=== PATIENT | male | born 1965 | race Caucasian/White ===

== ENCOUNTER 2016-07-19 22:12 | Inpatient (IN) | payer MEDICARE ==
[2016-07-19 22:30] VITALS: BMI 25.8
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
[2016-07-19] MEDS ORDERED: MAGNESIUM CITRATE 300 ML BOTTLE PO PRN (22:40)
[2016-07-19] MEDS ORDERED: LOPERAMIDE HCL 2 MG CAPSULE PO PRN (22:40)
[2016-07-19] MEDS ORDERED: guaiFENesin/D-METHORPHAN HB 10 ML UNIT-DOSE CUPS PO PRN (22:40)
[2016-07-19] MEDS ORDERED: ACETAMINOPHEN 325 MG TABLET (FP) PO PRN (22:40)
[2016-07-19] MEDS ORDERED: hydrOXYzine PAMOATE 50 MG CAPSULE (FP) PO PRN (22:40)
[2016-07-19] MEDS ORDERED: diphenhydrAMINE HCL 50 MG CAPSULE PO PRN (22:40)
[2016-07-19] MEDS ORDERED: MAG HYDROX/AL HYDROX/SIMETH 30 ML UNIT-DOSE CUP PO PRN (22:40)
[2016-07-19] MEDS ORDERED: chlordiazePOXIDE HCL 25 MG CAPSULE PO PRN (22:40)
[2016-07-19] MEDS ORDERED: MENTHOL/PHENOL 1 EACH UD MM PRN (22:40)
[2016-07-19] MEDS ORDERED: chlordiazePOXIDE HCL 25 MG CAPSULE PO ONE (22:40)
[2016-07-19] MEDS ORDERED: MAGNESIUM HYDROX 2400MG/30ML ORAL SUSPENSION 30 ML CUP PO PRN (22:40)
[2016-07-19] MEDS ORDERED: P-EPHED 60MG/TRIPROLIDI 2.5MG TABLET PO PRN (22:40)
[2016-07-19] MEDS ORDERED: IBUPROFEN 400 MG TABLET (FP) PO PRN (22:40)
[2016-07-19] MEDS ORDERED: ONDANSETRON *ODT* 4 MG TABLET SL PRN (22:42)
[2016-07-19] MEDS: chlordiazePOXIDE HCL 25 MG CAPSULE PO SCH (23:43)
[2016-07-20] MEDS: chlordiazePOXIDE HCL 25 MG CAPSULE PO SCH (05:36)
[2016-07-20 05:59] VITALS: BP 159/99; PULSE 93; TEMP 98
[2016-07-20] MEDS ORDERED: INSULIN SLIDING SCALE (NOVOLOG) 1 VIAL SQ SCH (07:00)
[2016-07-20] MEDS ORDERED: metFORMIN HCL 500 MG TABLET (FP) PO SCH (07:00)
[2016-07-20] MEDS ORDERED: INSULIN (NOVOLOG) ASPART 100 UNITS/ML 10ML VIAL ONE (07:30)
[2016-07-20] MEDS ORDERED: amLODIPine BESYLATE 10 MG TABLET (FP) PO SCH (10:00)
[2016-07-20] MEDS ORDERED: LISINOPRIL 10 MG TABLET (FP) PO SCH (10:00)
[2016-07-20] MEDS ORDERED: PRENATAL VITAMINS W/ FOLIC ACID TABLET (FP) PO SCH (10:00)
[2016-07-20 10:07] LABS: URINE APPEARANCE CLEAR; URINE BILIRUBIN NEGATIVE (NEGATIVE); URINE BLOOD NEGATIVE (NEGATIVE); URINE COLOR YELLOW; URINE GLUCOSE (UA) 1+ (NEGATIVE); URINE KETONE NEGATIVE (NEGATIVE); URINE LEUK ESTERASE NEGATIVE (NEGATIVE); URINE NITRITE NEGATIVE (NEGATIVE); URINE PROTEIN NEGATIVE (NEGATIVE); URINE UROBILINOGEN 2.0 E.U/dl E.U./dl (0.2-1.0)
[2016-07-20 10:08] LABS: MCH 32.7 pg (25.7-33.7); MCHC 34.2 g/dl (32.0-35.9); MEAN CELL VOLUME 95.6 fl (80-96); MEAN PLT VOLUME 7.2 fl (7.5-11.1); PLATELET COUNT 251 K/MM3 (134-434); RDW 14.8 % (11.9-15.9); WHITE BLOOD COUNT 3.6 K/mm3 (4.0-10.0)
[2016-07-20 10:59] LABS: ALBUMIN 3.1 g/dl (3.4-5.0); ALK PHOS 110 U/L (45-117); ANION GAP 13 (8-16); BILIRUBIN,TOTAL 0.9 mg/dL (0.2-1.0); CALCIUM 8.1 mg/dL (8.5-10.1); CO2 25 mmol/L (21-32); CREATININE 0.9 mg/dL (0.7-1.3); GLUCOSE,RANDOM 238 mg/dL (74-106); SGPT/ALT 95 U/L (12-78); TOT PROT 6.5 g/dl (6.4-8.2)
[2016-07-20 11:02] LABS: SGOT/AST 152 U/L (15-37)
--- NOTE | 2016-07-20 13:51 | EKG ---
Test Reason : Blood Pressure : / mmHG Vent. Rate : 090 BPM Atrial Rate : 090 BPM P-R Int : 202 ms QRS Dur : 100 ms QT Int : 414 ms P-R-T Axes : 063 -16 038 degrees QTc Int : 506 ms NORMAL SINUS RHYTHM POSSIBLE LEFT ATRIAL ENLARGEMENT LEFT VENTRICULAR HYPERTROPHY INFERIOR INFARCT (CITED ON OR BEFORE 19-JUL-2016) PROLONGED QT ABNORMAL ECG WHEN COMPARED WITH ECG OF 07-JAN-2016 20:36, NO SIGNIFICANT CHANGE WAS FOUND Confirmed by JAIME TROTTER MD ([id number]) on 07/20/2016 1:51:30 PM Referred By: Confirmed By:JAIME TROTTER MD
--- NOTE | 2016-07-20 18:05 | DS ---
[facility] Detox Discharge Summary Admission Date: 07/19/16 Discharge Date: 07/20/16 - History Present History: Alcohol Dependence Pertinent Past History: Type II DM HTN Hypercholesterolemia - Physical Exam Results Vital Signs: Vital Signs Temperature 98 F 07/20/16 05:58 Pulse Rate 93 H 07/20/16 05:58 Respiratory Rate 18 07/20/16 05:58 Blood Pressure 159/99 07/20/16 05:58 O2 Sat by Pulse Oximetry (%) Pertinent Admission Physical Exam Findings: Withdrawal sx. Laboratory Last Values WBC 3.6 K/mm3 (4.0-10.0) L D 07/20/16 07:00 RBC 4.51 M/mm3 (4.00-5.60) D 07/20/16 07:00 Hgb 14.7 GM/dL (11.7-16.9) D 07/20/16 07:00 Hct 43.1 % (35.4-49) D 07/20/16 07:00 MCV 95.6 fl (80-96) 07/20/16 07:00 MCHC 34.2 g/dl (32.0-35.9) 07/20/16 07:00 RDW 14.8 % (11.9-15.9) 07/20/16 07:00 Plt Count 251 K/MM3 (134-434) D 07/20/16 07:00 MPV 7.2 fl (7.5-11.1) L 07/20/16 07:00 Sodium 140 mmol/L (136-145) 07/20/16 07:00 Potassium 3.4 mmol/L (3.5-5.1) L 07/20/16 07:00 Chloride 102 mmol/L (98-107) 07/20/16 07:00 Carbon Dioxide 25 mmol/L (21-32) 07/20/16 07:00 Anion Gap 13 (8-16) 07/20/16 07:00 BUN 18 mg/dL (7-18) D 07/20/16 07:00 Creatinine 0.9 mg/dL (0.7-1.3) 07/20/16 07:00 Creat Clearance w eGFR > 60 (>60) 07/20/16 07:00 POC Glucometer 267 UNITS (()) 07/20/16 05:35 Random Glucose 238 mg/dL (74-106) H 07/20/16 07:00 Calcium 8.1 mg/dL (8.5-10.1) L 07/20/16 07:00 Total Bilirubin 0.9 mg/dL (0.2-1.0) D 07/20/16 07:00 AST 152 U/L (15-37) H D 07/20/16 07:00 ALT 95 U/L (12-78) H 07/20/16 07:00 Alkaline Phosphatase 110 U/L (45-117) D 07/20/16 07:00 Total Protein 6.5 g/dl (6.4-8.2) 07/20/16 07:00 Albumin 3.1 g/dl (3.4-5.0) L 07/20/16 07:00 Urine Color Yellow 07/20/16 08:00 Urine Appearance Clear 07/20/16 08:00 Urine pH 5.0 (5.0-8.0) 07/20/16 08:00 Ur Specific [place] 1.025 (1.001-1.035) 07/20/16 08:00 Urine Protein Negative (NEGATIVE) 07/20/16 08:00 Urine Glucose (UA) 1+ (NEGATIVE) H 07/20/16 08:00 Urine Ketones Negative (NEGATIVE) 07/20/16 08:00 Urine Blood Negative (NEGATIVE) 07/20/16 08:00 Urine Nitrite Negative (NEGATIVE) 07/20/16 08:00 Urine Bilirubin Negative (NEGATIVE) 07/20/16 08:00 Urine Urobilinogen 2.0 e.u/dl E.U./dl (0.2-1.0) 07/20/16 08:00 Ur Leukocyte Esterase Negative (NEGATIVE) 07/20/16 08:00 RPR Titer Nonreactive (NONREACTIVE) 07/20/16 07:00 labs noted - Medication Discharge Medications: Ambulatory Orders NK [No Known Home Medication] 07/19/16 - Diagnosis (1) Alcohol dependence with uncomplicated withdrawal Status: Acute (2) Hypercholesterolemia Status: Acute (3) Hypertension Status: Acute Qualifiers: Hypertension type: essential hypertension Qualified Code(s): I10 - Essential (primary) hypertension (4) Type II diabetes mellitus Status: Acute Qualifiers: Diabetes mellitus complication status: with hyperglycemia Diabetes mellitus bed bug exterminator insulin use: with mcc use Qualified Code(s): E11.65 - Type 2 diabetes mellitus with hyperglycemia; Z79.4 - bed bug exterminator (current ) use of insulin - AMA Did Patient Leave Against Medical Advice: Yes
[2016-07-20] MEDS ORDERED: THIAMINE HCL 100 MG TABLET (FP) PO SCH (22:00)
[2016-07-20] MEDS ORDERED: INSULIN DETEMIR 100 UNITS/ML MDV SQ SCH (22:00)
[2016-07-20] MEDS ORDERED: chlordiazePOXIDE HCL 25 MG CAPSULE PO SCH (23:00)
[2016-07-21] MEDS ORDERED: chlordiazePOXIDE 5 MG CAPSULE PO SCH (23:00)
[2016-07-22] MEDS ORDERED: chlordiazePOXIDE HCL 10 MG CAPSULE PO SCH (23:00)
== END 2016-07-20 08:51 | disposition left against medical advice (07) | DRG 770 ==
LOC: YASAS 22:12 → Y3N 22:54
PROVIDERS: ADMIT Internal Medicine; ATTEND Internal Medicine
PROC: HZ2ZZZZ Detoxification Services for Substance Abuse Treatment (ICD-10-PCS; principal; 2016-07-20)
DX: F10.230 Alcohol dependence with withdrawal, uncomplicated (principal); F34.1 Dysthymic disorder; I10 Essential (primary) hypertension; E11.9 Type 2 diabetes mellitus without complications; Z79.4 Long term (current) use of insulin; Z79.84 Long term (current) use of oral hypoglycemic drugs; E78.00 Pure hypercholesterolemia, unspecified; Z98.890 Other specified postprocedural states
CPT/HCPCS: 36415; 80053; 81003; 85027; 86593; 93005; 93010

== ENCOUNTER 2016-12-17 17:57 | Inpatient (IN) | payer OTHER ==
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
[2016-12-17 18:37] VITALS: BMI 28.1
[2016-12-17] MEDS ORDERED: FAMOTIDINE 20 MG/50 ML IVPB 50 ML IVPB ONE ×2 (18:43→20:20)
[2016-12-17 19:04] LABS: BASOPHIL 0.7 % (0-2.0); EOSINOPHIL 1.6 % (0-4.5); MCH 31.4 pg (25.7-33.7); MEAN CELL VOLUME 92.3 fl (80-96); MEAN PLT VOLUME 7.4 fl (7.5-11.1); NEUTROPHILS 38.6 % (42.8-82.8); PLATELET COUNT 231 K/MM3 (134-434); RDW 14.2 % (11.9-15.9); WHITE BLOOD COUNT 5.4 K/mm3 (4.0-10.0)
[2016-12-17 19:26] LABS: ALBUMIN 3.4 g/dl (3.4-5.0); ANION GAP 9 (8-16); BILIRUBIN,TOTAL 0.3 mg/dL (0.2-1.0); CALCIUM 8.5 mg/dL (8.5-10.1); CO2 28 mmol/L (21-32); CREATININE 0.7 mg/dL (0.7-1.3); GLUCOSE,RANDOM 120 mg/dL (74-106); SGOT/AST 89 U/L (15-37); SGPT/ALT 47 U/L (12-78); TOT PROT 7.1 g/dl (6.4-8.2)
[2016-12-17 19:38] LABS: ALK PHOS 77 U/L (45-117); TROPONIN I 0.13 ng/ml (0.00-0.05)
[2016-12-17 19:50] LABS: CPK 2013 IU/L (39-308)
[2016-12-17] MEDS ORDERED: ASPIRIN 81 MG CHEWABLE TABLETS PO ONE (20:12)
[2016-12-17] MEDS ORDERED: SODIUM CHLORIDE 1,000 ML IV SCH (20:15)
[2016-12-17] MEDS ORDERED: LORAZEPAM CARPU-JECT 2 MG/ML DISP.SYRIN IVPUSH ONE (20:17)
[2016-12-17] MEDS ORDERED: ASPIRIN 81 MG CHEWABLE TABLETS ONE (20:19)
[2016-12-17] MEDS ORDERED: LORazepam 2 MG/ML SDV VIAL ONE (20:19)
[2016-12-18 00:06] LABS: URINE APPEARANCE CLEAR; URINE BILIRUBIN NEGATIVE (NEGATIVE); URINE BLOOD 1+ (NEGATIVE); URINE COLOR LTYELLOW; URINE GLUCOSE (UA) NEGATIVE (NEGATIVE); URINE KETONE TRACE (NEGATIVE); URINE LEUK ESTERASE NEGATIVE (NEGATIVE); URINE NITRITE NEGATIVE (NEGATIVE); URINE UROBILINOGEN NEGATIVE mg/dL (0.2-1.0)
[2016-12-18 00:12] LABS: URINE PROTEIN 1+ (NEGATIVE)
[2016-12-18 00:13] LABS: URINE MARIJUANA THC NEGATIVE ng/ml (CUTOFF=50)
[2016-12-18 00:14] LABS: URINE BACTERIA RARE /hpf (NONE SEEN); URINE MUCUS RARE; URINE RBC 1 /hpf (0-3); URINE WBC <1 /hpf (3-5)
--- NOTE | 2016-12-18 10:20 | CON.CARD ---
Consult Consult Specialty:: Cardiology Referred by:: Dr. Brambila Reason for Consultation:: Cardiac evaluation - History of Present Illness Chief Complaint: Chest pain History of Present Illness: Patient is a 51 year old male with underlying history of hypertension, hypercholesterolemia and diabetes mellitus, but noncompliant with his medications and also with history of ETOH abuse who presents intoxicated and having mid sternal chest discomfort. He denies shortness of breath or palpitations. He denies paroxysmal nocturnal dyspnea or orhtopnea. He denies fever or chills. He complains of nausea and intermittent vomiting. He denies abdominal pain. He denies headache or lightheadedness. Cardiology consultation was called for further evaluation. - History Source History Provided By: Patient, Medical Record Limitations to Obtaining History: Clinical Condition - Past Medical History Cardio/Vascular: Yes: HTN, Hyperlipdemia Endocrine: Yes: Diabetes Mellitus - Past Surgical History Past Surgical History: Yes: None - Alcohol/Substance Use Hx Alcohol Use: Yes History of Substance Use: reports: None - Smoking History Smoking history: Former smoker Have you smoked in the past 12 months: No Aproximately how many cigarettes per day: 0 Home Medications - Allergies Allergies/Adverse Reactions: Allergies Allergy/AdvReac Type Severity Reaction Status Date / Time No Known Allergies Allergy Verified 07/19/16 22:54 - Home Medications Home Medications: Ambulatory Orders NK [No Known Home Medication] 07/19/16 Family Disease History - Family Disease History Family Disease History: Diabetes: Father (PROSTATE ), Mother, Sister, [place] : Father Review of Systems - Review of Systems Constitutional: denies: Chills, Fever Cardiovascular: reports: Chest Pain. denies: Palpitations, Shortness of Breath Respiratory: denies: Cough, Hemoptysis, Orthopnea, PND, SOB, SOB on Exertion Gastrointestinal: reports: Nausea, Vomiting. denies: Abdominal Pain, Constipation, Diarrhea, Melena, Rectal Bleeding Neurological: denies: Dizziness, Headache, Seizure, Syncope Vital Signs: Vital Signs Temperature 98.2 F 12/18/16 05:53 Pulse Rate 92 H 12/18/16 05:53 Respiratory Rate 16 12/18/16 05:54 Blood Pressure 163/90 12/18/16 05:53 O2 Sat by Pulse Oximetry (%) 100 12/18/16 05:54 Neck: Yes: Supple Respiratory: Yes: CTA Bilaterally Gastrointestinal: Yes: Normal Bowel Sounds, Soft. No: Tenderness Cardiovascular: Yes: Regular Rate and Rhythm JVD: No Carotid Bruit: No PMI: Non-Displaced Heart Sounds: Yes: S1, S2. No: Gallop Murmur: No: Systolic Murmur Edema: No - Other Data Labs, Other Data: Troponin, BNP 12/17/16 12/17/16 20:38 21:35 B-Natriuretic Peptide Cancelled 88.04 Troponin, BNP Laboratory Results - last 24 hr 12/17/16 12/17/16 12/17/16 18:22 18:49 18:49 WBC 5.4 D RBC 4.59 Hgb 14.4 Hct 42.4 MCV 92.3 MCH 31.4 MCHC 34.0 RDW 14.2 Plt Count 231 MPV 7.4 L Neutrophils % 38.6 L D Lymphocytes % 52.8 H D Monocytes % 6.3 Eosinophils % 1.6 Basophils % 0.7 Sodium 141 Potassium 3.8 Chloride 104 Carbon Dioxide 28 Anion Gap 9 BUN 6 L D Creatinine 0.7 D Creat Clearance w eGFR > 60 POC Glucometer 129.02676 Random Glucose 120 H D Calcium 8.5 Total Bilirubin 0.3 D AST 89 H D ALT 47 D Alkaline Phosphatase 77 D Creatine Kinase 2013 H Creatine Kinase Index 0.5 CK-MB (CK-2) 11.930 H Troponin I 0.13 H D B-Natriuretic Peptide Total Protein 7.1 Albumin 3.4 Lipase Urine Color Urine Appearance Urine pH Urine Protein Urine Glucose (UA) Urine Ketones Urine Blood Urine Nitrite Urine Bilirubin Urine Urobilinogen Ur Leukocyte Esterase Urine RBC Urine WBC Ur Epithelial Cells Urine Bacteria Urine Mucus Opiates Screen Methadone Screen Barbiturate Screen Phencyclidine Screen Ur Amphetamines Screen MDMA (Ecstasy) Screen Benzodiazepines Screen Cocaine Screen U Marijuana (THC) Screen Alcohol, Quantitative 12/17/16 12/17/16 12/17/16 18:49 18:49 20:38 WBC RBC Hgb Hct MCV MCH MCHC RDW Plt Count MPV Neutrophils % Lymphocytes % Monocytes % Eosinophils % Basophils % Sodium Potassium Chloride Carbon Dioxide Anion Gap BUN Creatinine Creat Clearance w eGFR POC Glucometer Random Glucose Calcium Total Bilirubin AST ALT Alkaline Phosphatase Creatine Kinase Creatine Kinase Index CK-MB (CK-2) Troponin I B-Natriuretic Peptide Cancelled Total Protein Albumin Lipase 321 Urine Color Urine Appearance Urine pH Urine Protein Urine Glucose (UA) Urine Ketones Urine Blood Urine Nitrite Urine Bilirubin Urine Urobilinogen Ur Leukocyte Esterase Urine RBC Urine WBC Ur Epithelial Cells Urine Bacteria Urine Mucus Opiates Screen Methadone Screen Barbiturate Screen Phencyclidine Screen Ur Amphetamines Screen MDMA (Ecstasy) Screen Benzodiazepines Screen Cocaine Screen U Marijuana (THC) Screen Alcohol, Quantitative 224.2 H* 12/17/16 12/17/16 12/17/16 21:35 23:45 23:45 WBC RBC Hgb Hct MCV MCH MCHC RDW Plt Count MPV Neutrophils % Lymphocytes % Monocytes % Eosinophils % Basophils % Sodium Potassium Chloride Carbon Dioxide Anion Gap BUN Creatinine Creat Clearance w eGFR POC Glucometer Random Glucose Calcium Total Bilirubin AST ALT Alkaline Phosphatase Creatine Kinase Creatine Kinase Index CK-MB (CK-2) Troponin I B-Natriuretic Peptide 88.04 Total Protein Albumin Lipase Urine Color Ltyellow Urine Appearance Clear Urine pH 6.0 Urine Protein 1+ H Urine Glucose (UA) Negative Urine Ketones Trace H Urine Blood 1+ H Urine Nitrite Negative Urine Bilirubin Negative Urine Urobilinogen Negative Ur Leukocyte Esterase Negative Urine RBC 1 Urine WBC <1 Ur Epithelial Cells Rare Urine Bacteria Rare Urine Mucus Rare Opiates Screen Negative Methadone Screen Negative Barbiturate Screen Negative Phencyclidine Screen Negative Ur Amphetamines Screen Negative MDMA (Ecstasy) Screen Negative Benzodiazepines Screen Negative Cocaine Screen Negative U Marijuana (THC) Screen Negative Alcohol, Quantitative Sinus rhythm with 1st degree AV block, ST-T abnormality Echo: Pending Imaging - Results Chest X-ray: Report Reviewed (Unremarkable) EKG: Report Reviewed Assessment/Plan 1. ETOH intoxication and abuse, monitor withdawl 2. Chest pain syndrome 3. Hypertension 4. Hypercholesterolemia 5. Type 2 diabetes mellitus 6. Noncomliance PLAN: 1. Add ASA 81 mg once a day 2. Add beta adelaida +/- ACEI or ARB as tolerated 3. Check lipid panel and add statin as needed, but need to monitor LFT 4. Transthoracic echocardiography to assess LV/RV and valvular function 5. Detoxification - add Librium taper and monitor for withdawl 6. Nuclear myocardial perfusion imaging at some point once ETOH intoxication is resolved Further plans are to follow Bud Olivarez MD
[2016-12-18] MEDS ORDERED: METOPROLOL TARTRATE 25 MG TABLET (FP) PO SCH (10:45)
[2016-12-18] MEDS ORDERED: LISINOPRIL 10 MG TABLET (FP) PO SCH (10:45)
[2016-12-18] MEDS ORDERED: D5-1/2NS+20 MEQ KCL - 1,000 ML IV SCH (11:45)
[2016-12-18] MEDS ORDERED: THIAMINE HCL 100 MG TABLET (FP) PO SCH (11:45)
[2016-12-18 14:35] VITALS: BP 177/112; PULSE 80; TEMP 98.7
[2016-12-18] MEDS ORDERED: LISINOPRIL 20 MG TABLET (FP) PO SCH (14:52)
[2016-12-18] MEDS ORDERED: chlordiazePOXIDE 5 MG CAPSULE PO SCH (17:00)
--- NOTE | 2016-12-18 17:42 | EKG ---
Test Reason : Blood Pressure : / mmHG Vent. Rate : 078 BPM Atrial Rate : 078 BPM P-R Int : 220 ms QRS Dur : 106 ms QT Int : 428 ms P-R-T Axes : 067 -16 039 degrees QTc Int : 487 ms SINUS RHYTHM WITH 1ST DEGREE A-V BLOCK POSSIBLE LEFT ATRIAL ENLARGEMENT POSSIBLE INFERIOR INFARCT (CITED ON OR BEFORE 19-JUL-2016) CANNOT RULE OUT ANTERIOR INFARCT , AGE UNDETERMINED ABNORMAL ECG WHEN COMPARED WITH ECG OF 19-JUL-2016 23:48, NO SIGNIFICANT CHANGE WAS FOUND Confirmed by PORTILLO ROBERT MD ([id number]) on 12/18/2016 5:42:00 PM Referred By: Confirmed By:PORTILLO ROBERT MD
[2016-12-19] MEDS ORDERED: ASPIRIN COATED 81 MG TABLET.EC PO SCH (10:00)
[2016-12-19] MEDS ORDERED: chlordiazePOXIDE 5 MG CAPSULE PO SCH (17:00)
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
== END 2016-12-18 16:15 | disposition left against medical advice (07) | DRG 351 ==
LOC: JER 17:57 → JERBED 20:14 → J4W 12-18 00:32
PROVIDERS: ADMIT Internal Medicine; ATTEND Internal Medicine
PROC: HZ2ZZZZ Detoxification Services for Substance Abuse Treatment (ICD-10-PCS; principal; 2016-12-17)
DX: M62.82 Rhabdomyolysis (principal); I44.0 Atrioventricular block, first degree; F10.120 Alcohol abuse with intoxication, uncomplicated; I11.0 Hypertensive heart disease with heart failure; I50.9 Heart failure, unspecified; R07.9 Chest pain, unspecified; E78.5 Hyperlipidemia, unspecified; E11.9 Type 2 diabetes mellitus without complications; F10.10 Alcohol abuse, uncomplicated; Z91.14 Patient's other noncompliance with medication regimen; Y90.7 Blood alcohol level of 200-239 mg/100 ml; Z87.891 Personal history of nicotine dependence
CPT/HCPCS: 36415; 71010-TC; 80053; 80307; 81003; 81015; 83690; 83880; 84484; 85025; 93005; 93010; 99284-25

== ENCOUNTER 2017-01-19 18:02 | Emergency (ER) | payer OTHER ==
[2017-01-19 18:11] VITALS: BP 136/84; PULSE 115; TEMP 98.1; BMI 31.3
== END 2017-01-19 18:40 | disposition left against medical advice (07) ==
LOC: JER 18:02
DX: Z53.21 Procedure and treatment not carried out due to patient leaving prior to being seen by health care provider (principal)
CPT/HCPCS: 99281-25

== ENCOUNTER 2017-01-25 15:12 | Inpatient (IN) | payer OTHER ==
[2017-01-25] MEDS ORDERED: SODIUM CHLORIDE 1,000 ML IV STA (15:36)
[2017-01-25] MEDS ORDERED: KETOROLAC TROMETHAMINE 30 MG/1 ML VIAL IVPUSH ONE (15:37)
[2017-01-25] MEDS ORDERED: diazePAM CARPU-JECT 10 MG/2 ML DISP.SYRIN IVPUSH ONE ×2 (15:37→17:51)
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
[2017-01-25] MEDS ORDERED: diazePAM CARPU-JECT 10 MG/2 ML DISP.SYRIN ONE (15:52)
[2017-01-25] MEDS ORDERED: KETOROLAC TROMETHAMINE 30 MG/1 ML VIAL ONE (15:52)
[2017-01-25 16:22] LABS: BASOPHIL 0.5 % (0-2.0); EOSINOPHIL 0.2 % (0-4.5); MCH 32.1 pg (25.7-33.7); MCHC 35.1 g/dl (32.0-35.9); MEAN CELL VOLUME 91.3 fl (80-96); MEAN PLT VOLUME 7.6 fl (7.5-11.1); NEUTROPHILS 61.9 % (42.8-82.8); PLATELET COUNT 238 K/MM3 (134-434); RDW 14.2 % (11.9-15.9); WHITE BLOOD COUNT 8.1 K/mm3 (4.0-10.0)
[2017-01-25 16:36] LABS: INR 1.1 (0.82-1.09); PROTHROMBIN TIME (PATIENT) 12.1 SEC (9.98-11.88)
[2017-01-25 16:51] LABS: ALBUMIN 3.5 g/dl (3.4-5.0); ANION GAP 16 (8-16); BILIRUBIN,TOTAL 0.8 mg/dL (0.2-1.0); CALCIUM 8.4 mg/dL (8.5-10.1); CO2 20 mmol/L (21-32); CREATININE 0.8 mg/dL (0.7-1.3); GLUCOSE,RANDOM 216 mg/dL (74-106); SGPT/ALT 37 U/L (12-78); TOT PROT 7.3 g/dl (6.4-8.2)
[2017-01-25 16:53] LABS: ALK PHOS 91 U/L (45-117); CPK 319 IU/L (39-308); TROPONIN I 0.27 ng/ml (0.00-0.05)
[2017-01-25 16:55] LABS: URINE APPEARANCE CLEAR; URINE BILIRUBIN NEGATIVE (NEGATIVE); URINE BLOOD 1+ (NEGATIVE); URINE COLOR LTYELLOW; URINE GLUCOSE (UA) NEGATIVE (NEGATIVE); URINE KETONE NEGATIVE (NEGATIVE); URINE LEUK ESTERASE NEGATIVE (NEGATIVE); URINE NITRITE NEGATIVE (NEGATIVE); URINE PROTEIN NEGATIVE (NEGATIVE); URINE UROBILINOGEN NEGATIVE mg/dL (0.2-1.0)
[2017-01-25 17:04] LABS: SGOT/AST 56 U/L (15-37)
[2017-01-25] MEDS ORDERED: ASPIRIN 325 MG ENTERIC COATED TABLET (FP) PO ONE (17:20)
[2017-01-25 17:25] LABS: URINE MUCUS RARE; URINE RBC <1 /hpf (0-3); URINE WBC <1 /hpf (3-5)
[2017-01-25 17:28] LABS: URINE MARIJUANA THC NEGATIVE ng/ml (CUTOFF=50)
[2017-01-25] MEDS ORDERED: ATORVASTATIN CA 80 MG TABLET (FP) PO ONE (17:33)
--- NOTE | 2017-01-25 17:36 | PDOC ---
*Physical Exam - Vital Signs Last Vital Signs Temp Pulse Resp BP Pulse Ox 97.7 F 82 18 132/90 100 01/25/17 15:26 01/25/17 16:50 01/25/17 16:50 01/25/17 16:50 01/25/17 16:50 ED Treatment Course - LABORATORY CBC & Chemistry Diagram: 01/25/17 15:30 01/25/17 15:30 - ADDITIONAL ORDERS Additional order review: Laboratory Results 01/25/17 01/25/17 01/25/17 16:40 16:40 15:30 INR Sodium Potassium Chloride Carbon Dioxide Anion Gap BUN Creatinine Creat Clearance w eGFR Random Glucose Calcium Total Bilirubin AST ALT Alkaline Phosphatase Creatine Kinase Troponin I Total Protein Albumin Urine Color Ltyellow Urine Appearance Clear Urine pH 5.0 Urine Protein Negative Urine Glucose (UA) Negative Urine Ketones Negative Urine Blood 1+ H Urine Nitrite Negative Urine Bilirubin Negative Urine Urobilinogen Negative Ur Leukocyte Esterase Negative Urine RBC <1 Urine WBC <1 Urine Mucus Rare Opiates Screen Negative Methadone Screen Negative Barbiturate Screen Negative Phencyclidine Screen Negative Ur Amphetamines Screen Negative MDMA (Ecstasy) Screen Negative Benzodiazepines Screen Positive Cocaine Screen Negative U Marijuana (THC) Screen Negative Alcohol, Quantitative 353.6 H* 01/25/17 01/25/17 15:30 15:30 INR 1.10 Sodium 135 L Potassium 3.8 Chloride 99 Carbon Dioxide 20 L D Anion Gap 16 BUN 13 D Creatinine 0.8 Creat Clearance w eGFR > 60 Random Glucose 216 H D Calcium 8.4 L Total Bilirubin 0.8 D AST 56 H D ALT 37 D Alkaline Phosphatase 91 Creatine Kinase 319 H Troponin I 0.27 H D Total Protein 7.3 Albumin 3.5 Urine Color Urine Appearance Urine pH Urine Protein Urine Glucose (UA) Urine Ketones Urine Blood Urine Nitrite Urine Bilirubin Urine Urobilinogen Ur Leukocyte Esterase Urine RBC Urine WBC Urine Mucus Opiates Screen Methadone Screen Barbiturate Screen Phencyclidine Screen Ur Amphetamines Screen MDMA (Ecstasy) Screen Benzodiazepines Screen Cocaine Screen U Marijuana (THC) Screen Alcohol, Quantitative 01/25/17 15:30 RBC 4.65 MCV 91.3 MCHC 35.1 RDW 14.2 MPV 7.6 Neutrophils % 61.9 D Lymphocytes % 33.8 D Monocytes % 3.6 L Eosinophils % 0.2 D Basophils % 0.5 - RADIOLOGY Radiology Studies Ordered: Category Date Time Status CHEST - PA [RAD] Stat Radiology 01/25/17 15:18 Completed - Medications Given in the ED: ED Medications Discontinued Medications Generic Name Dose Route Start Last Admin Trade Name Jarek PRN Reason Stop Dose Admin Diazepam 10 mg 01/25/17 15:37 01/25/17 16:00 Valium Injection - IVPUSH 01/25/17 15:38 10 mg ONCE ONE Administration Sodium Chloride 1,000 mls @ 1,000 mls/hr 01/25/17 15:36 01/25/17 16:00 Normal Saline - IV 01/25/17 16:35 1,000 mls/hr ASDIR STA Administration Ketorolac Tromethamine 30 mg 01/25/17 15:37 01/25/17 16:00 Toradol Injection - IVPUSH 01/25/17 15:38 30 mg ONCE ONE Administration *DC/Admit/Observation/Transfer Diagnosis at time of Disposition: Alcohol intoxication, Elevated troponin Chest pain Qualifiers: Chest pain type: unspecified Qualified Code(s): R07.9 - Chest pain, unspecified - Discharge Dispostion Condition at time of disposition: Fair Admit: Yes
[2017-01-25] MEDS ORDERED: METOPROLOL TARTRATE 5 MG/5 ML VIAL IVPUSH ONE (17:40)
[2017-01-25] MEDS ORDERED: ASPIRIN 325 MG ENTERIC COATED TABLET (FP) ONE (17:40)
[2017-01-25] MEDS ORDERED: ENOXAPARIN NA (PORCINE) 80 MG/0.8 ML DISP.SYRIN SQ ONE (17:41)
[2017-01-25] MEDS ORDERED: METOPROLOL TARTRATE 5 MG/5 ML VIAL ONE (17:41)
[2017-01-25] MEDS ORDERED: ATORVASTATIN CA 80 MG TABLET (FP) ONE (17:41)
[2017-01-25] MEDS ORDERED: ENOXAPARIN NA (PORCINE) 80 MG/0.8 ML DISP.SYRIN SQ SCH (17:45)
[2017-01-25] MEDS ORDERED: chlordiazePOXIDE HCL 25 MG CAPSULE PO ONE (17:52)
[2017-01-25] MEDS ORDERED: chlordiazePOXIDE HCL 25 MG CAPSULE ONE (17:58)
[2017-01-25] MEDS ORDERED: ONDANSETRON 4 MG/2 ML VIAL IVPB PRN (19:57)
[2017-01-25] MEDS ORDERED: NITROGLYCERIN SUBLINGUAL 1/150 0.4 MG TAB SL PRN (20:02)
[2017-01-25] MEDS: SODIUM CHLORIDE 1,000 ML IV SCH (20:53)
[2017-01-25] MEDS: FAMOTIDINE 20 MG/50 ML IVPB 50 ML IVPB SCH (20:53)
[2017-01-25] MEDS: chlordiazePOXIDE HCL 25 MG CAPSULE PO PRN (20:54)
[2017-01-25] MEDS: THIAMINE HCL 200 MG/2 ML VIAL IVPB SCH (23:00)
[2017-01-25] MEDS: METOPROLOL TARTRATE 25 MG TABLET (FP) PO SCH (23:20)
[2017-01-25 23:57] LABS: MAGNESIUM 1.7 mg/dL (1.8-2.4)
[2017-01-26] MEDS: INSULIN SLIDING SCALE (NOVOLOG) 1 VIAL SQ SCH ×2 (06:24→12:06)
[2017-01-26 06:31] VITALS: BMI 28.5
[2017-01-26 07:35] LABS: PHOSPHOROUS 2.4 mg/dL (2.5-4.9)
[2017-01-26] MEDS: chlordiazePOXIDE HCL 25 MG CAPSULE PO PRN (08:09)
[2017-01-26 08:19] LABS: BASOPHIL 0.7 % (0-2.0); EOSINOPHIL 1.6 % (0-4.5); MCH 31.7 pg (25.7-33.7); MCHC 34.6 g/dl (32.0-35.9); MEAN CELL VOLUME 91.5 fl (80-96); MEAN PLT VOLUME 7.3 fl (7.5-11.1); NEUTROPHILS 52.5 % (42.8-82.8); PLATELET COUNT 205 K/MM3 (134-434); RDW 14.4 % (11.9-15.9)
[2017-01-26 08:56] LABS: ALBUMIN 3.2 g/dl (3.4-5.0); ALK PHOS 81 U/L (45-117); ANION GAP 13 (8-16); BILIRUBIN,TOTAL 1.4 mg/dL (0.2-1.0); CALCIUM 7.8 mg/dL (8.5-10.1); CO2 22 mmol/L (21-32); CREATININE 0.7 mg/dL (0.7-1.3); GLUCOSE,RANDOM 115 mg/dL (74-106); SGOT/AST 63 U/L (15-37); SGPT/ALT 35 U/L (12-78); TOT PROT 6.5 g/dl (6.4-8.2)
[2017-01-26 09:03] LABS: THYROID STIMULATING HORMONE 0.93 uIU/ml (0.358-3.74)
[2017-01-26] MEDS: METOPROLOL TARTRATE 25 MG TABLET (FP) PO SCH (09:17)
[2017-01-26] MEDS: FAMOTIDINE 20 MG/50 ML IVPB 50 ML IVPB SCH (09:17)
[2017-01-26] MEDS: SODIUM CHLORIDE 1,000 ML IV SCH (09:20)
[2017-01-26] MEDS: THIAMINE HCL 200 MG/2 ML VIAL IVPB SCH (09:51)
--- NOTE | 2017-01-26 09:56 | HP ---
Admitting History and Physical - Primary Care Physician PCP: Rodrigo Culver - Admission Chief Complaint: Chest Discomfort History of Present Illness: 51 yrs old man h/O HTN, T2DM< Dyslipedemia, non compliant with meds and F/U also H/O ETOH abuse, recently discharged from [facility] in November 2016 after treated for NSTEMI in setting of ETOH abuse, never evaluated for CAD as patient didn't F/U with Cardiology , yesterday BIB family to Ed with c/o diffuse chest pain with nausea, vomiting and tremulousness in the setting of ETOH intoxication , on arrival patient was confused and delirious w/u shows elevated Plasma ETOH level, with elevated toponin I no acute ST t changes admitted for further evaluation, , patient denies any hemetmesis, melena, vomiting contains ingested food and bile, chest pain diffuse more burning in characteristic continuos, non radiating aggravates with vomiting, today still c/ o nausea, tremulousness, . in the Ed Cardiology was consulted recommended therapeutic doseof SQ Lovenox and ASA.. History Source: Patient Limitations to Obtaining History: No Limitations - Past Medical History Cardiovascular: Yes: HTN, Hyperlipdemia Hepatobiliary: Yes: Other (ETOH gastritis) Psych: Yes: Anxiety Endocrine: Yes: Diabetes Mellitus - Past Surgical History Past Surgical History: Yes: None - Smoking History Smoking history: Never smoked Have you smoked in the past 12 months: No Aproximately how many cigarettes per day: 0 - Alcohol/Substance Use Hx Alcohol Use: Yes (h/o alcohol abuse) History of Substance Use: reports: None - Social History ADL: Independent Home Medications - Allergies Allergies/Adverse Reactions: Allergies Allergy/AdvReac Type Severity Reaction Status Date / Time No Known Allergies Allergy Verified 01/25/17 15:31 - Home Medications Home Medications: Ambulatory Orders NK [No Known Home Medication] 07/19/16 Family Disease History - Family Disease History Family Disease History: Diabetes: Father (PROSTATE ), Mother, Sister, [place] : Father Review of Systems - Review of Systems Constitutional: reports: Diaphoresis Eyes: reports: No Symptoms HENT: reports: No Symptoms Neck: reports: No Symptoms Cardiovascular: reports: Chest Pain. denies: Palpitations, Shortness of Breath Respiratory: reports: No Symptoms. denies: Cough, SOB Gastrointestinal: reports: Abdominal Pain, Nausea, Vomiting. denies: Melena, Rectal Bleeding, Vomiting Blood Musculoskeletal: reports: No Symptoms Integumentary: reports: No Symptoms Neurological: reports: Tremors, Unsteady Gait Endocrine: reports: Increased Thirst Hematology/Lymphatic: reports: No Symptoms Psychiatric: reports: Anxiety. denies: Suicidal Physical Examination Vital Signs: Vital Signs Temperature 98.1 F 01/26/17 05:40 Pulse Rate 85 01/26/17 05:40 Respiratory Rate 20 01/26/17 05:40 Blood Pressure 149/93 01/26/17 05:40 O2 Sat by Pulse Oximetry (%) 98 01/25/17 20:45 Constitutional: Yes: Well Nourished, Anxious Eyes: Yes: Conjunctiva Clear, EOM Intact, PERRL. No: Sclera Icterus HENT: Yes: Atraumatic Neck: Yes: Supple, Trachea Midline. No: Lymphadenopathy Cardiovascular: Yes: Regular Rate and Rhythm, S1, S2. No: JVD, Murmur, Rub Respiratory: Yes: WNL, Regular, CTA Bilaterally Gastrointestinal: Yes: Normal Bowel Sounds, Soft, Tenderness, Epigastrium ...Rectal Exam: Yes: Deferred Musculoskeletal: No: Back Pain, Joint Stiffness Extremities: Yes: WNL. No: Calf Tenderness Edema: No Peripheral Pulses: Left Doralis Pedis: 2+, Right Dorsalis Pedis: 2+ Integumentary: Yes: WNL Neurological: Yes: Alert, Oriented, Cran Nerves II-XII Intact, Tremors. No: Seizure, Tingling ...Motor Strength: WNL, LUE, LLE, RUE, RLE Labs: CBC, BMP 01/26/17 07:00 01/26/17 07:00 CBC,CMP WBC 6.0 K/mm3 (4.0-10.0) 01/26/17 07:00 RBC 4.37 M/mm3 (4.00-5.60) 01/26/17 07:00 Hgb 13.8 GM/dL (11.7-16.9) 01/26/17 07:00 Hct 40.0 % (35.4-49) 01/26/17 07:00 MCV 91.5 fl (80-96) 01/26/17 07:00 MCH 31.7 pg (25.7-33.7) 01/26/17 07:00 MCHC 34.6 g/dl (32.0-35.9) 01/26/17 07:00 RDW 14.4 % (11.9-15.9) 01/26/17 07:00 Plt Count 205 K/MM3 (134-434) 01/26/17 07:00 MPV 7.3 fl (7.5-11.1) L 01/26/17 07:00 Neutrophils % 52.5 % (42.8-82.8) 01/26/17 07:00 Lymphocytes % 40.7 % (8-40) H D 01/26/17 07:00 Monocytes % 4.5 % (3.8-10.2) 01/26/17 07:00 Eosinophils % 1.6 % (0-4.5) D 01/26/17 07:00 Basophils % 0.7 % (0-2.0) 01/26/17 07:00 Sodium 139 mmol/L (136-145) 01/26/17 07:00 Potassium 3.4 mmol/L (3.5-5.1) L 01/26/17 07:00 Chloride 104 mmol/L (98-107) 01/26/17 07:00 Carbon Dioxide 22 mmol/L (21-32) 01/26/17 07:00 Anion Gap 13 (8-16) 01/26/17 07:00 BUN 13 mg/dL (7-18) 01/26/17 07:00 Creatinine 0.7 mg/dL (0.7-1.3) 01/26/17 07:00 Creat Clearance w eGFR > 60 (>60) 01/26/17 07:00 POC Glucometer 113 UNITS (()) 01/26/17 05:38 Random Glucose 115 mg/dL (74-106) H D 01/26/17 07:00 Hemoglobin A1c % 7.0 % (4.8-6.0) H 01/26/17 07:00 Calcium 7.8 mg/dL (8.5-10.1) L 01/26/17 07:00 Phosphorus 2.4 mg/dL (2.5-4.9) L D 01/25/17 20:30 Magnesium 1.7 mg/dL (1.8-2.4) L D 01/25/17 20:30 Total Bilirubin 1.4 mg/dL (0.2-1.0) H D 01/26/17 07:00 AST 63 U/L (15-37) H 01/26/17 07:00 ALT 35 U/L (12-78) 01/26/17 07:00 Alkaline Phosphatase 81 U/L (45-117) 01/26/17 07:00 Creatine Kinase 319 IU/L (39-308) H 01/25/17 15:30 Creatine Kinase Index 0.9 % (0.0-5.0) 01/25/17 15:30 CK-MB (CK-2) 3.155 ng/mL (0.5-3.6) 01/25/17 15:30 Troponin I 0.30 ng/ml (0.00-0.05) H 01/25/17 20:30 B-Natriuretic Peptide 52.44 pg/ml (5-125) 01/25/17 15:30 Total Protein 6.5 g/dl (6.4-8.2) 01/26/17 07:00 Albumin 3.2 g/dl (3.4-5.0) L 01/26/17 07:00 Triglycerides 761 mg/dL (35-160) H 01/25/17 20:30 Cholesterol 137 mg/dL (50-200) 01/25/17 20:30 Total LDL Cholesterol 28 mg/dL (5-100) 01/25/17 20:30 HDL Cholesterol 17 mg/dL (40-60) L 01/25/17 20:30 TSH 0.93 uIU/ml (0.358-3.74) 01/26/17 07:00 Imaging - Results X-ray: Report Reviewed (Normal) Cat Scan: Report Reviewed (Head Normal no acute changes) EKG: Report Reviewed ([address] T chnages) Problem List - Problems (1) Alcohol intoxication Assessment/Plan: Observe for DTS, Librium protocol F/U Mag Phosphate, replete electrolytes, Thiamine 100 mg Daily PO, willing for inpatient rehab will F/U with SW Code(s): F10.129 - ALCOHOL ABUSE WITH INTOXICATION, UNSPECIFIED (2) Chest pain Assessment/Plan: Present with atypical chest pain, multiple CAd risk and elevated troponin F/U Cardiology recommendations, Cardiac tele, serial CE and EKG, ECHO, Lipid Panel TSH, ECHO consider NST once not in withdrawal cont ASA add B Blockers. Code(s): R07.9 - CHEST PAIN, UNSPECIFIED Qualifiers: Chest pain type: unspecified Qualified Code(s): R07.9 - Chest pain, unspecified (3) Dyslipidemia Assessment/Plan: Elevated TG F/U Fasting TG once sober add fibrates Code(s): E78.5 - HYPERLIPIDEMIA, UNSPECIFIED (4) Type II diabetes mellitus Assessment/Plan: Uncontrolled non complint F/U HBA!C RPG < 200 accucheck and correction dose insulin. Code(s): E11.9 - TYPE 2 DIABETES MELLITUS WITHOUT COMPLICATIONS Qualifiers: Diabetes mellitus complication status: with hyperglycemia Diabetes mellitus intermodal customer service insulin use: with intermodal customer service use Qualified Code(s): E11.65 - Type 2 diabetes mellitus with hyperglycemia; Z79.4 - intermodal customer service (current ) use of insulin (5) Hypertension Assessment/Plan: Optimize BP control. Code(s): I10 - ESSENTIAL (PRIMARY) HYPERTENSION Qualifiers: Hypertension type: essential hypertension Qualified Code(s): I10 - Essential (primary) hypertension (6) Elevated troponin I level Assessment/Plan: Multiple CAd risk factors , atypical pain but elevated troponin consider high risk R/O CAD F/U Cradiology recommondation, ASA, B Blockers, S/L NTG PRN Code(s): R74.8 - ABNORMAL LEVELS OF OTHER SERUM ENZYMES (7) Alcoholic gastritis without bleeding Assessment/Plan: Diet as tolerates, IV Hydration, Zofran and Pepcid BID Code(s): K29.20 - ALCOHOLIC GASTRITIS WITHOUT BLEEDING (8) Hypomagnesemia Assessment/Plan: Replete F/U Mag Code(s): E83.42 - HYPOMAGNESEMIA (9) Hypokalemia Assessment/Plan: Replete F/U K Code(s): E87.6 - HYPOKALEMIA
[2017-01-26] MEDS ORDERED: ASPIRIN COATED 81 MG TABLET.EC PO SCH (10:00)
[2017-01-26] MEDS ORDERED: chlordiazePOXIDE HCL 25 MG CAPSULE PO PRN (10:13)
[2017-01-26] MEDS ORDERED: MAGNESIUM SULF 50% (8.12 MEQ/2 ML-1 GM VIAL) IVPB ONE (10:13)
[2017-01-26 11:02] LABS: MAGNESIUM 1.5 mg/dL (1.8-2.4)
[2017-01-26] MEDS ORDERED: chlordiazePOXIDE HCL 25 MG CAPSULE PO SCH (12:00)
--- NOTE | 2017-01-26 12:19 | EKG ---
Test Reason : Blood Pressure : / mmHG Vent. Rate : 083 BPM Atrial Rate : 083 BPM P-R Int : 240 ms QRS Dur : 104 ms QT Int : 404 ms P-R-T Axes : 061 -17 022 degrees QTc Int : 474 ms SINUS RHYTHM WITH 1ST DEGREE A-V BLOCK WITH PREMATURE VENTRICULAR COMPLEXES OR FUSION COMPLEXES INFERIOR INFARCT (CITED ON OR BEFORE 19-JUL-2016) ABNORMAL ECG WHEN COMPARED WITH ECG OF 25-JAN-2017 15:24, FUSION COMPLEXES ARE NOW PRESENT PREMATURE VENTRICULAR COMPLEXES ARE NOW PRESENT [place] INTERVAL HAS INCREASED Confirmed by BLESSING ACUÑA MD ([id number]) on 01/26/2017 12:18:40 PM Referred By: Confirmed By:BLESSING ACUÑA MD
--- NOTE | 2017-01-26 12:26 | EKG ---
Test Reason : Blood Pressure : / mmHG Vent. Rate : 100 BPM Atrial Rate : 100 BPM P-R Int : 198 ms QRS Dur : 116 ms QT Int : 372 ms P-R-T Axes : 062 -14 029 degrees QTc Int : 479 ms NORMAL SINUS RHYTHM POSSIBLE INFERIOR INFARCT (CITED ON OR BEFORE 19-JUL-2016) ABNORMAL ECG WHEN COMPARED WITH ECG OF 17-DEC-2016 19:59, NO SIGNIFICANT CHANGE WAS FOUND Confirmed by ARIANNE PUENTE, BLESSING ([id number]) on 01/26/2017 12:25:34 PM Referred By: Confirmed By:BLESSING ACUÑA MD
[2017-01-26 13:24] VITALS: BP 150/72; PULSE 83; TEMP 97.9
--- NOTE | 2017-01-26 13:52 | CON.CARD ---
Consult Consult Specialty:: Cardiology Referred by:: ER Reason for Consultation:: nstemi - History of Present Illness Chief Complaint: chest pain History of Present Illness: He is a 51 yr old man hx HTN, NIDDM, Dyslipedemia, non compliant with meds and F /U, ETOH abuse, recently discharged November 2016 post NSTEMI in setting of ETOH abuse, no ischemic workup due to noncompliance with follow up, admitted 01/25/17 c /o diffuse chest pain with nausea, vomiting and tremulousness in the setting of ETOH intoxication with elevated toponin I no acute ST t changes admitted for further evaluation,started on asa and lovenox. He was also tremulous, and admits to daily drinking, not taking medications. He was given librium today as well. Wishes to sign out AMA. Does not want inpatient david. Echo 01/26/17 low normal ef trace tr - History Source History Provided By: Patient, Medical Record Limitations to Obtaining History: Intoxication - Past Medical History Cardio/Vascular: Yes: HTN, Hyperlipdemia Hepatobiliary: Yes: Other (ETOH gastritis) Psych: Yes: Anxiety Endocrine: Yes: Diabetes Mellitus - Past Surgical History Past Surgical History: Yes: None - Alcohol/Substance Use Hx Alcohol Use: Yes (h/o alcohol abuse) History of Substance Use: reports: None - Smoking History Smoking history: Never smoked Have you smoked in the past 12 months: No Aproximately how many cigarettes per day: 0 - Social History ADL: Independent Home Medications - Allergies Allergies/Adverse Reactions: Allergies Allergy/AdvReac Type Severity Reaction Status Date / Time No Known Allergies Allergy Verified 01/25/17 15:31 - Home Medications Home Medications: Ambulatory Orders Aspirin Coated [Ecotrin -] 81 mg PO DAILY #30 tab 01/26/17 Metoprolol Tartrate [Lopressor -] 25 mg PO BID #60 tablet 01/26/17 Omeprazole 40 mg PO DAILY #30 capsule. 01/26/17 Vitamin B Complex [B Complex] 1 each PO DAILY #30 tablet 01/26/17 Family Disease History - Family Disease History Family Disease History: Diabetes: Father (PROSTATE ), Mother, Sister, [place] : Father Review of Systems - Review of Systems Constitutional: reports: No Symptoms Eyes: reports: No Symptoms HENT: reports: No Symptoms Neck: reports: No Symptoms Cardiovascular: reports: Chest Pain Respiratory: reports: No Symptoms Gastrointestinal: reports: No Symptoms Vital Signs: Vital Signs Temperature 97.9 F 01/26/17 10:00 Pulse Rate 83 01/26/17 10:00 Respiratory Rate 18 01/26/17 10:00 Blood Pressure 150/72 01/26/17 10:00 O2 Sat by Pulse Oximetry (%) 98 01/26/17 09:00 Constitutional: Yes: No Distress, Other (tremulous) Eyes: Yes: WNL HENT: Yes: WNL, Atraumatic, Normocephalic Neck: Yes: Supple, Trachea Midline Respiratory: Yes: CTA Bilaterally Gastrointestinal: Yes: Normal Bowel Sounds, Soft Cardiovascular: Yes: Regular Rate and Rhythm JVD: No Carotid Bruit: No PMI: Non-Displaced Heart Sounds: Yes: S1, S2 Edema: No Peripheral Pulses WNL: Yes - Other Data Labs, Other Data: CBC, BMP 01/26/17 07:00 01/26/17 07:00 INR, PTT INR 1.10 (0.82-1.09) 01/25/17 15:30 Troponin, BNP 01/25/17 20:30 Troponin I 0.30 H Troponin, BNP 01/25/17 20:30 Troponin I 0.30 H nsr first deg av block, old iwmi. Imaging - Results Chest X-ray: Report Reviewed (juliet) Problem List - Problems (1) Elevated troponin I level Assessment/Plan: He is not a candidate for inpatient ischemia work up. He wishes to sign out ama. I have advised against this, including but not limited to risk of , PR, arrhythmia, withdrawl, stroke and diabetic complications. He will follow up with his primary MD as an outpatient for evaluation. Code(s): R74.8 - ABNORMAL LEVELS OF OTHER SERUM ENZYMES
[2017-01-26] MEDS ORDERED: FAMOTIDINE 20 MG/50 ML IVPB 50 ML IVPB SCH ×2 (22:00)
--- NOTE | 2017-01-30 09:28 | DS ---
Physical Examination Vital Signs: Vital Signs Temperature 97.9 F 01/26/17 10:00 Pulse Rate 83 01/26/17 10:00 Respiratory Rate 18 01/26/17 10:00 Blood Pressure 150/72 01/26/17 10:00 O2 Sat by Pulse Oximetry (%) 98 01/26/17 09:00 P Exam: Constitutional: Yes: Well Nourished, Anxious Eyes: Yes: Conjunctiva Clear, EOM Intact, PERRL. No: Sclera Icterus HENT: Yes: Atraumatic Neck: Yes: Supple, Trachea Midline. No: Lymphadenopathy Cardiovascular: Yes: Regular Rate and Rhythm, S1, S2. No: JVD, Murmur, Rub Respiratory: Yes: WNL, Regular, CTA Bilaterally Gastrointestinal: Yes: Normal Bowel Sounds, Soft, Tenderness, Epigastrium Musculoskeletal: No: Back Pain, Joint Stiffness Extremities: Yes: WNL. No: Calf Tenderness Edema: No Peripheral Pulses: Left Doralis Pedis: 2+, Right Dorsalis Pedis: 2+ Integumentary: Yes: WNL Neurological: Yes: Alert, Oriented, Cran Nerves II-XII Intact, Tremors. No: Seizure, Tingling Motor Strength: WNL, LUE, LLE, RUE, RLE Findings/Remarks: 51 yrs old man h/O HTN, T2DM< Dyslipedemia, non compliant with meds and F/U also H/O ETOH abuse, recently discharged from [facility] in November 2016 after treated for NSTEMI in setting of ETOH abuse, never evaluated for CAD as patient didn't F/U with Cardiology , yesterday BIB family to Ed with c/o diffuse chest pain with nausea, vomiting and tremulousness in the setting of ETOH intoxication , on arrival patient was confused and delirious w/u shows elevated Plasma ETOH level, with elevated toponin I no acute ST t changes admitted for further evaluation, , patient denies any hemetmesis, melena, vomiting contains ingested food and bile, chest pain diffuse more burning in characteristic continuos, non radiating aggravates with vomiting, today still c/ o nausea, tremulousness, . in the Ed Cardiology was consulted recommended therapeutic dose of SQ Lovenox and ASA., patient was improving but decided to signed AMA pending w/u for ACS and Alcohal withdrawal treatment Labs: CBC, BMP 01/26/17 07:00 01/26/17 07:00 Discharge Summary Reason For Visit: CHEST PAIN Alcohal Intoxication Elevated Troponin I CHEST Pain R/O ACS HTN T2DM Hypokalemia Hypomagnesemia. Condition: Unchanged/Unknown - Instructions Referrals: Rodrigo Culver MD [Staff Physician] - Disposition: AGAINST MEDICAL ADVICE - Home Medications Comprehensive Discharge Medication List: Ambulatory Orders Aspirin Coated [Ecotrin -] 81 mg PO DAILY #30 tab 01/26/17 Metoprolol Tartrate [Lopressor -] 25 mg PO BID #60 tablet 01/26/17 Omeprazole 40 mg PO DAILY #30 capsule. 01/26/17 Vitamin B Complex [B Complex] 1 each PO DAILY #30 tablet 01/26/17
== END 2017-01-26 14:10 | disposition left against medical advice (07) | DRG 198 ==
LOC: JER 15:12 → JERBED 17:36 → J4W 20:27
PROVIDERS: ADMIT Internal Medicine; ATTEND Internal Medicine
DX: R07.89 Other chest pain (principal); E83.42 Hypomagnesemia; E11.65 Type 2 diabetes mellitus with hyperglycemia; K29.20 Alcoholic gastritis without bleeding; I25.2 Old myocardial infarction; E87.6 Hypokalemia; I10 Essential (primary) hypertension; E78.5 Hyperlipidemia, unspecified; Z91.14 Patient's other noncompliance with medication regimen; F32.9 Major depressive disorder, single episode, unspecified; R25.1 Tremor, unspecified; F10.120 Alcohol abuse with intoxication, uncomplicated; R74.8 Abnormal levels of other serum enzymes; Z79.4 Long term (current) use of insulin
CPT/HCPCS: 36415; 70450-TC; 71010-TC; 80053; 80061; 80307; 81003; 81015; 82553; 83036; 83721; 83735; 83880; 84100; 84443; 84484; 85025; 85610; 93005; 93010; 93306-TC; 99284-25

== ENCOUNTER 2017-02-22 13:37 | Emergency (ER) | payer OTHER ==
[2017-02-22 13:51] VITALS: PULSE 103; BMI 27.3
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
[2017-02-22 14:06] VITALS: BP 150/97; TEMP 98
[2017-02-22 14:17] LABS: BASOPHIL 0.9 % (0-2.0); EOSINOPHIL 0.2 % (0-4.5); MCH 32.8 pg (25.7-33.7); MCHC 34.5 g/dl (32.0-35.9); MEAN CELL VOLUME 95.3 fl (80-96); MEAN PLT VOLUME 6.9 fl (7.5-11.1); NEUTROPHILS 62.5 % (42.8-82.8); PLATELET COUNT 263 K/MM3 (134-434); RDW 15.9 % (11.9-15.9); WHITE BLOOD COUNT 7.3 K/mm3 (4.0-10.0)
--- NOTE | 2017-02-22 14:17 | PDOC ---
Attending Attestation - Resident Resident Name: Gloria Caica - ED Attending Attestation I have performed the following: I have examined & evaluated the patient, The case was reviewed & discussed with the resident, I agree w/resident's findings & plan, Exceptions are as noted - HPI HPI: 02/22/17 15:04 pt eloped prior to my eval. - Physicial Exam PE: 02/22/17 15:04 pt eloped prior to my eval. - Medical Decision Making 02/22/17 14:17 I, Dr. Xi Dela Cruz, DO, attest that this document has been prepared under my direction and personally reviewed by me in its entirety. I further attest, that it accurately reflects all work, treatment, procedures and medical decision -making performed by me. 02/22/17 15:03 pt eloped prior to my evaluation. Pt did have an IV in place, call placed to the patients home.
[2017-02-22 14:40] LABS: ALBUMIN 3.6 g/dl (3.4-5.0); ANION GAP 14 (8-16); BILIRUBIN,TOTAL 0.4 mg/dL (0.2-1.0); CALCIUM 8.4 mg/dL (8.5-10.1); CO2 21 mmol/L (21-32); CREATININE 0.8 mg/dL (0.7-1.3); GLUCOSE,RANDOM 145 mg/dL (74-106); SGOT/AST 138 U/L (15-37); SGPT/ALT 96 U/L (12-78); TOT PROT 7.7 g/dl (6.4-8.2)
[2017-02-22 14:42] LABS: ALK PHOS 93 U/L (45-117); CPK 208 IU/L (39-308); TROPONIN I 0.21 ng/ml (0.00-0.05)
--- NOTE | 2017-02-23 14:18 | EKG ---
Test Reason : Blood Pressure : / mmHG Vent. Rate : 087 BPM Atrial Rate : 087 BPM P-R Int : 206 ms QRS Dur : 110 ms QT Int : 394 ms P-R-T Axes : 053 -25 032 degrees QTc Int : 474 ms NORMAL SINUS RHYTHM MODERATE VOLTAGE CRITERIA FOR LVH, MAY BE NORMAL VARIANT CANNOT RULE OUT INFERIOR INFARCT (CITED ON OR BEFORE 19-JUL-2016) ABNORMAL ECG WHEN COMPARED WITH ECG OF 25-JAN-2017 23:37, FUSION COMPLEXES ARE NO LONGER PRESENT PREMATURE VENTRICULAR COMPLEXES ARE NO LONGER PRESENT MD INTERVAL HAS DECREASED Confirmed by BLESSING ACUÑA MD ([id number]) on 02/23/2017 2:17:40 PM Referred By: Confirmed By:BLESSING ACUÑA MD
== END 2017-02-22 15:07 | disposition left against medical advice (07) ==
LOC: JER 13:37
DX: R07.89 Other chest pain (principal); F10.10 Alcohol abuse, uncomplicated
CPT/HCPCS: 36415; 80053; 82553; 84484; 85025; 93005; 93010; 99285-25

== ENCOUNTER 2017-06-05 18:53 | Observation (INO) | payer OTHER ==
[2017-06-05 19:15] VITALS: BMI 37.5
[2017-06-05] MEDS ORDERED: ASPIRIN 81 MG CHEWABLE TABLETS PO ONE (19:35)
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
[2017-06-05 20:26] LABS: BASO % 0.7 % (0-2.0); EOS % 2.4 % (0-4.5); HEMATOCRIT 41.2 % (35.4-49); HEMOGLOBIN 14.2 GM/dL (11.7-16.9); LYMPH % 34.8 % (8-40); MCH 31.8 pg (25.7-33.7); MCHC 34.5 g/dl (32.0-35.9); MEAN CELL VOLUME 92.1 fl (80-96); MEAN PLT VOLUME 7.3 fl (7.5-11.1); MONO % 5.5 % (3.8-10.2); NEUT % 56.6 % (42.8-82.8); PLATELET COUNT 282 K/MM3 (134-434); RBC 4.47 M/mm3 (4.00-5.60); RDW 12.8 % (11.9-15.9); WHITE BLOOD COUNT 8.1 K/mm3 (4.0-10.0)
[2017-06-05] MEDS ORDERED: ASPIRIN 81 MG CHEWABLE TABLETS ONE (20:39)
[2017-06-05 20:49] LABS: INR 1.07 (0.82-1.09); PROTHROMBIN TIME (PATIENT) 12.1 SEC (9.98-11.88)
[2017-06-05 21:03] LABS: ALBUMIN 3.3 g/dl (3.4-5.0); ANION GAP 12 (8-16); BILIRUBIN,TOTAL 0.3 mg/dL (0.2-1.0); BLOOD UREA NITROGEN 10 mg/dL (7-18); CALCIUM 8.1 mg/dL (8.5-10.1); CHLORIDE 102 mmol/L (98-107); CO2 26 mmol/L (21-32); CREATININE 0.8 mg/dL (0.7-1.3); GLUCOSE,RANDOM 146 mg/dL (74-106); MAGNESIUM 1.7 mg/dL (1.8-2.4); POTASSIUM 3.6 mmol/L (3.5-5.1); SGOT/AST 41 U/L (15-37); SGPT/ALT 37 U/L (12-78); SODIUM 140 mmol/L (136-145); TOT PROT 7.2 g/dl (6.4-8.2)
[2017-06-05 21:06] LABS: ALK PHOS 127 U/L (45-117)
[2017-06-05] MEDS ORDERED: FOLIC ACID INJECTION - 1 MG, THIAMINE HCL 100 MG, MULTIVIT INJECTION ADULT 10 ML in SOD... IVPB ONE (21:20)
[2017-06-05] MEDS ORDERED: FAMOTIDINE IV 20 MG/12 ML VIAL IVPUSH SCH (22:00)
[2017-06-06] MEDS ORDERED: FAMOTIDINE 20 MG/50 ML IVPB 20 MG/50 ML MG IVPB ONE (01:41)
--- NOTE | 2017-06-06 07:29 | PDOC ---
*Physical Exam - Vital Signs Last Vital Signs Temp Pulse Resp BP Pulse Ox 99.3 F 89 18 145/89 96 06/05/17 21:32 06/06/17 06:50 06/06/17 06:50 06/06/17 06:50 06/06/17 06:50 ED Treatment Course - LABORATORY CBC & Chemistry Diagram: 06/06/17 11:00 06/05/17 20:15 - ADDITIONAL ORDERS Additional order review: Laboratory Results 06/06/17 06/05/17 06/05/17 00:51 20:16 20:15 PT with INR INR Sodium Potassium Chloride Carbon Dioxide Anion Gap BUN Creatinine Creat Clearance w eGFR Random Glucose Calcium Magnesium Total Bilirubin AST ALT Alkaline Phosphatase Creatine Kinase 432 H Creatine Kinase Index 0.6 CK-MB (CK-2) 2.748 Troponin I 0.08 H B-Natriuretic Peptide 150.37 H Total Protein Albumin Alcohol, Quantitative 290.6 H* 06/05/17 06/05/17 20:15 20:15 PT with INR 12.10 H INR 1.07 Sodium 140 Potassium 3.6 Chloride 102 Carbon Dioxide 26 D Anion Gap 12 BUN 10 D Creatinine 0.8 Creat Clearance w eGFR > 60 Random Glucose 146 H Calcium 8.1 L Magnesium 1.7 L Total Bilirubin 0.3 D AST 41 H D ALT 37 D Alkaline Phosphatase 127 H D Creatine Kinase 567 H Creatine Kinase Index 0.6 CK-MB (CK-2) 3.600 Troponin I 0.08 H D B-Natriuretic Peptide Total Protein 7.2 Albumin 3.3 L Alcohol, Quantitative 06/05/17 20:15 RBC 4.47 MCV 92.1 MCHC 34.5 RDW 12.8 D MPV 7.3 L Neutrophils % 56.6 Lymphocytes % 34.8 Monocytes % 5.5 Eosinophils % 2.4 D Basophils % 0.7 - Medications Given in the ED: ED Medications Discontinued Medications Generic Name Dose Route Start Last Admin Trade Name Freq PRN Reason Stop Dose Admin Aspirin 162 mg 06/05/17 19:35 06/05/17 20:40 Asa - PO 06/05/17 19:36 162 mg ONCE ONE Administration Folic Acid 1 mg/ Thiamine HCl 1,000 mls @ 125 mls/hr 06/05/17 21:20 06/05/17 23:09 100 mg/ Multivitamins/Minerals IVPB 06/06/17 05:19 125 mls/hr 10 ml/ Sodium Chloride ONCE ONE Administration Progress Note - Progress Note Progress Note: Spoke with Dr. Pulido who accepts patient for admission to telemetry observation. *DC/Admit/Observation/Transfer Diagnosis at time of Disposition: Elevated troponin I level, Ruled out for myocardial infarction EtOH dependence Qualifiers: Substance use status: with intoxication Complication of substance-induced condition: uncomplicated Qualified Code(s): F10.220 - Alcohol dependence with intoxication, uncomplicated Chest pain Qualifiers: Chest pain type: unspecified Qualified Code(s): R07.9 - Chest pain, unspecified - Discharge Dispostion Condition at time of disposition: Guarded Admit: Yes - Referrals - Patient Instructions - Post Discharge Activity
[2017-06-06] MEDS ORDERED: chlordiazePOXIDE HCL 25 MG CAPSULE PO PRN (08:10)
[2017-06-06] MEDS ORDERED: MAGNESIUM SULF 50% (8.12 MEQ/2 ML-1 GM VIAL) IVPB ONE ×2 (08:13→10:11)
[2017-06-06] MEDS ORDERED: NITROGLYCERIN SUBLINGUAL 1/150 0.4 MG TAB SL PRN (08:14)
--- NOTE | 2017-06-06 08:18 | HP ---
Admitting History and Physical - Primary Care Physician PCP: Rodrigo Culver - Admission Chief Complaint: Chest pain History of Present Illness: 51 yrs old man h/O HTN, T2DM Dyslipedemia, non compliant with meds and F/U also H/O binge ETOH abuse on rehab program, , recently discharged AMA from [facility] in Jan 2017 admitted for NSTEMI in setting of ETOH abuse, never evaluated for CAD as patient didn't F/U with Cardiology , yesterday BIB family to Ed with c/o diffuse chest pain with nausea, vomiting and tremulousness in the setting of binge drinking ETOH intoxication , on arrival patient was confused and delirious w/u shows elevated Plasma ETOH level, with elevated troponin I no acute ST t changes admitted for further evaluation, , patient denies any hemetmesis, melena, c/o nausea no vomiting , chest pain diffuse more burning in characteristic continuos, non radiating aggravates with retching today still c/o nausea, tremulousness, chest pain improved evaluated by Cardiology consult. - Past Medical History Cardiovascular: Yes: HTN, Hyperlipdemia Hepatobiliary: Yes: Other (ETOH gastritis) Psych: Yes: Anxiety Endocrine: Yes: Diabetes Mellitus - Past Surgical History Past Surgical History: Yes: None - Smoking History Smoking history: Never smoked Have you smoked in the past 12 months: No Aproximately how many cigarettes per day: 0 - Alcohol/Substance Use Hx Alcohol Use: No History of Substance Use: reports: None - Social History ADL: Independent Home Medications - Allergies Allergies/Adverse Reactions: Allergies Allergy/AdvReac Type Severity Reaction Status Date / Time No Known Allergies Allergy Verified 06/05/17 19:13 - Home Medications Home Medications: Ambulatory Orders Amlodipine Besylate [Norvasc -] 10 mg PO DAILY 02/22/17 Carvedilol [Coreg] 25 mg PO DAILY 02/22/17 Lisinopril [Prinivil] 20 mg PO BID 02/22/17 Naltrexone HCl 50 mg PO HS 02/22/17 Aspirin [ASA -] 81 mg PO DAILY tab.chew 06/06/17 Carvedilol [Coreg -] 25 mg PO DAILY tablet 06/06/17 Metformin HCl [Metformin HCl ER] 1,000 mg PO BID 06/06/17 Family Disease History - Family Disease History Family Disease History: Diabetes: Father (PROSTATE ), Mother, Sister, CA : Father Review of Systems - Review of Systems Constitutional: denies: Chills, Diaphoresis, Night Sweats HENT: denies: Difficult Swallowing, Ear Discharge Neck: denies: Decreased ROM, Lumps Cardiovascular: reports: Chest Pain. denies: Edema, Palpitations, Shortness of Breath Respiratory: denies: Cough, Hemoptysis Gastrointestinal: reports: Abdominal Pain, Bloating, Nausea. denies: Rectal Bleeding, Vomiting Neurological: denies: Change in LOC, Change in Speech Endocrine: reports: Excessive Sweating, Flushing Hematology/Lymphatic: denies: Easily Bruised, Excessive Bleeding Psychiatric: reports: Depression. 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 minimal tremors, non focal exam Labs: CBC, BMP 06/05/17 20:15 06/05/17 20:15 Laboratory Results - last 24 hr 06/05/17 06/05/17 06/05/17 20:15 20:15 20:15 WBC 8.1 RBC 4.47 Hgb 14.2 Hct 41.2 MCV 92.1 MCH 31.8 MCHC 34.5 RDW 12.8 D Plt Count 282 MPV 7.3 L Neutrophils % 56.6 Lymphocytes % 34.8 Monocytes % 5.5 Eosinophils % 2.4 D Basophils % 0.7 PT with INR 12.10 H INR 1.07 Sodium 140 Potassium 3.6 Chloride 102 Carbon Dioxide 26 D Anion Gap 12 BUN 10 D Creatinine 0.8 Creat Clearance w eGFR > 60 POC Glucometer Random Glucose 146 H Calcium 8.1 L Phosphorus Magnesium 1.7 L Total Bilirubin 0.3 D AST 41 H D ALT 37 D Alkaline Phosphatase 127 H D Creatine Kinase 567 H Creatine Kinase Index 0.6 CK-MB (CK-2) 3.600 Troponin I 0.08 H D B-Natriuretic Peptide Total Protein 7.2 Albumin 3.3 L Triglycerides Cholesterol Total LDL Cholesterol HDL Cholesterol Alcohol, Quantitative 06/05/17 06/05/17 06/06/17 20:15 20:16 00:51 WBC RBC Hgb Hct MCV MCH MCHC RDW Plt Count MPV Neutrophils % Lymphocytes % Monocytes % Eosinophils % Basophils % PT with INR INR Sodium Potassium Chloride Carbon Dioxide Anion Gap BUN Creatinine Creat Clearance w eGFR POC Glucometer Random Glucose Calcium Phosphorus Magnesium Total Bilirubin AST ALT Alkaline Phosphatase Creatine Kinase 432 H Creatine Kinase Index 0.6 CK-MB (CK-2) 2.748 Troponin I 0.08 H B-Natriuretic Peptide 150.37 H Total Protein Albumin Triglycerides Cholesterol Total LDL Cholesterol HDL Cholesterol Alcohol, Quantitative 290.6 H* 06/06/17 06/06/17 06/06/17 11:00 11:00 11:00 WBC 8.9 RBC 4.42 Hgb 13.8 Hct 40.6 MCV 91.9 MCH 31.2 MCHC 33.9 RDW 13.0 Plt Count 283 MPV 7.7 Neutrophils % 67.5 Lymphocytes % 24.6 D Monocytes % 4.9 Eosinophils % 2.4 Basophils % 0.6 PT with INR INR Sodium 140 Potassium 3.4 L Chloride 101 Carbon Dioxide 27 Anion Gap 12 BUN 9 Creatinine 0.7 Creat Clearance w eGFR POC Glucometer Random Glucose 154 H Calcium 8.3 L Phosphorus 3.0 D Magnesium 1.8 Total Bilirubin AST ALT Alkaline Phosphatase Creatine Kinase Creatine Kinase Index CK-MB (CK-2) Troponin I 0.07 H B-Natriuretic Peptide Total Protein Albumin Triglycerides 234 H D Cholesterol 156 Total LDL Cholesterol 86 D HDL Cholesterol 42 D Alcohol, Quantitative 06/06/17 06/06/17 11:00 11:58 WBC RBC Hgb Hct MCV MCH MCHC RDW Plt Count MPV Neutrophils % Lymphocytes % Monocytes % Eosinophils % Basophils % PT with INR INR Sodium Cancelled Potassium Cancelled Chloride Cancelled Carbon Dioxide Cancelled Anion Gap Cancelled BUN Cancelled Creatinine Cancelled Creat Clearance w eGFR POC Glucometer [id number] Random Glucose Cancelled Calcium Cancelled Phosphorus Cancelled Magnesium Total Bilirubin AST ALT Alkaline Phosphatase Creatine Kinase Creatine Kinase Index CK-MB (CK-2) Troponin I B-Natriuretic Peptide Total Protein Albumin Triglycerides Cholesterol Total LDL Cholesterol HDL Cholesterol Alcohol, Quantitative Imaging - Results X-ray: Report Reviewed (No acute chnages) EKG: Report Reviewed ([address] T changes) Problem List - Problems (1) Elevated troponin I level Assessment/Plan: Chronically plateau elevation of trioiin multiple CAd risk factors, previous had a stress test evaluated by cardiolgy consult, recommonded serial CE, and Cont current management admit to tele F/U ECHO, Serial CE, Lipid panel, TSH and HbA1C Code(s): R74.8 - ABNORMAL LEVELS OF OTHER SERUM ENZYMES (2) Chest pain Assessment/Plan: Evaluted by cardiology will F/U serial Ce ECHO,, ASA, B Blockers and PRN NTG Code(s): R07.9 - CHEST PAIN, UNSPECIFIED Qualifiers: Chest pain type: chest pain due to myocardial ischemia (3) Alcohol intoxication Assessment/Plan: H/O Binge drinking , yesterday drinked after many wks, Cont close monitoring observe for DTS, Thiamine,librium and lorazepalm PRN Code(s): F10.129 - ALCOHOL ABUSE WITH INTOXICATION, UNSPECIFIED (4) Depression (emotion) Assessment/Plan: At present denies any suicidal or homicidal ideation F/u with Psych as out patient Code(s): F32.9 - MAJOR DEPRESSIVE DISORDER, SINGLE EPISODE, UNSPECIFIED Qualifiers: (5) HTN (hypertension) Assessment/Plan: Well controlled cont home meds Code(s): I10 - ESSENTIAL (PRIMARY) HYPERTENSION (6) Hypokalemia Assessment/Plan: KCL 20 M Eq PO F/U BMP Code(s): E87.6 - HYPOKALEMIA
[2017-06-06] MEDS ORDERED: MAGNESIUM SULF 50% (8.12 MEQ/2 ML-1 GM VIAL) ONE (08:44)
[2017-06-06] MEDS ORDERED: MAGNESIUM 1GM/D5W - 1 GM/100 ML IVPB IVPB ONE (09:00)
[2017-06-06] MEDS ORDERED: ENOXAPARIN NA (PORCINE) 40 MG/0.4 ML DISP.SYRIN SQ SCH (10:00)
[2017-06-06] MEDS ORDERED: CARVEDILOL 25 MG TABLET (FP) PO SCH (10:00)
[2017-06-06] MEDS ORDERED: THIAMINE HCL 100 MG TABLET (FP) PO SCH (10:00)
[2017-06-06] MEDS ORDERED: LISINOPRIL 20 MG TABLET (FP) PO SCH (10:00)
[2017-06-06] MEDS ORDERED: FAMOTIDINE IV 20 MG/12 ML VIAL IVPUSH SCH ×2 (10:00)
[2017-06-06] MEDS ORDERED: ASPIRIN 81 MG CHEWABLE TABLETS PO SCH (10:00)
[2017-06-06] MEDS ORDERED: amLODIPine BESYLATE 10 MG TABLET (FP) PO SCH (10:00)
--- NOTE | 2017-06-06 10:39 | EKG ---
Test Reason : Blood Pressure : / mmHG Vent. Rate : 092 BPM Atrial Rate : 092 BPM P-R Int : 192 ms QRS Dur : 118 ms QT Int : 420 ms P-R-T Axes : 062 -18 033 degrees QTc Int : 519 ms NORMAL SINUS RHYTHM POSSIBLE LEFT ATRIAL ENLARGEMENT INFERIOR INFARCT (CITED ON OR BEFORE 19-JUL-2016) PROLONGED QT ABNORMAL ECG WHEN COMPARED WITH ECG OF 05-JUN-2017 19:13, NO SIGNIFICANT CHANGE WAS FOUND Confirmed by MD Mark, Sourav ([id number]) on 06/06/2017 10:39:08 AM Referred By: Confirmed By:Sourav Flores MD
--- NOTE | 2017-06-06 10:44 | EKG ---
Test Reason : Blood Pressure : / mmHG Vent. Rate : 086 BPM Atrial Rate : 086 BPM P-R Int : 210 ms QRS Dur : 110 ms QT Int : 424 ms P-R-T Axes : 050 -24 021 degrees QTc Int : 507 ms SINUS RHYTHM WITH 1ST DEGREE A-V BLOCK POSSIBLE LEFT ATRIAL ENLARGEMENT LEFT VENTRICULAR HYPERTROPHY CANNOT RULE OUT INFERIOR INFARCT (CITED ON OR BEFORE 19-JUL-2016) PROLONGED QT ABNORMAL ECG WHEN COMPARED WITH ECG OF 22-FEB-2017 13:53, NO SIGNIFICANT CHANGE WAS FOUND Confirmed by MD Mark, Sourav ([id number]) on 06/06/2017 10:43:33 AM Referred By: Confirmed By:Sourav Flores MD
[2017-06-06] MEDS ORDERED: ONDANSETRON 4 MG/2 ML VIAL IVPUSH PRN (10:46)
--- NOTE | 2017-06-06 10:54 | EKG ---
Test Reason : Blood Pressure : / mmHG Vent. Rate : 086 BPM Atrial Rate : 086 BPM P-R Int : 194 ms QRS Dur : 108 ms QT Int : 422 ms P-R-T Axes : 062 -31 059 degrees QTc Int : 504 ms NORMAL SINUS RHYTHM POSSIBLE LEFT ATRIAL ENLARGEMENT LEFT AXIS DEVIATION LEFT VENTRICULAR HYPERTROPHY PROLONGED QT ABNORMAL ECG WHEN COMPARED WITH ECG OF 05-JUN-2017 21:44, NO SIGNIFICANT CHANGE WAS FOUND Confirmed by MD Mark, Sourav ([id number]) on 06/06/2017 10:54:14 AM Referred By: SONDRA PATEL Confirmed By:Sourav Flores MD
[2017-06-06 11:35] LABS: MAGNESIUM 1.8 mg/dL (1.8-2.4)
[2017-06-06 12:11] LABS: BASO % 0.6 % (0-2.0); EOS % 2.4 % (0-4.5); HEMATOCRIT 40.6 % (35.4-49); HEMOGLOBIN 13.8 GM/dL (11.7-16.9); LYMPH % 24.6 % (8-40); MCH 31.2 pg (25.7-33.7); MCHC 33.9 g/dl (32.0-35.9); MEAN CELL VOLUME 91.9 fl (80-96); MEAN PLT VOLUME 7.7 fl (7.5-11.1); MONO % 4.9 % (3.8-10.2); NEUT % 67.5 % (42.8-82.8); PLATELET COUNT 283 K/MM3 (134-434); RBC 4.42 M/mm3 (4.00-5.60); WHITE BLOOD COUNT 8.9 K/mm3 (4.0-10.0)
[2017-06-06 12:36] LABS: BLOOD UREA NITROGEN 9 mg/dL (7-18); CALCIUM 8.3 mg/dL (8.5-10.1); CHLORIDE 101 mmol/L (98-107); CREATININE 0.7 mg/dL (0.7-1.3); GLUCOSE,RANDOM 154 mg/dL (74-106); POTASSIUM 3.4 mmol/L (3.5-5.1); SODIUM 140 mmol/L (136-145)
[2017-06-06 12:40] LABS: ANION GAP 12 (8-16); CO2 27 mmol/L (21-32)
[2017-06-06] MEDS ORDERED: chlordiazePOXIDE HCL 25 MG CAPSULE ONE (14:24)
--- NOTE | 2017-06-06 14:32 | CON.CARD ---
Consult Consult Specialty:: Cardiology Reason for Consultation:: Chest pain - History of Present Illness Chief Complaint: Chest pain. Left sided numbness History of Present Illness: This is a 51 year old male with a PMH of HTN, DM, HLD, and ETOH abuse, presents to ED intoxicated and complaining of chest pain as well as left sided numbness. The chest pain was at rest and radiated to his left side. He stated to me that he is followed by a Banking Teacher in [place] (he didn't know the name) and had a recent negative stress test. Presently he is asymptomatic. - Past Medical History Cardio/Vascular: Yes: HTN, Hyperlipdemia Hepatobiliary: Yes: Other (ETOH gastritis) Psych: Yes: Anxiety Endocrine: Yes: Diabetes Mellitus - Past Surgical History Past Surgical History: Yes: None - Alcohol/Substance Use Hx Alcohol Use: No History of Substance Use: reports: None - Smoking History Smoking history: Never smoked Have you smoked in the past 12 months: No Aproximately how many cigarettes per day: 0 - Social History ADL: Independent Home Medications - Allergies Allergies/Adverse Reactions: Allergies Allergy/AdvReac Type Severity Reaction Status Date / Time No Known Allergies Allergy Verified 06/05/17 19:13 - Home Medications Home Medications: Ambulatory Orders Amlodipine Besylate [Norvasc -] 10 mg PO DAILY 02/22/17 Carvedilol [Coreg] 25 mg PO DAILY 02/22/17 Lisinopril [Prinivil] 20 mg PO BID 02/22/17 Naltrexone HCl 50 mg PO HS 02/22/17 Family Disease History - Family Disease History Family Disease History: Diabetes: Father (PROSTATE ), Mother, Sister, CA : Father Review of Systems Unable to obtain ROS, reason: As per HPI Vital Signs: Vital Signs Temperature 99.3 F 06/05/17 21:32 Pulse Rate 90 06/06/17 12:20 Respiratory Rate 18 06/06/17 12:20 Blood Pressure 163/101 06/06/17 12:20 O2 Sat by Pulse Oximetry (%) 99 06/06/17 12:20 Constitutional: Yes: No Distress HENT: Yes: WNL Neck: Yes: WNL Respiratory: Yes: CTA Bilaterally Gastrointestinal: Yes: Soft Cardiovascular: Yes: Regular Rate and Rhythm (NL S1S2 no MRHG) JVD: No Extremities: Yes: WNL Neurological: Yes: Alert, Oriented (Grossly non focal) - Other Data Labs, Other Data: CBC, BMP 06/06/17 11:00 06/06/17 11:00 INR, PTT INR 1.07 (0.82-1.09) 06/05/17 20:15 Troponin, BNP 06/05/17 06/05/17 06/06/17 20:15 20:15 00:51 Troponin I 0.08 H D 0.08 H B-Natriuretic Peptide 150.37 H 06/06/17 11:00 Troponin I 0.07 H B-Natriuretic Peptide Troponin, BNP 06/05/17 06/05/17 06/06/17 20:15 20:15 00:51 Troponin I 0.08 H D 0.08 H B-Natriuretic Peptide 150.37 H 06/06/17 11:00 Troponin I 0.07 H B-Natriuretic Peptide Assessment/Plan Chest Pain In the setting of ETOH intoxication Toponin Level is negative No acute EKG changes Would continue medical therapy Consider outpatient stress testing (follows with a [place] [employer]ing Teacher) Continue amlodipine/carvedilol/lisinopril
[2017-06-06 15:47] VITALS: BP 136/79; PULSE 79; TEMP 98.1
[2017-06-06] MEDS ORDERED: POTASSIUM CHLORIDE ORAL LIQUID 20 MEQ/15 ML PO ONE (16:21)
[2017-06-06] MEDS ORDERED: POTASSIUM CHLORIDE ORAL LIQUID 20 MEQ/15 ML ONE (16:30)
[2017-06-06 19:07] LABS: ANION GAP 9 (8-16); BLOOD UREA NITROGEN 13 mg/dL (7-18); CALCIUM 8.6 mg/dL (8.5-10.1); CHLORIDE 99 mmol/L (98-107); CO2 27 mmol/L (21-32); CREATININE 0.9 mg/dL (0.7-1.3); GLUCOSE,RANDOM 251 mg/dL (74-106); POTASSIUM 3.9 mmol/L (3.5-5.1); SODIUM 135 mmol/L (136-145)
[2017-06-06] MEDS ORDERED: NALTREXONE HCL 50 MG TABLET PO SCH (22:00)
== END 2017-06-06 18:25 | disposition left against medical advice (07) ==
LOC: JER 18:53 → JERBED 06-06 06:46
PROVIDERS: ADMIT Internal Medicine; ATTEND Internal Medicine
PROC: 3E033GC Introduction of Other Therapeutic Substance into Peripheral Vein, Percutaneous Approach (ICD-10-PCS; principal; 2017-06-06)
PROC: 3E0337Z Introduction of Electrolytic and Water Balance Substance into Peripheral Vein, Percutaneous Approach (ICD-10-PCS; 2017-06-06)
PROC: 3E013GC Introduction of Other Therapeutic Substance into Subcutaneous Tissue, Percutaneous Approach (ICD-10-PCS; 2017-06-06)
DX: F10.220 Alcohol dependence with intoxication, uncomplicated (principal); R77.8 Other specified abnormalities of plasma proteins; R07.9 Chest pain, unspecified; I10 Essential (primary) hypertension; E11.9 Type 2 diabetes mellitus without complications; F32.9 Major depressive disorder, single episode, unspecified; E87.6 Hypokalemia
CPT/HCPCS: 36415; 71046-TC; 80048; 80053; 80061; 80307; 82550; 82553; 82962; 83721; 83735; 83880; 84100; 84484; 85025; 85610; 93005; 93010; 93306-TC; 96361; 96365; 96372; 99285-25; G0378

== ENCOUNTER 2018-05-05 09:11 | Inpatient (IN) | payer OTHER ==
[2018-05-05 09:28] VITALS: BMI 28.1
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
[2018-05-05] MEDS ORDERED: ACETAMINOPHEN 325 MG TABLET (FP) PO PRN (10:55)
[2018-05-05] MEDS ORDERED: MENTHOL/PHENOL 1 EACH UD MM PRN (10:55)
[2018-05-05] MEDS ORDERED: LOPERAMIDE HCL 2 MG CAPSULE PO PRN (10:55)
[2018-05-05] MEDS ORDERED: MAGNESIUM HYDROX 2400MG/30ML ORAL SUSPENSION 30 ML CUP PO PRN (10:55)
[2018-05-05] MEDS ORDERED: MAGNESIUM CITRATE 300 ML BOTTLE PO PRN (10:55)
[2018-05-05] MEDS ORDERED: IBUPROFEN 400 MG TABLET (FP) PO PRN (10:55)
[2018-05-05] MEDS ORDERED: MAG HYDROX/AL HYDROX/SIMETH 30 ML UNIT-DOSE CUP PO PRN (10:55)
[2018-05-05] MEDS ORDERED: guaiFENesin/D-METHORPHAN HB 10 ML UNIT-DOSE CUPS PO PRN (10:55)
[2018-05-05] MEDS ORDERED: P-EPHED 60MG/TRIPROLIDI 2.5MG TABLET PO PRN (10:55)
[2018-05-05] MEDS ORDERED: chlordiazePOXIDE HCL 25 MG CAPSULE PO PRN (10:55)
[2018-05-05] MEDS: hydrOXYzine PAMOATE 25 MG CAPSULE (FP) PO PRN (12:12)
[2018-05-05] MEDS: chlordiazePOXIDE HCL 25 MG CAPSULE PO SCH ×2 (17:26→22:21)
[2018-05-05 19:00] LABS: URINE APPEARANCE CLEAR; URINE BILIRUBIN NEGATIVE (<2.0 mg/dL); URINE COLOR COLORLESS; URINE GLUCOSE (UA) NEGATIVE (NEGATIVE); URINE KETONE NEGATIVE (NEGATIVE); URINE LEUK ESTERASE NEGATIVE (NEGATIVE); URINE NITRITE NEGATIVE (NEGATIVE); URINE PROTEIN NEGATIVE (NEGATIVE); URINE UROBILINOGEN NEGATIVE mg/dL (0.2-1.0)
[2018-05-05] MEDS: THIAMINE HCL 100 MG TABLET (FP) PO SCH (22:21)
[2018-05-06] MEDS: HYDROCHLOROTHIAZIDE 25 MG TABLET (FP) PO SCH ×2 (00:01→10:54)
[2018-05-06] MEDS: MELATONIN 5 MG TABLETS PO PRN ×2 (02:52→22:05)
[2018-05-06] MEDS: chlordiazePOXIDE HCL 25 MG CAPSULE PO SCH ×4 (05:51→22:05)
[2018-05-06] MEDS: hydrOXYzine PAMOATE 25 MG CAPSULE (FP) PO PRN (07:47)
[2018-05-06 10:45] LABS: HEMATOCRIT 41.6 % (35.4-49); HEMOGLOBIN 13.7 GM/dL (11.7-16.9); MCH 30.1 pg (25.7-33.7); MCHC 33.1 g/dl (32.0-35.9); MEAN PLT VOLUME 7.7 fl (7.5-11.1); PLATELET COUNT 296 K/MM3 (134-434); RBC 4.57 M/mm3 (4.00-5.60); RDW 15.9 % (11.9-15.9); WHITE BLOOD COUNT 5.5 K/mm3 (4.0-10.0)
[2018-05-06] MEDS: PRENATAL VITAMINS W/ FOLIC ACID TABLET (FP) PO SCH (10:54)
[2018-05-06 10:58] LABS: ALBUMIN 3.8 g/dl (3.4-5.0); ALK PHOS 81 U/L (45-117); ANION GAP 11 MMOL/L (8-16); BILIRUBIN,TOTAL 1.5 mg/dL (0.2-1); BLOOD UREA NITROGEN 4 mg/dL (7-18); CALCIUM 9.1 mg/dL (8.5-10.1); CHLORIDE 97 mmol/L (98-107); CO2 28 mmol/L (21-32); CREATININE 0.6 mg/dL (0.55-1.3); GLUCOSE,RANDOM 141 mg/dL (74-106); POTASSIUM 3.3 mmol/L (3.5-5.1); SGOT/AST 35 U/L (15-37); SGPT/ALT 40 U/L (13-61); SODIUM 135 mmol/L (136-145); TOT PROT 7.5 g/dl (6.4-8.2)
--- NOTE | 2018-05-06 15:13 | PN ---
S CIWA - CIWA Score Nausea/Vomitin-Mild Nausea/No Vomiting Muscle Tremors: 4-Moderate,w/Arms Extend Anxiety: 2 Agitation: 3 Paroxysmal Sweats: 1-Minimal Palms Moist Orientation: 0-Oriented Tacttile Disturbances: 0-None Auditory Disturbances: 0-None Visual Disturbances: 0-None Headache: 1-Very Mild CIWA-Ar Total Score: 12 [facility] Progress Note (SOAP) Subjective: tremor sweat restlessness trouble sleep throughout the night Objective: 05/06/18 15:09 Vital Signs Temperature 97.9 F 05/06/18 11:09 Pulse Rate 104 H 05/06/18 11:09 Respiratory Rate 18 05/06/18 11:09 Blood Pressure 141/103 H 05/06/18 11:09 O2 Sat by Pulse Oximetry (%) Laboratory Last Values WBC 5.5 K/mm3 (4.0-10.0) 05/06/18 07:30 RBC 4.57 M/mm3 (4.00-5.60) 05/06/18 07:30 Hgb 13.7 GM/dL (11.7-16.9) 05/06/18 07:30 Hct 41.6 % (35.4-49) 05/06/18 07:30 MCV 91.0 fl (80-96) 05/06/18 07:30 MCH 30.1 pg (25.7-33.7) 05/06/18 07:30 MCHC 33.1 g/dl (32.0-35.9) 05/06/18 07:30 RDW 15.9 % (11.9-15.9) 05/06/18 07:30 Plt Count 296 K/MM3 (134-434) 05/06/18 07:30 MPV 7.7 fl (7.5-11.1) 05/06/18 07:30 Sodium 135 mmol/L (136-145) L 05/06/18 07:30 Potassium 3.3 mmol/L (3.5-5.1) L 05/06/18 07:30 Chloride 97 mmol/L (98-107) L 05/06/18 07:30 Carbon Dioxide 28 mmol/L (21-32) 05/06/18 07:30 Anion Gap 11 MMOL/L (8-16) 05/06/18 07:30 BUN 4 mg/dL (7-18) L 05/06/18 07:30 Creatinine 0.6 mg/dL (0.55-1.3) 05/06/18 07:30 Creat Clearance w eGFR > 60 (>60) 05/06/18 07:30 POC Glucometer 138 UNITS (80-120) 05/06/18 06:08 Random Glucose 141 mg/dL (74-106) H 05/06/18 07:30 Calcium 9.1 mg/dL (8.5-10.1) 05/06/18 07:30 Total Bilirubin 1.5 mg/dL (0.2-1) H 05/06/18 07:30 AST 35 U/L (15-37) 05/06/18 07:30 ALT 40 U/L (13-61) 05/06/18 07:30 Alkaline Phosphatase 81 U/L (45-117) 05/06/18 07:30 Total Protein 7.5 g/dl (6.4-8.2) 05/06/18 07:30 Albumin 3.8 g/dl (3.4-5.0) 05/06/18 07:30 Urine Color Colorless 05/05/18 16:12 Urine Appearance Clear 05/05/18 16:12 Urine pH 7.0 (5.0-8.0) 05/05/18 16:12 Ur Specific [place] 1.004 (1.010-1.035) L 05/05/18 16:12 Urine Protein Negative (NEGATIVE) 05/05/18 16:12 Urine Glucose (UA) Negative (NEGATIVE) 05/05/18 16:12 Urine Ketones Negative (NEGATIVE) 05/05/18 16:12 Urine Blood Negative (NEGATIVE) 05/05/18 16:12 Urine Nitrite Negative (NEGATIVE) 05/05/18 16:12 Urine Bilirubin Negative (<2.0 mg/dL) 05/05/18 16:12 Urine Urobilinogen Negative mg/dL (0.2-1.0) 05/05/18 16:12 Ur Leukocyte Esterase Negative (NEGATIVE) 05/05/18 16:12 RPR Titer Nonreactive (NONREACTIVE) 05/06/18 07:30 lab noted low K+ Assessment: 05/06/18 15:13 withdrawal sx low K+ Plan: continue detox K+ supplement
[2018-05-06] MEDS: POTASSIUM CHLORIDE TABS 20 MEQ TABLET.ER (FP) PO SCH ×2 (16:02→22:05)
[2018-05-06] MEDS: THIAMINE HCL 100 MG TABLET (FP) PO SCH (22:05)
[2018-05-07] MEDS: chlordiazePOXIDE HCL 25 MG CAPSULE PO SCH ×2 (05:39→10:12)
--- NOTE | 2018-05-07 09:59 | EKG ---
Test Reason : Blood Pressure : / mmHG Vent. Rate : 100 BPM Atrial Rate : 100 BPM P-R Int : 190 ms QRS Dur : 116 ms QT Int : 392 ms P-R-T Axes : 068 -17 038 degrees QTc Int : 505 ms NORMAL SINUS RHYTHM POSSIBLE LEFT ATRIAL ENLARGEMENT INFERIOR INFARCT , AGE UNDETERMINED CANNOT RULE OUT ANTERIOR INFARCT , AGE UNDETERMINED PROLONGED QT ABNORMAL ECG NO PREVIOUS ECGS AVAILABLE Confirmed by MERRY ABDULLAHI MD ([id number]) on 05/07/2018 9:58:59 AM Referred By: Confirmed By:MERRY ABDULLAHI MD
[2018-05-07] MEDS: POTASSIUM CHLORIDE TABS 20 MEQ TABLET.ER (FP) PO SCH ×2 (10:12→22:25)
[2018-05-07] MEDS: HYDROCHLOROTHIAZIDE 25 MG TABLET (FP) PO SCH (10:12)
[2018-05-07] MEDS: PRENATAL VITAMINS W/ FOLIC ACID TABLET (FP) PO SCH (10:12)
--- NOTE | 2018-05-07 13:41 | PN ---
[facility] CIWA - CIWA Score Nausea/Vomitin-No Nausea/No Vomiting Muscle Tremors: 3 Anxiety: 2 Agitation: 3 Paroxysmal Sweats: 3 Orientation: 0-Oriented Tacttile Disturbances: 0-None Auditory Disturbances: 0-None Visual Disturbances: 0-None Headache: 0-None Present CIWA-Ar Total Score: 11 [facility] Progress Note (SOAP) Subjective: shakes sweats interrupted sleep Objective: 05/07/18 13:46 Vital Signs Temperature 98.1 F 05/07/18 13:29 Pulse Rate 109 H 05/07/18 13:29 Respiratory Rate 18 05/07/18 13:29 Blood Pressure 125/82 05/07/18 13:29 O2 Sat by Pulse Oximetry (%) Laboratory Tests 05/05/18 05/05/18 05/06/18 10:00 16:12 06:08 WBC RBC Hgb Hct MCV MCH MCHC RDW Plt Count MPV Sodium Potassium Chloride Carbon Dioxide Anion Gap BUN Creatinine Creat Clearance w eGFR POC Glucometer 107 138 Random Glucose Calcium Total Bilirubin AST ALT Alkaline Phosphatase Total Protein Albumin Urine Color Colorless Urine Appearance Clear Urine pH 7.0 Ur Specific [place] 1.004 L Urine Protein Negative Urine Glucose (UA) Negative Urine Ketones Negative Urine Blood Negative Urine Nitrite Negative Urine Bilirubin Negative Urine Urobilinogen Negative Ur Leukocyte Esterase Negative RPR Titer 05/06/18 05/06/18 05/06/18 07:30 07:30 07:30 WBC 5.5 RBC 4.57 Hgb 13.7 Hct 41.6 MCV 91.0 MCH 30.1 MCHC 33.1 RDW 15.9 Plt Count 296 MPV 7.7 Sodium 135 L Potassium 3.3 L Chloride 97 L Carbon Dioxide 28 Anion Gap 11 BUN 4 L Creatinine 0.6 Creat Clearance w eGFR > 60 POC Glucometer Random Glucose 141 H Calcium 9.1 Total Bilirubin 1.5 H AST 35 ALT 40 Alkaline Phosphatase 81 Total Protein 7.5 Albumin 3.8 Urine Color Urine Appearance Urine pH Ur Specific [place] Urine Protein Urine Glucose (UA) Urine Ketones Urine Blood Urine Nitrite Urine Bilirubin Urine Urobilinogen Ur Leukocyte Esterase RPR Titer Nonreactive 05/07/18 05:38 WBC RBC Hgb Hct MCV MCH MCHC RDW Plt Count MPV Sodium Potassium Chloride Carbon Dioxide Anion Gap BUN Creatinine Creat Clearance w eGFR POC Glucometer 178 Random Glucose Calcium Total Bilirubin AST ALT Alkaline Phosphatase Total Protein Albumin Urine Color Urine Appearance Urine pH Ur Specific [place] Urine Protein Urine Glucose (UA) Urine Ketones Urine Blood Urine Nitrite Urine Bilirubin Urine Urobilinogen Ur Leukocyte Esterase RPR Titer aaox3 ambulating no acute distress Assessment: 05/07/18 13:47 withdrawal sx Plan: continue detox increase fluids
[2018-05-07] MEDS: chlordiazePOXIDE 5 MG CAPSULE PO SCH ×2 (17:22→22:25)
[2018-05-07] MEDS: MELATONIN 5 MG TABLETS PO PRN (22:25)
[2018-05-07] MEDS: THIAMINE HCL 100 MG TABLET (FP) PO SCH (22:26)
[2018-05-08] MEDS: chlordiazePOXIDE 5 MG CAPSULE PO SCH ×2 (06:05→10:43)
[2018-05-08] MEDS: POTASSIUM CHLORIDE TABS 20 MEQ TABLET.ER (FP) PO SCH ×2 (10:42→22:20)
[2018-05-08] MEDS: HYDROCHLOROTHIAZIDE 25 MG TABLET (FP) PO SCH (10:43)
[2018-05-08] MEDS: metFORMIN HCL 500 MG TABLET (FP) PO SCH ×2 (10:43→17:18)
[2018-05-08] MEDS: PRENATAL VITAMINS W/ FOLIC ACID TABLET (FP) PO SCH (10:44)
--- NOTE | 2018-05-08 11:38 | PN ---
[facility] Progress Note (SOAP) Subjective: feeling better sweats Objective: 05/08/18 11:36 Vital Signs Temperature 97.2 F L 05/08/18 09:38 Pulse Rate 87 05/08/18 09:38 Respiratory Rate 16 05/08/18 09:38 Blood Pressure 143/100 05/08/18 09:38 O2 Sat by Pulse Oximetry (%) Laboratory Tests 05/05/18 05/05/18 05/06/18 10:00 16:12 06:08 WBC RBC Hgb Hct MCV MCH MCHC RDW Plt Count MPV Sodium Potassium Chloride Carbon Dioxide Anion Gap BUN Creatinine Creat Clearance w eGFR POC Glucometer 107 138 Random Glucose Calcium Total Bilirubin AST ALT Alkaline Phosphatase Total Protein Albumin Urine Color Colorless Urine Appearance Clear Urine pH 7.0 Ur Specific Dema 1.004 L Urine Protein Negative Urine Glucose (UA) Negative Urine Ketones Negative Urine Blood Negative Urine Nitrite Negative Urine Bilirubin Negative Urine Urobilinogen Negative Ur Leukocyte Esterase Negative RPR Titer 05/06/18 05/06/18 05/06/18 07:30 07:30 07:30 WBC 5.5 RBC 4.57 Hgb 13.7 Hct 41.6 MCV 91.0 MCH 30.1 MCHC 33.1 RDW 15.9 Plt Count 296 MPV 7.7 Sodium 135 L Potassium 3.3 L Chloride 97 L Carbon Dioxide 28 Anion Gap 11 BUN 4 L Creatinine 0.6 Creat Clearance w eGFR > 60 POC Glucometer Random Glucose 141 H Calcium 9.1 Total Bilirubin 1.5 H AST 35 ALT 40 Alkaline Phosphatase 81 Total Protein 7.5 Albumin 3.8 Urine Color Urine Appearance Urine pH Ur Specific Dema Urine Protein Urine Glucose (UA) Urine Ketones Urine Blood Urine Nitrite Urine Bilirubin Urine Urobilinogen Ur Leukocyte Esterase RPR Titer Nonreactive 05/07/18 05/08/18 05:38 07:00 WBC RBC Hgb Hct MCV MCH MCHC RDW Plt Count MPV Sodium Potassium 3.6 Chloride Carbon Dioxide Anion Gap BUN Creatinine Creat Clearance w eGFR POC Glucometer 178 Random Glucose Calcium Total Bilirubin AST ALT Alkaline Phosphatase Total Protein Albumin Urine Color Urine Appearance Urine pH Ur Specific Dema Urine Protein Urine Glucose (UA) Urine Ketones Urine Blood Urine Nitrite Urine Bilirubin Urine Urobilinogen Ur Leukocyte Esterase RPR Titer [id number] ambulating no acute distress Assessment: 05/08/18 11:37 withdrawal sx Plan: continue detox increase fluids potassium level WNL d/c in am
[2018-05-08] MEDS: chlordiazePOXIDE HCL 10 MG CAPSULE PO SCH ×2 (17:18→22:20)
[2018-05-08] MEDS: MELATONIN 5 MG TABLETS PO PRN (22:20)
[2018-05-08] MEDS: THIAMINE HCL 100 MG TABLET (FP) PO SCH (22:21)
[2018-05-09] MEDS: chlordiazePOXIDE HCL 10 MG CAPSULE PO SCH ×2 (06:15→10:47)
[2018-05-09] MEDS: metFORMIN HCL 500 MG TABLET (FP) PO SCH (06:31)
[2018-05-09 06:58] VITALS: TEMP 97.7
[2018-05-09] MEDS ORDERED: cloNIDine HCL 0.1 MG TABLET PO ONE (06:59)
--- NOTE | 2018-05-09 07:01 | PN ---
S Progress Note Note: Patient's blood pressure is B/P 152/102. Patient i8s asymptomatic Vital Signs Temperature 97.7 F 05/09/18 06:57 Pulse Rate 76 05/09/18 06:57 Respiratory Rate 18 05/09/18 06:57 Blood Pressure 152/102 H 05/09/18 06:57 O2 Sat by Pulse Oximetry (%) Action: Clonidine 0.1mg tablet oral ordered
[2018-05-09 07:57] VITALS: BP 156/95; PULSE 63
--- NOTE | 2018-05-09 09:33 | DS ---
[facility] Detox Discharge Summary Admission Date: 05/05/18 Discharge Date: 05/09/18 - History Present History: Alcohol Dependence - Physical Exam Results Vital Signs: Vital Signs Temperature 97.7 F 05/09/18 07:56 Pulse Rate 63 05/09/18 07:56 Respiratory Rate 18 05/09/18 07:56 Blood Pressure 156/95 05/09/18 07:56 O2 Sat by Pulse Oximetry (%) - Treatment Hospital Course: Detox Protocol Followed, Detoxed Safely, Responded well, Discharged Condition Good, Rehab Referral Accepted - Medication Discharge Medications: Ambulatory Orders Amlodipine Besylate [Norvasc -] 10 mg PO DAILY 02/22/17 Carvedilol [Coreg] 25 mg PO DAILY 02/22/17 Lisinopril [Prinivil] 20 mg PO BID 02/22/17 Naltrexone HCl 50 mg PO HS 02/22/17 Aspirin [ASA -] 81 mg PO DAILY tab.chew 06/06/17 Carvedilol [Coreg -] 25 mg PO DAILY tablet 06/06/17 Metformin HCl [Metformin HCl ER] 1,000 mg PO BID 06/06/17 Carvedilol [Coreg] 25 mg PO BID 06/14/17 Lisinopril [Zestril] 20 mg PO DAILY 06/14/17 Metformin HCl [Metformin HCl ER] 1,000 mg PO BID 06/14/17 - Diagnosis (1) Alcohol dependence with uncomplicated withdrawal Current Visit: Yes Status: Chronic (2) HTN (hypertension) Current Visit: Yes Status: Chronic Qualifiers: Hypertension type: essential hypertension Qualified Code(s): I10 - Essential (primary) hypertension (3) Diabetes mellitus treated with oral medication Current Visit: Yes Status: Suspected (4) Chest pain Current Visit: No Status: Acute Qualifiers: Chest pain type: chest pain due to myocardial ischemia (5) Dyslipidemia Current Visit: Yes Status: Chronic (6) Elevated troponin I level Current Visit: Yes Status: Chronic (7) HTN (hypertension) Current Visit: No Status: Acute Qualifiers: Hypertension type: essential hypertension Qualified Code(s): I10 - Essential (primary) hypertension (8) Hypercholesterolemia Current Visit: Yes Status: Chronic (9) Rhabdomyolysis Current Visit: No Status: Acute Qualifiers: Rhabdomyolysis type: non-traumatic Qualified Code(s): M62.82 - Rhabdomyolysis (10) Severe depression Current Visit: No Status: Acute (11) Type II diabetes mellitus Current Visit: No Status: Acute Qualifiers: Diabetes mellitus custodial insulin use: with vermin exterminator use Diabetes mellitus complication status: with hyperglycemia Qualified Code(s): E11.65 - Type 2 diabetes mellitus with hyperglycemia (12) Lumbar radiculopathy Current Visit: No Status: Chronic (13) Sciatica Current Visit: No Status: Chronic Qualifiers: Laterality: right Qualified Code(s): M54.31 - Sciatica, right side (14) Depression (emotion) Current Visit: Yes Status: Suspected Qualifiers:
[2018-05-09] MEDS ORDERED: CARVEDILOL 25 MG TABLET (FP) PO SCH (10:00)
[2018-05-09] MEDS ORDERED: LISINOPRIL 10 MG TABLET (FP) PO SCH (10:00)
[2018-05-09] MEDS ORDERED: CARVEDILOL 3.125 MG TABLET (FP) PO SCH (10:00)
[2018-05-09] MEDS ORDERED: NIFEdipine E.R 60 MG TABLET (UD) PO SCH (10:00)
[2018-05-09] MEDS: PRENATAL VITAMINS W/ FOLIC ACID TABLET (FP) PO SCH (10:43)
[2018-05-09] MEDS: POTASSIUM CHLORIDE TABS 20 MEQ TABLET.ER (FP) PO SCH (10:43)
== END 2018-05-09 12:34 | disposition other institution (70) | DRG 775 ==
LOC: YASAS 09:11 → MERGE 11:15 → Y6N 11:15
PROC: HZ2ZZZZ Detoxification Services for Substance Abuse Treatment (ICD-10-PCS; principal; 2018-05-05)
DX: F10.230 Alcohol dependence with withdrawal, uncomplicated (principal); F32.9 Major depressive disorder, single episode, unspecified; I10 Essential (primary) hypertension; E11.65 Type 2 diabetes mellitus with hyperglycemia; E78.5 Hyperlipidemia, unspecified; R77.8 Other specified abnormalities of plasma proteins; M62.82 Rhabdomyolysis; M54.16 Radiculopathy, lumbar region; M54.31 Sciatica, right side; Z91.14 Patient's other noncompliance with medication regimen; Z79.4 Long term (current) use of insulin
CPT/HCPCS: 36415; 80053; 81003; 82962; 84132; 85027; 86593; 93005; 93010; J0735

== ENCOUNTER 2018-05-09 13:04 | Inpatient (IN) | payer OTHER ==
--- NOTE | 2018-05-09 09:29 | HP ---
[facility] Re[facility] Assess/Revision - Admission History Admitted to Rehab [facility] - Findings Detox History & Physical reviewed: Yes Concur with findings: Yes Inpatient Rehab Admission - Initial Determination Are CD services needed?: Yes Not in need of hospitalization: Yes - Rehab Admission Criteria Previous failed treatment: Yes Poor recovery environment: Yes Comorbidities: Yes
[2018-05-09] MEDS ORDERED: MAG HYDROX/AL HYDROX/SIMETH 30 ML UNIT-DOSE CUP PO PRN (13:38)
[2018-05-09] MEDS ORDERED: guaiFENesin/D-METHORPHAN HB 10 ML UNIT-DOSE CUPS PO PRN (13:38)
[2018-05-09] MEDS ORDERED: MAGNESIUM HYDROX 2400MG/30ML ORAL SUSPENSION 30 ML CUP PO PRN (13:38)
[2018-05-09] MEDS ORDERED: MENTHOL/PHENOL 1 EACH UD MM PRN (13:38)
[2018-05-09] MEDS ORDERED: MAGNESIUM CITRATE 300 ML BOTTLE PO PRN (13:38)
[2018-05-09] MEDS ORDERED: hydrOXYzine PAMOATE 50 MG CAPSULE (FP) PO PRN (13:38)
[2018-05-09] MEDS ORDERED: IBUPROFEN 400 MG TABLET (FP) PO PRN (13:38)
[2018-05-09] MEDS ORDERED: NICOTINE POLACRILEX 4 MG GUM BUC PRN (13:38)
[2018-05-09] MEDS ORDERED: ACETAMINOPHEN 325 MG TABLET (FP) PO PRN (13:38)
[2018-05-09] MEDS ORDERED: P-EPHED 60MG/TRIPROLIDI 2.5MG TABLET PO PRN (13:38)
[2018-05-09] MEDS ORDERED: LOPERAMIDE HCL 2 MG CAPSULE PO PRN (13:38)
[2018-05-09] MEDS: metFORMIN HCL 500 MG TABLET (FP) PO SCH (16:34)
[2018-05-09] MEDS: CARVEDILOL 3.125 MG TABLET (FP) PO SCH (21:01)
[2018-05-09] MEDS: THIAMINE HCL 100 MG TABLET (FP) PO SCH (21:01)
[2018-05-09] MEDS ORDERED: MELATONIN 5 MG TABLETS PO PRN (22:00)
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
[2018-05-10] MEDS: metFORMIN HCL 500 MG TABLET (FP) PO SCH ×2 (06:43→16:51)
[2018-05-10] MEDS ORDERED: PRENATAL VITAMINS W/ FOLIC ACID TABLET (FP) PO SCH (10:00)
[2018-05-10] MEDS ORDERED: NIFEdipine E.R 60 MG TABLET (UD) PO SCH (10:00)
[2018-05-10] MEDS ORDERED: LISINOPRIL 10 MG TABLET (FP) PO SCH (10:00)
[2018-05-10] MEDS ORDERED: NICOTINE 21 MG/24 HOURS TOPICAL PATCH TD SCH (10:00)
[2018-05-10] MEDS: CARVEDILOL 3.125 MG TABLET (FP) PO SCH ×2 (10:08→22:10)
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
[2018-05-10 12:27] VITALS: BP 137/74; PULSE 104; TEMP 98.3
[2018-05-10] MEDS: THIAMINE HCL 100 MG TABLET (FP) PO SCH (22:09)
== END 2018-05-10 23:55 | disposition short-term general hospital (02) | DRG 772 ==
LOC: YASAS 13:04 → Y5N 13:05
PROVIDERS: ADMIT Psychiatry & Neurology Psychiatry; ATTEND Psychiatry & Neurology Psychiatry
PROC: HZ42ZZZ Group Counseling for Substance Abuse Treatment, Cognitive-Behavioral (ICD-10-PCS; principal; 2018-05-09)
DX: F10.24 Alcohol dependence with alcohol-induced mood disorder (principal); F10.282 Alcohol dependence with alcohol-induced sleep disorder; I10 Essential (primary) hypertension; E11.9 Type 2 diabetes mellitus without complications; E78.5 Hyperlipidemia, unspecified; M54.16 Radiculopathy, lumbar region; M54.31 Sciatica, right side; Z98.1 Arthrodesis status; R00.0 Tachycardia, unspecified; T65.894A Toxic effect of other specified substances, undetermined, initial encounter; Y92.239 Unspecified place in hospital as the place of occurrence of the external cause
CPT/HCPCS: 82962

== ENCOUNTER 2018-05-10 13:11 | Inpatient (IN) | payer OTHER ==
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
[2018-05-10] MEDS ORDERED: FOLIC ACID INJECTION - 1 MG, THIAMINE HCL 100 MG, MULTIVIT INJECTION ADULT 10 ML in SOD... IVPB ONE (13:56)
[2018-05-10] MEDS ORDERED: PANTOPRAZOLE SODIUM 40 MG VIAL IVPUSH ONE (14:22)
[2018-05-10] MEDS ORDERED: PANTOPRAZOLE SODIUM 40 MG/100 ML BAG IVPB ONE (14:50)
[2018-05-10 15:04] LABS: BASO % 0.3 % (0-2.0); EOS % 2.4 % (0-4.5); HEMATOCRIT 39.2 % (35.4-49); HEMOGLOBIN 13.7 GM/dL (11.7-16.9); LYMPH % 28.3 % (8-40); MCH 31.6 pg (25.7-33.7); MCHC 34.9 g/dl (32.0-35.9); MEAN CELL VOLUME 90.6 fl (80-96); MEAN PLT VOLUME 7.5 fl (7.5-11.1); MONO % 5.1 % (3.8-10.2); NEUT % 63.9 % (42.8-82.8); PLATELET COUNT 266 K/MM3 (134-434); RBC 4.33 M/mm3 (4.00-5.60); WHITE BLOOD COUNT 9.6 K/mm3 (4.0-10.0)
[2018-05-10 15:05] LABS: INR 1.1 (0.83-1.09)
[2018-05-10 15:20] LABS: ALBUMIN 3.3 g/dl (3.4-5.0); ALK PHOS 76 U/L (45-117); AMYLASE 58 U/L (25-115); ANION GAP 7 MMOL/L (8-16); BILIRUBIN,TOTAL 0.3 mg/dL (0.2-1); BLOOD UREA NITROGEN 12 mg/dL (7-18); CALCIUM 8.5 mg/dL (8.5-10.1); CHLORIDE 107 mmol/L (98-107); CO2 26 mmol/L (21-32); CREATININE 1.8 mg/dL (0.55-1.3); GLUCOSE,RANDOM 129 mg/dL (74-106); LIPASE 277 U/L (73-393); POTASSIUM 3.7 mmol/L (3.5-5.1); SGOT/AST 20 U/L (15-37); SGPT/ALT 26 U/L (13-61); SODIUM 140 mmol/L (136-145); TOT PROT 6.8 g/dl (6.4-8.2)
[2018-05-10 16:11] LABS: OSMOLALITY,SERUM 323 mosm/kg (278-305)
[2018-05-10] MEDS: LACTATED RINGERS SOLUTION 1,000 ML/1,000 ML INFUS.BAG IV SCH (18:16)
[2018-05-10] MEDS: PANTOPRAZOLE 20 MG TABLET (FP) PO SCH (22:46)
[2018-05-10] MEDS: NALTREXONE HCL 50 MG TABLET PO SCH (22:46)
--- NOTE | 2018-05-11 03:46 | HP ---
CHIEF COMPLAINT: Drank sani-wipes liquid in alcohol detox PCP: Too Tay MD HISTORY OF PRESENT ILLNESS: 52 year old male with a PMH significant for alcohol dependence, HTN, CAD s/p stent, DM presented to the ED from [facility] where he was in ETOH detox after drinking the fluid from 3 [employer] containers this morning. [facility] staff reports patient was vomiting and c/o esophageal burning after the incident. The patient reports that he only drank one bottle but the rehab center reports that he drank 3 bottles. Denies fever, chills, [place], dizziness, seizures, chest pain, palpitations, n/v/d. Patient started drinking alcohol at age 19. He now consumes 5 pints of vodka and 12 16oz cans of beer daily. His last drank was on 05/05/18. He has had 4 previous admissions to etoh detox at [facility]. His longest period of sobriety was 3 months. He had one suicide attempt in 1996 when he tried to slit his wrists. He denies SI at this time. Upon admission to the ED, VSS, labs notable for Cr of 1.8 (0.6 4 days earlier), serum osmolality 323, serum acetone +3, trop 0.07, abdominal CT showed fluid in colon consistent with diarrheal illness, CXR unremarkable. EKG showed NSR rate of 98 bpm, abnormal intervals: pr:218ms prolonged, QRS: 100ms, QTc:495. Poison control was contacted and said Fomipizole was not indicated, continue supportive care and watch for hemoptysis. GI and psych consults ordered. Placed on 1:1 observation until seen by psych. 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, 5 adult children (3 sons and 2 daughters), honorable dc from [place] 1985 - 1989 Smoking: Never smoker Alcohol: Etoh Abuse Drugs: Denies Family History: Father: [place], age 67 Mother: Cardiac disease Allergies No Known Allergies Allergy (Verified 05/09/18 13:23) HOME MEDICATIONS: Home Medications Medication Instructions Recorded Amlodipine Besylate [Norvasc -] 10 mg PO DAILY 02/22/17 Carvedilol [Coreg] 25 mg PO DAILY 02/22/17 Naltrexone HCl 50 mg PO HS 02/22/17 Aspirin [ASA -] 81 mg PO DAILY tab.chew 06/06/17 Lisinopril [Zestril] 10 mg PO DAILY 06/14/17 Metformin HCl [Metformin HCl ER] 1,000 mg PO BID 06/14/17 REVIEW OF SYSTEMS CONSTITUTIONAL: Absent: fever, chills, diaphoresis, generalized weakness, malaise, loss of appetite, weight change HEENT: Absent: rhinorrhea, nasal congestion, throat pain, throat swelling, difficulty swallowing, mouth swelling, ear pain, eye pain, visual changes CARDIOVASCULAR: Absent: chest pain, syncope, palpitations, irregular heart rate, lightheadedness , peripheral edema RESPIRATORY: Absent: cough, shortness of breath, dyspnea with exertion, orthopnea, wheezing, stridor, hemoptysis GASTROINTESTINAL: (+) abdominal pain, nausea Absent: , abdominal distension, vomiting, diarrhea, constipation, melena, hematochezia GENITOURINARY: Absent: dysuria, frequency, urgency, hesitancy, hematuria, flank pain, genital pain MUSCULOSKELETAL: (+) back pain Absent: myalgia, arthralgia, joint swelling, neck pain SKIN: Absent: rash, itching, pallor HEMATOLOGIC/IMMUNOLOGIC: Absent: easy bleeding, easy bruising, lymphadenopathy, frequent infections ENDOCRINE: Absent: unexplained weight gain, unexplained weight loss, heat intolerance, cold intolerance NEUROLOGIC: Absent: headache, focal weakness or paresthesias, dizziness, unsteady gait, seizure, mental status changes, bladder or bowel incontinence PSYCHIATRIC: (+) anxiety, depression Absent: suicidal or homicidal ideation, hallucinations PHYSICAL EXAMINATION Vital Signs - 24 hr 05/10/18 05/10/18 05/10/18 13:11 18:56 19:26 Temperature 97.3 F L 97.5 F L 97.8 F Pulse Rate 106 H Pulse Rate [ 95 H 86 Right] Respiratory 18 18 18 Rate Blood Pressure 120/65 Blood Pressure 108/59 L 107/60 [Left] O2 Sat by Pulse 100 95 96 Oximetry (%) 05/10/18 05/11/18 22:14 00:49 Temperature 98.1 F Pulse Rate 93 H Pulse Rate [ Right] Respiratory 18 Rate Blood Pressure 120/65 Blood Pressure [Left] O2 Sat by Pulse 96 95 Oximetry (%) GENERAL: Appears uncomfortable, fatiuged, fully oriented HEAD: Normal with no signs of trauma. EYES: Pupils equal, round and reactive to light, extraocular movements intact, sclera anicteric, conjunctiva clear. No lid lag. EARS, NOSE, THROAT: Nares patent, oropharynx clear without exudates. Moist mucous membranes. NECK: Normal range of motion, supple without lymphadenopathy, JVD, or masses. LUNGS: Breath sounds equal, clear to auscultation bilaterally. No wheezes, and no crackles. No accessory muscle use. HEART: Regular rate and rhythm, normal S1 and S2 without murmur, rub or gallop. ABDOMEN: TTP in epigastric region, obese, soft, slightly distended, normoactive bowel sounds MUSCULOSKELETAL: Normal range of motion at all joints. No bony deformities or tenderness. No CVA tenderness. UPPER EXTREMITIES: 2+ pulses, warm, well-perfused. No cyanosis. No clubbing. No peripheral edema. LOWER EXTREMITIES: 2+ pulses, warm, well-perfused. No calf tenderness. No peripheral edema. NEUROLOGICAL: No focal deficit, normal speech PSYCHIATRIC: Cooperative. Good eye contact SKIN: Erythema around lip margins, Warm, dry, normal turgor, no rashes or lesions noted, normal capillary refill. Laboratory Results - last 24 hr 05/10/18 05/10/18 05/10/18 14:15 14:15 14:15 WBC 9.6 RBC 4.33 Hgb 13.7 Hct 39.2 MCV 90.6 MCH 31.6 MCHC 34.9 RDW 16.0 H Plt Count 266 MPV 7.5 Absolute Neuts (auto) 6.1 Neutrophils % 63.9 Lymphocytes % 28.3 Monocytes % 5.1 Eosinophils % 2.4 Basophils % 0.3 Nucleated RBC % 0 PT with INR 13.00 INR 1.10 H Sodium 140 Potassium 3.7 Chloride 107 Carbon Dioxide 26 Anion Gap 7 L BUN 12 Creatinine 1.8 H Creat Clearance w eGFR 40.14 Random Glucose 129 H Serum Osmolality 323 H Calcium 8.5 Total Bilirubin 0.3 AST 20 ALT 26 Alkaline Phosphatase 76 Creatine Kinase 67 Troponin I 0.07 H Total Protein 6.8 Albumin 3.3 L Total Amylase 58 Lipase 277 Salicylates < 1.7 L Acetaminophen < 2.0 L Alcohol, Quantitative < 3.0 Acetone, Qual 05/10/18 14:41 WBC RBC Hgb Hct MCV MCH MCHC RDW Plt Count MPV Absolute Neuts (auto) Neutrophils % Lymphocytes % Monocytes % Eosinophils % Basophils % Nucleated RBC % PT with INR INR Sodium Potassium Chloride Carbon Dioxide Anion Gap BUN Creatinine Creat Clearance w eGFR Random Glucose Serum Osmolality Calcium Total Bilirubin AST ALT Alkaline Phosphatase Creatine Kinase Troponin I Total Protein Albumin Total Amylase Lipase Salicylates Acetaminophen Alcohol, Quantitative Acetone, Qual Positive large 3+ ASSESSMENT/PLAN: 52 year old male with a PMH significant for alcohol dependence, HTN, CAD s/p stent, DM presented to the ED from [facility] where he was in ETOH detox after drinking the fluid from 3 [employer] containers. Poison control was contacted and patient was admitted for observation. Sani-cloth fluid ingestion - Poison control consulted - Acidosis not expected - Serum Acetone elevated (+3) - Fomipizole not indicated - Supportive care - LOOK OUT for hemetemesis - GI consult with Dr. Madera ordered Alcohol dependence - Currently in detox at [facility] - Naltrexone HCl 50 mg PO HS - 1:1 observation - Psych consult ordered Hypertension - Lisinopril 10 mg PO DAILY - Amlodipine 10 mg PO DAILY - Carvedilol 25 mg PO DAILY CAD - 80% cardiac artery blockage, s/p stent - Aspirin 81 mg PO DAILY DM - Fingerstick glucose monitoring - SS with novolog - HOLD home Metformin HCl 1,000 mg PO BID Prophylaxis - DVT: Heparin SQ - GI: Protonix 20 mp PO BID FEN - LR @ 125 cc/hr - BNP in the AM - Clear liquid diet, diabetic, na restricted, advance as tolerated Disp: Patient requires further inpatient monitoring. Visit type - Emergency Visit Emergency Visit: Yes ED Registration Date: 05/10/18 Care time: The patient presented to the Emergency Department on the above date and was hospitalized for further evaluation of their emergent condition. - New Patient This patient is new to me today: Yes Date on this admission: 05/11/18 - Critical Care Critical Care patient: No
[2018-05-11 07:26] LABS: HEMATOCRIT 35.8 % (35.4-49); HEMOGLOBIN 12.6 GM/dL (11.7-16.9); MCHC 35.2 g/dl (32.0-35.9); MEAN CELL VOLUME 90.8 fl (80-96); MEAN PLT VOLUME 7.7 fl (7.5-11.1); PLATELET COUNT 271 K/MM3 (134-434); RBC 3.95 M/mm3 (4.00-5.60); RDW 16.3 % (11.9-15.9); WHITE BLOOD COUNT 6.8 K/mm3 (4.0-10.0)
[2018-05-11 08:00] LABS: ALK PHOS 55 U/L (45-117); ANION GAP 8 MMOL/L (8-16); BILIRUBIN,TOTAL 0.3 mg/dL (0.2-1); BLOOD UREA NITROGEN 5 mg/dL (7-18); CALCIUM 8.6 mg/dL (8.5-10.1); CHLORIDE 108 mmol/L (98-107); CO2 27 mmol/L (21-32); CREATININE 1.8 mg/dL (0.55-1.3); GLUCOSE,RANDOM 137 mg/dL (74-106); MAGNESIUM 1.7 mg/dL (1.8-2.4); POTASSIUM 3.5 mmol/L (3.5-5.1); SGOT/AST 16 U/L (15-37); SGPT/ALT 24 U/L (13-61); SODIUM 142 mmol/L (136-145); TOT PROT 6.1 g/dl (6.4-8.2)
[2018-05-11] MEDS ORDERED: PT OWN MED DRAWER 7, Y5N ONE ×3 (09:31→22:09)
[2018-05-11] MEDS: amLODIPine BESYLATE 10 MG TABLET (FP) PO SCH (10:44)
[2018-05-11] MEDS: LISINOPRIL 10 MG TABLET (FP) PO SCH (10:44)
[2018-05-11] MEDS: PANTOPRAZOLE 20 MG TABLET (FP) PO SCH ×2 (10:44→22:08)
[2018-05-11] MEDS: LACTATED RINGERS SOLUTION 1,000 ML/1,000 ML INFUS.BAG IV SCH ×2 (10:44→17:15)
[2018-05-11] MEDS: ASPIRIN 81 MG CHEWABLE TABLETS PO SCH (10:44)
[2018-05-11] MEDS: CARVEDILOL 25 MG TABLET (FP) PO SCH ×2 (10:44→22:08)
--- NOTE | 2018-05-11 11:29 | EKG ---
Test Reason : Blood Pressure : / mmHG Vent. Rate : 098 BPM Atrial Rate : 098 BPM P-R Int : 218 ms QRS Dur : 100 ms QT Int : 388 ms P-R-T Axes : 052 -29 021 degrees QTc Int : 495 ms SINUS RHYTHM WITH 1ST DEGREE A-V BLOCK POSSIBLE LEFT ATRIAL ENLARGEMENT INFERIOR INFARCT , AGE UNDETERMINED POSSIBLE ANTERIOR INFARCT , AGE UNDETERMINED ABNORMAL ECG WHEN COMPARED WITH ECG OF 06-JUN-2017 09:08, NO SIGNIFICANT CHANGE WAS FOUND Confirmed by JAIME TROTTER MD ([id number]) on 05/11/2018 11:29:23 AM Referred By: Confirmed By:JAIME TROTTER MD
[2018-05-11] MEDS: INSULIN SLIDING SCALE (NOVOLOG) 1 VIAL SQ SCH ×2 (11:38→17:02)
[2018-05-11] MEDS ORDERED: MAGNESIUM SULF 50% (8.12 MEQ/2 ML-1 GM VIAL) IVPB ONE (12:12)
--- NOTE | 2018-05-11 14:26 | CON.PSY ---
Psychiatry Consult Chief Complaint: i am an alcoholic , I am not depressed, i am not going to kill myself. Symptoms: reports: Anxiety - Previous Psychiatric Treatment Outpatient: None Inpatient: None - Previous Substance Abuse Treatment Outpatient: None Inpatient: None - Current Medications Current Medications: Active Medications Amlodipine Besylate (Norvasc -) 10 mg PO DAILY [facility] Last Admin: 05/11/18 10:44 Dose: 10 mg Aspirin (Asa -) 81 mg PO DAILY [facility] Last Admin: 05/11/18 10:44 Dose: 81 mg Carvedilol (Coreg -) 25 mg PO BID [facility] Last Admin: 05/11/18 10:44 Dose: 25 mg Lactated Ringer's (Lactated Ringers Solution) 1,000 ml in 1,000 mls @ 125 mls/ hr IV ASDIR [facility] Last Admin: 05/11/18 10:44 Dose: 125 mls/hr Insulin Aspart (Novolog Vial Sliding Scale -) 1 vial SQ TIDAC [facility]; Protocol Last Admin: 05/11/18 11:38 Dose: 2 units Lisinopril (Prinivil) 10 mg PO DAILY [facility] Last Admin: 05/11/18 10:44 Dose: 10 mg Naltrexone HCl (Revia -) 50 mg PO HS [facility] Last Admin: 05/10/18 22:46 Dose: 50 mg Pantoprazole Sodium (Protonix -) 20 mg PO BID [facility] Last Admin: 05/11/18 10:44 Dose: 20 mg - Allergies Allergies: Allergies Allergy/AdvReac Type Severity Reaction Status Date / Time No Known Allergies Allergy Verified 05/09/18 13:23 - Current Living Status Usual Living Arrangement: Alone - Current Mental Status Evaluation Appearance: Disheveled Attitude: Cooperative - Affect Affect: Constrictive Appropriateness: Appropriate to Content - Mood Mood: Anxious - Speech/Language Expressive: Coherent - Psychomotor Activity Psychomotor Activity: Slowed - Thought Process Thought Process: Intact - Thought Content Hallucinations: Absent Delusions: Absent - Self Perception Self Perception: No Impairment - Cognition Attention: Alert Orientation: Time Memory, Immediate Recall: Intact Memory, Short Term: 2/3 Memory, Remote with Promptin/3 - Concentration Serial Sevens Intact: No Simple Calculations Intact: Yes - Abstraction Proverb Interpretation: Intact Judgement: Minimally Impaired - Insight Insight: Intact - Impulse Control Impulse Control: Minimally Impaired - Suicidal Ideation Suicidal Ideation: No - Homicidal Ideation Homicidal Ideation: No Assessment/Plan 1) d/c1:1 2) Detox regimen 3) patient wants to go to RE#hab. 4) No psych Illness.
[2018-05-11 14:46] LABS: URINE APPEARANCE CLEAR; URINE BILIRUBIN NEGATIVE (<2.0 mg/dL); URINE COLOR STRAW; URINE GLUCOSE (UA) NEGATIVE (NEGATIVE); URINE KETONE 1+ (NEGATIVE); URINE LEUK ESTERASE NEGATIVE (NEGATIVE); URINE NITRITE NEGATIVE (NEGATIVE); URINE PROTEIN NEGATIVE (NEGATIVE); URINE UROBILINOGEN NEGATIVE mg/dL (0.2-1.0)
--- NOTE | 2018-05-11 16:43 | PN ---
Progress Note (short form) - Note Progress Note: SUBJECTIVE Awake, Alert, Oriented. Denies suicidal ideation. Reports drinking the disinfecting fluid due to craving for alcohol. Denies ongoing abdominal pain. No further nausea/vomiting. OBJECTIVE Afebrile, Hemodynamically stable. Last Vital Signs Temp Pulse Resp BP Pulse Ox 98.5 F 90 20 124/67 96 05/11/18 10:00 05/11/18 10:00 05/11/18 10:00 05/11/18 10:00 05/11/18 09:00 HEENT- Atraumatic, Normocephalic Heart - S2, S2, RRR Lungs - clear to auscultation. No crackles/wheeze Abdomen - Soft, mild epigastric tendernes. Bowel Sounds normal. Extremities - no edema. No calf tenderness Neuro - AAO x 3. Tone/Power normal all 4 extremities. Laboratory Tests 05/10/18 05/10/18 05/10/18 14:15 14:15 14:15 WBC 9.6 RBC 4.33 Hgb 13.7 Hct 39.2 MCV 90.6 MCH 31.6 MCHC 34.9 RDW 16.0 H Plt Count 266 MPV 7.5 Absolute Neuts (auto) 6.1 Neutrophils % 63.9 Lymphocytes % 28.3 Monocytes % 5.1 Eosinophils % 2.4 Basophils % 0.3 Nucleated RBC % 0 PT with INR 13.00 INR 1.10 H Sodium 140 Potassium 3.7 Chloride 107 Carbon Dioxide 26 Anion Gap 7 L BUN 12 Creatinine 1.8 H Creat Clearance w eGFR 40.14 POC Glucometer Random Glucose 129 H Serum Osmolality 323 H Calcium 8.5 Magnesium Total Bilirubin 0.3 AST 20 ALT 26 Alkaline Phosphatase 76 Creatine Kinase 67 Troponin I 0.07 H Total Protein 6.8 Albumin 3.3 L Total Amylase 58 Lipase 277 Urine Color Urine Appearance Urine pH Ur Specific [place] Urine Protein Urine Glucose (UA) Urine Ketones Urine Blood Urine Nitrite Urine Bilirubin Urine Acetone Urine Urobilinogen Ur Leukocyte Esterase Salicylates < 1.7 L Acetaminophen < 2.0 L Alcohol, Quantitative < 3.0 Acetone, Qual 05/10/18 05/11/18 05/11/18 14:41 06:28 06:28 WBC 6.8 RBC 3.95 L Hgb 12.6 Hct 35.8 MCV 90.8 MCH 32.0 MCHC 35.2 RDW 16.3 H Plt Count 271 MPV 7.7 Absolute Neuts (auto) Neutrophils % Lymphocytes % Monocytes % Eosinophils % Basophils % Nucleated RBC % PT with INR INR Sodium 142 Potassium 3.5 Chloride 108 H Carbon Dioxide 27 Anion Gap 8 BUN 5 L Creatinine 1.8 H Creat Clearance w eGFR 40.14 POC Glucometer Random Glucose 137 H Serum Osmolality Calcium 8.6 Magnesium 1.7 L Total Bilirubin 0.3 AST 16 ALT 24 Alkaline Phosphatase 55 Creatine Kinase Troponin I 0.07 H Total Protein 6.1 L Albumin 3.0 L Total Amylase Lipase Urine Color Urine Appearance Urine pH Ur Specific [place] Urine Protein Urine Glucose (UA) Urine Ketones Urine Blood Urine Nitrite Urine Bilirubin Urine Acetone Urine Urobilinogen Ur Leukocyte Esterase Salicylates Acetaminophen Alcohol, Quantitative Acetone, Qual Positive large 3+ 05/11/18 05/11/18 05/11/18 06:28 11:11 13:30 WBC RBC Hgb Hct MCV MCH MCHC RDW Plt Count MPV Absolute Neuts (auto) Neutrophils % Lymphocytes % Monocytes % Eosinophils % Basophils % Nucleated RBC % PT with INR INR Sodium Potassium Chloride Carbon Dioxide Anion Gap BUN Creatinine Creat Clearance w eGFR POC Glucometer 196 Random Glucose Serum Osmolality Calcium Magnesium Total Bilirubin AST ALT Alkaline Phosphatase Creatine Kinase Troponin I Cancelled Total Protein Albumin Total Amylase Lipase Urine Color Straw Urine Appearance Clear Urine pH 7.0 Ur Specific [place] 1.008 L Urine Protein Negative Urine Glucose (UA) Negative Urine Ketones 1+ H Urine Blood Negative Urine Nitrite Negative Urine Bilirubin Negative Urine Acetone Urine Urobilinogen Negative Ur Leukocyte Esterase Negative Salicylates Acetaminophen Alcohol, Quantitative Acetone, Qual 05/11/18 13:30 WBC RBC Hgb Hct MCV MCH MCHC RDW Plt Count MPV Absolute Neuts (auto) Neutrophils % Lymphocytes % Monocytes % Eosinophils % Basophils % Nucleated RBC % PT with INR INR Sodium Potassium Chloride Carbon Dioxide Anion Gap BUN Creatinine Creat Clearance w eGFR POC Glucometer Random Glucose Serum Osmolality Calcium Magnesium Total Bilirubin AST ALT Alkaline Phosphatase Creatine Kinase Troponin I Total Protein Albumin Total Amylase Lipase Urine Color Urine Appearance Urine pH Ur Specific [place] Urine Protein Urine Glucose (UA) Urine Ketones Urine Blood Urine Nitrite Urine Bilirubin Urine Acetone Cancelled Urine Urobilinogen Ur Leukocyte Esterase Salicylates Acetaminophen Alcohol, Quantitative Acetone, Qual Current Medications Generic Name Dose Route Start Last Admin Trade Name Freq PRN Reason Stop Dose Admin Amlodipine Besylate 10 mg 05/11/18 10:00 05/11/18 10:44 Norvasc - PO 10 mg DAILY DARRELL Administration Aspirin 81 mg 05/11/18 10:00 05/11/18 10:44 Asa - PO 81 mg DAILY DARRELL Administration Carvedilol 25 mg 05/11/18 10:00 05/11/18 10:44 Coreg - PO 25 mg BID DARRELL Administration Lactated Ringer's 1,000 ml in 1,000 mls @ 125 mls/hr 05/10/18 17:15 05/11/18 10:44 Lactated Ringers Solution IV 125 mls/hr ASDIR DARRELL Administration Insulin Aspart 1 vial 05/11/18 07:00 05/11/18 11:38 Novolog Vial Sliding Scale - SQ 2 units TIDAC DARRELL Administration Protocol Lisinopril 10 mg 05/11/18 10:00 05/11/18 10:44 Prinivil PO 10 mg DAILY DARRELL Administration Naltrexone HCl 50 mg 05/10/18 22:00 05/10/18 22:46 Revia - PO 50 mg HS DARRELL Administration Pantoprazole Sodium 20 mg 05/10/18 22:00 05/11/18 10:44 Protonix - PO 20 mg BID DARRELL Administration ASSESSMENT/PLAN 52 year old male with history of Alcohol excess, HTN, CAD s/p Stent, DJD s/p Laminectomy L4/5, DM 2, Depression, presented to ED with epigastric/throat burning and vomiting, from [facility] where he was admitted for alcohol detox, for drinking 3 bottles of disinfecting fluid from [employer] containers. 1. Disinfecting liquid ingestion Not a suicidal attempt. 1:1 discontinued. Psych consulted. Serum acetone elevated. Not acidotic. Poison control contacted - advised to monitor for hematemesis. No further vomiting since admission. No hematemesis. Hungry - will advance diet. GI consulted. Protonix ordered. 2. Alcohol Abuse Admitted to [facility] for detox. No evidence for withdrawal now but patient refers history of shakes and diaphoresis but no withdrawal seizures. On Naltrexone qhs. Will start on Librium protocol. 3. HTN - Continue Lisinopril, Amlodipine, Carvedilol 4. CAD s/p PCI/Stent - Continue ASA, BB, ARMANDO-I 5. ARTURO, etiology unclear ?ATN due to volume depletion due to vomiting Hydration ongoing. CT A/P - renal calculi without obstruction Will consult Nephrology 6. DM 2 - Hold Metformin. Cover with SSI. 7. Hypomagnesemia - will replete. DVT Px - Heparin SQ GI Px - Protonix Visit type - Emergency Visit Emergency Visit: Yes ED Registration Date: 05/10/18 Care time: The patient presented to the Emergency Department on the above date and was hospitalized for further evaluation of their emergent condition. - New Patient This patient is new to me today: Yes Date on this admission: 05/11/18 - Critical Care Critical Care patient: No - Discharge Referral Referred to [facility] Med P.C.: No
[2018-05-11] MEDS ORDERED: chlordiazePOXIDE HCL 25 MG CAPSULE PO ONE (16:44)
[2018-05-11] MEDS ORDERED: chlordiazePOXIDE HCL 25 MG CAPSULE PO PRN (16:44)
[2018-05-11] MEDS: chlordiazePOXIDE HCL 25 MG CAPSULE PO SCH ×2 (17:01→22:30)
--- NOTE | 2018-05-11 18:07 | CON.GI ---
Consult Consult Specialty:: GI - History of Present Illness History of Present Illness: The patient is a 52 year old male, with a significant past medical history of hypertension, hyperlipidemia, diabetes and alcohol abuse, who [facility] the [facility] department [facility] after ingesting Super [employer] solution earlier this morning. After ingestion, the nursing note from [facility] reports that he vomited and reported a burning sensation in his throat. The patient reports that he only drank one bottle but the rehab center reports that he drank 3 bottles. Currently in the emergency department, the patient is reporting diffuse abdominal pain which is worse in the epigastric region. The patient denies fever, chills, diarrhea or dizziness. Patient this evening denies throat pain, nausea, abdominal pain. He was tolerating solid food. He wants to continue his rehabilitation and avoid having withdrawal symptoms. He was made aware of his clinical condition was advised to continue to abstain from alcohol use. - Past Medical History Cardio/Vascular: Yes: HTN, Hyperlipdemia Hepatobiliary: Yes: Other (ETOH gastritis) Psych: Yes: Anxiety Endocrine: Yes: Diabetes Mellitus - Past Surgical History Past Surgical History: Yes: None - Alcohol/Substance Use Hx Alcohol Use: No History of Substance Use: reports: None - Smoking History Smoking history: Never smoked Have you smoked in the past 12 months: No Aproximately how many cigarettes per day: 0 - Social History Usual Living Arrangement: Alone ADL: Independent Home Medications - Allergies Allergies/Adverse Reactions: Allergies Allergy/AdvReac Type Severity Reaction Status Date / Time No Known Allergies Allergy Verified 05/09/18 13:23 - Home Medications Home Medications: Ambulatory Orders Amlodipine Besylate [Norvasc -] 10 mg PO DAILY 02/22/17 Carvedilol [Coreg] 25 mg PO DAILY 02/22/17 Naltrexone HCl 50 mg PO HS 02/22/17 Aspirin [ASA -] 81 mg PO DAILY tab.chew 06/06/17 Lisinopril [Zestril] 10 mg PO DAILY 06/14/17 Metformin HCl [Metformin HCl ER] 1,000 mg PO BID 06/14/17 Family Disease History - Family Disease History Family Disease History: Diabetes: Father, Mother, Sister, Heart Disease: Father , Mother, CA: Father, Other: Father, Mother, Sister, Son (three ( ages 27, 23, 19)), Daughter (two (ages 30, 23)) Review of Systems - Review of Systems Constitutional: denies: No Symptoms, Chills, Diaphoresis, Fever, Lethargy, Loss of Appetite, Malaise, Night Sweats, Unintentional Wgt. Loss, Weakness, Other HENT: denies: No Symptoms, Difficult Swallowing, Ear Discharge, Ear Pain, Epistaxis, Gingival Bleeding, Hearing Loss, Mouth Swelling, Nasal Congestion, Ocular Prosthesis, Throat Pain, Toothache, Ringing in Ears, Other Neck: denies: No Symptoms, Decreased ROM, Lumps, Pain on Movement, Stiffness, Swollen Glands, Tenderness, Other Cardiovascular: denies: No Symptoms, Chest Pain, Edema, Palpitations, Shortness of Breath, Other Gastrointestinal: denies: No Symptoms, Abdominal Pain, Bloating, Constipation, Diarrhea, Dysphagia, Indigestion, Melena, Nausea, Rectal Bleeding, Vomiting, Vomiting Blood, Other Genitourinary: denies: No Symptoms, Burning, Discharge, Dysuria, Flank Pain, Frequency, Hematuria, Incontinence, Lesions, Menses, Pain, Testicular Mass, Testicular Pain, Testicular Swelling, Urgency, Vaginal Bleeding, Other Physical Exam-GI Vital Signs: Vital Signs Temperature 98.5 F 05/11/18 10:00 Pulse Rate 90 05/11/18 10:00 Respiratory Rate 20 05/11/18 10:00 Blood Pressure 124/67 05/11/18 10:00 O2 Sat by Pulse Oximetry (%) 96 05/11/18 09:00 Constitutional: Yes: Well Nourished Eyes: Yes: Conjunctiva Clear HENT: Yes: Atraumatic Neck: Yes: Supple Cardiovascular: Yes: Regular Rate and Rhythm Respiratory: Yes: CTA Bilaterally ...Palpate: Yes: Soft. No: Firm/Rigid, Guarding, Hepatomegaly, Splenomegaly, Tenderness, Tenderness, Epigastium Labs: CBC, BMP 05/11/18 06:28 05/11/18 06:28 INR, PTT INR 1.10 (0.83-1.09) H 05/10/18 14:15 Home Medications Medication Instructions Recorded Amlodipine Besylate [Norvasc -] 10 mg PO DAILY 02/22/17 Carvedilol [Coreg] 25 mg PO DAILY 02/22/17 Naltrexone HCl 50 mg PO HS 02/22/17 Aspirin [ASA -] 81 mg PO DAILY tab.chew 06/06/17 Lisinopril [Zestril] 10 mg PO DAILY 06/14/17 Metformin HCl [Metformin HCl ER] 1,000 mg PO BID 06/14/17 Current Medications Generic Name Dose Route Start Last Admin Trade Name Freq PRN Reason Stop Dose Admin Amlodipine Besylate 10 mg 05/11/18 10:00 05/11/18 10:44 Norvasc - PO 10 mg DAILY DARRELL Administration Aspirin 81 mg 05/11/18 10:00 05/11/18 10:44 Asa - PO 81 mg DAILY DARRELL Administration Carvedilol 25 mg 05/11/18 10:00 05/11/18 10:44 Coreg - PO 25 mg BID DARRELL Administration Chlordiazepoxide HCl 50 mg 05/11/18 17:00 05/11/18 17:01 Librium - PO 05/12/18 11:01 50 mg [id number] DARRELL Administration Chlordiazepoxide HCl 25 mg 05/12/18 17:00 Librium - PO 05/13/18 11:01 [id number] DARRELL Chlordiazepoxide HCl 15 mg 05/13/18 17:00 Librium - PO 05/14/18 11:01 [id number] DARRELL Chlordiazepoxide HCl 25 mg 05/11/18 16:44 Librium - PO 05/14/18 16:43 Q4H PRN WITHDRAWAL(CONT SUBST) Chlordiazepoxide HCl 10 mg 05/14/18 17:00 Librium - PO 05/15/18 11:01 [id number] DARRELL Lactated Ringer's 1,000 ml in 1,000 mls @ 125 mls/hr 05/10/18 17:15 05/11/18 17:15 Lactated Ringers Solution IV 125 mls/hr ASDIR DARRELL Administration Insulin Aspart 1 vial 05/11/18 07:00 05/11/18 17:02 Novolog Vial Sliding Scale - SQ 2 units TIDAC DARRELL Administration Protocol Lisinopril 10 mg 05/11/18 10:00 05/11/18 10:44 Prinivil PO 10 mg DAILY DARRELL Administration Naltrexone HCl 50 mg 05/10/18 22:00 05/10/18 22:46 Revia - PO 50 mg HS DARRELL Administration Pantoprazole Sodium 20 mg 05/10/18 22:00 05/11/18 10:44 Protonix - PO 20 mg BID DARRELL Administration Problem List - Problems (1) Isopropyl alcohol poisoning Assessment/Plan: R> patient denies being suicidal uncomplicated clinical event--will need to continue PPI for 3 while on chronic aspirin use please recall as necessary no further gi w/u at this time as patient symptoms has resolved Code(s): T51.2X1A - TOXIC EFFECT OF 2-PROPANOL, ACCIDENTAL (UNINTENTIONAL), INIT (2) Alcohol dependence with uncomplicated withdrawal Code(s): F10.230 - ALCOHOL DEPENDENCE WITH WITHDRAWAL, UNCOMPLICATED
[2018-05-11] MEDS: NALTREXONE HCL 50 MG TABLET PO SCH (22:09)
[2018-05-12] MEDS: chlordiazePOXIDE HCL 25 MG CAPSULE PO SCH ×3 (05:34→16:55)
[2018-05-12] MEDS: INSULIN SLIDING SCALE (NOVOLOG) 1 VIAL SQ SCH ×3 (06:02→16:50)
[2018-05-12 08:06] LABS: BASO % 0.6 % (0-2.0); EOS % 2.5 % (0-4.5); HEMATOCRIT 34.1 % (35.4-49); HEMOGLOBIN 11.3 GM/dL (11.7-16.9); LYMPH % 43.9 % (8-40); MCH 30.5 pg (25.7-33.7); MCHC 33.2 g/dl (32.0-35.9); MEAN CELL VOLUME 92.1 fl (80-96); MONO % 7.5 % (3.8-10.2); NEUT % 45.5 % (42.8-82.8); PLATELET COUNT 226 K/MM3 (134-434); RDW 15.9 % (11.9-15.9); WHITE BLOOD COUNT 6.1 K/mm3 (4.0-10.0)
[2018-05-12 08:39] LABS: ALBUMIN 3.1 g/dl (3.4-5.0); ALK PHOS 54 U/L (45-117); ANION GAP 7 MMOL/L (8-16); BILIRUBIN,TOTAL 0.2 mg/dL (0.2-1); BLOOD UREA NITROGEN 4 mg/dL (7-18); CALCIUM 8.3 mg/dL (8.5-10.1); CHLORIDE 106 mmol/L (98-107); CO2 29 mmol/L (21-32); GLUCOSE,RANDOM 120 mg/dL (74-106); MAGNESIUM 1.9 mg/dL (1.8-2.4); PHOSPHOROUS 3.2 mg/dL (2.5-4.9); POTASSIUM 3.4 mmol/L (3.5-5.1); SGOT/AST 14 U/L (15-37); SGPT/ALT 19 U/L (13-61); SODIUM 141 mmol/L (136-145); TOT PROT 6.1 g/dl (6.4-8.2)
[2018-05-12] MEDS: LACTATED RINGERS SOLUTION 1,000 ML/1,000 ML INFUS.BAG IV SCH ×3 (09:39→18:59)
[2018-05-12] MEDS ORDERED: ACETAMINOPHEN 500 MG TABLET (FP) PO STA (09:39)
[2018-05-12] MEDS: PANTOPRAZOLE 20 MG TABLET (FP) PO SCH ×2 (09:41→21:21)
[2018-05-12] MEDS: ASPIRIN 81 MG CHEWABLE TABLETS PO SCH (09:41)
[2018-05-12] MEDS: LISINOPRIL 10 MG TABLET (FP) PO SCH (09:41)
[2018-05-12] MEDS: amLODIPine BESYLATE 10 MG TABLET (FP) PO SCH (09:41)
[2018-05-12] MEDS: CARVEDILOL 25 MG TABLET (FP) PO SCH ×2 (09:41→21:21)
[2018-05-12] MEDS ORDERED: POTASSIUM CHLORIDE TABS 20 MEQ TABLET.ER (FP) PO ONE (09:45)
--- NOTE | 2018-05-12 10:41 | PN ---
Progress Note (short form) - Note Progress Note: SUBJECTIVE Complains of headache. No further nausea/vomiting/abdominal pain. No diarrhea/ melena. Continues to deny suicidal ideation.Wants to return to Rehab. OBJECTIVE Afebrile, Hemodynamically stable. Mild tremor outstretched hands. Last Vital Signs Temp Pulse Resp BP Pulse Ox 97.6 F 77 18 122/68 96 05/12/18 08:54 05/12/18 08:54 05/12/18 08:54 05/12/18 08:54 05/11/18 21:00 HEENT- Atraumatic, Normocephalic Heart - S2, S2, RRR Lungs - clear to auscultation. No crackles/wheeze Abdomen - Soft, non-tender. Bowel Sounds normal. Extremities - no edema. No calf tenderness Neuro - AAO x 3. Tone/Power normal all 4 extremities. Laboratory Results - last 24 hr 05/11/18 05/11/18 05/11/18 06:28 06:28 11:11 WBC RBC Hgb Hct MCV MCH MCHC RDW Plt Count MPV Absolute Neuts (auto) Neutrophils % Lymphocytes % Monocytes % Eosinophils % Basophils % Nucleated RBC % Sodium 142 Potassium 3.5 Chloride 108 H Carbon Dioxide 27 Anion Gap 8 BUN 5 L Creatinine 1.8 H Creat Clearance w eGFR 40.14 POC Glucometer 196 Random Glucose 137 H Calcium 8.6 Phosphorus Magnesium 1.7 L Total Bilirubin 0.3 AST 16 ALT 24 Alkaline Phosphatase 55 Troponin I 0.07 H Cancelled Total Protein 6.1 L Albumin 3.0 L Urine Color Urine Appearance Urine pH Ur Specific [place] Urine Protein Urine Glucose (UA) Urine Ketones Urine Blood Urine Nitrite Urine Bilirubin Urine Acetone Urine Urobilinogen Ur Leukocyte Esterase 05/11/18 05/11/18 05/11/18 13:30 13:30 16:28 WBC RBC Hgb Hct MCV MCH MCHC RDW Plt Count MPV Absolute Neuts (auto) Neutrophils % Lymphocytes % Monocytes % Eosinophils % Basophils % Nucleated RBC % Sodium Potassium Chloride Carbon Dioxide Anion Gap BUN Creatinine Creat Clearance w eGFR POC Glucometer 199 Random Glucose Calcium Phosphorus Magnesium Total Bilirubin AST ALT Alkaline Phosphatase Troponin I Total Protein Albumin Urine Color Straw Urine Appearance Clear Urine pH 7.0 Ur Specific [place] 1.008 L Urine Protein Negative Urine Glucose (UA) Negative Urine Ketones 1+ H Urine Blood Negative Urine Nitrite Negative Urine Bilirubin Negative Urine Acetone Cancelled Urine Urobilinogen Negative Ur Leukocyte Esterase Negative 05/12/18 05/12/18 05/12/18 05:43 05:50 05:50 WBC 6.1 RBC 3.70 L Hgb 11.3 L Hct 34.1 L MCV 92.1 MCH 30.5 MCHC 33.2 RDW 15.9 Plt Count 226 MPV 7.0 L Absolute Neuts (auto) 2.8 Neutrophils % 45.5 D Lymphocytes % 43.9 H D Monocytes % 7.5 Eosinophils % 2.5 Basophils % 0.6 Nucleated RBC % 0 Sodium 141 Potassium 3.4 L Chloride 106 Carbon Dioxide 29 Anion Gap 7 L BUN 4 L Creatinine 2.0 H Creat Clearance w eGFR 35.54 POC Glucometer 129 Random Glucose 120 H Calcium 8.3 L Phosphorus 3.2 Magnesium 1.9 Total Bilirubin 0.2 AST 14 L ALT 19 Alkaline Phosphatase 54 Troponin I Total Protein 6.1 L Albumin 3.1 L Urine Color Urine Appearance Urine pH Ur Specific [place] Urine Protein Urine Glucose (UA) Urine Ketones Urine Blood Urine Nitrite Urine Bilirubin Urine Acetone Urine Urobilinogen Ur Leukocyte Esterase Current Medications Generic Name Dose Route Start Last Admin Trade Name Freq PRN Reason Stop Dose Admin Amlodipine Besylate 10 mg 05/11/18 10:00 05/12/18 09:41 Norvasc - PO 10 mg DAILY DARRELL Administration Aspirin 81 mg 05/11/18 10:00 05/12/18 09:41 Asa - PO 81 mg DAILY DARRELL Administration Carvedilol 25 mg 05/11/18 10:00 05/12/18 09:41 Coreg - PO 25 mg BID DARRELL Administration Chlordiazepoxide HCl 50 mg 05/11/18 17:00 05/12/18 05:34 Librium - PO 05/12/18 11:01 50 mg [id number] DARRELL Administration Chlordiazepoxide HCl 25 mg 05/12/18 17:00 Librium - PO 05/13/18 11:01 [id number] DARRELL Chlordiazepoxide HCl 15 mg 05/13/18 17:00 Librium - PO 05/14/18 11:01 [id number] DARRELL Chlordiazepoxide HCl 25 mg 05/11/18 16:44 Librium - PO 05/14/18 16:43 Q4H PRN WITHDRAWAL(CONT SUBST) Chlordiazepoxide HCl 10 mg 05/14/18 17:00 Librium - PO 05/15/18 11:01 [id number] DARRELL Lactated Ringer's 1,000 ml in 1,000 mls @ 125 mls/hr 05/10/18 17:15 05/12/18 09:39 Lactated Ringers Solution IV 125 mls/hr ASDIR DARRELL Administration Insulin Aspart 1 vial 05/11/18 07:00 05/12/18 06:02 Novolog Vial Sliding Scale - SQ Not Given TIDAC [facility] Protocol Lisinopril 10 mg 05/11/18 10:00 05/12/18 09:41 Prinivil PO 10 mg DAILY DARRELL Administration Naltrexone HCl 50 mg 05/10/18 22:00 05/11/18 22:09 Revia - PO 50 mg HS DARRELL Administration Pantoprazole Sodium 20 mg 05/10/18 22:00 05/12/18 09:41 Protonix - PO 20 mg BID DARRELL Administration ASSESSMENT/PLAN 52 year old male with history of Alcohol excess, HTN, CAD s/p Stent, DJD s/p Laminectomy L4/5, DM 2, Depression, presented to ED with epigastric/throat burning, abdominal pain, and vomiting, from [facility] where he was admitted for alcohol detox, after drinking 3 bottles of disinfecting fluid from [employer] wipes containers. 1. Disinfecting liquid ingestion/Isopropyl Alcohol poisoning Not a suicidal attempt. 1:1 discontinued. Psych evaluated. Serum acetone elevated. Not acidotic. Poison control contacted - advised to monitor for hematemesis. No further abdominal pain or vomiting since admission. Tolerating oral intake. GI evaluated - not for intervention at this point. GI Prohylaxis with Protonix 2. Alcohol Abuse Admitted to [facility] for detox prior to ED visit. No clear evidence for withdrawal now except mild tremor but patient refers history of shakes and diaphoresis but no withdrawal seizures. On Naltrexone qhs. Continue Librium protocol. 3. HTN - Continue Lisinopril, Amlodipine, Carvedilol 4. CAD s/p PCI/Stent - Continue ASA, BB, ARMANDO-I 5. ARTURO, etiology unclear ?ATN due to volume depletion due to vomiting Hydration ongoing but renal function not improving. Creat 2.0, baseline normal. CT A/P - renal calculi without obstruction Nephrology consulted. 6. DM 2 - Hold Metformin. Cover with SSI. 7. Hypomagnesemia - repleted. 8. Hypokalemia - will replete. DVT Px - Heparin SQ GI Px - Protonix Visit type - Emergency Visit Emergency Visit: Yes ED Registration Date: 05/10/18 Care time: The patient presented to the Emergency Department on the above date and was hospitalized for further evaluation of their emergent condition. - New Patient This patient is new to me today: No - Critical Care Critical Care patient: No - Discharge Referral Referred to [facility] Med P.C.: No
[2018-05-12] MEDS: HEPARIN NA (PORCINE) 5,000 UNITS/ML 1ML VIAL SQ SCH ×2 (11:43→21:20)
[2018-05-12 12:27] VITALS: BMI 29.4
--- NOTE | 2018-05-12 13:39 | CON.NEP ---
Consult Consult Specialty:: nephrology Referred by:: dr trotter Reason for Consultation:: azotemia - History of Present Illness Chief Complaint: sedated , getting detox History of Present Illness: getting detox on librium has been sedated and sleeping through exam IVF ordered but he has not been receiving- he accidentally pulls out the lines probably may improve azotemia when he gets more fluids - Past Medical History Cardio/Vascular: Yes: HTN, Hyperlipdemia Hepatobiliary: Yes: Other (ETOH gastritis) Psych: Yes: Anxiety Endocrine: Yes: Diabetes Mellitus - Past Surgical History Past Surgical History: Yes: None - Alcohol/Substance Use Hx Alcohol Use: No History of Substance Use: reports: None - Smoking History Smoking history: Never smoked Have you smoked in the past 12 months: No Aproximately how many cigarettes per day: 0 - Social History Usual Living Arrangement: Alone ADL: Independent Home Medications - Allergies Allergies/Adverse Reactions: Allergies Allergy/AdvReac Type Severity Reaction Status Date / Time No Known Allergies Allergy Verified 05/09/18 13:23 - Home Medications Home Medications: Ambulatory Orders Amlodipine Besylate [Norvasc -] 10 mg PO DAILY 02/22/17 Carvedilol [Coreg] 25 mg PO DAILY 02/22/17 Naltrexone HCl 50 mg PO HS 02/22/17 Aspirin [ASA -] 81 mg PO DAILY tab.chew 06/06/17 Lisinopril [Zestril] 10 mg PO DAILY 06/14/17 Metformin HCl [Metformin HCl ER] 1,000 mg PO BID 06/14/17 Family Disease History - Family Disease History Family Disease History: Diabetes: Father, Mother, Sister, Heart Disease: Father , Mother, CA: Father, Other: Father, Mother, Sister, Son (three ( ages 27, 23, 19)), Daughter (two (ages 30, 23)) Nephrology Consult - Height Height: 5 ft 7 in - Weight Weight: 188 lb - BMI Body Mass Index (BMI): 29.4 - Lab Results CBC,BMP: CBC, BMP 05/12/18 05:50 05/12/18 05:50 Anion Gap: Anion Gap Anion Gap 7 MMOL/L (8-16) L 05/12/18 05:50 - Physical Examination Vital Signs: Vital Signs Temperature 97.6 F 05/12/18 08:54 Pulse Rate 77 05/12/18 08:54 Respiratory Rate 18 05/12/18 08:54 Blood Pressure 122/68 05/12/18 08:54 O2 Sat by Pulse Oximetry (%) 97 05/12/18 09:00 Assessment/Plan ARTURO dehydration still to get IVF probably may improve azotemia when he gets more fluids
[2018-05-12] MEDS: NALTREXONE HCL 50 MG TABLET PO SCH (21:26)
[2018-05-12] MEDS ORDERED: PT OWN MED DRAWER 7, Y5N ONE (21:26)
[2018-05-13] MEDS: chlordiazePOXIDE HCL 25 MG CAPSULE PO SCH ×4 (00:42→12:02)
[2018-05-13] MEDS: INSULIN SLIDING SCALE (NOVOLOG) 1 VIAL SQ SCH ×3 (07:02→16:29)
[2018-05-13 08:20] LABS: ANION GAP 7 MMOL/L (8-16); BLOOD UREA NITROGEN 4 mg/dL (7-18); CALCIUM 8.6 mg/dL (8.5-10.1); CHLORIDE 108 mmol/L (98-107); CO2 29 mmol/L (21-32); CREATININE 2.1 mg/dL (0.55-1.3); GLUCOSE,RANDOM 116 mg/dL (74-106); POTASSIUM 3.7 mmol/L (3.5-5.1); SODIUM 143 mmol/L (136-145)
[2018-05-13] MEDS: ASPIRIN 81 MG CHEWABLE TABLETS PO SCH (09:53)
[2018-05-13] MEDS: CARVEDILOL 25 MG TABLET (FP) PO SCH ×2 (09:53→22:17)
[2018-05-13] MEDS: amLODIPine BESYLATE 10 MG TABLET (FP) PO SCH (09:53)
[2018-05-13] MEDS: HEPARIN NA (PORCINE) 5,000 UNITS/ML 1ML VIAL SQ SCH ×2 (09:53→22:17)
[2018-05-13] MEDS: LISINOPRIL 10 MG TABLET (FP) PO SCH (09:54)
[2018-05-13] MEDS: PANTOPRAZOLE 20 MG TABLET (FP) PO SCH ×2 (09:54→22:17)
[2018-05-13] MEDS: LACTATED RINGERS SOLUTION 1,000 ML/1,000 ML INFUS.BAG IV SCH ×3 (10:19→18:29)
--- NOTE | 2018-05-13 14:31 | PN ---
Progress Note (short form) - Note Progress Note: SUBJECTIVE Feels okay. Keeps pulling out IV lines (at least 4 overnight). No further nausea /vomiting/abdominal pain. No diarrhea/melena. Denies suicidal ideation. Wants to return to Rehab. OBJECTIVE Afebrile, Hemodynamically stable. Mild tremor outstretched hands. Last Vital Signs Temp Pulse Resp BP Pulse Ox 97.5 F L 60 18 124/78 95 05/13/18 08:21 05/13/18 08:21 05/13/18 08:21 05/13/18 08:21 05/13/18 08:21 HEENT- Atraumatic, Normocephalic Heart - S2, S2, RRR Lungs - clear to auscultation. No crackles/wheeze Abdomen - Soft, non-tender. Bowel Sounds normal. Extremities - no edema. No calf tenderness Neuro - AAO x 3. Tone/Power normal all 4 extremities. Mild tremor outstretched hands Laboratory Results - last 24 hr 05/12/18 05/13/18 05/13/18 16:49 05:50 06:26 Sodium 143 Potassium 3.7 Chloride 108 H Carbon Dioxide 29 Anion Gap 7 L BUN 4 L Creatinine 2.1 H Creat Clearance w eGFR 33.60 POC Glucometer 173 120 Random Glucose 116 H Calcium 8.6 05/13/18 11:59 Sodium Potassium Chloride Carbon Dioxide Anion Gap BUN Creatinine Creat Clearance w eGFR POC Glucometer 142 Random Glucose Calcium Current Medications Generic Name Dose Route Start Last Admin Trade Name Freq PRN Reason Stop Dose Admin Amlodipine Besylate 10 mg 05/11/18 10:00 05/13/18 09:53 Norvasc - PO 10 mg DAILY DARRELL Administration Aspirin 81 mg 05/11/18 10:00 05/13/18 09:53 Asa - PO 81 mg DAILY DARRELL Administration Carvedilol 25 mg 05/11/18 10:00 05/13/18 09:53 Coreg - PO 25 mg BID DARRELL Administration Chlordiazepoxide HCl 15 mg 05/13/18 17:00 Librium - PO 05/14/18 11:01 [id number] DARRELL Chlordiazepoxide HCl 25 mg 05/11/18 16:44 Librium - PO 05/14/18 16:43 Q4H PRN WITHDRAWAL(CONT SUBST) Chlordiazepoxide HCl 10 mg 05/14/18 17:00 Librium - PO 05/15/18 11:01 [id number] DARRELL Heparin Sodium (Porcine) 5,000 unit 05/12/18 10:45 05/13/18 09:53 Heparin - SQ 5,000 unit BID DARRELL Administration Lactated Ringer's 1,000 ml in 1,000 mls @ 125 mls/hr 05/10/18 17:15 05/13/18 10:19 Lactated Ringers Solution IV 125 mls/hr ASDIR DARRELL Administration Insulin Aspart 1 vial 05/11/18 07:00 05/13/18 12:01 Novolog Vial Sliding Scale - SQ Not Given TIDAC [facility] Protocol Lisinopril 10 mg 05/11/18 10:00 05/13/18 09:54 Prinivil PO 10 mg DAILY DARRELL Administration Naltrexone HCl 50 mg 05/10/18 22:00 05/12/18 21:26 Revia - PO 50 mg HS DARRELL Administration Pantoprazole Sodium 20 mg 05/10/18 22:00 05/13/18 09:54 Protonix - PO 20 mg BID DARRELL Administration ASSESSMENT/PLAN 52 year old male with history of Alcohol excess, HTN, CAD s/p Stent, DJD s/p Laminectomy L4/5, DM 2, Depression, presented to ED with epigastric/throat burning, abdominal pain, and vomiting, from [facility] where he was admitted for alcohol detox, after drinking 3 bottles of disinfecting fluid from [employer] wipes containers. 1. Disinfecting liquid ingestion/Isopropyl Alcohol poisoning Not a suicidal attempt. 1:1 discontinued. Psych evaluated and cleared. Serum acetone elevated. Not acidotic. No further abdominal pain or vomiting since admission. Tolerating oral intake. GI evaluated - not for intervention at this point. GI Prohylaxis with Protonix 2. Alcohol Abuse Admitted to [facility] for detox prior to ED visit. No clear evidence for withdrawal now except mild tremor but patient refers history of shakes and diaphoresis but no withdrawal seizures. On Naltrexone qhs. Continue Librium protocol. 3. HTN - Continue Lisinopril, Amlodipine, Carvedilol 4. CAD s/p PCI/Stent - Continue ASA, BB, ARMANDO-I 5. ARTURO vs CKD, etiology unclear ?ATN due to volume depletion due to vomiting. However BUN 4. Keeps pulling out IVs despite being alert and oriented x 3. Creat 2.1, baseline normal. CT A/P - renal calculi without obstruction Nephrology consulted to evaluate for possible CKD. Counselled extensivelt re: need for IV access and fluids. 6. DM 2 - Metformin held. Cover with SSI. 7. Hypomagnesemia - repleted. 8. Hypokalemia - repleted. DVT Px - Heparin SQ GI Px - Protonix Visit type - Emergency Visit Emergency Visit: Yes ED Registration Date: 05/10/18 Care time: The patient presented to the Emergency Department on the above date and was hospitalized for further evaluation of their emergent condition. - New Patient This patient is new to me today: No - Critical Care Critical Care patient: No - Discharge Referral Referred to [facility] Med P.C.: No
[2018-05-13] MEDS: chlordiazePOXIDE 5 MG CAPSULE PO SCH ×2 (17:32→22:18)
--- NOTE | 2018-05-13 19:20 | PN ---
Progress Note (short form) - Note Progress Note: problema etoh abuse getting detox ARTURO dehydration Current Medications Amlodipine Besylate (Norvasc -) 10 mg PO DAILY COUNT INCLUDES THE [facility] Last Admin: 05/13/18 09:53 Dose: 10 mg Aspirin (Asa -) 81 mg PO DAILY COUNT INCLUDES THE [facility] Last Admin: 05/13/18 09:53 Dose: 81 mg Carvedilol (Coreg -) 25 mg PO BID COUNT INCLUDES THE [facility] Last Admin: 05/13/18 09:53 Dose: 25 mg Chlordiazepoxide HCl (Librium -) 15 mg PO [id number] COUNT INCLUDES THE [facility] Stop: 05/14/18 11:01 Last Admin: 05/13/18 17:32 Dose: Not Given Chlordiazepoxide HCl (Librium -) 25 mg PO Q4H PRN PRN Reason: WITHDRAWAL(CONT SUBST) Stop: 05/14/18 16:43 Chlordiazepoxide HCl (Librium -) 10 mg PO [id number] COUNT INCLUDES THE [facility] Stop: 05/15/18 11:01 Heparin Sodium (Porcine) (Heparin -) 5,000 unit SQ BID COUNT INCLUDES THE [facility] Last Admin: 05/13/18 09:53 Dose: 5,000 unit Lactated Ringer's (Lactated Ringers Solution) 1,000 ml in 1,000 mls @ 125 mls/ hr IV ASDIR COUNT INCLUDES THE [facility] Last Admin: 05/13/18 18:29 Dose: 125 mls/hr Insulin Aspart (Novolog Vial Sliding Scale -) 1 vial SQ TIDAC COUNT INCLUDES THE [facility]; Protocol Last Admin: 05/13/18 16:29 Dose: 2 units Lisinopril (Prinivil) 10 mg PO DAILY COUNT INCLUDES THE [facility] Last Admin: 05/13/18 09:54 Dose: 10 mg Naltrexone HCl (Revia -) 50 mg PO HS COUNT INCLUDES THE [facility] Last Admin: 05/12/18 21:26 Dose: 50 mg Pantoprazole Sodium (Protonix -) 20 mg PO BID COUNT INCLUDES THE [facility] Last Admin: 05/13/18 09:54 Dose: 20 mg Last Vital Signs Temp Pulse Resp BP Pulse Ox 97.3 F L 59 L 20 110/59 L 95 05/13/18 17:00 05/13/18 17:00 05/13/18 17:00 05/13/18 17:00 05/13/18 08:21 Lungs clear Heart reg Abd soft no tenderness Ext no edema CBC, BMP 05/12/18 05:50 05/13/18 05:50 IMP- ARTURO urine is dilute and bland on first testing r/o ATN- recheck FeNa r/o obstructive component Plan- continue IVF encourage oral hydration if IVF is not reliable
[2018-05-13] MEDS: NALTREXONE HCL 50 MG TABLET PO SCH (22:17)
[2018-05-14] MEDS: INSULIN SLIDING SCALE (NOVOLOG) 1 VIAL SQ SCH ×3 (06:43→18:51)
[2018-05-14] MEDS: chlordiazePOXIDE 5 MG CAPSULE PO SCH ×4 (06:52→23:21)
[2018-05-14 07:49] LABS: ANION GAP 7 MMOL/L (8-16); BLOOD UREA NITROGEN 6 mg/dL (7-18); CALCIUM 8.5 mg/dL (8.5-10.1); CHLORIDE 105 mmol/L (98-107); CO2 30 mmol/L (21-32); CREATININE 2.3 mg/dL (0.55-1.3); GLUCOSE,RANDOM 129 mg/dL (74-106); POTASSIUM 3.6 mmol/L (3.5-5.1); SODIUM 143 mmol/L (136-145)
[2018-05-14] MEDS: CARVEDILOL 25 MG TABLET (FP) PO SCH ×2 (13:00→23:19)
[2018-05-14] MEDS: ASPIRIN 81 MG CHEWABLE TABLETS PO SCH (13:00)
[2018-05-14] MEDS: LISINOPRIL 10 MG TABLET (FP) PO SCH (13:00)
[2018-05-14] MEDS: HEPARIN NA (PORCINE) 5,000 UNITS/ML 1ML VIAL SQ SCH ×2 (13:00→23:19)
[2018-05-14] MEDS: PANTOPRAZOLE 20 MG TABLET (FP) PO SCH ×2 (13:01→23:19)
[2018-05-14] MEDS: amLODIPine BESYLATE 10 MG TABLET (FP) PO SCH (13:01)
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
--- NOTE | 2018-05-14 16:07 | PN ---
Progress Note (short form) - Note Progress Note: SUBJECTIVE Lethargic. Keeps pulling out IV lines preventing adequate hydration. Mild abdominal discomfort - no further nausea/vomiting/abdominal pain. No diarrhea/ melena. Denies suicidal ideation. Offers no real explanation for pulling out IVs repeatedly. OBJECTIVE Afebrile, Hemodynamically stable. Mild tremor outstretched hands. Lethargic but rousable to orientation x 3. Last Vital Signs Temp Pulse Resp BP Pulse Ox 97.3 F L 60 20 117/69 95 05/14/18 01:00 05/14/18 05:00 05/14/18 05:00 05/14/18 05:00 05/13/18 20:15 HEENT- Atraumatic, Normocephalic Heart - S2, S2, RRR Lungs - clear to auscultation. No crackles/wheeze Abdomen - Soft, non-tender. Bowel Sounds normal. Extremities - no edema. No calf tenderness Neuro - Lethargic but rousable to Orientation x 3. Tone/Power normal all 4 extremities. Mild tremor outstretched hands Laboratory Results - last 24 hr 05/13/18 05/14/18 05/14/18 16:28 06:25 06:38 Sodium 143 Potassium 3.6 Chloride 105 Carbon Dioxide 30 Anion Gap 7 L BUN 6 L Creatinine 2.3 H Creat Clearance w eGFR 30.25 POC Glucometer 160 133 Random Glucose 129 H Calcium 8.5 05/14/18 12:57 Sodium Potassium Chloride Carbon Dioxide Anion Gap BUN Creatinine Creat Clearance w eGFR POC Glucometer 150 Random Glucose Calcium Current Medications Generic Name Dose Route Start Last Admin Trade Name Freq PRN Reason Stop Dose Admin Amlodipine Besylate 10 mg 05/11/18 10:00 05/14/18 13:01 Norvasc - PO 10 mg DAILY DARRELL Administration Aspirin 81 mg 05/11/18 10:00 05/14/18 13:00 Asa - PO 81 mg DAILY DARRELL Administration Carvedilol 25 mg 05/11/18 10:00 05/14/18 13:00 Coreg - PO 25 mg BID DARRELL Administration Chlordiazepoxide HCl 25 mg 05/11/18 16:44 Librium - PO 05/14/18 16:43 Q4H PRN WITHDRAWAL(CONT SUBST) Chlordiazepoxide HCl 10 mg 05/14/18 17:00 Librium - PO 05/15/18 11:01 [id number] DARRELL Gabapentin 300 mg 05/14/18 22:00 Neurontin - PO BID [facility] Heparin Sodium (Porcine) 5,000 unit 05/12/18 10:45 05/14/18 13:00 Heparin - SQ 5,000 unit BID DARRELL Administration Lactated Ringer's 1,000 ml in 1,000 mls @ 125 mls/hr 05/10/18 17:15 05/13/18 18:29 Lactated Ringers Solution IV 125 mls/hr ASDIR DARRELL Administration Insulin Aspart 1 vial 05/11/18 07:00 05/14/18 13:00 Novolog Vial Sliding Scale - SQ Not Given TIDAC [facility] Protocol Lisinopril 10 mg 05/11/18 10:00 05/14/18 13:00 Prinivil PO 10 mg DAILY DARRELL Administration Naltrexone HCl 50 mg 05/10/18 22:00 05/13/18 22:17 Revia - PO 50 mg HS DARRELL Administration Pantoprazole Sodium 20 mg 05/10/18 22:00 05/14/18 13:01 Protonix - PO 20 mg BID DARRELL Administration ASSESSMENT/PLAN 52 year old male with history of Alcohol excess, HTN, CAD s/p Stent, DJD s/p Laminectomy L4/5, DM 2, Depression, presented to ED with epigastric/throat burning, abdominal pain, and vomiting, from [facility] where he was admitted for alcohol detox, after drinking 3 bottles of disinfecting fluid from [employer]- Cloth wipes containers. 1. Disinfecting liquid ingestion/Isopropyl Alcohol poisoning Not a suicidal attempt - he drank the fluid due to alcohol craving. 1:1 discontinued. Psych evaluated and cleared. Serum acetone elevated on presentation. Not acidotic. Minimal abdominal pain and no vomiting since admission. Tolerating oral intake. GI evaluated - not for intervention at this point. GI Prohylaxis with Protonix 2. Alcohol Abuse Admitted to [facility] for detox prior to ED visit. No clear evidence for withdrawal now except mild tremor but patient refers history of shakes and diaphoresis but no withdrawal seizures. On Naltrexone qhs. Continue Librium protocol - last day 05/15/18 Evaluated by Addiction Medicine physician who agrees to take patient back at [facility] once Renal dysfunction issue is resolved. 3. HTN - Continue Lisinopril, Amlodipine, Carvedilol 4. CAD s/p PCI/Stent - Continue ASA, BB, ARMANDO-I 5. ARTURO vs CKD, etiology unclear ?ATN due to volume depletion as per Nephrology. However BUN 4 and patient appears hydrated. He keeps pulling out IVs despite being alert and oriented x 3. Creat 2.3 today, baseline normal. Making urine, unable toquantify as patient non -compliant with urine collection. Too risky for lr insertion given multiple IV lines pulled out. CT A/P - renal calculi without obstruction Nephrology consulted to evaluate for work-up for ARTURO, possible CKD. ? Nephrotoxic effects of unidentified substance abuse Counselled extensively re: need for IV access and fluids. However he keeps pulling out his IV lines. Psychiatry re-consulted for medical decision making capacity. ??cognitive deficit given drinking of detergent and pulling out of IVs without reason or remorse despite full orientation. 6. DM 2 - Metformin held. Cover with SSI. 7. Hypomagnesemia - repleted. 8. Hypokalemia - repleted. DVT Px - Heparin SQ GI Px - Protonix Visit type - Emergency Visit Emergency Visit: Yes ED Registration Date: 05/10/18 Care time: The patient presented to the Emergency Department on the above date and was hospitalized for further evaluation of their emergent condition. - New Patient This patient is new to me today: No - Critical Care Critical Care patient: No - Discharge Referral Referred to [facility] No
--- NOTE | 2018-05-14 17:28 | PN ---
Mental Health Exam - Mental Status Exam Alert and Oriented to: Time, Place, Person Cognitive Function: Grossly Intact Patient Appearance: Unkempt Mood: Hopeful ("I AM OK". ) Affect: Flat, Constricted Patient Behavior: Dependent, Passive, Cooperative Speech Pattern: Appropriate, Slurred (POSSIBLY DROWSINESS. ) Voice Loudness: Mildly Soft/Quiet Thought Disorder: Not Present Hallucinations: None, Denies Suicidal Ideation: None, Denies Homicidal Ideation: None, Denies Insight/Judgement: Fair Sleep: Fair Appetite: Fair Muscle strength/Tone: Mild Hypertonicity Gait/Station: Deferred Additional Comments: tHIS IS A FOLLOW UP CONSULT REQUEST. INITIAL COMPLETE ON . CLIENT HAS ETOH IS NOT DEPRESSED PER ARIELLE. SUBSTANCE TREATMENT DETOX/ RERHAB 4 TIMES AT [facility]. NO PSYCHIATRIC ADMISSIONS. REFERRED HERE AFTER DRINKING DISENFECTANT, CRAVING ALCHOLOL. HE IS HOMELESS, REQUESTS TO RETURN TO REHAB. DENIES ANY THOUGHT DISORDER, GOAL DIRECTED. CIWA IS 18. PULLING OUT IV LINES, NEURONTIN ADDED BY REHAB THAT MAY HELP. HAS ARTURO CURRENTLY. CONSULT FOR COMPETANCY, TO DECLINE TREATMENT, cLIENT HAS COMPETANCY/ CAPACITY TO MAKE OWN DESCISIONS IN THIS AREA. .
--- NOTE | 2018-05-14 18:15 | PN ---
Progress Note (short form) - Note Progress Note: problems etoh abuse getting detox ARTURO dehydration Current Medications Amlodipine Besylate (Norvasc -) 10 mg PO DAILY [facility] Last Admin: 05/14/18 13:01 Dose: 10 mg Aspirin (Asa -) 81 mg PO DAILY [facility] Last Admin: 05/14/18 13:00 Dose: 81 mg Carvedilol (Coreg -) 25 mg PO BID [facility] Last Admin: 05/14/18 13:00 Dose: 25 mg Chlordiazepoxide HCl (Librium -) 10 mg PO [id number] [facility] Stop: 05/15/18 11:01 Gabapentin (Neurontin -) 300 mg PO BID [facility] Heparin Sodium (Porcine) (Heparin -) 5,000 unit SQ BID [facility] Last Admin: 05/14/18 13:00 Dose: 5,000 unit Lactated Ringer's (Lactated Ringers Solution) 1,000 ml in 1,000 mls @ 125 mls/ hr IV ASDIR [facility] Last Admin: 05/13/18 18:29 Dose: 125 mls/hr Insulin Aspart (Novolog Vial Sliding Scale -) 1 vial SQ TIDAC [facility]; Protocol Last Admin: 05/14/18 13:00 Dose: Not Given Lisinopril (Prinivil) 10 mg PO DAILY [facility] Last Admin: 05/14/18 13:00 Dose: 10 mg Naltrexone HCl (Revia -) 50 mg PO HS [facility] Last Admin: 05/13/18 22:17 Dose: 50 mg Pantoprazole Sodium (Protonix -) 20 mg PO BID [facility] Last Admin: 05/14/18 13:01 Dose: 20 mg S- he is ambulating on the floor obviously unstable says he wants to stay out of bed so he can get better seems unsteady but found to have capacity to make decisions -unreliable fluid intake Last Vital Signs Temp Pulse Resp BP Pulse Ox 98.1 F 63 18 103/58 L 95 05/14/18 15:00 05/14/18 15:00 05/14/18 15:00 05/14/18 15:00 05/13/18 20:15 Lungs clear Heart reg Abd soft no tenderness Ext no edema CBC, BMP 05/14/18 06:25 CBC, BMP 05/12/18 05:50 05/13/18 05:50 IMP- ARTURO urine is dilute and bland on first testing r/o ATN- recheck FeNa r/o obstructive component repeat tests and sono not done Plan- continue IVF encourage oral hydration if IVF is not reliable
[2018-05-14] MEDS ORDERED: PT OWN MED DRAWER 7, Y5N ONE (21:57)
[2018-05-14] MEDS: LACTATED RINGERS SOLUTION 1,000 ML/1,000 ML INFUS.BAG IV SCH (23:18)
[2018-05-14] MEDS: GABAPENTIN 300 MG CAPSULE (FP) PO SCH (23:19)
[2018-05-14] MEDS: NALTREXONE HCL 50 MG TABLET PO SCH (23:19)
--- NOTE | 2018-05-15 00:01 | PN ---
Teaching Attending Note Name of Resident: Mery Bruno ATTENDING PHYSICIAN STATEMENT I saw and evaluated the patient. I reviewed the resident's note and discussed the case with the resident. I agree with the resident's findings and plan as documented. *please note that I am providing AM coverage only and later in AM care will revert to superintendent distribution physician. Thank you. SUBJECTIVE: Seen and examined; no events reported overnight. Had several uneasured voids; continuing to monitor creatinine. Appreciate specialist input. Continues on CIWA protocol. Mentation is at baseline per nursing. 10 sys ROS done and negative aside from HPI OBJECTIVE: VS, labs, imaging reviewed; prior notes reviewed NAd, AAO No flank pain NT ND +BS RRR s1/2 no mgr ASSESSMENT AND PLAN: 52 year old male with history of Alcohol excess, HTN, CAD s/p Stent, DJD s/p Laminectomy L4/5, DM 2, Depression, presented to ED with epigastric/throat burning, abdominal pain, and vomiting, from [facility] where he was admitted for alcohol detox, after drinking 3 bottles of disinfecting fluid from [employer] Cloth wipes containers. He remains inpatient for monitoring of his renal function due to the ARTURO; psych continues to follow and he isdetermined t have capacity. 1) Disinfecting liquid ingestion/Isopropyl Alcohol poisoning -Not a suicidal attempt - he drank the fluid due to alcohol craving. 1:1 discontinued. Psych evaluated and cleared. -Serum acetone elevated on presentation. Not acidotic. -Continues with tolerating oral intake. -GI evaluated - not for intervention at this point; continuing prohylaxis with Protonix 2) Alcohol Abuse -Admitted to [facility] for detox prior to ED visit.; continue on CIWA scale. No profound s/s withdrawal seen here. -Continue on Naltrexone qhs. -Continue Librium protocol - last day 05/15/18 -Evaluated by Addiction Medicine physician who agrees to take patient back at [facility] once Renal dysfunction issue is resolved. 3. HTN -Continue coreg, amlodipine. Holding lisinopril given nephrotoxicity 4. CAD s/p PCI/Stent - Continue ASA, BB, ARMANDO-I 5. ARTURO vs CKD, etiology unclear -?ATN due to volume depletion as per Nephrology. However BUN 4 and patient appears hydrated. He keeps pulling out IVs despite being alert and oriented x 3. Nephrology consulted to evaluate for work-up for ARTURO, possible CKD. ? Nephrotoxic effects of unidentified substance abuse -Continues to make urine; voids weren't measured on 05/14. He pulls out his lines so lr would be too risky -Continue to offer IVF though he pulls out his lines -Ultimately deferring management to nephrology Counselled extensively re: need for IV access and fluids. However he keeps pulling out his IV lines. 6. DM 2 - -Continue to hold PO meds and give SSI DVT Px - Heparin SQ GI Px - Protonix
[2018-05-15 01:47] LABS: BASO % 0.5 % (0-2.0); EOS % 2.8 % (0-4.5); HEMOGLOBIN 12.3 GM/dL (11.7-16.9); MCHC 35.3 g/dl (32.0-35.9); MEAN CELL VOLUME 90.8 fl (80-96); MEAN PLT VOLUME 6.9 fl (7.5-11.1); MONO % 8.5 % (3.8-10.2); NEUT % 37.2 % (42.8-82.8); PLATELET COUNT 244 K/MM3 (134-434); RBC 3.85 M/mm3 (4.00-5.60); RDW 15.7 % (11.9-15.9); WHITE BLOOD COUNT 4.9 K/mm3 (4.0-10.0)
[2018-05-15 02:07] LABS: ALBUMIN 3.3 g/dl (3.4-5.0); ALK PHOS 53 U/L (45-117); ANION GAP 8 MMOL/L (8-16); BILIRUBIN,TOTAL 0.2 mg/dL (0.2-1); BLOOD UREA NITROGEN 4 mg/dL (7-18); CALCIUM 8.2 mg/dL (8.5-10.1); CHLORIDE 105 mmol/L (98-107); CO2 31 mmol/L (21-32); CREATININE 2.4 mg/dL (0.55-1.3); GLUCOSE,RANDOM 128 mg/dL (74-106); MAGNESIUM 1.8 mg/dL (1.8-2.4); PHOSPHOROUS 4.2 mg/dL (2.5-4.9); POTASSIUM 3.5 mmol/L (3.5-5.1); SGOT/AST 13 U/L (15-37); SGPT/ALT 17 U/L (13-61); SODIUM 143 mmol/L (136-145); TOT PROT 6.6 g/dl (6.4-8.2)
[2018-05-15] MEDS: chlordiazePOXIDE 5 MG CAPSULE PO SCH ×2 (04:47→11:22)
[2018-05-15] MEDS: INSULIN SLIDING SCALE (NOVOLOG) 1 VIAL SQ SCH ×3 (07:01→16:06)
[2018-05-15 07:28] LABS: ALBUMIN 3.3 g/dl (3.4-5.0); ALK PHOS 51 U/L (45-117); ANION GAP 7 MMOL/L (8-16); BILIRUBIN,TOTAL 0.2 mg/dL (0.2-1); BLOOD UREA NITROGEN 5 mg/dL (7-18); CALCIUM 8.5 mg/dL (8.5-10.1); CHLORIDE 105 mmol/L (98-107); CO2 29 mmol/L (21-32); CREATININE 2.5 mg/dL (0.55-1.3); GLUCOSE,RANDOM 200 mg/dL (74-106); MAGNESIUM 1.9 mg/dL (1.8-2.4); POTASSIUM 3.8 mmol/L (3.5-5.1); SGOT/AST 13 U/L (15-37); SGPT/ALT 17 U/L (13-61); SODIUM 141 mmol/L (136-145); TOT PROT 6.5 g/dl (6.4-8.2)
[2018-05-15 07:45] LABS: BASO % 0.8 % (0-2.0); EOS % 2.5 % (0-4.5); HEMATOCRIT 36.7 % (35.4-49); HEMOGLOBIN 12.1 GM/dL (11.7-16.9); LYMPH % 54.4 % (8-40); MCH 30.6 pg (25.7-33.7); MCHC 33.1 g/dl (32.0-35.9); MEAN CELL VOLUME 92.4 fl (80-96); MONO % 7.7 % (3.8-10.2); NEUT % 34.6 % (42.8-82.8); PLATELET COUNT 237 K/MM3 (134-434); RBC 3.97 M/mm3 (4.00-5.60); RDW 15.5 % (11.9-15.9); WHITE BLOOD COUNT 5.1 K/mm3 (4.0-10.0)
[2018-05-15] MEDS: HEPARIN NA (PORCINE) 5,000 UNITS/ML 1ML VIAL SQ SCH ×2 (09:42→21:44)
[2018-05-15] MEDS: ASPIRIN 81 MG CHEWABLE TABLETS PO SCH (09:42)
[2018-05-15] MEDS: CARVEDILOL 25 MG TABLET (FP) PO SCH ×2 (09:42→21:45)
[2018-05-15] MEDS: amLODIPine BESYLATE 10 MG TABLET (FP) PO SCH (09:43)
[2018-05-15] MEDS: GABAPENTIN 300 MG CAPSULE (FP) PO SCH ×2 (09:43→21:45)
[2018-05-15] MEDS: PANTOPRAZOLE 20 MG TABLET (FP) PO SCH ×2 (09:43→21:45)
[2018-05-15 15:09] LABS: URINE APPEARANCE CLEAR; URINE BILIRUBIN NEGATIVE (<2.0 mg/dL); URINE COLOR YELLOW; URINE GLUCOSE (UA) NEGATIVE (NEGATIVE); URINE KETONE 1+ (NEGATIVE); URINE LEUK ESTERASE NEGATIVE (NEGATIVE); URINE NITRITE NEGATIVE (NEGATIVE); URINE PROTEIN 1+ (NEGATIVE); URINE UROBILINOGEN 4.0 E.U/dl mg/dL (0.2-1.0)
[2018-05-15 15:14] LABS: EPI CELLS RARE /HPF (FEW); URINE HYALINE CAST 1 /lpf; URINE MUCUS MODERATE
--- NOTE | 2018-05-15 16:43 | PN ---
Progress Note (short form) - Note Progress Note: problems etoh abuse getting detox ARTURO dehydration Current Medications Amlodipine Besylate (Norvasc -) 10 mg PO DAILY [facility] Last Admin: 05/15/18 09:43 Dose: 10 mg Aspirin (Asa -) 81 mg PO DAILY [facility] Last Admin: 05/15/18 09:42 Dose: 81 mg Carvedilol (Coreg -) 25 mg PO BID [facility] Last Admin: 05/15/18 09:42 Dose: 25 mg Gabapentin (Neurontin -) 300 mg PO BID [facility] Last Admin: 05/15/18 09:43 Dose: 300 mg Heparin Sodium (Porcine) (Heparin -) 5,000 unit SQ BID [facility] Last Admin: 05/15/18 09:42 Dose: 5,000 unit Lactated Ringer's (Lactated Ringers Solution) 1,000 ml in 1,000 mls @ 125 mls/ hr IV ASDIR [facility] Last Admin: 05/14/18 23:18 Dose: Not Given Insulin Aspart (Novolog Vial Sliding Scale -) 1 vial SQ TIDAC [facility]; Protocol Last Admin: 05/15/18 16:06 Dose: 2 units Naltrexone HCl (Revia -) 50 mg PO HS [facility] Last Admin: 05/14/18 23:19 Dose: 50 mg Pantoprazole Sodium (Protonix -) 20 mg PO BID [facility] Last Admin: 05/15/18 09:43 Dose: 20 mg Last Vital Signs Temp Pulse Resp BP Pulse Ox 97 F L 60 20 121/64 95 05/15/18 15:39 05/15/18 15:39 05/15/18 15:39 05/15/18 15:39 05/15/18 08:36 Selected Entries 05/14/18 05/14/18 05/15/18 17:00 21:00 05:00 Blood Pressure 124/48 L 95/53 L 138/85 05/15/18 05/15/18 08:36 15:39 Blood Pressure 112/62 121/64 Lungs clear Heart reg Abd soft no tenderness Ext no edema CBC, BMP 05/15/18 05:30 05/15/18 05:30 CBC, BMP 05/14/18 06:25 CBC, BMP 05/12/18 05:50 05/13/18 05:50 IMP- ARTURO unable to receive IVF due to lack of cooperation FeNa is less than 1 consistent with persistent prerenal renal failure mild proteinuria noted today-unclear etology low BUN Plan- continue to encourage oral hydration if IVF is not reliable any fluid is good milk juice
[2018-05-15] MEDS: LACTATED RINGERS SOLUTION 1,000 ML/1,000 ML INFUS.BAG IV SCH (16:52)
--- NOTE | 2018-05-15 20:30 | PN ---
Progress Note (short form) - Note Progress Note: paged by nurse, per family, pt having SI. will reorder 1:1 pt very agitated w/ some diaphoresis and dry heaving. appears to be having some withdrawal sxs will give low dose librium for withdrawal sxs
[2018-05-15] MEDS ORDERED: chlordiazePOXIDE 5 MG CAPSULE PO ONE (20:45)
[2018-05-15] MEDS ORDERED: PT OWN MED DRAWER 7, Y5N ONE (21:41)
[2018-05-15] MEDS: NALTREXONE HCL 50 MG TABLET PO SCH (21:45)
[2018-05-16] MEDS ORDERED: ONDANSETRON 4 MG/2 ML VIAL IVPB PRN (03:17)
[2018-05-16] MEDS ORDERED: chlordiazePOXIDE 5 MG CAPSULE PO ONE (05:00)
[2018-05-16] MEDS: INSULIN SLIDING SCALE (NOVOLOG) 1 VIAL SQ SCH ×2 (06:10→13:00)
--- NOTE | 2018-05-16 08:59 | PN ---
Physical Exam: SUBJECTIVE: Patient seen and examined at the bedside. OBJECTIVE: patient reportedly told family that he planned to hill himself. Was seen by hospitalist overnight and put back on 1:1 no evidence of hemeoptysis. will ask psych to follow up (discussed with Rony Cedillo, HOSPITAL CHIEF EXECUTIVE OFFICER) appears groggy, but received librium overnight for suspected etoh w/d Vital Signs Period Temp Pulse Resp BP Sys/Hart Pulse Ox Last 24 Hr 97 F-98.1 F 54-76 20-20 120-128/64-79 95 GENERAL: The patient is awake, groggy, cooperative with exam HEAD: Normal with no signs of trauma. EYES: PERRL, extraocular movements intact, sclera anicteric, conjunctiva clear. No ptosis. ENT: Ears normal, nares patent, oropharynx clear without exudates, moist mucous membranes. NECK: Trachea midline, full range of motion, supple. LUNGS: Breath sounds equal, clear to auscultation bilaterally HEART: Regular rate and rhythm, ABDOMEN: Soft, nontender, nondistended, normoactive bowel sounds EXTREMITIES: no edema. NEUROLOGICAL: slow speech, gait not observed. PSYCH: Normal mood, normal affect. SKIN: Warm, dry, normal turgor, no rashes or lesions noted Laboratory Results - last 24 hr 05/15/18 05/15/18 05/15/18 10:57 14:35 14:35 POC Glucometer 142 Urine Color Yellow Urine Appearance Clear Urine pH 7.0 Ur Specific [place] 1.017 Urine Protein 1+ H Urine Glucose (UA) Negative Urine Ketones 1+ H Urine Blood Negative Urine Nitrite Negative Urine Bilirubin Negative Urine Urobilinogen 4.0 e.u/dl Ur Leukocyte Esterase Negative Urine WBC (Auto) 1 Urine RBC (Auto) <1 Ur Epithelial Cells Rare Hyaline Casts 1 Urine Mucus Moderate Ur Random Sodium 102 Urine Creatinine 05/15/18 05/15/18 05/16/18 14:35 16:05 05:07 POC Glucometer 162 120 Urine Color Urine Appearance Urine pH Ur Specific [place] Urine Protein Urine Glucose (UA) Urine Ketones Urine Blood Urine Nitrite Urine Bilirubin Urine Urobilinogen Ur Leukocyte Esterase Urine WBC (Auto) Urine RBC (Auto) Ur Epithelial Cells Hyaline Casts Urine Mucus Ur Random Sodium Urine Creatinine 198.0 H Active Medications Generic Name Dose Route Start Last Admin Trade Name Freq PRN Reason Stop Dose Admin Amlodipine Besylate 10 mg 05/11/18 10:00 05/15/18 09:43 Norvasc - PO 10 mg DAILY DARRELL Administration Aspirin 81 mg 05/11/18 10:00 05/15/18 09:42 Asa - PO 81 mg DAILY DARRELL Administration Carvedilol 25 mg 05/11/18 10:00 05/15/18 21:45 Coreg - PO 25 mg BID DARRELL Administration Gabapentin 300 mg 05/14/18 22:00 05/15/18 21:45 Neurontin - PO 300 mg BID DARRELL Administration Heparin Sodium (Porcine) 5,000 unit 05/12/18 10:45 05/15/18 21:44 Heparin - SQ 5,000 unit BID DARRELL Administration Lactated Ringer's 1,000 ml in 1,000 mls @ 125 mls/hr 05/10/18 17:15 05/15/18 16:52 Lactated Ringers Solution IV Not Given ASDIR [facility] Insulin Aspart 1 vial 05/11/18 07:00 05/16/18 06:10 Novolog Vial Sliding Scale - SQ Not Given TIDAC [facility] Protocol Naltrexone HCl 50 mg 05/10/18 22:00 05/15/18 21:45 Revia - PO 50 mg HS DARRELL Administration Ondansetron HCl 4 mg 05/16/18 03:17 05/16/18 03:40 Zofran Injection IVPB 4 mg Q6H PRN Administration NAUSEA Pantoprazole Sodium 20 mg 05/10/18 22:00 05/15/18 21:45 Protonix - PO 20 mg BID DARRELL Administration ASSESSMENT/PLAN: Patient is a 52 year old male with a past medical history of alcohol abuse, hypertension, CAD s/p Stent, DJD s/p Laminectomy L4/5, diabetes and depression. He presented to the ED on 05/10/2018 from [facility] with with abdominal pain, and vomiting and acute alcohol withdrawal. Patient was reported to have drank the disinfecting fluid from the [employer] wipes containers. He remains inpatient for monitoring of his renal function as well as suicide ideation. Patient is back on a 1:1 for suicide ideation overnight. Patient reportedly told his family and was overheard saying that he wanted to kill himself. Psyche follow up needed. Psyche: Acute Alcohol withdrawal with ingestion of Isoprophyal alcohol from [employer] wipes. Patient drank this solution in an attempt to ingest alcohol. He completed Librium taper during this admission and was given an additional dose of Librium overnight for withdrawal signs. He is tolerating PO, no signs of hemoptysis. Will hold off on any further Librium as patient was groggy on exam this am. Seen by GI. Notes reviewed Alcohol Abuse Received Librium overnight. Will hold off on libirum secondary to somnolence On Naltrexone @ hs Finished Libirum protocol on 05/15/2018 Pateint for d/c back to [facility] once more renal function improves. Card: Hypertension: Controlled on coreg, amlodipine. Holding lisinopril given nephrotoxicity CAD s/p PCI/Stent - Continue ASA, coreq. Holding regis. Renal: ARTURO vs CKD Creat 2.1, improved from yesterday Patient refusing IVF hydration and pulls out IVs Continue to encourage adequate hydration Being followed by renal close monitoring of electrolytes Endocrine: Diabetes acute on chronic On Novolog fen refusing ivf, hydrate monitor electrolytes Visit type - Emergency Visit Emergency Visit: Yes ED Registration Date: 05/10/18 Care time: The patient presented to the Emergency Department on the above date and was hospitalized for further evaluation of their emergent condition. - New Patient This patient is new to me today: Yes Date on this admission: 05/16/18 - Critical Care Critical Care patient: No - Discharge Referral Referred to [facility] Med [facility].C[facility] No
[2018-05-16] MEDS: CARVEDILOL 25 MG TABLET (FP) PO SCH ×2 (09:36→21:29)
[2018-05-16] MEDS: GABAPENTIN 300 MG CAPSULE (FP) PO SCH ×2 (09:36→21:29)
[2018-05-16] MEDS: PANTOPRAZOLE 20 MG TABLET (FP) PO SCH ×2 (09:36→21:29)
[2018-05-16] MEDS: ASPIRIN 81 MG CHEWABLE TABLETS PO SCH (09:36)
[2018-05-16] MEDS: HEPARIN NA (PORCINE) 5,000 UNITS/ML 1ML VIAL SQ SCH ×2 (09:36→21:29)
[2018-05-16] MEDS: amLODIPine BESYLATE 10 MG TABLET (FP) PO SCH (09:36)
[2018-05-16 09:45] LABS: BASO % 0.6 % (0-2.0); EOS % 4.1 % (0-4.5); HEMOGLOBIN 12.7 GM/dL (11.7-16.9); LYMPH % 46.1 % (8-40); MCH 32.6 pg (25.7-33.7); MCHC 36.2 g/dl (32.0-35.9); MEAN PLT VOLUME 6.8 fl (7.5-11.1); MONO % 9.4 % (3.8-10.2); NEUT % 39.8 % (42.8-82.8); PLATELET COUNT 269 K/MM3 (134-434); RBC 3.89 M/mm3 (4.00-5.60); RDW 15.7 % (11.9-15.9); WHITE BLOOD COUNT 5.7 K/mm3 (4.0-10.0)
[2018-05-16 10:27] LABS: ALBUMIN 3.5 g/dl (3.4-5.0); ALK PHOS 55 U/L (45-117); ANION GAP 6 MMOL/L (8-16); BILIRUBIN,TOTAL 0.2 mg/dL (0.2-1); BLOOD UREA NITROGEN 7 mg/dL (7-18); CALCIUM 8.4 mg/dL (8.5-10.1); CHLORIDE 107 mmol/L (98-107); CO2 30 mmol/L (21-32); CREATININE 2.1 mg/dL (0.55-1.3); GLUCOSE,RANDOM 120 mg/dL (74-106); MAGNESIUM 2.4 mg/dL (1.8-2.4); POTASSIUM 3.8 mmol/L (3.5-5.1); SGOT/AST 15 U/L (15-37); SGPT/ALT 17 U/L (13-61); SODIUM 142 mmol/L (136-145); TOT PROT 6.8 g/dl (6.4-8.2)
--- NOTE | 2018-05-16 11:06 | CONSULT ---
Consult - text type - Consultation Consultation Note: Renal follow up for ARTURO Pt seen and examined at the bedside awake and alert reports abd discomfort no further N/V making urine no sob, cp, fever, chills on 1 to 1 observation Vital Signs Temperature 98 F 05/16/18 05:00 Pulse Rate 54 L 05/16/18 05:00 Respiratory Rate 20 05/16/18 05:00 Blood Pressure 120/79 05/16/18 05:00 O2 Sat by Pulse Oximetry (%) 95 05/15/18 20:15 Intake & Output 05/13/18 05/14/18 05/15/18 05/16/18 23:59 23:59 23:59 23:59 Intake Total 1825 850 837 300 Output Total 600 Balance 1825 850 237 300 NAD RRR CTA soft, mild tenderness in abd no LE edema CBC, BMP 05/16/18 09:10 05/16/18 09:10 Current Medications Amlodipine Besylate (Norvasc -) 10 mg PO DAILY [facility] Last Admin: 05/16/18 09:36 Dose: 10 mg Aspirin (Asa -) 81 mg PO DAILY [facility] Last Admin: 05/16/18 09:36 Dose: 81 mg Carvedilol (Coreg -) 25 mg PO BID [facility] Last Admin: 05/16/18 09:36 Dose: 25 mg Gabapentin (Neurontin -) 300 mg PO BID [facility] Last Admin: 05/16/18 09:36 Dose: 300 mg Heparin Sodium (Porcine) (Heparin -) 5,000 unit SQ BID [facility] Last Admin: 05/16/18 09:36 Dose: 5,000 unit Lactated Ringer's (Lactated Ringers Solution) 1,000 ml in 1,000 mls @ 125 mls/ hr IV ASDIR [facility] Last Admin: 05/15/18 16:52 Dose: Not Given Insulin Aspart (Novolog Vial Sliding Scale -) 1 vial SQ TIDAC [facility]; Protocol Last Admin: 05/16/18 06:10 Dose: Not Given Naltrexone HCl (Revia -) 50 mg PO HS [facility] Last Admin: 05/15/18 21:45 Dose: 50 mg Ondansetron HCl (Zofran Injection) 4 mg IVPB Q6H PRN PRN Reason: NAUSEA Last Admin: 05/16/18 03:40 Dose: 4 mg Pantoprazole Sodium (Protonix -) 20 mg PO BID [facility] Last Admin: 12/26/18 09:36 Dose: 20 mg 52 year old gentleman with hx of ETOH abuse, Hypertension, CAD, DM, Depression who preseted from [facility] with acute ingestion of isopropyl alcohol with ARTURO. #ARTURO likely due to renal hypoprofusion in setting of poor oral intake + ACEi #Isopropol alcohol ingestion #Hypertension #ETOH abuse Isopropyl etoh does not cause acute renal injury but does result in a elevated serum osmolar gap as well and ketosis pt with very low BUN and suspect that it could be due to underlying liver dysfunction or poor protein intake renal function is stable and slightly improved today pt will not keep in a IV line and is unable to maintain on IVF encouraged good oral intake trend renal function daily given no hemodynamic instability in the setting of isopropyl ingestion there is no need for RUBBER PRESS OPERATOR trend renal function and electrolytes daily Thank you Eduard Macias DO
--- NOTE | 2018-05-16 13:35 | PN ---
S Progress Note (SOAP) Subjective: Patient is asleep and difficult to arouse today. He is on a 1:1 observation for SI. Assessment: 05/16/18 13:33 AUD Continue Naltrexone 50mg and Neurontin 300mg BID. Hold Librium for somnolence. Will continue to follow.
--- NOTE | 2018-05-16 16:43 | PN ---
Mental Health Exam - Mental Status Exam Alert and Oriented to: Time, Place, Person (A , O BY 2) Cognitive Function: Grossly Intact Patient Appearance: Unkempt, Disheveled (IN HOSPITAL GOWN, UNSHAVEN.. ) Mood: Apathetic, Apprehensive ("WHERE WILL I LIVE, IF MY SISTER DOES NOT TAKE ME , I PROMISE I WILL NOT DRINK". ) Affect: Appropriate Patient Behavior: Passive Speech Pattern: Perseverating ("I NEED A PLACE TO STAY". ) Voice Loudness: Mildly Soft/Quiet Thought Process: Circumstantial, Goal Oriented ("I JUST WANT TO GO HOME". ) Thought Disorder: Not Present Hallucinations: None Suicidal Ideation: None ("I WOULD NOT WANT TO KILL MYSELF". ), Denies Homicidal Ideation: Denies Insight/Judgement: Fair Sleep: Fair Appetite: Fair Muscle strength/Tone: Mild Hypotonicity (WALKS WITH A WALKER, FALL RISK.. ) Gait/Station: Shuffling (CLIENT SEEN TODAY IN ROOM WITH ONE TO ONE, DENIES SUICIDAL IDEATION AT PRESENT. cLIENT ANXIOUS FOR DISCHARGE BUT HAS SOCIAL PROBLEMS AND HOMELESSNESS UNLESS SISTER ACCEPTS.CLIENT DOES NOT NEED ADMISSION TO INPATIENT PSYCHIATRY CURRENTLY.) Additional Comments: FOLLOW ON DISCHARGE WITH OUTPATIENT PSYCHIATRY PROVIDER OR [facility] DIAGNOS[facility]ST[facility]BUSE [facility].
[2018-05-16] MEDS ORDERED: PT OWN MED DRAWER 7, Y5N ONE (21:23)
[2018-05-16] MEDS: NALTREXONE HCL 50 MG TABLET PO SCH (21:29)
[2018-05-16] MEDS ORDERED: diphenhydrAMINE HCL 25 MG CAPSULE (FP) PO ONE (22:22)
[2018-05-17] MEDS: INSULIN SLIDING SCALE (NOVOLOG) 1 VIAL SQ SCH ×2 (06:26→12:00)
--- NOTE | 2018-05-17 07:37 | PN ---
Physical Exam: SUBJECTIVE: Patient seen and examined 24hr events: librium on hold secondary to somnolence -renal/bladder sono: normal kidneys, + urinary retention. -pt seen by psych, discharge dispo uncertain. Pt will also need to be seen by oupt psych after discharge. OBJECTIVE: Vital Signs Period Temp Pulse Resp BP Sys/Hart Pulse Ox Last 24 Hr 97.4 F-98.1 F 52-68 18-20 111-158/66-98 94-97 GENERAL: The patient is awake, alert, and fully oriented, in no acute distress. HEAD: Normal with no signs of trauma. EYES: PERRL, extraocular movements intact, sclera anicteric, conjunctiva clear. No ptosis. ENT: Ears normal, nares patent, oropharynx clear without exudates, moist mucous membranes. NECK: Trachea midline, full range of motion, supple. LUNGS: Breath sounds equal, clear to auscultation bilaterally, no wheezes, no crackles, no accessory muscle use. HEART: Regular rate and rhythm, S1, S2 without murmur, rub or gallop. ABDOMEN: Soft, nontender, nondistended, normoactive bowel sounds, no guarding, no rebound, no hepatosplenomegaly, no masses. EXTREMITIES: 2+ pulses, warm, well-perfused, no edema. NEUROLOGICAL: Cranial nerves II through XII grossly intact. Normal speech, gait not observed. PSYCH: Normal mood, normal affect. SKIN: Warm, dry, normal turgor, no rashes or lesions noted Laboratory Results - last 24 hr 05/16/18 05/16/18 05/16/18 09:10 09:10 11:40 WBC 5.7 RBC 3.89 L Hgb 12.7 Hct 35.0 L MCV 90.0 MCH 32.6 MCHC 36.2 H RDW 15.7 Plt Count 269 MPV 6.8 L Absolute Neuts (auto) 2.3 Neutrophils % 39.8 L Lymphocytes % 46.1 H Monocytes % 9.4 Eosinophils % 4.1 Basophils % 0.6 Nucleated RBC % 0 Sodium 142 Potassium 3.8 Chloride 107 Carbon Dioxide 30 Anion Gap 6 L BUN 7 Creatinine 2.1 H Creat Clearance w eGFR 33.60 POC Glucometer 149 Random Glucose 120 H Calcium 8.4 L Magnesium 2.4 Total Bilirubin 0.2 AST 15 ALT 17 Alkaline Phosphatase 55 Total Protein 6.8 Albumin 3.5 05/16/18 05/17/18 17:21 06:24 WBC RBC Hgb Hct MCV MCH MCHC RDW Plt Count MPV Absolute Neuts (auto) Neutrophils % Lymphocytes % Monocytes % Eosinophils % Basophils % Nucleated RBC % Sodium Potassium Chloride Carbon Dioxide Anion Gap BUN Creatinine Creat Clearance w eGFR POC Glucometer 161 131 Random Glucose Calcium Magnesium Total Bilirubin AST ALT Alkaline Phosphatase Total Protein Albumin Active Medications Generic Name Dose Route Start Last Admin Trade Name Freq PRN Reason Stop Dose Admin Amlodipine Besylate 10 mg 05/11/18 10:00 05/16/18 09:36 Norvasc - PO 10 mg DAILY DARRELL Administration Aspirin 81 mg 05/11/18 10:00 05/16/18 09:36 Asa - PO 81 mg DAILY DARRELL Administration Carvedilol 25 mg 05/11/18 10:00 05/16/18 21:29 Coreg - PO 25 mg BID DARRELL Administration Gabapentin 300 mg 05/14/18 22:00 05/16/18 21:29 Neurontin - PO 300 mg BID DARRELL Administration Heparin Sodium (Porcine) 5,000 unit 05/12/18 10:45 05/16/18 21:29 Heparin - SQ 5,000 unit BID [facility] Administration Lactated Ringer's 1,000 ml in 1,000 mls @ 125 mls/hr 05/10/18 17:15 05/15/18 16:52 Lactated Ringers Solution IV Not Given ASDIR DARRELL Insulin Aspart 1 vial 05/11/18 07:00 05/17/18 06:26 Novolog Vial Sliding Scale - SQ Not Given TIDAC [facility] Protocol Naltrexone HCl 50 mg 05/10/18 22:00 05/16/18 21:29 Revia - PO 50 mg HS DARRELL Administration Ondansetron HCl 4 mg 05/16/18 03:17 05/16/18 03:40 Zofran Injection IVPB 4 mg Q6H PRN Administration NAUSEA Pantoprazole Sodium 20 mg 05/10/18 22:00 05/16/18 21:29 Protonix - PO 20 mg BID DARRELL Administration ASSESSMENT/PLAN: Problem List - Problems (1) Isopropyl alcohol poisoning Assessment/Plan: Zofran PRN nausea encouraged oral hydration Code(s): T51.2X1A - TOXIC EFFECT OF 2-PROPANOL, ACCIDENTAL (UNINTENTIONAL), INIT (2) Severe depression Assessment/Plan: pt to f/u with outpt psych upon discharge 1:1 observation Code(s): F32.9 - MAJOR DEPRESSIVE DISORDER, SINGLE EPISODE, UNSPECIFIED (3) HTN (hypertension) Assessment/Plan: norvasc 10mg daily Coreg 300mg BID cardiac diet Code(s): I10 - ESSENTIAL (PRIMARY) HYPERTENSION Qualifiers: Hypertension type: essential hypertension Qualified Code(s): I10 - Essential (primary) hypertension (4) Type II diabetes mellitus Assessment/Plan: Insulin SS diabetic diet ASA 81mg daily Code(s): E11.9 - TYPE 2 DIABETES MELLITUS WITHOUT COMPLICATIONS Qualifiers: Diabetes mellitus custodial insulin use: with custodial use Diabetes mellitus complication status: with hyperglycemia Qualified Code(s): E11.65 - Type 2 diabetes mellitus with hyperglycemia (5) Prophylactic measure Assessment/Plan: naltrexone 50mg qhs neurontin 300mg BID SC heparin BID OOB to chair, ambulate Code(s): Z29.9 - ENCOUNTER FOR PROPHYLACTIC MEASURES, UNSPECIFIED Visit type - Emergency Visit Emergency Visit: Yes ED Registration Date: 05/10/18 Care time: The patient presented to the Emergency Department on the above date and was hospitalized for further evaluation of their emergent condition. - New Patient This patient is new to me today: Yes Date on this admission: 05/17/18 - Critical Care Critical Care patient: No - Discharge Referral Referred to [facility] Med P.C.: No
[2018-05-17] MEDS: amLODIPine BESYLATE 10 MG TABLET (FP) PO SCH (09:16)
[2018-05-17] MEDS: GABAPENTIN 300 MG CAPSULE (FP) PO SCH (09:16)
[2018-05-17] MEDS: HEPARIN NA (PORCINE) 5,000 UNITS/ML 1ML VIAL SQ SCH (09:16)
[2018-05-17] MEDS: ASPIRIN 81 MG CHEWABLE TABLETS PO SCH (09:17)
[2018-05-17] MEDS: PANTOPRAZOLE 20 MG TABLET (FP) PO SCH (09:17)
[2018-05-17] MEDS: CARVEDILOL 25 MG TABLET (FP) PO SCH (09:17)
[2018-05-17 09:20] LABS: BASO % 0.8 % (0-2.0); EOS % 5.3 % (0-4.5); HEMATOCRIT 40.2 % (35.4-49); HEMOGLOBIN 13.3 GM/dL (11.7-16.9); LYMPH % 42.5 % (8-40); MCH 30.3 pg (25.7-33.7); MCHC 33.2 g/dl (32.0-35.9); MEAN CELL VOLUME 91.4 fl (80-96); MEAN PLT VOLUME 6.7 fl (7.5-11.1); MONO % 7.7 % (3.8-10.2); NEUT % 43.7 % (42.8-82.8); PLATELET COUNT 294 K/MM3 (134-434); RDW 15.4 % (11.9-15.9); WHITE BLOOD COUNT 5.9 K/mm3 (4.0-10.0)
[2018-05-17 09:48] LABS: ALBUMIN 4.1 g/dl (3.4-5.0); ALK PHOS 62 U/L (45-117); ANION GAP 8 MMOL/L (8-16); BILIRUBIN,TOTAL 0.3 mg/dL (0.2-1); BLOOD UREA NITROGEN 9 mg/dL (7-18); CALCIUM 9.1 mg/dL (8.5-10.1); CHLORIDE 102 mmol/L (98-107); CO2 28 mmol/L (21-32); CREATININE 1.7 mg/dL (0.55-1.3); GLUCOSE,RANDOM 150 mg/dL (74-106); POTASSIUM 3.6 mmol/L (3.5-5.1); SGOT/AST 18 U/L (15-37); SGPT/ALT 21 U/L (13-61); SODIUM 139 mmol/L (136-145)
--- NOTE | 2018-05-17 11:29 | PN ---
Progress Note (short form) - Note Progress Note: Renal follow up for ARTURO Pt seen and examined at the bedside continues to have mild nausea but is able to eat something no sob, cp, abd pain making urine Vital Signs Temperature 97.0 F L 05/17/18 10:00 Pulse Rate 56 L 05/17/18 10:00 Respiratory Rate 18 05/17/18 10:00 Blood Pressure 168/93 05/17/18 10:00 O2 Sat by Pulse Oximetry (%) 97 05/16/18 21:00 Intake & Output 05/14/18 05/15/18 05/16/18 05/17/18 23:59 23:59 23:59 23:59 Intake Total 850 837 550 Output Total 600 Balance 850 237 550 NAD no LE edema CBC, BMP 05/17/18 08:30 05/17/18 08:30 Current Medications Amlodipine Besylate (Norvasc -) 10 mg PO DAILY [facility] Last Admin: 05/17/18 09:16 Dose: 10 mg Aspirin (Asa -) 81 mg PO DAILY [facility] Last Admin: 05/17/18 09:17 Dose: 81 mg Carvedilol (Coreg -) 25 mg PO BID [facility] Last Admin: 05/17/18 09:17 Dose: 25 mg Gabapentin (Neurontin -) 300 mg PO BID [facility] Last Admin: 05/17/18 09:16 Dose: 300 mg Heparin Sodium (Porcine) (Heparin -) 5,000 unit SQ BID [facility] Last Admin: 05/17/18 09:16 Dose: 5,000 unit Lactated Ringer's (Lactated Ringers Solution) 1,000 ml in 1,000 mls @ 125 mls/ hr IV ASDIR [facility] Last Admin: 05/15/18 16:52 Dose: Not Given Insulin Aspart (Novolog Vial Sliding Scale -) 1 vial SQ TIDAC [facility]; Protocol Last Admin: 05/17/18 06:26 Dose: Not Given Naltrexone HCl (Revia -) 50 mg PO HS [facility] Last Admin: 05/16/18 21:29 Dose: 50 mg Ondansetron HCl (Zofran Injection) 4 mg IVPB Q6H PRN PRN Reason: NAUSEA Last Admin: 05/16/18 03:40 Dose: 4 mg Pantoprazole Sodium (Protonix -) 20 mg PO BID [facility] Last Admin: 05/17/18 09:17 Dose: 20 mg 52 year old gentleman with hx of ETOH abuse, Hypertension, CAD, DM, Depression who preseted from [facility] with acute ingestion of isopropyl alcohol with ARTURO. #ARTURO likely due to renal hypoprofusion in setting of poor oral intake + ACEi #Isopropol alcohol ingestion #Hypertension #ETOH abuse Renal function improving encouraged oral intake as tolerated pt with very low BUN and suspect that it could be due to underlying liver dysfunction or poor protein intake Trend renal function daily BP is above goal, on Coreg. Can consider changing to another BB with better anti -hypertensive properties such as Labetalol if BP remains above goal. Eventually would benefit from ARMANDO or ARB but would wait until renal function returns to baseline Thank you Eduard Macias DO
--- NOTE | 2018-05-17 12:13 | EKG ---
Test Reason : Blood Pressure : / mmHG Vent. Rate : 057 BPM Atrial Rate : 057 BPM P-R Int : 220 ms QRS Dur : 114 ms QT Int : 454 ms P-R-T Axes : 027 -24 015 degrees QTc Int : 441 ms SINUS BRADYCARDIA WITH 1ST DEGREE A-V BLOCK MINIMAL VOLTAGE CRITERIA FOR LVH, MAY BE NORMAL VARIANT INFERIOR INFARCT (CITED ON OR BEFORE 10-MAY-2018) POSSIBLE ANTERIOR INFARCT (CITED ON OR BEFORE 10-MAY-2018) ABNORMAL ECG WHEN COMPARED WITH ECG OF 10-MAY-2018 14:30, VENT. RATE HAS DECREASED BY 41 BPM QT HAS SHORTENED Confirmed by BLESSING ACUÑA MD ([id number]) on 05/17/2018 12:12:44 PM Referred By: Confirmed By:BLESSING ACUÑA MD
[2018-05-17 14:38] VITALS: BP 127/75; PULSE 62; TEMP 97.6
--- NOTE | 2018-05-17 16:07 | DS ---
Physical Examination Vital Signs: Vital Signs Temperature 97.6 F 05/17/18 14:00 Pulse Rate 62 05/17/18 14:00 Respiratory Rate 18 05/17/18 10:00 Blood Pressure 127/75 05/17/18 14:00 O2 Sat by Pulse Oximetry (%) 97 05/17/18 09:00 Findings/Remarks: 52 year old gentleman with hx of ETOH abuse, Hypertension, CAD, DM, Depression who presented from [facility] with acute ingestion of isopropyl alcohol with ARTURO. His creatinine is down trending and his GI symptoms have resolved after being made NPO and re-hydrated with IV fluids. Patient was placed on 1:1 and followed by psych during his hospital course. He completed CIWA protocol on and 1:1 was discontinued on 05/17. Patient is alert and oriented, interacts with staff and ambulates throughout the hallway. Pt will be discharged on naltrexone and neurontin. He will be closely followed by psych at [facility] and meds can be adjusted in rehab facility. Constitutional: Yes: Well Nourished, Calm Eyes: Yes: Conjunctiva Clear, PERRL HENT: Yes: Atraumatic, Normocephalic Neck: Yes: Supple, Trachea Midline Cardiovascular: Yes: Bradycardia Respiratory: Yes: WNL, Regular, CTA Bilaterally Gastrointestinal: Yes: Normal Bowel Sounds, Soft ...Rectal Exam: Yes: Deferred Renal/: Yes: WNL Breast(s): Yes: WNL Musculoskeletal: Yes: WNL Extremities: Yes: WNL Edema: No Peripheral Pulses WNL: Yes Peripheral Pulses: Left Radial: 2+, Right Radial: 2+, Left Doralis Pedis: 2+, Right Dorsalis Pedis: 2+ Integumentary: Yes: WNL Neurological: Yes: Alert, Oriented ...Motor Strength: WNL Psychiatric: Yes: Alert, Oriented Labs: CBC, BMP 05/17/18 08:30 05/17/18 08:30 Discharge Summary Reason For Visit: POISONING BY ISOPROPONAL Current Active Problems Isopropyl alcohol poisoning (Acute) Prophylactic measure (Acute) Procedures: Principal: EK/27: SB with 1st deg AVB. minimal voltage criteria for LVH. Possible anterior infarct. VR 57bpm, RICCO 220ms, QRS 114ms. QTC 441ms. Read by Dr. Gerardo Rubio. Other Procedures: Bladder and renal sono: 05/16/2018. Impression: normal kidneys with no evidence of hydronephrosis or acute pathology. 2. urinary retention. CT abd and pelvis 05/10/2018. Impression: Mildly increased fluid is seen within the colon -? current diarrheal illness. Several non-specific mildly prominent lymph nodes are seen within the gastrohepatic ligament. Small non-obstructing renal calculi. Atherosclerotic vasc calcifications are noted which are probably somewhat more prominent than would be expected for patient;s age. Correlate with clinical ris factors. (read by Dr. Raoul Restrepo) Hospital Course: 52 year old M with h/o ETOH dependence, HTN, CAD s/p Stent and DMII admitted from [place] after consuming a bottle of sani [employer] liquid. Poison control was contacted and supportive care encouraged. Pt did not experience any hemoptysis, however, his renal function was elevated on admission. Serum acetone +3, trop 0.07 and serum osmolality 323. Peak Cr 2.5; now downtrended to 1.7 at the time of admission. Condition: Improved - Instructions Diet, Activity, Other Instructions: Cardiac diet d/c coreg and start labetalol 100mg due to poorly controlled BP. pt to f/u with primary care provider at rehab facility for BP and pulse check. Referrals: Too Tay MD [Primary Care Provider] - Disposition: RETIREMENT FACILITY - Home Medications Comprehensive Discharge Medication List: Ambulatory Orders Amlodipine Besylate [Norvasc -] 10 mg PO DAILY 02/22/17 Aspirin [ASA -] 81 mg PO DAILY tab.chew 06/06/17 Lisinopril [Zestril] 10 mg PO DAILY 06/14/17 Metformin HCl [Metformin HCl ER] 1,000 mg PO BID 06/14/17 Gabapentin [Neurontin -] 300 mg PO BID 10 Days #20 capsule 05/17/18 Labetalol HCl [Normodyne -] 100 mg PO BID 30 Days #60 tablet 05/17/18 Naltrexone HCl [Revia -] 50 mg PO HS 7 Days #7 tablet 05/17/18 Pantoprazole Sodium [Protonix -] 20 mg PO BID 30 Days #30 tablet.ec 05/17/18 This patient is new to me today: Yes Date on this admission: 05/17/18 Emergency Visit: Yes ED Registration Date: 05/10/18 Care time: The patient presented to the Emergency Department on the above date and was hospitalized for further evaluation of their emergent condition. Critical Care patient: No - Discharge Referral Referred to [facility] No
[2018-05-17] MEDS ORDERED: LABETALOL HCL 100 MG TABLET (FP) PO SCH (22:00)
== END 2018-05-17 16:36 | disposition short-term general hospital (02) | DRG 460 ==
LOC: JER 13:11 → JERBED 15:44 → J4W 05-11 00:41 → JERBED 05-15 21:30 → J4W 05-15 21:33
PROVIDERS: ADMIT Internal Medicine; ATTEND Nurse Practitioner Family
PROC: HZ2ZZZZ Detoxification Services for Substance Abuse Treatment (ICD-10-PCS; principal; 2018-05-11)
DX: N17.9 Acute kidney failure, unspecified (principal); T51.2X1A Toxic effect of 2-Propanol, accidental (unintentional), initial encounter; F10.230 Alcohol dependence with withdrawal, uncomplicated; I25.10 Atherosclerotic heart disease of native coronary artery without angina pectoris; I10 Essential (primary) hypertension; E11.9 Type 2 diabetes mellitus without complications; F32.9 Major depressive disorder, single episode, unspecified; E83.42 Hypomagnesemia; E87.6 Hypokalemia; E86.0 Dehydration; Z59.0 Homelessness; Z95.5 Presence of coronary angioplasty implant and graft; Y92.89 Other specified places as the place of occurrence of the external cause
CPT/HCPCS: 36415; 71045-TC-FY; 74176-TC; 76775-TC; 76856-TC; 80048; 80053; 80307; 81003; 81015; 82009; 82150; 82550; 82570; 82962; 83690; 83735; 83930; 84100; 84300; 84484; 85025; 85027; 85610; 87086; 93005; 93010; 99285-25; J1644; J7030

== ENCOUNTER 2018-06-04 12:38 | Observation (INO) | payer OTHER ==
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
--- NOTE | 2018-06-04 13:33 | PDOC ---
Attending Attestation - HPI HPI: 52 y/o M with a h/o EtOH abuse, HTN, CAD, DM, and depression who presents to the emergency department for evaluation of AMS and EtOH intoxication. As per facility, patient had a blood alcohol level of .37. He reports a sore throat and multiple episodes of emesis and endorses mild epigastric, L sided chest pain states he has this frequently usually associated iwth his drinking.. Patient admits to drinking 5 pints of alcohol a day. Denies any lynch/sob, fever/ chills, diarrhea, melena, bpr. <Nakia Arreaga - Last Filed: 06/04/18 16:58> - Resident Resident Name: Ashia Cali - ED Attending Attestation I have performed the following: I have examined & evaluated the patient, The case was reviewed & discussed with the resident, I agree w/resident's findings & plan, Exceptions are as noted - Physicial Exam PE: 06/04/18 16:48 GENERAL: The patient is awake, alert, and fully oriented, Nontoxic - in no acute distress. HEAD: Normocephalic, atraumatic. EYES: extraocular movements intact, sclera anicteric, conjunctiva clear. ENT: Normal voice, Moist mucous membranes. NECK: Normal range of motion, supple LUNGS: Breath sounds equal, clear to auscultation bilaterally. No wheezes, no rhonchi, no rales. HEART: Regular rate and rhythm, normal S1 and S2 without murmur, rub or gallop. ABDOMEN: Soft, nontender, No guarding, no rebound. No CVA tenderness EXTREMITIES: Normal range of motion, no edema. NEUROLOGICAL: No facial assymetry, Normal speech, moving all 4 ext spontaneously and symmetrically PSYCH: Normal mood, normal affect. SKIN: Warm, Dry, normal turgor, - Medical Decision Making 06/04/18 13:40 52y M hx of etoh abuse, htn, cad, d,m, depression sent from [facility] for evluation of AMS - per [place] care the patient was hallucinating, had elevated blood glucose level. Arrival the patient does endorse some mild throat pain, chest pain notes that he often feels this way while he was drinking. The patient denies any vomiting, dyspnea on exertion, shortness of breath states that he did drink a lot of all related today. Said he wants help for his alcoholism On exam the patient is no acute distress she is mildly tachycardic, mild fine tremor suspect early withdrawal will ck lbas to r/o pancreatitis, acs, metabolic dernagement will ck etoh level fluids for hydration librium for withdrawal symptoms if labs unremarkable will send back to [facility] for detox 06/04/18 17:40 trop at .2 will obs to trend trop given asa <Tavo Syed - Last Filed: 06/07/18 09:27> Heart Score/ECG Review - ECG Impressions Comment:: 06/04/18 16:51 Twelve-lead EKG was performed and reviewed by me. There is normal sinus rhythm with a rate of 108 Q waves in inferior leads when compraed with prior ekg in 04/2018, no changes in morphology of qrs/t <Tavo Syed - Last Filed: 06/07/18 09:27> Attestations - Attestations Documentation prepared by Nakia Arreaga, acting as medical parasitologist for aTvo Syed MD. <Nakia Arreaga - Last Filed: 06/04/18 16:58>
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
[2018-06-04] MEDS ORDERED: SODIUM CHLORIDE 0.9% 500 ML INFUS.BAG IV ONE (13:43)
[2018-06-04] MEDS ORDERED: chlordiazePOXIDE 5 MG CAPSULE PO ONE (13:43)
[2018-06-04 15:16] LABS: BASO % 0.8 % (0-2.0); EOS % 0.3 % (0-4.5); LYMPH % 26.2 % (8-40); MCH 31.3 pg (25.7-33.7); MEAN CELL VOLUME 89.3 fl (80-96); MONO % 2.8 % (3.8-10.2); NEUT % 69.9 % (42.8-82.8); PLATELET COUNT 304 K/MM3 (134-434); RBC 4.48 M/mm3 (4.00-5.60); RDW 15.6 % (11.9-15.9); WHITE BLOOD COUNT 8.8 K/mm3 (4.0-10.0)
[2018-06-04] MEDS ORDERED: chlordiazePOXIDE HCL 25 MG CAPSULE PO ONE (16:51)
[2018-06-04] MEDS ORDERED: chlordiazePOXIDE HCL 25 MG CAPSULE ONE (16:59)
[2018-06-04] MEDS ORDERED: chlordiazePOXIDE 5 MG CAPSULE ONE (16:59)
[2018-06-04 17:41] LABS: ALBUMIN 3.4 g/dl (3.4-5.0); ALK PHOS 86 U/L (45-117); ANION GAP 15 MMOL/L (8-16); BILIRUBIN,TOTAL 0.4 mg/dL (0.2-1); BLOOD UREA NITROGEN 15 mg/dL (7-18); CHLORIDE 105 mmol/L (98-107); CO2 19 mmol/L (21-32); CREATININE 0.9 mg/dL (0.55-1.3); GLUCOSE,RANDOM 102 mg/dL (74-106); MAGNESIUM 1.7 mg/dL (1.8-2.4); PHOSPHOROUS 3.6 mg/dL (2.5-4.9); POTASSIUM 3.8 mmol/L (3.5-5.1); SGOT/AST 63 U/L (15-37); SGPT/ALT 44 U/L (13-61); SODIUM 139 mmol/L (136-145); TOT PROT 7.2 g/dl (6.4-8.2)
[2018-06-04] MEDS ORDERED: ASPIRIN 81 MG CHEWABLE TABLETS PO ONE (17:50)
[2018-06-04] MEDS ORDERED: ASPIRIN 81 MG CHEWABLE TABLETS ONE (17:53)
[2018-06-04 18:57] LABS: URINE APPEARANCE CLEAR; URINE BILIRUBIN NEGATIVE (<2.0 mg/dL); URINE COLOR YELLOW; URINE GLUCOSE (UA) NEGATIVE (NEGATIVE); URINE KETONE 1+ (NEGATIVE); URINE LEUK ESTERASE NEGATIVE (NEGATIVE); URINE NITRITE NEGATIVE (NEGATIVE); URINE PROTEIN 2+ (NEGATIVE); URINE UROBILINOGEN NEGATIVE mg/dL (0.2-1.0)
[2018-06-04 19:11] LABS: EPI CELLS RARE /HPF (FEW); URINE HYALINE CAST 3 /lpf; URINE MUCUS RARE
[2018-06-04 19:40] LABS: COCAINE, UR NEGATIVE ng/ml (CUTOFF=300); METHADONE, UR NEGATIVE ng/ml (CUTOFF=300); OPIATES, URI NEGATIVE ng/ml (CUTOFF=300); PHENCYCLIDINE,URINE NEGATIVE ng/ml (CUTOFF=25); URINE AMPHETAMINES NEGATIVE ng/ml (CUTOFF=500); URINE BARBITURATES NEGATIVE ng/ml (CUTOFF=200)
[2018-06-04 19:59] LABS: URINE BENZODIAZEPINES POSITIVE ng/ml (CUTOFF=200)
--- NOTE | 2018-06-04 20:14 | HP ---
Admitting History and Physical - Primary Care Physician PCP: Kelle Aparicio - Admission Chief Complaint: chest pain History of Present Illness: 52y M hx of etoh abuse, htn, cad, d,m, depression sent from [facility] for evluation of AMS - per [facility] the patient was hallucinating, had elevated blood glucose level. Arrival the patient does endorse some mild throat pain, chest pain notes that he often feels this way while he was drinking. - Past Medical History Cardiovascular: Yes: HTN, Hyperlipdemia Hepatobiliary: Yes: Other (ETOH gastritis) Psych: Yes: Anxiety Endocrine: Yes: Diabetes Mellitus - Past Surgical History Past Surgical History: Yes: None - Smoking History Smoking history: Unknown if ever smoked Have you smoked in the past 12 months: No Aproximately how many cigarettes per day: 0 - Alcohol/Substance Use Hx Alcohol Use: No History of Substance Use: reports: None - Social History ADL: Independent Home Medications - Allergies Allergies/Adverse Reactions: Allergies Allergy/AdvReac Type Severity Reaction Status Date / Time No Known Allergies Allergy Verified 06/07/18 11:01 - Home Medications Home Medications: Ambulatory Orders Amlodipine Besylate [Norvasc -] 10 mg PO DAILY 02/22/17 Aspirin [ASA -] 81 mg PO DAILY tab.chew 06/06/17 Lisinopril [Zestril] 10 mg PO DAILY 06/14/17 metFORMIN HCL [Metformin ER Osmotic] 1,000 mg PO BID 06/14/17 Labetalol HCl [Normodyne -] 100 mg PO BID 30 Days #60 tablet 05/17/18 Pantoprazole Sodium [Protonix -] 20 mg PO BID 30 Days #30 tablet.ec 05/17/18 Family Disease History - Family Disease History Family Disease History: Diabetes: Father, Mother, Sister, Heart Disease: Father , Mother, CA: Father, Other: Father, Mother, Sister, Son (three ( ages 27, 23, 19)), Daughter (two (ages 30, 23)) Physical Examination Vital Signs: Vital Signs Temperature 98.4 F 06/04/18 12:58 Pulse Rate 103 H 06/04/18 18:00 Respiratory Rate 16 06/04/18 18:00 Blood Pressure 113/66 06/04/18 18:00 O2 Sat by Pulse Oximetry (%) 98 06/04/18 12:58 Constitutional: Yes: No Distress HENT: Yes: Atraumatic Neck: Yes: Supple Cardiovascular: Yes: Regular Rate and Rhythm Respiratory: Yes: CTA Bilaterally Gastrointestinal: Yes: Normal Bowel Sounds Extremities: Yes: WNL Edema: No Peripheral Pulses WNL: Yes Neurological: Yes: Alert, Oriented Labs: CBC, BMP 06/04/18 15:00 06/04/18 16:37 Problem List - Problems (1) Elevated troponin I level Assessment/Plan: will fu trend cardiology on board Code(s): R74.8 - ABNORMAL LEVELS OF OTHER SERUM ENZYMES (2) Alcohol dependence Assessment/Plan: will put him on librium detox consult Code(s): F10.20 - ALCOHOL DEPENDENCE, UNCOMPLICATED (3) Alcohol-induced mood disorder Code(s): F10.94 - ALCOHOL USE, UNSPECIFIED WITH ALCOHOL-INDUCED MOOD DISORDER Assessment/Plan Laboratory Tests 06/04/18 06/04/18 06/04/18 15:00 15:00 15:00 WBC 8.8 RBC 4.48 Hgb 14.0 Hct 40.0 MCV 89.3 MCH 31.3 MCHC 35.0 RDW 15.6 Plt Count 304 MPV 7.0 L Absolute Neuts (auto) 6.1 Neutrophils % 69.9 D Lymphocytes % 26.2 D Monocytes % 2.8 L Eosinophils % 0.3 D Basophils % 0.8 Nucleated RBC % 0 Sodium Cancelled Potassium Cancelled Chloride Cancelled Carbon Dioxide Cancelled Anion Gap Cancelled BUN Cancelled Creatinine Cancelled Creat Clearance w eGFR Cancelled Random Glucose Cancelled Calcium Cancelled Phosphorus Cancelled Magnesium Cancelled Total Bilirubin Cancelled AST Cancelled ALT Cancelled Alkaline Phosphatase Cancelled Creatine Kinase Creatine Kinase Index CK-MB (CK-2) Troponin I Total Protein Cancelled Albumin Cancelled Lipase 204 Urine Color Urine Appearance Urine pH Ur Specific [place] Urine Protein Urine Glucose (UA) Urine Ketones Urine Blood Urine Nitrite Urine Bilirubin Urine Urobilinogen Ur Leukocyte Esterase Urine WBC (Auto) Urine RBC (Auto) Ur Epithelial Cells Hyaline Casts Urine Mucus Opiates Screen Methadone Screen Barbiturate Screen Phencyclidine Screen Ur Amphetamines Screen MDMA (Ecstasy) Screen Benzodiazepines Screen Cocaine Screen U Marijuana (THC) Screen 06/04/18 06/04/18 06/04/18 16:37 18:30 18:30 WBC RBC Hgb Hct MCV MCH MCHC RDW Plt Count MPV Absolute Neuts (auto) Neutrophils % Lymphocytes % Monocytes % Eosinophils % Basophils % Nucleated RBC % Sodium 139 Potassium 3.8 Chloride 105 Carbon Dioxide 19 L Anion Gap 15 BUN 15 Creatinine 0.9 Creat Clearance w eGFR > 60 Random Glucose 102 Calcium 8.0 L Phosphorus 3.6 Magnesium 1.7 L Total Bilirubin 0.4 AST 63 H ALT 44 Alkaline Phosphatase 86 Creatine Kinase 434 H Creatine Kinase Index 1.0 CK-MB (CK-2) 4.6 H Troponin I 0.20 H Total Protein 7.2 Albumin 3.4 Lipase Urine Color Yellow Urine Appearance Clear Urine pH 5.0 D Ur Specific [place] 1.026 Urine Protein 2+ H Urine Glucose (UA) Negative Urine Ketones 1+ H Urine Blood 1+ H Urine Nitrite Negative Urine Bilirubin Negative Urine Urobilinogen Negative Ur Leukocyte Esterase Negative Urine WBC (Auto) 1 Urine RBC (Auto) <1 Ur Epithelial Cells Rare Hyaline Casts 3 Urine Mucus Rare Opiates Screen Negative Methadone Screen Negative Barbiturate Screen Negative Phencyclidine Screen Negative Ur Amphetamines Screen Negative MDMA (Ecstasy) Screen Negative Benzodiazepines Screen Positive A* Cocaine Screen Negative U Marijuana (THC) Screen Negative
[2018-06-04] MEDS ORDERED: NALTREXONE HCL 50 MG TABLET PO SCH (22:00)
[2018-06-04] MEDS: GABAPENTIN 300 MG CAPSULE (FP) PO SCH (22:24)
[2018-06-04] MEDS: PANTOPRAZOLE 20 MG TABLET (FP) PO SCH (22:24)
[2018-06-04] MEDS: LABETALOL HCL 100 MG TABLET (FP) PO SCH (22:24)
[2018-06-05 06:54] LABS: BASO % 0.9 % (0-2.0); EOS % 0.1 % (0-4.5); HEMATOCRIT 40.2 % (35.4-49); HEMOGLOBIN 12.7 GM/dL (11.7-16.9); LYMPH % 28.4 % (8-40); MCH 29.4 pg (25.7-33.7); MCHC 31.7 g/dl (32.0-35.9); MEAN CELL VOLUME 92.7 fl (80-96); MEAN PLT VOLUME 7.6 fl (7.5-11.1); MONO % 2.1 % (3.8-10.2); NEUT % 68.5 % (42.8-82.8); PLATELET COUNT 262 K/MM3 (134-434); RBC 4.34 M/mm3 (4.00-5.60); RDW 15.5 % (11.9-15.9); WHITE BLOOD COUNT 6.9 K/mm3 (4.0-10.0)
[2018-06-05 07:38] LABS: ALBUMIN 3.3 g/dl (3.4-5.0); ALK PHOS 68 U/L (45-117); ANION GAP 21 MMOL/L (8-16); BILIRUBIN,TOTAL 0.6 mg/dL (0.2-1); BLOOD UREA NITROGEN 24 mg/dL (7-18); CHLORIDE 102 mmol/L (98-107); CO2 14 mmol/L (21-32); CREATININE 1.2 mg/dL (0.55-1.3); GLUCOSE,RANDOM 74 mg/dL (74-106); POTASSIUM 4.1 mmol/L (3.5-5.1); SGOT/AST 56 U/L (15-37); SGPT/ALT 37 U/L (13-61); SODIUM 137 mmol/L (136-145); TOT PROT 7.1 g/dl (6.4-8.2)
[2018-06-05] MEDS: ASPIRIN 81 MG CHEWABLE TABLETS PO SCH (10:28)
[2018-06-05] MEDS: GABAPENTIN 300 MG CAPSULE (FP) PO SCH ×2 (10:28→22:44)
[2018-06-05] MEDS: amLODIPine BESYLATE 10 MG TABLET (FP) PO SCH (10:29)
[2018-06-05] MEDS: LISINOPRIL 10 MG TABLET (FP) PO SCH (10:29)
[2018-06-05] MEDS: LABETALOL HCL 100 MG TABLET (FP) PO SCH ×2 (10:29→22:44)
[2018-06-05] MEDS: PANTOPRAZOLE 20 MG TABLET (FP) PO SCH ×2 (10:30→22:44)
--- NOTE | 2018-06-05 10:47 | ECHO ---
Name: MELISSAKEVINCARLOS MANUEL COREA Exam:Adult Echocardiogram Study Date: 06/05/2018 08:13 AM Age: 52 yrs Reason For Study: Chest pain MMode/2D Measurements & Calculations IVSd: 1.2 cm ACS: 1.8 cm LVIDd: 4.5 cm LVIDs: 2.9 cm LVPWd: 1.8 cm EDV(Teich): 93.3 ml ESV(Teich): 32.9 ml Procedure A two-dimensional transthoracic echocardiogram with color flow and Doppler was performed. The study w as technically difficult with many images being suboptimal in quality. Left Ventricle There is mild concentric left ventricular hypertrophy. Left ventricular systolic function is normal. Ejection Fraction = 55%. Right Ventricle The right ventricle is normal in size and function. Atria The left atrial size is normal. The right atrium is mildly dilated. Mitral Valve There is mild mitral annular calcification. The mitral valve is normal. There is no mitral regurgitat ion noted. Tricuspid Valve The tricuspid valve is normal. There is mild tricuspid regurgitation. Aortic Valve There is mild aortic sclerosis.;. The aortic valve opens well. No hemodynamically significant valvula r aortic stenosis. No aortic regurgitation is present. Pulmonic Valve The pulmonic valve is not well seen, but is grossly normal. Mild pulmonic valvular regurgitation. Great Vessels The aortic root is normal size. Pericardium/Pleura There is no pericardial effusion. Interpretation Summary There is mild concentric left ventricular hypertrophy. Left ventricular systolic function is normal. The right ventricle is normal in size and function. The right atrium is mildly dilated. There is mild mitral annular calcification. There is mild tricuspid regurgitation. There is mild aortic sclerosis.; No hemodynamically significant valvular aortic stenosis. Mild pulmonic valvular regurgitation. There is no pericardial effusion. MD Loki Walker 06/05/2018 10:47 AM
[2018-06-05] MEDS ORDERED: chlordiazePOXIDE HCL 25 MG CAPSULE PO ONE (12:00)
[2018-06-05] MEDS ORDERED: chlordiazePOXIDE HCL 25 MG CAPSULE ONE ×2 (12:40→18:56)
--- NOTE | 2018-06-05 13:40 | CON.CARD ---
Consult Consult Specialty:: Cardiology Referred by:: Dr. Aparicio Reason for Consultation:: Cardiac evaluation - History of Present Illness Chief Complaint: Chest pain History of Present Illness: Patient is a 52 year old male with underlying history of HTN, hypercholesterolemia, DM, noncomplaint with medications and history of ETOH abuse who presents again with ETOH intoxication and withdrawl. He complains of left sided chest discomfort and SOB. He has tremors. He denies paroxysmal nocturnal dyspnea or orthopnea. He denies fever or chills. Complains of nausea and vomiting and complains of headache. He was seen by our service when he was admitted in November of 2016. He was then seen by Dr. Vijay Osorio when he was readmitted in January 2017. - History Source History Provided By: Patient, Medical Record Limitations to Obtaining History: Clinical Condition - Past Medical History Cardio/Vascular: Yes: HTN, Hyperlipdemia Hepatobiliary: Yes: Other (ETOH gastritis) Psych: Yes: Anxiety Endocrine: Yes: Diabetes Mellitus - Past Surgical History Past Surgical History: Yes: None - Alcohol/Substance Use Hx Alcohol Use: Yes History of Substance Use: reports: None - Smoking History Smoking history: Former smoker Have you smoked in the past 12 months: No Aproximately how many cigarettes per day: 0 - Social History Usual Living Arrangement: Alone ADL: Independent Home Medications - Allergies Allergies/Adverse Reactions: Allergies Allergy/AdvReac Type Severity Reaction Status Date / Time No Known Allergies Allergy Verified 06/04/18 12:58 - Home Medications Home Medications: Ambulatory Orders Amlodipine Besylate [Norvasc -] 10 mg PO DAILY 02/22/17 Aspirin [ASA -] 81 mg PO DAILY tab.chew 06/06/17 Lisinopril [Zestril] 10 mg PO DAILY 06/14/17 metFORMIN HCL [Metformin ER Osmotic] 1,000 mg PO BID 06/14/17 Gabapentin [Neurontin -] 300 mg PO BID 10 Days #20 capsule 05/17/18 Labetalol HCl [Normodyne -] 100 mg PO BID 30 Days #60 tablet 05/17/18 Naltrexone HCl [Revia -] 50 mg PO HS 7 Days #7 tablet 05/17/18 Pantoprazole Sodium [Protonix -] 20 mg PO BID 30 Days #30 tablet.ec 05/17/18 Family Disease History - Family Disease History Family Disease History: Diabetes: Father, Mother, Sister, Heart Disease: Father , Mother, CA: Father, Other: Father, Mother, Sister, Son (three ( ages 27, 23, 19)), Daughter (two (ages 30, 23)) Review of Systems - Review of Systems Constitutional: denies: Chills, Fever Cardiovascular: reports: Chest Pain, Shortness of Breath. denies: Palpitations Respiratory: reports: SOB. denies: Cough, Hemoptysis, Orthopnea, PND, SOB on Exertion Gastrointestinal: reports: Abdominal Pain, Nausea, Vomiting. denies: Constipation, Diarrhea, Melena, Rectal Bleeding Genitourinary: denies: Dysuria, Hematuria Neurological: reports: Headache, Tremors. denies: Dizziness, Seizure, Syncope Vital Signs: Vital Signs Temperature 97.6 F 06/05/18 10:00 Pulse Rate 102 H 06/05/18 10:00 Respiratory Rate 20 06/05/18 10:00 Blood Pressure 126/76 06/05/18 10:00 O2 Sat by Pulse Oximetry (%) 99 06/05/18 06:40 Eyes: Yes: PERRL HENT: Yes: Atraumatic Neck: Yes: Supple Respiratory: Yes: CTA Bilaterally Gastrointestinal: Yes: Normal Bowel Sounds, Soft. No: Tenderness Cardiovascular: Yes: Regular Rate and Rhythm JVD: No Carotid Bruit: No PMI: Non-Displaced Heart Sounds: Yes: S1, S2. No: Gallop Murmur: No: Systolic Murmur Edema: No - Other Data Labs, Other Data: CBC, BMP 06/05/18 05:15 06/05/18 05:15 Troponin, BNP 06/04/18 06/04/18 16:37 22:05 Troponin I 0.20 H 0.19 H Laboratory Results - last 24 hr 06/04/18 06/04/18 06/04/18 15:00 15:00 15:00 WBC 8.8 RBC 4.48 Hgb 14.0 Hct 40.0 MCV 89.3 MCH 31.3 MCHC 35.0 RDW 15.6 Plt Count 304 MPV 7.0 L Absolute Neuts (auto) 6.1 Neutrophils % 69.9 D Lymphocytes % 26.2 D Monocytes % 2.8 L Eosinophils % 0.3 D Basophils % 0.8 Nucleated RBC % 0 Sodium Cancelled Potassium Cancelled Chloride Cancelled Carbon Dioxide Cancelled Anion Gap Cancelled BUN Cancelled Creatinine Cancelled Creat Clearance w eGFR Cancelled Random Glucose Cancelled Calcium Cancelled Phosphorus Cancelled Magnesium Cancelled Total Bilirubin Cancelled AST Cancelled ALT Cancelled Alkaline Phosphatase Cancelled Creatine Kinase Creatine Kinase Index CK-MB (CK-2) Troponin I Total Protein Cancelled Albumin Cancelled Lipase 204 Urine Color Urine Appearance Urine pH Ur Specific [place] Urine Protein Urine Glucose (UA) Urine Ketones Urine Blood Urine Nitrite Urine Bilirubin Urine Urobilinogen Ur Leukocyte Esterase Urine WBC (Auto) Urine RBC (Auto) Ur Epithelial Cells Hyaline Casts Urine Mucus Opiates Screen Methadone Screen Barbiturate Screen Phencyclidine Screen Ur Amphetamines Screen MDMA (Ecstasy) Screen Benzodiazepines Screen Cocaine Screen U Marijuana (THC) Screen 06/04/18 06/04/18 06/04/18 16:37 18:30 18:30 WBC RBC Hgb Hct MCV MCH MCHC RDW Plt Count MPV Absolute Neuts (auto) Neutrophils % Lymphocytes % Monocytes % Eosinophils % Basophils % Nucleated RBC % Sodium 139 Potassium 3.8 Chloride 105 Carbon Dioxide 19 L Anion Gap 15 BUN 15 Creatinine 0.9 Creat Clearance w eGFR > 60 Random Glucose 102 Calcium 8.0 L Phosphorus 3.6 Magnesium 1.7 L Total Bilirubin 0.4 AST 63 H ALT 44 Alkaline Phosphatase 86 Creatine Kinase 434 H Creatine Kinase Index 1.0 CK-MB (CK-2) 4.6 H Troponin I 0.20 H Total Protein 7.2 Albumin 3.4 Lipase Urine Color Yellow Urine Appearance Clear Urine pH 5.0 D Ur Specific [place] 1.026 Urine Protein 2+ H Urine Glucose (UA) Negative Urine Ketones 1+ H Urine Blood 1+ H Urine Nitrite Negative Urine Bilirubin Negative Urine Urobilinogen Negative Ur Leukocyte Esterase Negative Urine WBC (Auto) 1 Urine RBC (Auto) <1 Ur Epithelial Cells Rare Hyaline Casts 3 Urine Mucus Rare Opiates Screen Negative Methadone Screen Negative Barbiturate Screen Negative Phencyclidine Screen Negative Ur Amphetamines Screen Negative MDMA (Ecstasy) Screen Negative Benzodiazepines Screen Positive A* Cocaine Screen Negative U Marijuana (THC) Screen Negative 06/04/18 06/05/18 06/05/18 22:05 05:15 05:15 WBC 6.9 RBC 4.34 Hgb 12.7 Hct 40.2 MCV 92.7 MCH 29.4 MCHC 31.7 L RDW 15.5 Plt Count 262 MPV 7.6 Absolute Neuts (auto) 4.8 Neutrophils % 68.5 Lymphocytes % 28.4 Monocytes % 2.1 L Eosinophils % 0.1 Basophils % 0.9 Nucleated RBC % 0 Sodium 137 Potassium 4.1 Chloride 102 Carbon Dioxide 14 L Anion Gap 21 H BUN 24 H Creatinine 1.2 Creat Clearance w eGFR > 60 Random Glucose 74 Calcium 8.0 L Phosphorus Magnesium Total Bilirubin 0.6 AST 56 H ALT 37 Alkaline Phosphatase 68 Creatine Kinase 484 H Creatine Kinase Index 0.9 CK-MB (CK-2) 4.5 H Troponin I 0.19 H Total Protein 7.1 Albumin 3.3 L Lipase Urine Color Urine Appearance Urine pH Ur Specific [place] Urine Protein Urine Glucose (UA) Urine Ketones Urine Blood Urine Nitrite Urine Bilirubin Urine Urobilinogen Ur Leukocyte Esterase Urine WBC (Auto) Urine RBC (Auto) Ur Epithelial Cells Hyaline Casts Urine Mucus Opiates Screen Methadone Screen Barbiturate Screen Phencyclidine Screen Ur Amphetamines Screen MDMA (Ecstasy) Screen Benzodiazepines Screen Cocaine Screen U Marijuana (THC) Screen Echo: Report Reviewed Problem List - Problems (1) Elevated troponin I level Code(s): R74.8 - ABNORMAL LEVELS OF OTHER SERUM ENZYMES (2) Alcohol dependence Code(s): F10.20 - ALCOHOL DEPENDENCE, UNCOMPLICATED (3) Chest pain Code(s): R07.9 - CHEST PAIN, UNSPECIFIED Qualifiers: Chest pain type: chest pain due to myocardial ischemia (4) Alcohol dependence with uncomplicated withdrawal Code(s): F10.230 - ALCOHOL DEPENDENCE WITH WITHDRAWAL, UNCOMPLICATED (5) HTN (hypertension) Code(s): I10 - ESSENTIAL (PRIMARY) HYPERTENSION Qualifiers: Hypertension type: essential hypertension Qualified Code(s): I10 - Essential (primary) hypertension (6) Hypercholesterolemia Code(s): E78.0 - PURE HYPERCHOLESTEROLEMIA * DO NOT USE * (7) Type II diabetes mellitus Code(s): E11.9 - TYPE 2 DIABETES MELLITUS WITHOUT COMPLICATIONS Qualifiers: Diabetes mellitus halfway insulin use: with halfway use Diabetes mellitus complication status: with hyperglycemia Qualified Code(s): E11.65 - Type 2 diabetes mellitus with hyperglycemia Assessment/Plan 1. ETOH intoxication and abuse and withdrawl 2. Chest pain syndrome 3. HTN 4. Hypercholesterolemia 5. Type 2 DM 6. Noncompliance PLAN: 1. Continue Labetalol, Prinivil and Amlodipine 2. ASA 3. Librium taper and detoxification. Monitor for withdrawl 4. Consider Inpatient alcohol rehabilitation 5. Echocardiography to assess LV/RV and valvular function 6. Further cardiac work up in the future once he is ETOH free Bud Olivarez MD
--- NOTE | 2018-06-05 15:42 | PN ---
Progress Note, Physician History of Present Illness: shaking - Current Medication List Current Medications: Active Medications Amlodipine Besylate (Norvasc -) 10 mg PO DAILY [facility] Last Admin: 06/05/18 10:29 Dose: 10 mg Aspirin (Asa -) 81 mg PO DAILY [facility] Last Admin: 06/05/18 10:28 Dose: 81 mg Chlordiazepoxide HCl (Librium -) 50 mg PO Q6HPO [facility] Gabapentin (Neurontin -) 300 mg PO BID [facility] Last Admin: 06/05/18 10:28 Dose: 300 mg Labetalol HCl (Normodyne -) 100 mg PO BID [facility] Last Admin: 06/05/18 10:29 Dose: 100 mg Lisinopril (Prinivil) 10 mg PO DAILY [facility] Last Admin: 06/05/18 10:29 Dose: 10 mg Metformin HCl (Glucophage Xr -) 1,000 mg PO BIDAC [facility] Last Admin: 06/04/18 22:24 Dose: 1,000 mg Naltrexone HCl (Revia -) 50 mg PO HS [facility] Last Admin: 06/04/18 22:24 Dose: 50 mg Pantoprazole Sodium (Protonix -) 20 mg PO BID [facility] Last Admin: 06/05/18 10:30 Dose: 20 mg - Objective Vital Signs: Vital Signs Temperature 97.6 F 06/05/18 10:00 Pulse Rate 102 H 06/05/18 10:00 Respiratory Rate 20 06/05/18 10:00 Blood Pressure 126/76 06/05/18 10:00 O2 Sat by Pulse Oximetry (%) 99 06/05/18 06:40 Constitutional: Yes: Anxious HENT: Yes: Atraumatic Neck: Yes: Supple Cardiovascular: Yes: Regular Rate and Rhythm Respiratory: Yes: CTA Bilaterally Gastrointestinal: Yes: Normal Bowel Sounds Extremities: Yes: WNL Edema: No Neurological: Yes: Alert, Oriented Labs: CBC, BMP 06/05/18 05:15 06/05/18 05:15 Problem List - Problems (1) Elevated troponin I level Assessment/Plan: will fu trend cardiology on board Code(s): R74.8 - ABNORMAL LEVELS OF OTHER SERUM ENZYMES (2) Alcohol dependence Assessment/Plan: will put him on librium detox consult seen by detox doctor, she said to dc him in am to detox unit Code(s): F10.20 - ALCOHOL DEPENDENCE, UNCOMPLICATED (3) Alcohol-induced mood disorder Code(s): F10.94 - ALCOHOL USE, UNSPECIFIED WITH ALCOHOL-INDUCED MOOD DISORDER
--- NOTE | 2018-06-05 18:16 | EKG ---
Test Reason : Blood Pressure : / mmHG Vent. Rate : 108 BPM Atrial Rate : 108 BPM P-R Int : 184 ms QRS Dur : 108 ms QT Int : 362 ms P-R-T Axes : 061 -12 048 degrees QTc Int : 485 ms SINUS TACHYCARDIA INFERIOR INFARCT (CITED ON OR BEFORE 10-MAY-2018) ABNORMAL ECG Confirmed by MD TABATHA, LINNETTE ([id number]) on 06/05/2018 6:15:56 PM Referred By: Confirmed By:LINNETTE MAYS MD
[2018-06-05] MEDS: chlordiazePOXIDE HCL 25 MG CAPSULE PO SCH (18:56)
[2018-06-05] MEDS ORDERED: chlordiazePOXIDE HCL 25 MG CAPSULE PO PRN (19:04)
--- NOTE | 2018-06-05 19:04 | PN ---
[facility] Progress Note (SOAP) Subjective: 52 y o male referred for consultation for etoh use , reports 3-5 pints liquor daily , currently c/o nausea, vomiting , abdominal pain / cramps , tremors , sweating ,poor appetite . Sent form [facility] yesterday . Home Medication List Medication Instructions Recorded Confirmed Type Amlodipine Besylate [Norvasc -] 10 mg PO DAILY 02/22/17 06/04/18 History Lisinopril [Zestril] 10 mg PO DAILY 06/14/17 06/04/18 History metFORMIN HCL [Metformin ER 1,000 mg PO BID 06/14/17 06/04/18 History Osmotic] Active Medications Generic Name Dose Route Start Last Admin Trade Name Freq PRN Reason Stop Dose Admin Amlodipine Besylate 10 mg 06/05/18 10:00 06/05/18 10:29 Norvasc - PO 10 mg DAILY DARRELL Administration Aspirin 81 mg 06/05/18 10:00 06/05/18 10:28 Asa - PO 81 mg DAILY ADRRELL Administration Chlordiazepoxide HCl 50 mg 06/05/18 18:00 06/05/18 18:56 Librium - PO 06/06/18 06:01 50 mg Q6HPO DARRELL Administration Gabapentin 300 mg 06/04/18 22:00 06/05/18 10:28 Neurontin - PO 300 mg BID DARRELL Administration Labetalol HCl 100 mg 06/04/18 22:00 06/05/18 10:29 Normodyne - PO 100 mg BID DARRELL Administration Lisinopril 10 mg 06/05/18 10:00 06/05/18 10:29 Prinivil PO 10 mg DAILY DARRELL Administration Metformin HCl 1,000 mg 06/04/18 20:30 06/05/18 18:50 Glucophage Xr - PO 1,000 mg BIDAC DARRELL Administration Naltrexone HCl 50 mg 06/04/18 22:00 06/04/18 22:24 Revia - PO 50 mg HS DARRELL Administration Pantoprazole Sodium 20 mg 06/04/18 22:00 06/05/18 10:30 Protonix - PO 20 mg BID DARRELL Administration PMhx : etoh abuse, htn, cad, dm Objective: 06/05/18 19:02 wnw , moderate distress tremulous , lying in bed , unable to sit up 2/2 tremors and general malaise , reports sweating , insomnia Neuro : AAO x3 , resting tremors ochoa UE . Per nursing staff , ambulating in hallway earlier in the day . CBC, BMP 06/05/18 05:15 06/05/18 05:15 Abnormal Lab Results 06/04/18 06/04/18 06/04/18 18:30 18:30 22:05 MCHC Monocytes % Carbon Dioxide Anion Gap BUN Calcium AST Creatine Kinase 484 H CK-MB (CK-2) 4.5 H Troponin I 0.19 H Albumin Urine Protein 2+ H Urine Ketones 1+ H Urine Blood 1+ H Benzodiazepines Screen Positive A* 06/05/18 06/05/18 05:15 05:15 MCHC 31.7 L Monocytes % 2.1 L Carbon Dioxide 14 L Anion Gap 21 H BUN 24 H Calcium 8.0 L AST 56 H Creatine Kinase CK-MB (CK-2) Troponin I Albumin 3.3 L Urine Protein Urine Ketones Urine Blood Benzodiazepines Screen Vital Signs - 24 hr 06/05/18 06/05/18 06/05/18 06:40 10:00 14:00 Temperature 97.6 F 97.3 F L Pulse Rate 102 H 90 Pulse Rate [ 94 H Left Brachial] Respiratory 20 20 20 Rate Blood Pressure 126/76 97/53 L Blood Pressure 99/55 L [Left Arm] O2 Sat by Pulse 99 Oximetry (%) 06/05/18 19:49 06/05/18 19:50 Assessment: 06/05/18 19:03 etoh dependence with withdrawal Plan: Librium taper and prn transfer to [facility] when medically cleared . pt agreeable w/ POC.
[2018-06-05] MEDS ORDERED: chlordiazePOXIDE HCL 25 MG CAPSULE PO SCH (23:00)
[2018-06-06] MEDS: chlordiazePOXIDE HCL 25 MG CAPSULE PO SCH ×2 (00:31→06:11)
--- NOTE | 2018-06-06 09:28 | PN ---
Progress Note, Physician History of Present Illness: Resting comfortably without tremulousness. - Current Medication List Current Medications: Active Medications Amlodipine Besylate (Norvasc -) 10 mg PO DAILY [facility] Last Admin: 06/05/18 10:29 Dose: 10 mg Aspirin (Asa -) 81 mg PO DAILY [facility] Last Admin: 06/05/18 10:28 Dose: 81 mg Chlordiazepoxide HCl (Librium -) 25 mg PO [id number] [facility] Stop: 06/07/18 23:01 Chlordiazepoxide HCl (Librium -) 15 mg PO [id number] [facility] Stop: 06/08/18 23:01 Chlordiazepoxide HCl (Librium -) 25 mg PO Q4H PRN PRN Reason: WITHDRAWAL(CONT SUBST) Stop: 06/08/18 19:03 Chlordiazepoxide HCl (Librium -) 10 mg PO [id number] [facility] Stop: 06/09/18 23:01 Chlordiazepoxide HCl (Librium -) 50 mg PO [id number] [facility] Stop: 06/06/18 23:01 Gabapentin (Neurontin -) 300 mg PO BID [facility] Last Admin: 06/05/18 22:44 Dose: 300 mg Labetalol HCl (Normodyne -) 100 mg PO BID [facility] Last Admin: 06/05/18 22:44 Dose: 100 mg Lisinopril (Prinivil) 10 mg PO DAILY [facility] Last Admin: 06/05/18 10:29 Dose: 10 mg Metformin HCl (Glucophage Xr -) 1,000 mg PO BIDAC [facility] Last Admin: 06/06/18 06:12 Dose: Not Given Pantoprazole Sodium (Protonix -) 20 mg PO BID [facility] Last Admin: 06/05/18 22:44 Dose: 20 mg - Objective Vital Signs: Vital Signs Temperature 97.7 F 06/06/18 06:00 Pulse Rate 88 06/06/18 06:00 Respiratory Rate 17 06/06/18 06:00 Blood Pressure 108/55 L 06/06/18 06:00 O2 Sat by Pulse Oximetry (%) 98 06/06/18 04:00 Constitutional: Yes: No Distress, Calm, Thin Neck: Yes: Supple Cardiovascular: Yes: Regular Rate and Rhythm Respiratory: Yes: Regular, CTA Bilaterally Gastrointestinal: Yes: Normal Bowel Sounds, Soft Edema: No Labs: CBC, BMP 06/05/18 05:15 06/05/18 05:15 - ....Imaging EKG: Report Reviewed (Tele: NSR) Problem List - Problems (1) Demand ischemia Code(s): I24.8 - OTHER FORMS OF ACUTE ISCHEMIC HEART DISEASE (2) Chest pain Code(s): R07.9 - CHEST PAIN, UNSPECIFIED Qualifiers: Chest pain type: chest pain due to myocardial ischemia (3) Alcohol dependence with uncomplicated withdrawal Code(s): F10.230 - ALCOHOL DEPENDENCE WITH WITHDRAWAL, UNCOMPLICATED (4) Dyslipidemia Code(s): E78.5 - HYPERLIPIDEMIA, UNSPECIFIED (5) HTN (hypertension) Code(s): I10 - ESSENTIAL (PRIMARY) HYPERTENSION Qualifiers: Hypertension type: essential hypertension Qualified Code(s): I10 - Essential (primary) hypertension (6) Hypercholesterolemia Code(s): E78.0 - PURE HYPERCHOLESTEROLEMIA * DO NOT USE * (7) Type II diabetes mellitus Code(s): E11.9 - TYPE 2 DIABETES MELLITUS WITHOUT COMPLICATIONS Qualifiers: Diabetes mellitus fdc insulin use: with fdc use Diabetes mellitus complication status: with hyperglycemia Qualified Code(s): E11.65 - Type 2 diabetes mellitus with hyperglycemia Assessment/Plan 1. ETOH intoxication and abuse and withdrawal 2. Chest pain syndrome 3. HTN 4. Hypercholesterolemia 5. Type 2 DM 6. Noncompliance 7. Demand ischemia PLAN: 1. Continue Labetalol 100 bid, Prinivil 10 qd, Amlodipine 10 qd and ASA 81 qd 2. Librium taper and detoxification. Monitor for withdrawal, trops plateaued 3. Consider Inpatient alcohol rehabilitation 4. F/u echocardiography to assess LV/RV and valvular function 5. Further cardiac work up in the future once he is ETOH free
[2018-06-06] MEDS: GABAPENTIN 300 MG CAPSULE (FP) PO SCH (09:59)
[2018-06-06] MEDS: LABETALOL HCL 100 MG TABLET (FP) PO SCH (10:00)
[2018-06-06] MEDS: amLODIPine BESYLATE 10 MG TABLET (FP) PO SCH (10:00)
[2018-06-06] MEDS: LISINOPRIL 10 MG TABLET (FP) PO SCH (10:00)
[2018-06-06] MEDS: PANTOPRAZOLE 20 MG TABLET (FP) PO SCH (10:00)
[2018-06-06] MEDS: ASPIRIN 81 MG CHEWABLE TABLETS PO SCH (10:00)
[2018-06-06] MEDS ORDERED: chlordiazePOXIDE HCL 25 MG CAPSULE PO SCH (11:00)
--- NOTE | 2018-06-06 14:21 | DS ---
Physical Examination Vital Signs: Vital Signs Temperature 97.6 F 06/06/18 10:00 Pulse Rate 82 06/06/18 10:00 Respiratory Rate 18 06/06/18 10:00 Blood Pressure 110/60 06/06/18 10:00 O2 Sat by Pulse Oximetry (%) 96 06/06/18 09:00 HENT: Yes: Atraumatic Neck: Yes: Supple Cardiovascular: Yes: Regular Rate and Rhythm Respiratory: Yes: CTA Bilaterally Gastrointestinal: Yes: Normal Bowel Sounds Extremities: Yes: WNL Neurological: Yes: Alert Labs: CBC, BMP 06/05/18 05:15 06/05/18 05:15 Discharge Summary Reason For Visit: ELEVATED TROPONIN I LEVEL Current Active Problems Demand ischemia (Acute) Elevated troponin I level (Chronic) Condition: Fair - Instructions Referrals: Faith Torres MD [Primary Care Provider] - Disposition: I.P. ALCOHOL/SUBS ABUSE REHAB - Home Medications Comprehensive Discharge Medication List: Ambulatory Orders Amlodipine Besylate [Norvasc -] 10 mg PO DAILY 02/22/17 Aspirin [ASA -] 81 mg PO DAILY tab.chew 06/06/17 Lisinopril [Zestril] 10 mg PO DAILY 06/14/17 metFORMIN HCL [Metformin ER Osmotic] 1,000 mg PO BID 06/14/17 Gabapentin [Neurontin -] 300 mg PO BID 10 Days #20 capsule 05/17/18 Labetalol HCl [Normodyne -] 100 mg PO BID 30 Days #60 tablet 05/17/18 Naltrexone HCl [Revia -] 50 mg PO HS 7 Days #7 tablet 05/17/18 Pantoprazole Sodium [Protonix -] 20 mg PO BID 30 Days #30 tablet.ec 05/17/18 dc
[2018-06-06 14:40] VITALS: BP 98/58; PULSE 77; TEMP 98
[2018-06-07] MEDS ORDERED: chlordiazePOXIDE HCL 25 MG CAPSULE PO SCH (05:00)
[2018-06-08] MEDS ORDERED: chlordiazePOXIDE 5 MG CAPSULE PO SCH (05:00)
[2018-06-09] MEDS ORDERED: chlordiazePOXIDE HCL 10 MG CAPSULE PO SCH (05:00)
== END 2018-06-06 17:33 | disposition other institution (70) ==
LOC: JER 12:38 → INTOOBSV 18:36 → JERBED 18:36 → J4W 06-06 00:10
PROVIDERS: ADMIT Internal Medicine; ATTEND Internal Medicine
PROC: 3E0337Z Introduction of Electrolytic and Water Balance Substance into Peripheral Vein, Percutaneous Approach (ICD-10-PCS; principal; 2018-06-04)
DX: R77.8 Other specified abnormalities of plasma proteins (principal); I24.8 Other forms of acute ischemic heart disease; F10.24 Alcohol dependence with alcohol-induced mood disorder; F10.230 Alcohol dependence with withdrawal, uncomplicated; R07.9 Chest pain, unspecified; I10 Essential (primary) hypertension; I25.10 Atherosclerotic heart disease of native coronary artery without angina pectoris; E11.9 Type 2 diabetes mellitus without complications; F32.9 Major depressive disorder, single episode, unspecified; R00.0 Tachycardia, unspecified; Z79.82 Long term (current) use of aspirin; Z79.84 Long term (current) use of oral hypoglycemic drugs; Z91.14 Patient's other noncompliance with medication regimen
CPT/HCPCS: 36415; 71045-TC-FY; 80053; 80307; 81003; 81015; 82550; 82553; 82962; 83690; 83735; 84100; 84484; 85025; 93005; 93010; 93306-TC; 99283-25; 99284-25; G0378

== ENCOUNTER 2018-06-06 23:57 | Emergency (ER) | payer OTHER ==
--- NOTE | 2018-06-07 00:56 | PDOC ---
Attending Attestation - HPI HPI: 06/07/18 01:12 The patient is a 52 year old male, with a significant past medical history of alcohol abuse, who presents to the emergency department with, alcohol intoxication. Patient was sent over by [facility] when he did not reach the detox requirement because he was intoxicated. While in the ED, the patient denies any symptoms but, admits to drinking 4pints of alcohol. He denies any recent fevers, chills, headache or dizziness. He denies any recent nausea, vomit, diarrhea or constipation. He denies any recent chest pain or shortness of breath. He denies any recent dysuria, frequency, urgency or hematuria. Allergies: NKDA Social History: Alcohol abuse. Primary Care Physician: Dr. Alfaro <Davida Sebastian - Last Filed: 06/07/18 01:12> - Resident Resident Name: Gumaro Underwood - ED Attending Attestation I have performed the following: I have examined & evaluated the patient, The case was reviewed & discussed with the resident, I agree w/resident's findings & plan - Physicial Exam PE: 06/07/18 04:09 Agree with resident exam - Medical Decision Making 06/07/18 04:04 52-year-old male sent from detox due to signs of acute intoxication Patient has no complaints on arrival He does admit to drinking 4 pints of liquor throughout the day There are no outward signs of trauma Plan is for short term observation in the emergency department and DC when sober Impression alcohol abuse <Zuleika Renner - Last Filed: 06/07/18 04:09> Attestations - Attestations 06/07/18 01:12 Documentation prepared by Davida Sebastian, acting as medical registrar for Zuleika Renner DO. <Davida Sebastian - Last Filed: 06/07/18 01:12>
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
[2018-06-07 02:48] VITALS: BP 108/70; PULSE 77; TEMP 97.8; BMI 22.8
== END 2018-06-07 06:59 | disposition home or self-care (01) ==
LOC: JER 23:57
DX: F10.120 Alcohol abuse with intoxication, uncomplicated (principal); I10 Essential (primary) hypertension; E11.9 Type 2 diabetes mellitus without complications; Z79.84 Long term (current) use of oral hypoglycemic drugs; E78.00 Pure hypercholesterolemia, unspecified
CPT/HCPCS: 82962; 99281-25

== ENCOUNTER 2018-06-07 08:10 | Inpatient (IN) | payer OTHER ==
[2018-06-07 08:39] VITALS: BMI 26.6
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
[2018-06-07] MEDS ORDERED: P-EPHED 60MG/TRIPROLIDI 2.5MG TABLET PO PRN (11:28)
[2018-06-07] MEDS ORDERED: MAG HYDROX/AL HYDROX/SIMETH 30 ML UNIT-DOSE CUP PO PRN (11:28)
[2018-06-07] MEDS ORDERED: MENTHOL/PHENOL 1 EACH UD MM PRN (11:28)
[2018-06-07] MEDS ORDERED: guaiFENesin/D-METHORPHAN HB 10 ML UNIT-DOSE CUPS PO PRN (11:28)
[2018-06-07] MEDS ORDERED: IBUPROFEN 400 MG TABLET (FP) PO PRN (11:28)
[2018-06-07] MEDS ORDERED: MAGNESIUM HYDROX 2400MG/30ML ORAL SUSPENSION 30 ML CUP PO PRN (11:28)
[2018-06-07] MEDS ORDERED: ACETAMINOPHEN 325 MG TABLET (FP) PO PRN (11:28)
[2018-06-07] MEDS ORDERED: MAGNESIUM CITRATE 300 ML BOTTLE PO PRN (11:28)
[2018-06-07] MEDS: ASPIRIN 81 MG CHEWABLE TABLETS PO SCH (13:26)
[2018-06-07] MEDS: chlordiazePOXIDE HCL 25 MG CAPSULE PO PRN ×2 (13:26→19:28)
[2018-06-07] MEDS: INSULIN SLIDING SCALE (NOVOLOG) 1 VIAL SQ SCH ×2 (16:58→21:35)
[2018-06-07] MEDS: chlordiazePOXIDE HCL 25 MG CAPSULE PO SCH ×2 (17:19→22:09)
[2018-06-07] MEDS: MELATONIN 5 MG TABLETS PO PRN (22:09)
[2018-06-07] MEDS: THIAMINE HCL 100 MG TABLET (FP) PO SCH (22:09)
[2018-06-07] MEDS: PANTOPRAZOLE 20 MG TABLET (FP) PO SCH (22:09)
[2018-06-08] MEDS: chlordiazePOXIDE HCL 25 MG CAPSULE PO SCH ×4 (05:41→22:11)
[2018-06-08] MEDS: INSULIN SLIDING SCALE (NOVOLOG) 1 VIAL SQ SCH ×4 (06:27→22:11)
[2018-06-08] MEDS: PANTOPRAZOLE 20 MG TABLET (FP) PO SCH ×2 (10:13→22:11)
[2018-06-08] MEDS: amLODIPine BESYLATE 10 MG TABLET (FP) PO SCH (10:14)
[2018-06-08] MEDS: ASPIRIN 81 MG CHEWABLE TABLETS PO SCH (10:14)
[2018-06-08] MEDS: PRENATAL VITAMINS W/ FOLIC ACID TABLET (FP) PO SCH (10:14)
--- NOTE | 2018-06-08 16:26 | PN ---
BHS CIWA - CIWA Score Nausea/Vomitin Muscle Tremors: 3 Anxiety: 2 Agitation: 1-Slight > Activity Paroxysmal Sweats: 3 Orientation: 0-Oriented Tacttile Disturbances: 0-None Auditory Disturbances: 0-None Visual Disturbances: 0-None Headache: 3-Moderate CIWA-Ar Total Score: 15 BHS Progress Note (SOAP) Subjective: Nausea, Diarrhea, Poor Appetite, Sweating, H/A, Interrupted Sleep, Tremors. Objective: PATIENT A & O X 3, OBSERVED AMBULATING ON UNIT. IN NO ACUTE DISTRESS. 06/08/18 16:24 Vital Signs Temperature 96.5 F L 06/08/18 13:31 Pulse Rate 84 06/08/18 13:31 Respiratory Rate 18 06/08/18 13:31 Blood Pressure 145/84 06/08/18 13:31 O2 Sat by Pulse Oximetry (%) Laboratory Tests 06/07/18 06/07/18 06/08/18 11:15 15:48 05:40 POC Glucometer 112 125 105 06/08/18 11:46 POC Glucometer 142 ADMISSION LABS NOTED. 06/08/18 16:26 Assessment: 06/08/18 16:26 WITHDRAWAL SYMPTOMS. Plan: CONTINUE DETOX. INCREASE DAILY PO FLUID INTAKE. PRN IMMODIUM FOR DIARRHEA.
[2018-06-08] MEDS: THIAMINE HCL 100 MG TABLET (FP) PO SCH (22:11)
[2018-06-08] MEDS: MELATONIN 5 MG TABLETS PO PRN (22:12)
[2018-06-09] MEDS: chlordiazePOXIDE HCL 25 MG CAPSULE PO SCH ×2 (05:22→10:53)
[2018-06-09] MEDS: INSULIN SLIDING SCALE (NOVOLOG) 1 VIAL SQ SCH ×4 (06:39→22:16)
[2018-06-09] MEDS: ASPIRIN 81 MG CHEWABLE TABLETS PO SCH (10:53)
[2018-06-09] MEDS: PANTOPRAZOLE 20 MG TABLET (FP) PO SCH ×2 (10:53→22:16)
[2018-06-09] MEDS: amLODIPine BESYLATE 10 MG TABLET (FP) PO SCH (10:53)
[2018-06-09] MEDS: PRENATAL VITAMINS W/ FOLIC ACID TABLET (FP) PO SCH (10:53)
--- NOTE | 2018-06-09 14:24 | PN ---
S CIWA - CIWA Score Nausea/Vomitin-No Nausea/No Vomiting Muscle Tremors: None Anxiety: 0-No Anxiety, at Ease Agitation: 0-Normal Activity Paroxysmal Sweats: 3 Orientation: 0-Oriented Tacttile Disturbances: 2-Mild Itch/Numbness/Burn Auditory Disturbances: 1-Very Mild Visual Disturbances: 2-Mild Sensitivity Headache: 3-Moderate CIWA-Ar Total Score: 11 BHS Progress Note (SOAP) Subjective: Sweating, H/A, Interrupted Sleep. Objective: PATIENT A & O X 3, OBSERVED AMBULATING ON UNIT. IN NO ACUTE DISTRESS. 06/09/18 14:26 Vital Signs Temperature 97.8 F 06/09/18 13:47 Pulse Rate 68 06/09/18 13:47 Respiratory Rate 18 06/09/18 13:47 Blood Pressure 144/74 06/09/18 13:47 O2 Sat by Pulse Oximetry (%) Laboratory Tests 06/07/18 06/07/18 06/08/18 11:15 15:48 05:40 POC Glucometer 112 125 105 06/08/18 06/08/18 06/09/18 11:46 16:35 05:23 POC Glucometer 142 175 133 06/09/18 12:18 POC Glucometer 121 LABS NOTED. Assessment: 06/09/18 14:27 WITHDRAWAL SYMPTOMS. HYPERTENSION. Plan: CONTINUE TO MONITOR BLOOD PRESSURE. LISINOPRIL, 5 MG PO DAILY FOR ELEVATED BLOOD PRESSURE DESPITE TREATMENT ( PATIENT REPORTS HISTORY OF TAKING LISINOPRIL IN PAST ON OUTPATIENT BASIS).
[2018-06-09] MEDS ORDERED: LISINOPRIL 5 MG TABLET (FP) PO ONE (15:00)
[2018-06-09] MEDS: chlordiazePOXIDE 5 MG CAPSULE PO SCH ×2 (17:38→22:15)
[2018-06-09] MEDS: THIAMINE HCL 100 MG TABLET (FP) PO SCH (22:14)
[2018-06-09] MEDS: MELATONIN 5 MG TABLETS PO PRN (22:17)
[2018-06-10] MEDS: chlordiazePOXIDE 5 MG CAPSULE PO SCH ×2 (05:20→10:14)
[2018-06-10] MEDS: INSULIN SLIDING SCALE (NOVOLOG) 1 VIAL SQ SCH ×4 (08:25→22:14)
[2018-06-10] MEDS: PRENATAL VITAMINS W/ FOLIC ACID TABLET (FP) PO SCH (10:14)
[2018-06-10] MEDS: amLODIPine BESYLATE 10 MG TABLET (FP) PO SCH (10:14)
[2018-06-10] MEDS: LISINOPRIL 5 MG TABLET (FP) PO SCH (10:14)
[2018-06-10] MEDS: ASPIRIN 81 MG CHEWABLE TABLETS PO SCH (10:14)
[2018-06-10] MEDS: PANTOPRAZOLE 20 MG TABLET (FP) PO SCH ×2 (14:42→22:35)
--- NOTE | 2018-06-10 15:25 | PN ---
BHS Progress Note (SOAP) Subjective: Denies any complaints. Patient is anxious. Objective: 06/10/18 15:21 Last Vital Signs Temp Pulse Resp BP Pulse Ox 98.2 F 91 H 19 130/87 06/10/18 14:24 06/10/18 14:24 06/10/18 14:24 06/10/18 14:24 Laboratory Tests 06/07/18 06/07/18 06/08/18 11:15 15:48 05:40 POC Glucometer 112 125 105 06/08/18 06/08/18 06/09/18 11:46 16:35 05:23 POC Glucometer 142 175 133 06/09/18 06/09/18 06/09/18 12:18 16:31 20:28 POC Glucometer 121 109 142 06/10/18 06/10/18 05:20 12:06 POC Glucometer 116 138 Labs reviewed and POC testing for DM; bun 24, abnormal UA Assessment: 06/10/18 15:23 Withdrawal symptoms Noted with hyperglycemia, azotemia and abnormal UA Plan: Continue detox Patient for discharge tomorrow pending weather condition Hyperglycemia: secondary to DMT2, continue diabetic regimen Azotemia: encouraged PO water intake Abnormal UA: repeat UA
[2018-06-10] MEDS: chlordiazePOXIDE HCL 10 MG CAPSULE PO SCH ×2 (16:38→22:13)
[2018-06-10] MEDS: THIAMINE HCL 100 MG TABLET (FP) PO SCH (22:13)
[2018-06-10] MEDS: MELATONIN 5 MG TABLETS PO PRN (22:13)
[2018-06-10 22:58] LABS: URINE APPEARANCE SLCLOUDY; URINE BILIRUBIN NEGATIVE (<2.0 mg/dL); URINE COLOR AMBER; URINE GLUCOSE (UA) NEGATIVE (NEGATIVE); URINE KETONE TRACE (NEGATIVE); URINE LEUK ESTERASE NEGATIVE (NEGATIVE); URINE NITRITE NEGATIVE (NEGATIVE); URINE PROTEIN 2+ (NEGATIVE); URINE UROBILINOGEN NEGATIVE mg/dL (0.2-1.0)
[2018-06-10 23:02] LABS: CALCIUM OXALATE CRYSTALS MODERATE /hpf (NONE SEEN); EPI CELLS RARE /HPF (FEW); URINE MUCUS MANY
[2018-06-11] MEDS: chlordiazePOXIDE HCL 10 MG CAPSULE PO SCH ×2 (05:24→10:50)
[2018-06-11] MEDS: INSULIN SLIDING SCALE (NOVOLOG) 1 VIAL SQ SCH ×4 (07:25→21:40)
--- NOTE | 2018-06-11 10:25 | PN ---
BHS Progress Note (SOAP) Subjective: tremor sweating irritable Objective: 06/11/18 10:25 Vital Signs Temperature 97.7 F 06/11/18 09:04 Pulse Rate 120 H 06/11/18 09:04 Respiratory Rate 16 06/11/18 09:04 Blood Pressure 132/94 06/11/18 09:04 O2 Sat by Pulse Oximetry (%) Laboratory Last Values POC Glucometer 160 UNITS (80-120) 06/11/18 05:23 Urine Color Nuvia 06/10/18 16:30 Urine Appearance Slcloudy 06/10/18 16:30 Urine pH 5.0 (5.0-8.0) 06/10/18 16:30 Ur Specific [place] 1.025 (1.010-1.035) 06/10/18 16:30 Urine Protein 2+ (NEGATIVE) H 06/10/18 16:30 Urine Glucose (UA) Negative (NEGATIVE) 06/10/18 16:30 Urine Ketones Trace (NEGATIVE) H 06/10/18 16:30 Urine Blood Negative (NEGATIVE) 06/10/18 16:30 Urine Nitrite Negative (NEGATIVE) 06/10/18 16:30 Urine Bilirubin Negative (<2.0 mg/dL) 06/10/18 16:30 Urine Urobilinogen Negative mg/dL (0.2-1.0) 06/10/18 16:30 Ur Leukocyte Esterase Negative (NEGATIVE) 06/10/18 16:30 Urine WBC (Auto) 1 /hpf (3-5) 06/10/18 16:30 Urine RBC (Auto) 1 /hpf (0-3) 06/10/18 16:30 Ur Epithelial Cells Rare /HPF (FEW) 06/10/18 16:30 Calcium Oxalate Crystal Moderate /hpf (NONE SEEN) 06/10/18 16:30 Urine Mucus Many 06/10/18 16:30 06/11/18 10:26 lab noted Assessment: 06/11/18 10:26 withdrawal sx Plan: continue detox 52 years old male treated at ER on 06/06-06/07 for alcohol intoxication referred to [facility] on 06/07/18 for alcohol withdrawal management patient was doing well but fear of resume alcohol drinking "I can not stop without help" aftercare plan in progress patient is anxious restlessness irritable
[2018-06-11] MEDS: amLODIPine BESYLATE 10 MG TABLET (FP) PO SCH (10:50)
[2018-06-11] MEDS: ASPIRIN 81 MG CHEWABLE TABLETS PO SCH (10:50)
[2018-06-11] MEDS: PRENATAL VITAMINS W/ FOLIC ACID TABLET (FP) PO SCH (10:50)
[2018-06-11] MEDS: LISINOPRIL 5 MG TABLET (FP) PO SCH (10:51)
[2018-06-11] MEDS: PANTOPRAZOLE 20 MG TABLET (FP) PO SCH ×2 (10:51→22:09)
[2018-06-11] MEDS: THIAMINE HCL 100 MG TABLET (FP) PO SCH (22:09)
[2018-06-11] MEDS: MELATONIN 5 MG TABLETS PO PRN (22:09)
[2018-06-12] MEDS: INSULIN SLIDING SCALE (NOVOLOG) 1 VIAL SQ SCH (06:25)
[2018-06-12 09:26] VITALS: BP 140/88; PULSE 85; TEMP 96.9
[2018-06-12] MEDS: PANTOPRAZOLE 20 MG TABLET (FP) PO SCH (10:14)
[2018-06-12] MEDS: ASPIRIN 81 MG CHEWABLE TABLETS PO SCH (10:14)
[2018-06-12] MEDS: LISINOPRIL 5 MG TABLET (FP) PO SCH (10:14)
[2018-06-12] MEDS: amLODIPine BESYLATE 10 MG TABLET (FP) PO SCH (10:14)
[2018-06-12] MEDS: PRENATAL VITAMINS W/ FOLIC ACID TABLET (FP) PO SCH (10:15)
--- NOTE | 2018-06-12 11:00 | DS ---
[facility] Detox Discharge Summary Admission Date: 06/07/18 Discharge Date: 06/12/18 - History Present History: Alcohol Dependence Additional Comments: 52 years old male admitted on 06/07/18 for alcohol withdrawal stabilization completed detox regimen after[facility] patient preferred return to primary care provider for hypertension management discuss dietary management Pertinent Past History: patient agrees to consider [facility] admission for chemical rehab - Physical Exam Results Vital Signs: Vital Signs Temperature 96.9 F L 06/12/18 09:26 Pulse Rate 85 06/12/18 09:26 Respiratory Rate 20 06/12/18 09:26 Blood Pressure 140/88 06/12/18 09:26 O2 Sat by Pulse Oximetry (%) Pertinent Admission Physical Exam Findings: alcohol withdrawal sx Laboratory Last Values POC Glucometer 129 UNITS (80-120) 06/12/18 05:19 Urine Color Nuvia 06/10/18 16:30 Urine Appearance Slcloudy 06/10/18 16:30 Urine pH 5.0 (5.0-8.0) 06/10/18 16:30 Ur Specific [place] 1.025 (1.010-1.035) 06/10/18 16:30 Urine Protein 2+ (NEGATIVE) H 06/10/18 16:30 Urine Glucose (UA) Negative (NEGATIVE) 06/10/18 16:30 Urine Ketones Trace (NEGATIVE) H 06/10/18 16:30 Urine Blood Negative (NEGATIVE) 06/10/18 16:30 Urine Nitrite Negative (NEGATIVE) 06/10/18 16:30 Urine Bilirubin Negative (<2.0 mg/dL) 06/10/18 16:30 Urine Urobilinogen Negative mg/dL (0.2-1.0) 06/10/18 16:30 Ur Leukocyte Esterase Negative (NEGATIVE) 06/10/18 16:30 Urine WBC (Auto) 1 /hpf (3-5) 06/10/18 16:30 Urine RBC (Auto) 1 /hpf (0-3) 06/10/18 16:30 Ur Epithelial Cells Rare /HPF (FEW) 06/10/18 16:30 Calcium Oxalate Crystal Moderate /hpf (NONE SEEN) 06/10/18 16:30 Urine Mucus Many 06/10/18 16:30 lab noted discuss alcohol misuse related negative consequences - Treatment Hospital Course: Detox Protocol Followed, Detoxed Safely, Responded well, Discharged Condition Good, Rehab Referral Accepted Patient has Accepted a Rehab Referral to: [facility] - Medication Discharge Medications: Ambulatory Orders Amlodipine Besylate [Norvasc -] 10 mg PO DAILY 02/22/17 Aspirin [ASA -] 81 mg PO DAILY tab.chew 06/06/17 Lisinopril [Zestril] 10 mg PO DAILY 06/14/17 metFORMIN HCL [Metformin ER Osmotic] 1,000 mg PO BID 06/14/17 Labetalol HCl [Normodyne -] 100 mg PO BID 30 Days #60 tablet 05/17/18 Pantoprazole Sodium [Protonix -] 20 mg PO BID 30 Days #30 tablet.ec 05/17/18 Valsartan 320 mg PO 06/12/18 - Diagnosis (1) Alcohol dependence with uncomplicated withdrawal Status: Acute (2) Alcohol-induced mood disorder Status: Suspected (3) GERD (gastroesophageal reflux disease) Status: Chronic Qualifiers: Esophagitis presence: without esophagitis Qualified Code(s): K21.9 - Gastro -esophageal reflux disease without esophagitis (4) HTN (hypertension) Status: Chronic Qualifiers: Hypertension type: essential hypertension Qualified Code(s): I10 - Essential (primary) hypertension (5) Type II diabetes mellitus Status: Chronic Qualifiers: Diabetes mellitus intermediate insulin use: with billet header use Diabetes mellitus complication status: with hyperglycemia Qualified Code(s): E11.65 - Type 2 diabetes mellitus with hyperglycemia - AMA Did Patient Leave Against Medical Advice: No
== END 2018-06-12 10:26 | disposition home or self-care (01) | DRG 775 ==
LOC: YASAS 08:10 → Y3N 12:16
PROVIDERS: ADMIT Neuromusculoskeletal Medicine & OMM; ATTEND Neuromusculoskeletal Medicine & OMM
PROC: HZ2ZZZZ Detoxification Services for Substance Abuse Treatment (ICD-10-PCS; principal; 2018-06-07)
DX: F10.230 Alcohol dependence with withdrawal, uncomplicated (principal); F10.24 Alcohol dependence with alcohol-induced mood disorder; F10.220 Alcohol dependence with intoxication, uncomplicated; I10 Essential (primary) hypertension; E11.65 Type 2 diabetes mellitus with hyperglycemia; K21.9 Gastro-esophageal reflux disease without esophagitis; R79.89 Other specified abnormal findings of blood chemistry; R82.90 Unspecified abnormal findings in urine; E78.00 Pure hypercholesterolemia, unspecified; R00.0 Tachycardia, unspecified; Z79.84 Long term (current) use of oral hypoglycemic drugs
CPT/HCPCS: 81003; 81015; 82962

== ENCOUNTER 2019-01-01 22:29 | Emergency (ER) | payer OTHER | END 2019-01-02 08:31 | disposition home or self-care (01) | LOC: JER 22:29 ==

== ENCOUNTER 2019-05-10 22:09 | Inpatient (IN) | payer OTHER ==
[2019-05-10 22:22] VITALS: BMI 25.8
[2019-05-10] MEDS ORDERED: FOLIC ACID INJECTION - 1 MG, THIAMINE HCL 100 MG, MULTIVIT INJECTION ADULT 10 ML in SOD... IVPB ONE (23:43)
[2019-05-10] MEDS ORDERED: ACETAMINOPHEN 1000 MG/100 ML VIAL (NON FORMULARY) IVPB ONE (23:43)
[2019-05-10] MEDS ORDERED: ACETAMINOPHEN INJECTION 100 ML IVPB ONE (23:50)
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
[2019-05-11 00:05] LABS: BASO % 0.9 % (0-2.0); EOS % 0.6 % (0-4.5); HEMATOCRIT 45.7 % (35.4-49); HEMOGLOBIN 15.4 GM/dL (11.7-16.9); MCH 30.3 pg (25.7-33.7); MCHC 33.8 g/dl (32.0-35.9); MEAN CELL VOLUME 89.6 fl (80-96); MEAN PLT VOLUME 6.9 fl (7.5-11.1); MONO % 3.7 % (3.8-10.2); NEUT % 62.8 % (42.8-82.8); PLATELET COUNT 363 K/MM3 (134-434); RDW 14.5 % (11.9-15.9); WHITE BLOOD COUNT 10.5 K/mm3 (4.0-10.0)
[2019-05-11 00:33] LABS: ALBUMIN 3.9 g/dl (3.4-5.0); BILIRUBIN,TOTAL 0.5 mg/dL (0.2-1); BLOOD UREA NITROGEN 15.6 mg/dL (7-18); CALCIUM 8.7 mg/dL (8.5-10.1); CREATININE 0.8 mg/dL (0.55-1.3); POTASSIUM 3.6 mmol/L (3.5-5.1); TOT PROT 7.5 g/dl (6.4-8.2)
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
[2019-05-11] MEDS ORDERED: ONDANSETRON 4 MG/2 ML VIAL IVPUSH ONE (01:20)
[2019-05-11] MEDS ORDERED: chlordiazePOXIDE HCL 25 MG CAPSULE PO ONE (01:21)
[2019-05-11] MEDS ORDERED: ONDANSETRON 4 MG/2 ML VIAL ONE (01:42)
[2019-05-11] MEDS ORDERED: chlordiazePOXIDE HCL 25 MG CAPSULE ONE (01:43)
--- NOTE | 2019-05-11 03:34 | PDOC ---
*Physical Exam - Vital Signs Last Vital Signs Temp Pulse Resp BP Pulse Ox 98.0 F 93 H 20 106/93 100 05/11/19 03:05 05/11/19 03:05 05/11/19 03:05 05/11/19 03:05 05/11/19 03:05 ED Treatment Course - LABORATORY CBC & Chemistry Diagram: 05/12/19 05:50 05/12/19 05:50 - ADDITIONAL ORDERS Additional order review: Laboratory Results 05/11/19 05/10/19 00:00 23:45 Sodium 141 Potassium 3.6 Chloride 102 Carbon Dioxide 24 Anion Gap 15 BUN 15.6 Creatinine 0.8 Est GFR (CKD-EPI)AfAm 119.88 Est GFR (CKD-EPI)NonAf 103.43 POC Glucometer 130 Random Glucose 130 H Calcium 8.7 Total Bilirubin 0.5 AST 46 H ALT 47 Alkaline Phosphatase 99 Total Protein 7.5 Albumin 3.9 Alcohol, Quantitative 250.9 H 05/11/19 05/10/19 00:00 23:45 RBC 5.10 MCV 89.6 MCHC 33.8 RDW 14.5 MPV 6.9 L Neutrophils % 62.8 Lymphocytes % 32.0 Monocytes % 3.7 L Eosinophils % 0.6 D Basophils % 0.9 POC Glucometer 130 - Medications Given in the ED: ED Medications Discontinued Medications Generic Name Dose Route Start Last Admin Trade Name Jarek PRN Reason Stop Dose Admin Acetaminophen 1,000 mg 05/10/19 23:43 05/10/19 23:57 Ofirmev Injection - IVPB 05/10/19 23:44 1,000 mg ONCE ONE Administration Chlordiazepoxide HCl 50 mg 05/11/19 01:21 05/11/19 01:48 Librium - PO 05/11/19 01:22 50 mg ONCE ONE Administration Ondansetron HCl 4 mg 05/11/19 01:20 05/11/19 01:48 Zofran Injection IVPUSH 05/11/19 01:21 4 mg ONCE ONE Administration Medical Decision Making - Medical Decision Making 05/11/19 03:31 Pt signed out to us; he is in alcohol withdrawal. He is requesting detox; however, because he fell, the detox PA is refusing to accept him stating that he will require 24 hrs observation for head trauma before he egts transferred to detox at [facility]. He complains of chronic back pain due to surgery in the late . Nothing to be done for that now, pt states that this pain is always present. Pt will be admited to his PMD Rodrigo Culver; Pt treated with a banana bag in the ER as well as librium. Discharge - Discharge Information Problems reviewed: Yes Clinical Impression/Diagnosis: Alcohol abuse Fall Qualifiers: Encounter type: initial encounter Qualified Code(s): W19.XXXA - Unspecified fall, initial encounter Alcohol withdrawal Qualifiers: Complication of substance-induced condition: uncomplicated Qualified Code(s): F10.230 - Alcohol dependence with withdrawal, uncomplicated Condition: Fair - Follow up/Referral - Patient Discharge Instructions - Post Discharge Activity
[2019-05-11] MEDS ORDERED: FOLIC ACID INJECTION - 1 MG, THIAMINE HCL 100 MG, MULTIVIT INJECTION ADULT 10 ML in SOD... IVPB ONE (14:26)
[2019-05-11] MEDS ORDERED: amLODIPine BESYLATE 10 MG TABLET (FP) PO ONE (14:30)
--- NOTE | 2019-05-11 14:36 | HP ---
Admitting History and Physical - Primary Care Physician PCP: Rodrigo Culver - Admission Chief Complaint: I am drunked my body is hurting History of Present Illness: 53 yrsold man with H/O ETOH abuse, HTN, T2DM, Dyslipedemia, drinks daily H/O DTs present with C/O Rt Hip and Rt Knee pain after sustaining a fall while drinking a lot denies any head trauma, nausea, vomiting, abd pain in the Ed elevated alcohol level CT head and neck -ve admitted for further management. History Source: Patient - Past Medical History Cardiovascular: Yes: HTN, Hyperlipdemia Hepatobiliary: Yes: Other (ETOH gastritis) Psych: Yes: Anxiety Endocrine: Yes: Diabetes Mellitus - Past Surgical History Past Surgical History: Yes: None - Smoking History Smoking history: Never smoked Have you smoked in the past 12 months: No Aproximately how many cigarettes per day: 0 - Alcohol/Substance Use Hx Alcohol Use: Yes History of Substance Use: reports: None - Social History ADL: Independent Home Medications - Allergies Allergies/Adverse Reactions: Allergies Allergy/AdvReac Type Severity Reaction Status Date / Time No Known Allergies Allergy Verified 05/10/19 22:21 - Home Medications Home Medications: Ambulatory Orders Amlodipine Besylate [Norvasc -] 10 mg PO DAILY 02/22/17 Aspirin [ASA -] 81 mg PO DAILY tab.chew 06/06/17 Lisinopril [Zestril] 10 mg PO DAILY 06/14/17 metFORMIN HCL [Metformin ER Osmotic] 1,000 mg PO BID 06/14/17 Labetalol HCl [Normodyne -] 100 mg PO BID 30 Days #60 tablet 05/17/18 Pantoprazole Sodium [Protonix -] 20 mg PO BID 30 Days #30 tablet.ec 05/17/18 Valsartan 320 mg PO DAILY 06/12/18 Family Medical History Family Hx Cancer: Father (HTN) Review of Systems - Review of Systems Constitutional: denies: Chills, Diaphoresis, Fever, Lethargy Eyes: denies: Blind Spots, Blurred Vision, Double Vision, Eye Pain HENT: denies: Difficult Swallowing, Ear Discharge, Ear Pain, Epistaxis Neck: denies: Decreased ROM, Lumps, Pain on Movement, Stiffness Cardiovascular: denies: Chest Pain, Edema, Palpitations, Shortness of Breath Respiratory: denies: Cough, Exercise Intolerance, Hemoptysis, Orthopnea Gastrointestinal: denies: Abdominal Pain, Bloating, Constipation, Diarrhea Genitourinary: denies: Burning, Discharge, Dysuria Musculoskeletal: reports: Other (Rt upper thigh pain and Groin pain) Neurological: denies: Change in LOC, Change in Speech, Confusion, Dizziness Endocrine: denies: Excessive Sweating, Flushing, Increased Hunger Hematology/Lymphatic: denies: Easily Bruised, Excessive Bleeding, Swollen Glands Physical Examination Vital Signs: Vital Signs Temperature 97.4 F L 05/11/19 11:25 Pulse Rate 116 H 05/11/19 11:25 Respiratory Rate 20 05/11/19 11:25 Blood Pressure 174/106 H 05/11/19 11:25 O2 Sat by Pulse Oximetry (%) 99 05/11/19 11:25 Middle aged man not in distress HEENT; mm moist, no anemia, PERRLA, EOMI, No Nystagmus NECK: no JVD No Bruit CHEST: Non tender CTA B/L CVs: S1S2 r no m/g/R ABD; No distention, non tender Bs + EXT: pain and tenderness Rt upper thigh and groin No edema feet, no calf tenderness, Pulses =2 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 Problems reviewed: Yes Code(s): F10.10 - ALCOHOL ABUSE, UNCOMPLICATED (2) Acute hip pain Assessment/Plan: after fall no deformity will f/u X ray pain control Problems reviewed: Yes Code(s): M25.559 - PAIN IN UNSPECIFIED HIP (3) HTN (hypertension) Assessment/Plan: Resume home meds Problems reviewed: Yes Code(s): I10 - ESSENTIAL (PRIMARY) HYPERTENSION Qualifiers: Hypertension type: essential hypertension Qualified Code(s): I10 - Essential (primary) hypertension (4) GERD (gastroesophageal reflux disease) Assessment/Plan: Cont PPI Problems reviewed: Yes Code(s): K21.9 - GASTRO-ESOPHAGEAL REFLUX DISEASE WITHOUT ESOPHAGITIS Qualifiers: Esophagitis presence: without esophagitis Qualified Code(s): K21.9 - Gastro -esophageal reflux disease without esophagitis
[2019-05-11] MEDS ORDERED: ACETAMINOPHEN 325 MG TABLET (FP) ONE (14:46)
[2019-05-11] MEDS ORDERED: amLODIPine BESYLATE 5 MG TABLET (FP) ONE (14:46)
[2019-05-11] MEDS: INSULIN SLIDING SCALE (NOVOLOG) 1 VIAL SQ SCH (18:09)
[2019-05-11] MEDS: ACETAMINOPHEN 325 MG TABLET (FP) PO PRN (20:02)
[2019-05-11] MEDS: chlordiazePOXIDE HCL 25 MG CAPSULE PO PRN (20:03)
[2019-05-11] MEDS: CARVEDILOL 12.5 MG TABLET (FP) PO SCH (21:24)
[2019-05-11] MEDS: PANTOPRAZOLE 20 MG TABLET (FP) PO SCH (21:24)
[2019-05-11] MEDS ORDERED: CHLORDIAZEPOXIDE 10 MG, CHLORDIAZEPOXIDE 5 MG PO ONE (23:30)
[2019-05-11] MEDS ORDERED: chlordiazePOXIDE 5 MG CAPSULE ONE (23:39)
[2019-05-11] MEDS ORDERED: chlordiazePOXIDE HCL 10 MG CAPSULE ONE (23:40)
[2019-05-12] MEDS: chlordiazePOXIDE HCL 25 MG CAPSULE PO PRN ×2 (06:09→21:03)
[2019-05-12] MEDS: ACETAMINOPHEN 325 MG TABLET (FP) PO PRN ×3 (06:09→21:04)
[2019-05-12] MEDS: INSULIN SLIDING SCALE (NOVOLOG) 1 VIAL SQ SCH ×3 (06:14→17:45)
[2019-05-12 06:27] LABS: BASO % 0.5 % (0-2.0); EOS % 4.6 % (0-4.5); HEMATOCRIT 40.2 % (35.4-49); HEMOGLOBIN 13.6 GM/dL (11.7-16.9); LYMPH % 42.7 % (8-40); MCH 30.5 pg (25.7-33.7); MCHC 33.8 g/dl (32.0-35.9); MEAN CELL VOLUME 90.2 fl (80-96); MONO % 6.1 % (3.8-10.2); NEUT % 46.1 % (42.8-82.8); PLATELET COUNT 304 K/MM3 (134-434); RBC 4.45 M/mm3 (4.00-5.60); RDW 14.6 % (11.9-15.9); WHITE BLOOD COUNT 6.5 K/mm3 (4.0-10.0)
[2019-05-12 06:59] LABS: ALBUMIN 3.3 g/dl (3.4-5.0); BLOOD UREA NITROGEN 12.7 mg/dL (7-18); CALCIUM 8.5 mg/dL (8.5-10.1); CREATININE 1.9 mg/dL (0.55-1.3); MAGNESIUM 2.2 mg/dL (1.8-2.4); POTASSIUM 3.3 mmol/L (3.5-5.1); TOT PROT 6.4 g/dl (6.4-8.2)
[2019-05-12] MEDS ORDERED: LISINOPRIL 10 MG TABLET (FP) PO SCH (10:00)
[2019-05-12] MEDS: THIAMINE HCL 100 MG TABLET (FP) PO SCH (10:21)
[2019-05-12] MEDS: CARVEDILOL 12.5 MG TABLET (FP) PO SCH (10:21)
[2019-05-12] MEDS: ASPIRIN 81 MG CHEWABLE TABLETS PO SCH (10:21)
[2019-05-12] MEDS: amLODIPine BESYLATE 10 MG TABLET (FP) PO SCH (10:22)
[2019-05-12] MEDS: PANTOPRAZOLE 20 MG TABLET (FP) PO SCH ×2 (10:22→21:03)
[2019-05-12] MEDS ORDERED: POTASSIUM CHLORIDE TABS 20 MEQ TABLET.ER (FP) PO ONE (13:05)
--- NOTE | 2019-05-12 13:09 | PN ---
Progress Note, Physician Chief Complaint: No new complaints - Current Medication List Current Medications: Active Medications Acetaminophen (Tylenol -) 650 mg PO Q6H PRN PRN Reason: PAIN LEVEL 1-5 Last Admin: 05/12/19 06:09 Dose: 650 mg Amlodipine Besylate (Norvasc -) 10 mg PO DAILY [facility] Last Admin: 05/12/19 10:22 Dose: 10 mg Aspirin (Asa -) 81 mg PO DAILY [facility] Last Admin: 05/12/19 10:21 Dose: 81 mg Carvedilol (Coreg -) 12.5 mg PO BID [facility] Last Admin: 05/12/19 10:21 Dose: 12.5 mg Chlordiazepoxide HCl (Librium -) 25 mg PO Q6H PRN PRN Reason: WITHDRAWAL(CONT SUBST) Last Admin: 05/12/19 06:09 Dose: 25 mg Insulin Aspart (Novolog Vial Sliding Scale -) 1 vial SQ TIDAC [facility]; Protocol Last Admin: 05/12/19 11:54 Dose: Not Given Pantoprazole Sodium (Protonix -) 20 mg PO BID [facility] Last Admin: 05/12/19 10:22 Dose: 20 mg Thiamine HCl (Vitamin B1 -) 100 mg PO DAILY [facility] Last Admin: 05/12/19 10:21 Dose: 100 mg - Objective Vital Signs: Vital Signs Temperature 97.6 F 05/11/19 18:18 Pulse Rate 112 H 05/11/19 17:00 Respiratory Rate 18 05/11/19 18:18 Blood Pressure 146/53 L 05/11/19 18:18 O2 Sat by Pulse Oximetry (%) 100 05/11/19 21:00 Middle aged man not in distress HEENT; mm moist, no anemia, PERRLA, EOMI, No Nystagmus NECK: no JVD No Bruit CHEST: Non tender CTA B/L CVs: S1S2 r no m/g/R ABD; No distention, non tender Bs + EXT: pain and tenderness Rt upper thigh and groin No edema feet, no calf tenderness, Pulses =2 UTILITIES 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 Code(s): F10.10 - ALCOHOL ABUSE, UNCOMPLICATED (2) Acute hip pain Assessment/Plan: after fall no deformity pain control Code(s): M25.559 - PAIN IN UNSPECIFIED HIP (3) HTN (hypertension) Assessment/Plan: Resume home meds Code(s): I10 - ESSENTIAL (PRIMARY) HYPERTENSION Qualifiers: Hypertension type: essential hypertension Qualified Code(s): I10 - Essential (primary) hypertension (4) GERD (gastroesophageal reflux disease) Assessment/Plan: Cont PPI Code(s): K21.9 - GASTRO-ESOPHAGEAL REFLUX DISEASE WITHOUT ESOPHAGITIS Qualifiers: Esophagitis presence: without esophagitis Qualified Code(s): K21.9 - Gastro -esophageal reflux disease without esophagitis
[2019-05-12] MEDS ORDERED: CARVEDILOL 12.5 MG TABLET (FP) PO ONE (14:08)
[2019-05-12] MEDS: MORPHINE SULFATE 2 MG/ML VIAL IM PRN (16:49)
[2019-05-12] MEDS: SODIUM CHLORIDE 1,000 ML IV SCH (16:50)
[2019-05-12] MEDS: CARVEDILOL 25 MG TABLET (FP) PO SCH (21:04)
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
[2019-05-13] MEDS: SODIUM CHLORIDE 1,000 ML IV SCH ×2 (03:50→13:29)
[2019-05-13] MEDS: chlordiazePOXIDE HCL 25 MG CAPSULE PO PRN ×3 (03:51→20:54)
[2019-05-13] MEDS: INSULIN SLIDING SCALE (NOVOLOG) 1 VIAL SQ SCH ×3 (06:27→16:48)
[2019-05-13] MEDS ORDERED: PT OWN MED DRAWER 7, Y5N ONE (06:51)
[2019-05-13 07:53] LABS: BASO % 0.3 % (0-2.0); EOS % 3.8 % (0-4.5); HEMATOCRIT 38.3 % (35.4-49); HEMOGLOBIN 12.9 GM/dL (11.7-16.9); LYMPH % 33.4 % (8-40); MCH 30.7 pg (25.7-33.7); MCHC 33.6 g/dl (32.0-35.9); MEAN CELL VOLUME 91.4 fl (80-96); MEAN PLT VOLUME 7.2 fl (7.5-11.1); MONO % 4.8 % (3.8-10.2); NEUT % 57.7 % (42.8-82.8); PLATELET COUNT 298 K/MM3 (134-434); RBC 4.19 M/mm3 (4.00-5.60); RDW 14.5 % (11.9-15.9); WHITE BLOOD COUNT 8.2 K/mm3 (4.0-10.0)
[2019-05-13 08:32] LABS: BLOOD UREA NITROGEN 11.3 mg/dL (7-18); CREATININE 1.9 mg/dL (0.55-1.3); POTASSIUM 3.6 mmol/L (3.5-5.1)
[2019-05-13] MEDS: PANTOPRAZOLE 20 MG TABLET (FP) PO SCH ×2 (09:37→21:10)
[2019-05-13] MEDS: amLODIPine BESYLATE 10 MG TABLET (FP) PO SCH (09:37)
[2019-05-13] MEDS: ASPIRIN 81 MG CHEWABLE TABLETS PO SCH (09:37)
[2019-05-13] MEDS: THIAMINE HCL 100 MG TABLET (FP) PO SCH (09:37)
[2019-05-13] MEDS: CARVEDILOL 25 MG TABLET (FP) PO SCH ×2 (09:37→21:10)
[2019-05-13] MEDS: MORPHINE SULFATE 2 MG/ML VIAL IM PRN ×3 (09:46→22:34)
--- NOTE | 2019-05-13 13:02 | PN ---
Progress Note, Physician - Current Medication List Current Medications: Active Medications Acetaminophen (Tylenol -) 650 mg PO Q6H PRN PRN Reason: PAIN LEVEL 1-5 Last Admin: 05/12/19 21:04 Dose: 650 mg Amlodipine Besylate (Norvasc -) 10 mg PO DAILY [facility] Last Admin: 05/13/19 09:37 Dose: 10 mg Aspirin (Asa -) 81 mg PO DAILY [facility] Last Admin: 05/13/19 09:37 Dose: 81 mg Carvedilol (Coreg -) 25 mg PO BID [facility] Last Admin: 05/13/19 09:37 Dose: 25 mg Chlordiazepoxide HCl (Librium -) 50 mg PO Q6H PRN PRN Reason: WITHDRAWAL(CONT SUBST) Last Admin: 05/13/19 03:51 Dose: 50 mg Sodium Chloride (Normal Saline -) 1,000 mls @ 100 mls/hr IV ASDIR [facility] Last Admin: 05/13/19 03:50 Dose: 100 mls/hr Insulin Aspart ([facility]iding [facility] -[facility] Protocol Last Admin: 05/13/19 12:29 Dose: Not Given Morphine Sulfate (Morphine Sulfate) 2 mg IM Q6H PRN PRN Reason: PAIN LEVEL 6-10 Last Admin: 05/13/19 09:46 Dose: 2 mg Pantoprazole Sodium (Protonix -) 20 mg PO BID [facility] Last Admin: 05/13/19 09:37 Dose: 20 mg Thiamine HCl (Vitamin B1 -) 100 mg PO DAILY [facility] Last Admin: 05/13/19 09:37 Dose: 100 mg - Objective Vital Signs: Vital Signs Temperature 97.5 F L 05/13/19 09:35 Pulse Rate 91 H 05/13/19 09:35 Respiratory Rate 20 05/13/19 09:35 Blood Pressure 119/69 05/13/19 09:35 O2 Sat by Pulse Oximetry (%) 98 05/12/19 21:00 Middle aged man not in distress HEENT; mm moist, no anemia, PERRLA, EOMI, No Nystagmus NECK: no JVD No Bruit CHEST: Non tender CTA B/L CVs: S1S2 r no m/g/R ABD; No distention, non tender Bs + EXT: pain and tenderness Rt upper thigh and groin No edema feet, no calf tenderness, Pulses =2 [employer]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 Code(s): F10.10 - ALCOHOL ABUSE, UNCOMPLICATED (2) Acute hip pain Assessment/Plan: after fall no deformity will f/u X ray pain control Code(s): M25.559 - PAIN IN UNSPECIFIED HIP (3) HTN (hypertension) Assessment/Plan: Resume home meds Code(s): I10 - ESSENTIAL (PRIMARY) HYPERTENSION Qualifiers: Hypertension type: essential hypertension Qualified Code(s): I10 - Essential (primary) hypertension (4) GERD (gastroesophageal reflux disease) Assessment/Plan: Cont PPI Code(s): K21.9 - GASTRO-ESOPHAGEAL REFLUX DISEASE WITHOUT ESOPHAGITIS Qualifiers: Esophagitis presence: without esophagitis Qualified Code(s): K21.9 - Gastro -esophageal reflux disease without esophagitis (5) ARTURO (acute kidney injury) Assessment/Plan: Cont IV Hydration Renal consult Problems reviewed: Yes Code(s): N17.9 - ACUTE KIDNEY FAILURE, UNSPECIFIED (6) Elevated troponin I level Assessment/Plan: Normal ECHO no new EKG Changes will f/u Cardiology recommendations. Problems reviewed: Yes Code(s): R79.89 - OTHER SPECIFIED ABNORMAL FINDINGS OF BLOOD CHEMISTRY
--- NOTE | 2019-05-13 13:35 | EKG ---
Test Reason : Blood Pressure : / mmHG Vent. Rate : 104 BPM Atrial Rate : 104 BPM P-R Int : 200 ms QRS Dur : 108 ms QT Int : 378 ms P-R-T Axes : 069 -28 064 degrees QTc Int : 497 ms SINUS TACHYCARDIA INFERIOR INFARCT (CITED ON OR BEFORE 10-MAY-2018) ABNORMAL ECG WHEN COMPARED WITH ECG OF 04-JUN-2018 15:23, NO SIGNIFICANT CHANGE WAS FOUND Confirmed by MERRY ABDULLAHI MD ([id number]) on 05/13/2019 1:34:42 PM Referred By: Confirmed By:MERRY ABDULLAHI MD
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
--- NOTE | 2019-05-13 15:44 | ECHO ---
Name: CARLOS MANUEL ZELAYA Exam:Adult Echocardiogram Study Date: 05/13/2019 03:13 PM Age: 53 yrs Reason For Study: SYNCOPE Height: 68 in Weight: 170 lb BSA: 1.9 m2 MMode/2D Measurements & Calculations IVSd: 1.4 cm Ao root diam: 2.9 cm LVIDd: 5.0 cm LA dimension: 4.1 cm LVIDs: 3.5 cm ACS: 1.9 cm LVPWd: 1.4 cm EDV(Teich): 116.3 ml LVOT diam: 1.9 cm ESV(Teich): 49.3 ml RV S Sumanth: 15.6 cm/sec Doppler Measurements & Calculations MV E max smuanth: 100.8 cm/sec MVA(VTI): 2.3 cm2 MV A max sumanth: 112.4 cm/sec MV V2 max: 109.7 cm/sec MV E/A: 0.90 MV max P.8 mmHg MV dec time: 0.26 sec MV V2 mean: 73.2 cm/sec MV mean P.5 mmHg MV V2 VTI: 25.5 cm Ao V2 max: 212.7 cm/sec LV V1 max P.7 mmHg Ao max P.1 mmHg LV V1 mean P.8 mmHg Ao V2 mean: 141.7 cm/sec LV V1 max: 82.3 cm/sec Ao mean P.1 mmHg LV V1 mean: 64.6 cm/sec Ao V2 VTI: 42.4 cm LV V1 VTI: 20.7 cm GORDO(I,D): 1.4 cm2 GORDO(V,D): 1.1 cm2 SV(LVOT): 58.2 ml TR max sumanth: 174.2 cm/sec TR max P.2 mmHg PA V2 max: 85.0 cm/sec Med Peak E' Sumanth: 8.7 cm/sec PA max P.9 mmHg Med E/e': 11.6 Lat Peak E' Sumanth: 9.6 cm/sec Lat E/e': 10.5 Procedure A complete two-dimensional transthoracic echocardiogram was performed (2D, M-mode, Doppler and color flow Doppler). Left Ventricle The left ventricle is normal in size. There is mild concentric left ventricular hypertrophy. Left rachel tricular systolic function is normal. Ejection Fraction = 55-60%. No regional wall motion abnormalities noted. Right Ventricle The right ventricle is normal size. The right ventricular systolic function is normal. Atria The left atrial size is normal. Right atrial size is normal. Mitral Valve There is mild mitral valve thickening. There is mild mitral regurgitation. Tricuspid Valve The tricuspid valve is normal in structure and function. There is mild tricuspid regurgitation. Right ventricular systolic pressure is normal. Aortic Valve There is mild aortic sclerosis.;. No aortic regurgitation is present. Pulmonic Valve The pulmonic valve is not well visualized. Great Vessels The aortic root is normal size. Pericardium/Pleura There is no pericardial effusion. Interpretation Summary The left ventricle is normal in size. There is mild concentric left ventricular hypertrophy. Left ventricular systolic function is normal. No regional wall motion abnormalities noted. Ejection Fraction = 55-60%. The right ventricular systolic function is normal. The left atrial size is normal. Right atrial size is normal. There is mild mitral valve thickening. There is mild mitral regurgitation. There is mild tricuspid regurgitation. Right ventricular systolic pressure is normal. There is mild aortic sclerosis. There is no pericardial effusion. Bud Olivarez MD 05/13/2019 03:43 PM
--- NOTE | 2019-05-13 18:34 | PN ---
Progress Note (short form) - Note Progress Note: Renal follow up for ARTURO Seen and examined at the bedside awake and alert reports back pain no shortness of breath on IVF appetite is poor Vital Signs Temperature 97.9 F 05/13/19 13:51 Pulse Rate 74 05/13/19 13:51 Respiratory Rate 20 05/13/19 13:51 Blood Pressure 120/79 05/13/19 13:51 O2 Sat by Pulse Oximetry (%) 98 05/13/19 09:00 Intake & Output 05/10/19 05/11/19 05/12/19 05/13/19 23:59 23:59 23:59 23:59 Intake Total 461 674 0363 Output Total 650 Balance 548 830 9909 Weight 77.111 kg 77.111 kg 77.111 kg NAD awake and alert neck supple no JVD RRR CTA soft NT/ND no LE edema CBC, BMP 05/13/19 06:45 05/13/19 06:45 Current Medications Acetaminophen (Tylenol -) 650 mg PO Q6H PRN PRN Reason: PAIN LEVEL 1-5 Last Admin: 05/12/19 21:04 Dose: 650 mg Amlodipine Besylate (Norvasc -) 10 mg PO DAILY [facility] Last Admin: 05/13/19 09:37 Dose: 10 mg Aspirin (Asa -) 81 mg PO DAILY [facility] Last Admin: 05/13/19 09:37 Dose: 81 mg Carvedilol (Coreg -) 25 mg PO BID [facility] Last Admin: 05/13/19 09:37 Dose: 25 mg Chlordiazepoxide HCl (Librium -) 50 mg PO Q6H PRN PRN Reason: WITHDRAWAL(CONT SUBST) Last Admin: 05/13/19 13:30 Dose: 50 mg Sodium Chloride (Normal Saline -) 1,000 mls @ 100 mls/hr IV ASDIR [facility] Last Admin: 05/13/19 13:29 Dose: 100 mls/hr Insulin Aspart (Novolog Vial Sliding Scale -) 1 vial SQ TIDAC [facility]; Protocol Last Admin: 05/13/19 16:48 Dose: 2 units Morphine Sulfate (Morphine Sulfate) 2 mg IM Q6H PRN PRN Reason: PAIN LEVEL 6-10 Last Admin: 05/13/19 16:34 Dose: 2 mg Pantoprazole Sodium (Protonix -) 20 mg PO BID [facility] Last Admin: 05/13/19 09:37 Dose: 20 mg Thiamine HCl (Vitamin B1 -) 100 mg PO DAILY [facility] Last Admin: 05/13/19 09:37 Dose: 100 mg 53 yrsold man with H/O ETOH abuse, HTN, T2DM, Dyslipedemia, drinks daily H/O DTs present with C/O Rt Hip and Rt Knee pain after sustaining a fall while drinking and found to have elevated Cr. 1. ARTURO secondary to volume depletion or ATN 2. ETOH abuse 3. Hypertension 4. Back pain Renal function unchanged check urine studies for FeNa continue isotonic saline avoid NSAIDs for pain control Trend renal function and electrolytes Eduard Macias DO
[2019-05-13] MEDS ORDERED: NAPROXEN 500 MG TABLET (FP) PO PRN ×2 (19:05→19:53)
[2019-05-13 22:07] LABS: URINE CREATININE < 13.0 mg/dL (30-150)
[2019-05-13 22:25] LABS: COCAINE, UR NEGATIVE ng/ml (CUTOFF=300); METHADONE, UR NEGATIVE ng/ml (CUTOFF=300); OPIATES, URI NEGATIVE ng/ml (CUTOFF=300); PHENCYCLIDINE,URINE NEGATIVE ng/ml (CUTOFF=25); URINE AMPHETAMINES NEGATIVE ng/ml (CUTOFF=500); URINE BARBITURATES NEGATIVE ng/ml (CUTOFF=200)
[2019-05-13 22:42] LABS: URINE BENZODIAZEPINES POSITIVE ng/ml (CUTOFF=200)
[2019-05-14] MEDS: chlordiazePOXIDE HCL 25 MG CAPSULE PO PRN ×3 (03:52→20:32)
[2019-05-14] MEDS: INSULIN SLIDING SCALE (NOVOLOG) 1 VIAL SQ SCH ×3 (07:14→17:21)
[2019-05-14 07:32] LABS: BASO % 0.5 % (0-2.0); EOS % 4.1 % (0-4.5); HEMATOCRIT 38.9 % (35.4-49); HEMOGLOBIN 13.2 GM/dL (11.7-16.9); LYMPH % 44.8 % (8-40); MCH 30.9 pg (25.7-33.7); MCHC 34.1 g/dl (32.0-35.9); MEAN CELL VOLUME 90.8 fl (80-96); MONO % 5.1 % (3.8-10.2); NEUT % 45.5 % (42.8-82.8); PLATELET COUNT 299 K/MM3 (134-434); RBC 4.28 M/mm3 (4.00-5.60); RDW 14.2 % (11.9-15.9)
[2019-05-14 08:18] LABS: CALCIUM 9.2 mg/dL (8.5-10.1); CREATININE 1.7 mg/dL (0.55-1.3); POTASSIUM 3.4 mmol/L (3.5-5.1)
[2019-05-14 08:41] LABS: BLOOD UREA NITROGEN 2.8 mg/dL (7-18)
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
[2019-05-14] MEDS ORDERED: POTASSIUM CHLORIDE ORAL LIQUID 20 MEQ/15 ML PO ONE (09:07)
--- NOTE | 2019-05-14 09:08 | PN ---
Progress Note, Physician Chief Complaint: No new complaints - Current Medication List Current Medications: Active Medications Amlodipine Besylate (Norvasc -) 10 mg PO DAILY [facility] Last Admin: 05/13/19 09:37 Dose: 10 mg Aspirin (Asa -) 81 mg PO DAILY [facility] Last Admin: 05/13/19 09:37 Dose: 81 mg Carvedilol (Coreg -) 25 mg PO BID [facility] Last Admin: 05/13/19 21:10 Dose: 25 mg Chlordiazepoxide HCl (Librium -) 25 mg PO Q8H PRN PRN Reason: WITHDRAWAL(CONT SUBST) Sodium Chloride (Normal Saline -) 1,000 mls @ 100 mls/hr IV ASDIR [facility] Last Admin: 05/13/19 13:29 Dose: 100 mls/hr Insulin Aspart (Novolog Vial Sliding Scale -) 1 vial SQ TIDAC [facility]; Protocol Last Admin: 05/14/19 07:14 Dose: Not Given Morphine Sulfate (Morphine Sulfate) 2 mg IM Q6H PRN PRN Reason: PAIN LEVEL 6-10 Last Admin: 05/13/19 22:34 Dose: 2 mg Naproxen (Naprosyn -) 500 mg PO Q12H PRN PRN Reason: PAIN SCALE 1-5 Last Admin: 05/13/19 20:52 Dose: 500 mg Pantoprazole Sodium (Protonix -) 20 mg PO BID [facility] Last Admin: 05/13/19 21:10 Dose: 20 mg Potassium Chloride (Potassium Chloride Oral Liquid) 20 meq PO ONCE ONE Stop: 05/14/19 09:08 Thiamine HCl (Vitamin B1 -) 100 mg PO DAILY [facility] Last Admin: 05/13/19 09:37 Dose: 100 mg - Objective Vital Signs: Vital Signs Temperature 97.9 F 05/14/19 06:00 Pulse Rate 73 05/14/19 06:00 Respiratory Rate 20 05/14/19 06:00 Blood Pressure 132/76 05/14/19 06:00 O2 Sat by Pulse Oximetry (%) 98 05/13/19 21:00 Middle aged man not in distress HEENT; mm moist, no anemia, PERRLA, EOMI, No Nystagmus NECK: no JVD No Bruit CHEST: Non tender CTA B/L CVs: S1S2 r no m/g/R ABD; No distention, non tender Bs + EXT: pain and tenderness Rt upper thigh and groin No edema feet, no calf tenderness, Pulses =2 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 Code(s): F10.10 - ALCOHOL ABUSE, UNCOMPLICATED (2) Acute hip pain Assessment/Plan: after fall no deformity pain control Code(s): M25.559 - PAIN IN UNSPECIFIED HIP (3) HTN (hypertension) Assessment/Plan: Resume home meds Code(s): I10 - ESSENTIAL (PRIMARY) HYPERTENSION Qualifiers: Hypertension type: essential hypertension Qualified Code(s): I10 - Essential (primary) hypertension (4) GERD (gastroesophageal reflux disease) Assessment/Plan: Cont PPI Code(s): K21.9 - GASTRO-ESOPHAGEAL REFLUX DISEASE WITHOUT ESOPHAGITIS Qualifiers: Esophagitis presence: without esophagitis Qualified Code(s): K21.9 - Gastro -esophageal reflux disease without esophagitis (5) ARTURO (acute kidney injury) Assessment/Plan: Cont IV Hydration Renal consult Code(s): N17.9 - ACUTE KIDNEY FAILURE, UNSPECIFIED (6) Elevated troponin I level Assessment/Plan: Normal ECHO no new EKG Changes will f/u Cardiology recommendations. Code(s): R79.89 - OTHER SPECIFIED ABNORMAL FINDINGS OF BLOOD CHEMISTRY
[2019-05-14] MEDS: ASPIRIN 81 MG CHEWABLE TABLETS PO SCH (10:01)
[2019-05-14] MEDS: CARVEDILOL 25 MG TABLET (FP) PO SCH ×2 (10:01→21:00)
[2019-05-14] MEDS: PANTOPRAZOLE 20 MG TABLET (FP) PO SCH ×2 (10:02→21:00)
[2019-05-14] MEDS: amLODIPine BESYLATE 10 MG TABLET (FP) PO SCH (10:02)
[2019-05-14] MEDS: THIAMINE HCL 100 MG TABLET (FP) PO SCH (10:02)
[2019-05-14] MEDS: SODIUM CHLORIDE 1,000 ML IV SCH (10:22)
--- NOTE | 2019-05-14 13:48 | PN ---
Progress Note (short form) - Note Progress Note: Renal follow up for ARTURO Seen and examined at the bedside awake, drowsy has been pulling his IV lines as per nurse no N/V no fever or chills Vital Signs Temperature 97.9 F 05/14/19 10:00 Pulse Rate 84 05/14/19 10:00 Respiratory Rate 20 05/14/19 10:00 Blood Pressure 137/83 05/14/19 10:00 O2 Sat by Pulse Oximetry (%) 98 05/14/19 09:00 Intake & Output 05/11/19 05/12/19 05/13/19 05/14/19 23:59 23:59 23:59 23:59 Intake Total 823 152 3831 Output Total 650 Balance 221 242 3447 Weight 77.111 kg 77.111 kg NAD awake and alert neck supple no JVD RRR CTA soft NT/ND no LE edema CBC, BMP 05/14/19 06:25 05/14/19 06:25 Current Medications Acetaminophen (Tylenol -) 650 mg PO Q6H PRN PRN Reason: PAIN 1-5 Amlodipine Besylate (Norvasc -) 10 mg PO DAILY [facility] Last Admin: 05/14/19 10:02 Dose: 10 mg Aspirin (Asa -) 81 mg PO DAILY [facility] Last Admin: 05/14/19 10:01 Dose: 81 mg Carvedilol (Coreg -) 25 mg PO BID [facility] Last Admin: 05/14/19 10:01 Dose: 25 mg Chlordiazepoxide HCl (Librium -) 25 mg PO Q8H PRN PRN Reason: WITHDRAWAL(CONT SUBST) Last Admin: 05/14/19 11:45 Dose: 25 mg Insulin Aspart (Novolog Vial Sliding Scale -) 1 vial SQ TIDAC [facility]; Protocol Last Admin: 05/14/19 11:37 Dose: 2 units Morphine Sulfate (Morphine Sulfate) 2 mg IM Q6H PRN PRN Reason: PAIN LEVEL 6-10 Last Admin: 05/13/19 22:34 Dose: 2 mg Pantoprazole Sodium (Protonix -) 20 mg PO BID [facility] Last Admin: 05/14/19 10:02 Dose: 20 mg Thiamine HCl (Vitamin B1 -) 100 mg PO DAILY [facility] Last Admin: 05/14/19 10:02 Dose: 100 mg 53 yrsold man with H/O ETOH abuse, HTN, T2DM, Dyslipedemia, drinks daily H/O DTs present with C/O Rt Hip and Rt Knee pain after sustaining a fall while drinking and found to have elevated Cr. 1. ARTURO secondary to volume depletion or ATN 2. ETOH abuse 3. Hypertension 4. Back pain Renal function slowly improving urine studies consistent with ATN can be off IVF oral intake as tolerated maintain off ARMANDO/ARB, NSAIDs avoid IV contrast renal function should gradually improve over time trend renal function and electrolytes daily supplement potassium Eduard Macias DO
[2019-05-14] MEDS ORDERED: POTASSIUM CHLORIDE TABS 20 MEQ TABLET.ER (FP) PO ONE ×2 (13:49→14:25)
[2019-05-15] MEDS: chlordiazePOXIDE HCL 25 MG CAPSULE PO PRN ×2 (03:17→16:25)
[2019-05-15] MEDS: INSULIN SLIDING SCALE (NOVOLOG) 1 VIAL SQ SCH ×3 (06:19→16:34)
[2019-05-15 07:22] LABS: BLOOD UREA NITROGEN 8.4 mg/dL (7-18); CALCIUM 9.3 mg/dL (8.5-10.1); CREATININE 2.2 mg/dL (0.55-1.3); MAGNESIUM 1.7 mg/dL (1.8-2.4); PHOSPHOROUS 4.6 mg/dL (2.5-4.9); POTASSIUM 3.6 mmol/L (3.5-5.1)
--- NOTE | 2019-05-15 09:23 | PN ---
Progress Note, Physician Chief Complaint: No new complaints - Current Medication List Current Medications: Active Medications Acetaminophen (Tylenol -) 650 mg PO Q6H PRN PRN Reason: PAIN 1-5 Amlodipine Besylate (Norvasc -) 10 mg PO DAILY [facility] Last Admin: 05/14/19 10:02 Dose: 10 mg Aspirin (Asa -) 81 mg PO DAILY [facility] Last Admin: 05/14/19 10:01 Dose: 81 mg Carvedilol (Coreg -) 25 mg PO BID [facility] Last Admin: 05/14/19 21:00 Dose: Not Given Chlordiazepoxide HCl (Librium -) 25 mg PO Q8H PRN PRN Reason: WITHDRAWAL(CONT SUBST) Last Admin: 05/15/19 03:17 Dose: 25 mg Insulin Aspart (Novolog Vial Sliding Scale -) 1 vial SQ TIDAC [facility]; Protocol Last Admin: 05/15/19 06:19 Dose: Not Given Pantoprazole Sodium (Protonix -) 20 mg PO BID [facility] Last Admin: 05/14/19 21:00 Dose: 20 mg Thiamine HCl (Vitamin B1 -) 100 mg PO DAILY [facility] Last Admin: 05/14/19 10:02 Dose: 100 mg - Objective Vital Signs: Vital Signs Temperature 97.7 F 05/15/19 06:00 Pulse Rate 75 05/15/19 06:00 Respiratory Rate 20 05/15/19 06:00 Blood Pressure 124/80 05/15/19 06:00 O2 Sat by Pulse Oximetry (%) 98 05/14/19 21:00 Middle aged man not in distress HEENT; mm moist, no anemia, PERRLA, EOMI, No Nystagmus NECK: no JVD No Bruit CHEST: Non tender CTA B/L CVs: S1S2 r no m/g/R ABD; No distention, non tender Bs + EXT: pain and tenderness Rt upper thigh and groin No edema feet, no calf tenderness, 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 Code(s): F10.10 - ALCOHOL ABUSE, UNCOMPLICATED (2) Acute hip pain Assessment/Plan: after fall no deformity pain control Code(s): M25.559 - PAIN IN UNSPECIFIED HIP (3) HTN (hypertension) Assessment/Plan: Resume home meds Code(s): I10 - ESSENTIAL (PRIMARY) HYPERTENSION Qualifiers: Hypertension type: essential hypertension Qualified Code(s): I10 - Essential (primary) hypertension (4) GERD (gastroesophageal reflux disease) Assessment/Plan: Cont PPI Code(s): K21.9 - GASTRO-ESOPHAGEAL REFLUX DISEASE WITHOUT ESOPHAGITIS Qualifiers: Esophagitis presence: without esophagitis Qualified Code(s): K21.9 - Gastro -esophageal reflux disease without esophagitis (5) ARTURO (acute kidney injury) Assessment/Plan: Cont IV Hydration Renal consult Code(s): N17.9 - ACUTE KIDNEY FAILURE, UNSPECIFIED (6) Elevated troponin I level Assessment/Plan: Normal ECHO no new EKG Changes will f/u Cardiology recommendations. Code(s): R79.89 - OTHER SPECIFIED ABNORMAL FINDINGS OF BLOOD CHEMISTRY
[2019-05-15] MEDS: ACETAMINOPHEN 325 MG TABLET (FP) PO PRN ×2 (09:56→18:05)
[2019-05-15] MEDS: PANTOPRAZOLE 20 MG TABLET (FP) PO SCH (09:56)
[2019-05-15] MEDS: CARVEDILOL 25 MG TABLET (FP) PO SCH ×2 (09:56→22:35)
[2019-05-15] MEDS: ASPIRIN 81 MG CHEWABLE TABLETS PO SCH (09:56)
[2019-05-15] MEDS: amLODIPine BESYLATE 10 MG TABLET (FP) PO SCH (09:56)
[2019-05-15] MEDS: THIAMINE HCL 100 MG TABLET (FP) PO SCH (09:59)
[2019-05-15 12:21] LABS: BASO % 0.4 % (0-2.0); EOS % 1.9 % (0-4.5); HEMATOCRIT 42.9 % (35.4-49); HEMOGLOBIN 14.3 GM/dL (11.7-16.9); MCH 30.1 pg (25.7-33.7); MCHC 33.2 g/dl (32.0-35.9); MEAN CELL VOLUME 90.7 fl (80-96); MEAN PLT VOLUME 7.2 fl (7.5-11.1); MONO % 4.2 % (3.8-10.2); NEUT % 52.5 % (42.8-82.8); PLATELET COUNT 331 K/MM3 (134-434); RBC 4.73 M/mm3 (4.00-5.60); RDW 14.5 % (11.9-15.9); WHITE BLOOD COUNT 7.2 K/mm3 (4.0-10.0)
[2019-05-15 13:50] LABS: CREATININE 2.2 mg/dL (0.55-1.3); MAGNESIUM 1.9 mg/dL (1.8-2.4); POTASSIUM 3.3 mmol/L (3.5-5.1)
--- NOTE | 2019-05-15 15:05 | PN ---
Progress Note (short form) - Note Progress Note: Renal follow up for ARTURO Seen and examined at the bedside awake and alert no acute complaints nurse report that pt was drinking cleaning wipe solution which contains isoprolol alcohol overnight he is making urine vitals stable Vital Signs Temperature 97.3 F L 05/15/19 13:38 Pulse Rate 76 05/15/19 13:38 Respiratory Rate 20 05/15/19 13:38 Blood Pressure 100/63 05/15/19 13:38 O2 Sat by Pulse Oximetry (%) 95 05/15/19 09:00 Intake & Output 05/12/19 05/13/19 05/14/19 05/15/19 23:59 23:59 23:59 23:59 Intake Total 990 9700 930 0 Output Total 650 400 Balance 990 9050 530 0 Weight 77.111 kg NAD awake and alert neck supple no JVD RRR CTA soft NT/ND no LE edema CBC, BMP 05/15/19 11:44 05/15/19 09:24 Current Medications Acetaminophen (Tylenol -) 650 mg PO Q6H PRN PRN Reason: PAIN 1-5 Last Admin: 05/15/19 09:56 Dose: 650 mg Amlodipine Besylate (Norvasc -) 10 mg PO DAILY [facility] Last Admin: 05/15/19 09:56 Dose: 10 mg Aspirin (Asa -) 81 mg PO DAILY [facility] Last Admin: 05/15/19 09:56 Dose: 81 mg Carvedilol (Coreg -) 25 mg PO BID [facility] Last Admin: 05/15/19 09:56 Dose: 25 mg Chlordiazepoxide HCl (Librium -) 25 mg PO Q8H PRN PRN Reason: WITHDRAWAL(CONT SUBST) Last Admin: 05/15/19 03:17 Dose: 25 mg Sodium Chloride (Normal Saline -) 1,000 mls @ 100 mls/hr IV ASDIR [facility] Insulin Aspart (Novolog Vial Sliding Scale -) 1 vial SQ TIDAC [facility]; Protocol Last Admin: 05/15/19 12:36 Dose: 2 units Pantoprazole Sodium (Protonix -) 20 mg PO DAILY [facility] Last Admin: 05/15/19 09:56 Dose: 20 mg Thiamine HCl (Vitamin B1 -) 100 mg PO DAILY [facility] Last Admin: 05/15/19 09:59 Dose: 100 mg 53 yrs old man with H/O ETOH abuse, HTN, T2DM, Dyslipedemia, drinks daily H/O DTs present with C/O Rt Hip and Rt Knee pain after sustaining a fall while drinking and found to have elevated Cr. 1. ARTURO secondary to volume depletion or ATN 2. ETOH abuse 3. Hypertension 4. Back pain Cr iesha to 2.2 today, from isoprolol alcohol ingestion vs. NSAID exposure (05/13 ) no emergent indication for dialysis despite isoprolol alcohol ingestion as pt is hemodynamically stable Restart isotonic saline at 100cc per hour Check BMP Q12h to monitor for electrolyte or acid base disturbances Eduard Macias DO
[2019-05-15] MEDS: SODIUM CHLORIDE 1,000 ML IV SCH (17:52)
[2019-05-15 18:29] LABS: BLOOD UREA NITROGEN 8.8 mg/dL (7-18); CALCIUM 9.3 mg/dL (8.5-10.1); CREATININE 2.1 mg/dL (0.55-1.3); POTASSIUM 3.6 mmol/L (3.5-5.1)
[2019-05-16] MEDS: chlordiazePOXIDE HCL 25 MG CAPSULE PO PRN ×2 (03:16→21:12)
[2019-05-16] MEDS: INSULIN SLIDING SCALE (NOVOLOG) 1 VIAL SQ SCH ×3 (06:00→16:48)
[2019-05-16 07:34] LABS: BASO % 0.3 % (0-2.0); HEMATOCRIT 40.4 % (35.4-49); HEMOGLOBIN 13.5 GM/dL (11.7-16.9); LYMPH % 25.7 % (8-40); MCH 30.3 pg (25.7-33.7); MCHC 33.4 g/dl (32.0-35.9); MEAN CELL VOLUME 90.6 fl (80-96); MONO % 4.7 % (3.8-10.2); NEUT % 68.3 % (42.8-82.8); PLATELET COUNT 323 K/MM3 (134-434); RBC 4.46 M/mm3 (4.00-5.60); RDW 14.2 % (11.9-15.9); WHITE BLOOD COUNT 10.3 K/mm3 (4.0-10.0)
[2019-05-16 07:55] LABS: BLOOD UREA NITROGEN 5.8 mg/dL (7-18); CALCIUM 8.9 mg/dL (8.5-10.1); CREATININE 1.9 mg/dL (0.55-1.3); POTASSIUM 3.5 mmol/L (3.5-5.1)
[2019-05-16] MEDS ORDERED: chlordiazePOXIDE HCL 25 MG CAPSULE PO ONE (09:45)
[2019-05-16] MEDS: PANTOPRAZOLE 20 MG TABLET (FP) PO SCH (09:58)
[2019-05-16] MEDS: CARVEDILOL 25 MG TABLET (FP) PO SCH ×2 (09:59→21:12)
[2019-05-16] MEDS: amLODIPine BESYLATE 10 MG TABLET (FP) PO SCH (09:59)
[2019-05-16] MEDS: THIAMINE HCL 100 MG TABLET (FP) PO SCH (09:59)
[2019-05-16] MEDS: ASPIRIN 81 MG CHEWABLE TABLETS PO SCH (09:59)
--- NOTE | 2019-05-16 10:03 | PN ---
Progress Note, Physician Chief Complaint: Remained agitated observe by staff abusing rubbing alcohol - Current Medication List Current Medications: Active Medications Acetaminophen (Tylenol -) 650 mg PO Q6H PRN PRN Reason: PAIN 1-5 Last Admin: 05/15/19 18:05 Dose: 650 mg Amlodipine Besylate (Norvasc -) 10 mg PO DAILY [facility] Last Admin: 05/16/19 09:59 Dose: 10 mg Aspirin (Asa -) 81 mg PO DAILY [facility] Last Admin: 05/16/19 09:59 Dose: 81 mg Carvedilol (Coreg -) 25 mg PO BID [facility] Last Admin: 05/16/19 09:59 Dose: 25 mg Chlordiazepoxide HCl (Librium -) 25 mg PO Q8H PRN PRN Reason: WITHDRAWAL(CONT SUBST) Last Admin: 05/16/19 03:16 Dose: 25 mg Sodium Chloride (Normal Saline -) 1,000 mls @ 100 mls/hr IV ASDIR [facility] Last Admin: 05/15/19 17:52 Dose: 100 mls/hr Insulin Aspart (Novolog Vial Sliding Scale -) 1 vial SQ TIDAC [facility]; Protocol Last Admin: 05/16/19 06:00 Dose: Not Given Pantoprazole Sodium (Protonix -) 20 mg PO DAILY [facility] Last Admin: 05/16/19 09:58 Dose: 20 mg Thiamine HCl (Vitamin B1 -) 100 mg PO DAILY [facility] Last Admin: 05/16/19 09:59 Dose: 100 mg - Objective Vital Signs: Vital Signs Temperature 97.8 F 05/16/19 06:00 Pulse Rate 82 05/16/19 06:00 Respiratory Rate 18 05/16/19 08:53 Blood Pressure 110/69 05/16/19 06:00 O2 Sat by Pulse Oximetry (%) 98 05/16/19 08:53 Middle aged man not in distress HEENT; mm moist, no anemia, PERRLA, EOMI, No Nystagmus NECK: no JVD No Bruit CHEST: Non tender CTA B/L CVs: S1S2 r no m/g/R ABD; No distention, non tender Bs + EXT: pain and tenderness Rt upper thigh and groin No edema feet, no calf tenderness, Pulses +2 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 Code(s): F10.10 - ALCOHOL ABUSE, UNCOMPLICATED (2) Acute hip pain Assessment/Plan: after fall no deformity pain control Code(s): M25.559 - PAIN IN UNSPECIFIED HIP (3) HTN (hypertension) Assessment/Plan: Resume home meds Code(s): I10 - ESSENTIAL (PRIMARY) HYPERTENSION Qualifiers: Hypertension type: essential hypertension Qualified Code(s): I10 - Essential (primary) hypertension (4) GERD (gastroesophageal reflux disease) Assessment/Plan: Cont PPI Code(s): K21.9 - GASTRO-ESOPHAGEAL REFLUX DISEASE WITHOUT ESOPHAGITIS Qualifiers: Esophagitis presence: without esophagitis Qualified Code(s): K21.9 - Gastro -esophageal reflux disease without esophagitis (5) ARTURO (acute kidney injury) Assessment/Plan: Cont IV Hydration, multi factorial can be due to Isopropyl alcohol abuse. Code(s): N17.9 - ACUTE KIDNEY FAILURE, UNSPECIFIED
--- NOTE | 2019-05-16 13:59 | PN ---
Progress Note (short form) - Note Progress Note: Renal follow up for ARTURO Seen and examined at the bedside awake and alert no acute complaints making urine Vital Signs Temperature 97.3 F L 05/15/19 13:38 Pulse Rate 76 05/15/19 13:38 Respiratory Rate 20 05/15/19 13:38 Blood Pressure 100/63 05/15/19 13:38 O2 Sat by Pulse Oximetry (%) 95 05/15/19 09:00 Intake & Output 05/12/19 05/13/19 05/14/19 05/15/19 23:59 23:59 23:59 23:59 Intake Total 990 9700 930 0 Output Total 650 400 Balance 990 9050 530 0 Weight 77.111 kg NAD no JVD RRR CTA soft NT/ND no LE edema CBC, BMP 05/15/19 11:44 05/15/19 09:24 Current Medications Acetaminophen (Tylenol -) 650 mg PO Q6H PRN PRN Reason: PAIN 1-5 Last Admin: 05/15/19 09:56 Dose: 650 mg Amlodipine Besylate (Norvasc -) 10 mg PO DAILY [facility] Last Admin: 05/15/19 09:56 Dose: 10 mg Aspirin (Asa -) 81 mg PO DAILY [facility] Last Admin: 05/15/19 09:56 Dose: 81 mg Carvedilol (Coreg -) 25 mg PO BID [facility] Last Admin: 05/15/19 09:56 Dose: 25 mg Chlordiazepoxide HCl (Librium -) 25 mg PO Q8H PRN PRN Reason: WITHDRAWAL(CONT SUBST) Last Admin: 05/15/19 03:17 Dose: 25 mg Sodium Chloride (Normal Saline -) 1,000 mls @ 100 mls/hr IV ASDIR [facility] Insulin Aspart (Novolog Vial Sliding Scale -) 1 vial SQ TIDAC [facility]; Protocol Last Admin: 05/15/19 12:36 Dose: 2 units Pantoprazole Sodium (Protonix -) 20 mg PO DAILY [facility] Last Admin: 05/15/19 09:56 Dose: 20 mg Thiamine HCl (Vitamin B1 -) 100 mg PO DAILY [facility] Last Admin: 05/15/19 09:59 Dose: 100 mg 53 yrs old man with H/O ETOH abuse, HTN, T2DM, Dyslipedemia, drinks daily H/O DTs present with C/O Rt Hip and Rt Knee pain after sustaining a fall while drinking and found to have elevated Cr. 1. ARTURO secondary to volume depletion or ATN 2. ETOH abuse 3. Hypertension 4. Back pain Renal function improved from yesterday making urine, appears euvolemic continue IVF x 24 hours oral water and solute intake as tolerated trend renal function and electrolytes daily continue librium protocol as needed Eduard Macias DO
[2019-05-16] MEDS: SODIUM CHLORIDE 1,000 ML IV SCH ×2 (16:49→23:00)
[2019-05-16] MEDS: ACETAMINOPHEN 325 MG TABLET (FP) PO PRN (17:09)
[2019-05-17] MEDS: INSULIN SLIDING SCALE (NOVOLOG) 1 VIAL SQ SCH ×2 (06:41→12:45)
[2019-05-17 08:08] LABS: BASO % 0.4 % (0-2.0); HEMATOCRIT 39.4 % (35.4-49); HEMOGLOBIN 13.3 GM/dL (11.7-16.9); LYMPH % 31.3 % (8-40); MCH 30.7 pg (25.7-33.7); MCHC 33.8 g/dl (32.0-35.9); MEAN CELL VOLUME 90.7 fl (80-96); MONO % 6.1 % (3.8-10.2); NEUT % 59.2 % (42.8-82.8); PLATELET COUNT 283 K/MM3 (134-434); RBC 4.35 M/mm3 (4.00-5.60); RDW 14.5 % (11.9-15.9)
[2019-05-17 08:32] LABS: BLOOD UREA NITROGEN 6.4 mg/dL (7-18); CALCIUM 8.9 mg/dL (8.5-10.1); CREATININE 1.3 mg/dL (0.55-1.3); POTASSIUM 3.5 mmol/L (3.5-5.1)
[2019-05-17] MEDS: PANTOPRAZOLE 20 MG TABLET (FP) PO SCH (09:59)
[2019-05-17] MEDS: amLODIPine BESYLATE 10 MG TABLET (FP) PO SCH (09:59)
[2019-05-17] MEDS: CARVEDILOL 25 MG TABLET (FP) PO SCH (09:59)
[2019-05-17] MEDS: THIAMINE HCL 100 MG TABLET (FP) PO SCH (09:59)
[2019-05-17] MEDS: ASPIRIN 81 MG CHEWABLE TABLETS PO SCH (09:59)
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
[2019-05-17] MEDS ORDERED: INSULIN (NOVOLOG) ASPART 100 UNITS/ML 10ML VIAL ONE (11:53)
[2019-05-17 12:42] LABS: ALBUMIN 3.6 g/dl (3.4-5.0); BILIRUBIN,DIRECT 0.1 mg/dL (0.0-0.2); BILIRUBIN,TOTAL 0.3 mg/dL (0.2-1); TOT PROT 6.8 g/dl (6.4-8.2)
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
[2019-05-17 14:47] VITALS: BP 140/86; PULSE 72; TEMP 97.4
== END 2019-05-17 15:33 | disposition short-term general hospital (02) | DRG 775 ==
LOC: JER 22:09 → JERBED 05-11 02:39 → J7W 05-11 17:27
PROVIDERS: ADMIT Internal Medicine; ATTEND Internal Medicine
PROC: HZ2ZZZZ Detoxification Services for Substance Abuse Treatment (ICD-10-PCS; principal; 2019-05-11)
DX: F10.229 Alcohol dependence with intoxication, unspecified (principal); F10.230 Alcohol dependence with withdrawal, uncomplicated; I10 Essential (primary) hypertension; K21.9 Gastro-esophageal reflux disease without esophagitis; N17.0 Acute kidney failure with tubular necrosis; E11.9 Type 2 diabetes mellitus without complications; E78.5 Hyperlipidemia, unspecified; F41.9 Anxiety disorder, unspecified; K29.20 Alcoholic gastritis without bleeding; M25.559 Pain in unspecified hip; R79.89 Other specified abnormal findings of blood chemistry; R00.0 Tachycardia, unspecified; I24.8 Other forms of acute ischemic heart disease; M54.9 Dorsalgia, unspecified; S40.011A Contusion of right shoulder, initial encounter; S80.01XA Contusion of right knee, initial encounter; W18.39XA Other fall on same level, initial encounter; Y92.89 Other specified places as the place of occurrence of the external cause; Z91.14 Patient's other noncompliance with medication regimen
CPT/HCPCS: 36415; 70450-TC; 72125-TC; 73523-TC-FY; 76775-TC; 76856-TC; 80048; 80053; 80076; 80307; 82550; 82553; 82565; 82570; 82962; 83735; 84100; 84156; 84300; 84484; 84540; 85025; 93005; 93010; 93306-TC; 93970-TC; 99284-25; J0131; J7030

== ENCOUNTER 2019-05-21 15:28 | Emergency (ER) | payer OTHER ==
[2019-05-21 15:51] VITALS: BP 142/89; PULSE 103; TEMP 97.9; BMI 24.3
[2019-05-21] MEDS ORDERED: KETOROLAC TROMETHAMINE 60 MG/2 ML VIAL IM ONE (16:38)
[2019-05-21] MEDS ORDERED: diazePAM 5 MG TABLET PO ONE (16:39)
[2019-05-21] MEDS ORDERED: KETOROLAC TROMETHAMINE 60 MG/2 ML VIAL ONE (16:44)
[2019-05-21] MEDS ORDERED: diazePAM 5 MG TABLET ONE (16:44)
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
== END 2019-05-21 18:03 | disposition home or self-care (01) ==
LOC: JERFT 15:28
PROC: 3E0233Z Introduction of Anti-inflammatory into Muscle, Percutaneous Approach (ICD-10-PCS; principal; 2019-05-21)
DX: M54.16 Radiculopathy, lumbar region (principal); E11.9 Type 2 diabetes mellitus without complications; K21.9 Gastro-esophageal reflux disease without esophagitis; I10 Essential (primary) hypertension; E78.00 Pure hypercholesterolemia, unspecified; N20.0 Calculus of kidney; Z79.4 Long term (current) use of insulin
CPT/HCPCS: 99281-25

== ENCOUNTER 2019-05-22 12:33 | Inpatient (IN) | payer OTHER ==
[2019-05-22 13:10] VITALS: BMI 27.8
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
[2019-05-22] MEDS ORDERED: MAG HYDROX/AL HYDROX/SIMETH 30 ML UNIT-DOSE CUP PO PRN (14:05)
[2019-05-22] MEDS ORDERED: MELATONIN 5 MG TABLETS PO PRN (14:05)
[2019-05-22] MEDS ORDERED: MAGNESIUM HYDROX 2400MG/30ML ORAL SUSPENSION 30 ML CUP PO PRN (14:05)
[2019-05-22] MEDS ORDERED: MAGNESIUM CITRATE 300 ML BOTTLE PO PRN (14:05)
[2019-05-22] MEDS ORDERED: ACETAMINOPHEN 325 MG TABLET (FP) PO PRN (14:05)
[2019-05-22] MEDS ORDERED: MENTHOL/PHENOL 1 EACH UD MM PRN (14:05)
[2019-05-22] MEDS ORDERED: chlordiazePOXIDE HCL 25 MG CAPSULE PO PRN (14:05)
[2019-05-22] MEDS ORDERED: BISMUTH SUBSALICYLATE 524 MG/30 ML UD PO PRN (14:05)
[2019-05-22] MEDS: ONDANSETRON *ODT* 4 MG TABLET SL PRN (15:25)
[2019-05-22] MEDS: NICOTINE 14 MG/24 HOURS TOPICAL PATCH TD SCH (15:25)
[2019-05-22] MEDS: chlordiazePOXIDE HCL 25 MG CAPSULE PO SCH ×2 (17:00→23:00)
[2019-05-22] MEDS: ACETAMINOPHEN 325 MG TABLET (FP) PO PRN (20:29)
[2019-05-22] MEDS: THIAMINE HCL 100 MG TABLET (FP) PO SCH (22:55)
[2019-05-23] MEDS: hydrOXYzine PAMOATE 25 MG CAPSULE (FP) PO PRN (03:09)
[2019-05-23] MEDS: IBUPROFEN 400 MG TABLET (FP) PO PRN ×2 (03:09→10:37)
[2019-05-23] MEDS: chlordiazePOXIDE HCL 25 MG CAPSULE PO SCH ×4 (05:38→22:01)
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
[2019-05-23] MEDS: PRENATAL VITAMINS W/ FOLIC ACID TABLET (FP) PO SCH (10:15)
[2019-05-23] MEDS: NICOTINE 14 MG/24 HOURS TOPICAL PATCH TD SCH (10:15)
[2019-05-23 10:16] LABS: HEMATOCRIT 41.9 % (35.4-49); HEMOGLOBIN 13.9 GM/dL (11.7-16.9); MCH 30.5 pg (25.7-33.7); MCHC 33.2 g/dl (32.0-35.9); MEAN CELL VOLUME 91.8 fl (80-96); MEAN PLT VOLUME 7.4 fl (7.5-11.1); PLATELET COUNT 357 K/MM3 (134-434); RBC 4.57 M/mm3 (4.00-5.60); RDW 15.2 % (11.9-15.9); WHITE BLOOD COUNT 4.7 K/mm3 (4.0-10.0)
[2019-05-23] MEDS: ONDANSETRON *ODT* 4 MG TABLET SL PRN (10:17)
[2019-05-23 10:25] LABS: ALBUMIN 3.8 g/dl (3.4-5.0); BILIRUBIN,TOTAL 0.4 mg/dL (0.2-1); BLOOD UREA NITROGEN 20.6 mg/dL (7-18); CALCIUM 9.6 mg/dL (8.5-10.1); CREATININE 0.9 mg/dL (0.55-1.3); POTASSIUM 3.4 mmol/L (3.5-5.1); TOT PROT 7.5 g/dl (6.4-8.2)
--- NOTE | 2019-05-23 10:38 | PN ---
S CIWA - CIWA Score Nausea/Vomitin-No Nausea/No Vomiting Muscle Tremors: 2 Anxiety: 3 Agitation: 2 Paroxysmal Sweats: 3 Orientation: 0-Oriented Tacttile Disturbances: 0-None Auditory Disturbances: 0-None Visual Disturbances: 0-None Headache: 2-Mild CIWA-Ar Total Score: 12 S Progress Note (SOAP) Subjective: c/o anxiety, headache, and sweats. Objective: 05/23/19 10:34 Vital Signs 05/23/19 05/23/19 05/23/19 03:30 07:26 09:36 Temperature 97.2 F L 97.2 F L Pulse Rate 84 62 Respiratory 18 18 18 Rate Blood Pressure 141/95 133/74 Laboratory Last Values WBC 4.7 K/mm3 (4.0-10.0) 05/23/19 08:00 RBC 4.57 M/mm3 (4.00-5.60) 05/23/19 08:00 Hgb 13.9 GM/dL (11.7-16.9) 05/23/19 08:00 Hct 41.9 % (35.4-49) 05/23/19 08:00 MCV 91.8 fl (80-96) 05/23/19 08:00 MCH 30.5 pg (25.7-33.7) 05/23/19 08:00 MCHC 33.2 g/dl (32.0-35.9) 05/23/19 08:00 RDW 15.2 % (11.9-15.9) 05/23/19 08:00 Plt Count 357 K/MM3 (134-434) D 05/23/19 08:00 MPV 7.4 fl (7.5-11.1) L 05/23/19 08:00 Sodium 140 mmol/L (136-145) 05/23/19 08:00 Potassium 3.4 mmol/L (3.5-5.1) L 05/23/19 08:00 Chloride 103 mmol/L (98-107) 05/23/19 08:00 Carbon Dioxide 30 mmol/L (21-32) 05/23/19 08:00 Anion Gap 7 MMOL/L (8-16) L 05/23/19 08:00 BUN 20.6 mg/dL (7-18) H 05/23/19 08:00 Creatinine 0.9 mg/dL (0.55-1.3) 05/23/19 08:00 Est GFR (CKD-EPI)AfAm 114.21 05/23/19 08:00 Est GFR (CKD-EPI)NonAf 98.54 05/23/19 08:00 POC Glucometer 114 UNITS (80-120) 05/22/19 14:47 Random Glucose 206 mg/dL (74-106) H 05/23/19 08:00 Calcium 9.6 mg/dL (8.5-10.1) 05/23/19 08:00 Total Bilirubin 0.4 mg/dL (0.2-1) 05/23/19 08:00 AST 15 U/L (15-37) 05/23/19 08:00 ALT 26 U/L (13-61) 05/23/19 08:00 Alkaline Phosphatase 74 U/L (45-117) 05/23/19 08:00 Total Protein 7.5 g/dl (6.4-8.2) 05/23/19 08:00 Albumin 3.8 g/dl (3.4-5.0) 05/23/19 08:00 Labs noted. Assessment: 05/23/19 10:35 AOX3, in no acute respiratory distress. Full ROM, ambulating in the unit. Withdrawal symptoms. Plan: continue detox.
[2019-05-23] MEDS: METHOCARBAMOL 500 MG TABLET PO PRN (19:47)
[2019-05-23] MEDS: THIAMINE HCL 100 MG TABLET (FP) PO SCH (21:18)
[2019-05-23] MEDS: SUVOREXANT 10 MG TABLET PO PRN (22:01)
[2019-05-24] MEDS: chlordiazePOXIDE HCL 25 MG CAPSULE PO SCH ×4 (05:42→22:25)
[2019-05-24] MEDS: METHOCARBAMOL 500 MG TABLET PO PRN (05:43)
[2019-05-24] MEDS: NICOTINE 14 MG/24 HOURS TOPICAL PATCH TD SCH (10:14)
[2019-05-24] MEDS: PRENATAL VITAMINS W/ FOLIC ACID TABLET (FP) PO SCH (10:14)
[2019-05-24] MEDS: IBUPROFEN 400 MG TABLET (FP) PO PRN ×2 (10:15→18:04)
--- NOTE | 2019-05-24 11:11 | PN ---
S CIWA - CIWA Score Nausea/Vomitin-Mild Nausea/No Vomiting Muscle Tremors: 2 Anxiety: 1-Mildly Anxious Agitation: 1-Slight > Activity Paroxysmal Sweats: 1-Minimal Palms Moist Orientation: 0-Oriented Tacttile Disturbances: 0-None Auditory Disturbances: 0-None Visual Disturbances: 0-None Headache: 1-Very Mild CIWA-Ar Total Score: 7 BHS Progress Note (SOAP) Subjective: pt states he has some neuropathy, was seen by Dr. Barnett and given medication- but does not know name of med O: Vital Signs - 24 hr 05/23/19 05/23/19 05/23/19 12:57 17:10 21:25 Temperature 97.7 F 97.9 F 97.7 F Pulse Rate 94 H 84 84 Respiratory 18 18 18 Rate Blood Pressure 156/99 146/95 153/101 H 05/23/19 05/24/19 05/24/19 23:37 00:30 03:30 Temperature 97.7 F Pulse Rate 60 Respiratory 16 18 16 Rate Blood Pressure 141/78 05/24/19 05/24/19 06:00 09:37 Temperature 97.5 F L 97.2 F L Pulse Rate 70 84 Respiratory 18 18 Rate Blood Pressure 146/96 159/94 Laboratory Tests 05/22/19 05/23/19 05/23/19 14:47 08:00 08:00 WBC 4.7 RBC 4.57 Hgb 13.9 Hct 41.9 MCV 91.8 MCH 30.5 MCHC 33.2 RDW 15.2 Plt Count 357 D MPV 7.4 L Sodium 140 Potassium 3.4 L Chloride 103 Carbon Dioxide 30 Anion Gap 7 L BUN 20.6 H Creatinine 0.9 Est GFR (CKD-EPI)AfAm 114.21 Est GFR (CKD-EPI)NonAf 98.54 POC Glucometer 114 Random Glucose 206 H Calcium 9.6 Total Bilirubin 0.4 AST 15 ALT 26 Alkaline Phosphatase 74 Total Protein 7.5 Albumin 3.8 RPR Titer 05/23/19 05/24/19 08:00 06:24 WBC RBC Hgb Hct MCV MCH MCHC RDW Plt Count MPV Sodium Potassium Chloride Carbon Dioxide Anion Gap BUN Creatinine Est GFR (CKD-EPI)AfAm Est GFR (CKD-EPI)NonAf POC Glucometer 182 Random Glucose Calcium Total Bilirubin AST ALT Alkaline Phosphatase Total Protein Albumin RPR Titer Nonreactive low K high random glucose high BP a/p: NIDDM, HTN, HLD, EtOH abuse AUD- continue detox protocol K supplementation h/o DM: BGM X 3 h/o HTN- start lisinopril Neurontine for pain
[2019-05-24] MEDS: LISINOPRIL 10 MG TABLET (FP) PO SCH (12:03)
[2019-05-24] MEDS: POTASSIUM CHLORIDE TABS 20 MEQ TABLET.ER (FP) PO SCH (12:03)
[2019-05-24] MEDS: GABAPENTIN 300 MG CAPSULE (FP) PO PRN (12:47)
[2019-05-24] MEDS ORDERED: cloNIDine HCL 0.1 MG TABLET PO ONE (21:11)
[2019-05-24] MEDS ORDERED: IBUPROFEN 400 MG TABLET (FP) PO PRN (21:12)
[2019-05-24] MEDS: THIAMINE HCL 100 MG TABLET (FP) PO SCH (22:24)
[2019-05-24] MEDS: IBUPROFEN 600 MG TABLET (FP) PO PRN (22:24)
[2019-05-25] MEDS ORDERED: chlordiazePOXIDE HCL 10 MG CAPSULE PO PRN
[2019-05-25] MEDS: chlordiazePOXIDE HCL 10 MG CAPSULE PO SCH ×4 (06:07→22:22)
[2019-05-25] MEDS: IBUPROFEN 600 MG TABLET (FP) PO PRN (06:08)
[2019-05-25] MEDS: NICOTINE 14 MG/24 HOURS TOPICAL PATCH TD SCH (10:28)
[2019-05-25] MEDS: POTASSIUM CHLORIDE TABS 20 MEQ TABLET.ER (FP) PO SCH (10:29)
[2019-05-25] MEDS: LISINOPRIL 10 MG TABLET (FP) PO SCH (10:29)
[2019-05-25] MEDS: PRENATAL VITAMINS W/ FOLIC ACID TABLET (FP) PO SCH (10:29)
[2019-05-25] MEDS: ACETAMINOPHEN 325 MG TABLET (FP) PO PRN (10:30)
[2019-05-25] MEDS: GABAPENTIN 300 MG CAPSULE (FP) PO PRN (11:14)
--- NOTE | 2019-05-25 14:29 | PN ---
[facility] CIWA - CIWA Score Nausea/Vomitin-Mild Nausea/No Vomiting Muscle Tremors: 2 Anxiety: 1-Mildly Anxious Agitation: 1-Slight > Activity Paroxysmal Sweats: 1-Minimal Palms Moist Orientation: 0-Oriented Tacttile Disturbances: 0-None Auditory Disturbances: 0-None Visual Disturbances: 0-None Headache: 1-Very Mild CIWA-Ar Total Score: 7 BHS Progress Note (SOAP) Subjective: pt here for alcohol detox, says still has pain both legs- ordered neurontin yesterday, has prn pain meds O: Vital Signs - 24 hr 05/24/19 05/24/19 05/24/19 17:30 21:15 23:28 Temperature 97.7 F 97.2 F L Pulse Rate 85 75 87 Respiratory 18 18 Rate Blood Pressure 152/101 H 153/99 140/88 05/25/19 05/25/19 05/25/19 00:30 03:48 08:21 Temperature 96.3 F L Pulse Rate 68 Respiratory 18 16 18 Rate Blood Pressure 112/60 Laboratory Tests 05/22/19 05/23/19 05/23/19 14:47 08:00 08:00 WBC 4.7 RBC 4.57 Hgb 13.9 Hct 41.9 MCV 91.8 MCH 30.5 MCHC 33.2 RDW 15.2 Plt Count 357 D MPV 7.4 L Sodium 140 Potassium 3.4 L Chloride 103 Carbon Dioxide 30 Anion Gap 7 L BUN 20.6 H Creatinine 0.9 Est GFR (CKD-EPI)AfAm 114.21 Est GFR (CKD-EPI)NonAf 98.54 POC Glucometer 114 Random Glucose 206 H Calcium 9.6 Total Bilirubin 0.4 AST 15 ALT 26 Alkaline Phosphatase 74 Total Protein 7.5 Albumin 3.8 RPR Titer 05/23/19 05/24/19 05/25/19 08:00 06:24 06:05 WBC RBC Hgb Hct MCV MCH MCHC RDW Plt Count MPV Sodium Potassium Chloride Carbon Dioxide Anion Gap BUN Creatinine Est GFR (CKD-EPI)AfAm Est GFR (CKD-EPI)NonAf POC Glucometer 182 153 Random Glucose Calcium Total Bilirubin AST ALT Alkaline Phosphatase Total Protein Albumin RPR Titer Nonreactive low potassium a/p: AUD- continue alcohol detox potassium replacement high fasting blood sugar- known DM, not taking meds will start metformin
[2019-05-25] MEDS: metFORMIN HCL 500 MG TABLET (FP) PO SCH (16:59)
[2019-05-25] MEDS: THIAMINE HCL 100 MG TABLET (FP) PO SCH (22:22)
[2019-05-25] MEDS: SUVOREXANT 10 MG TABLET PO PRN (22:24)
[2019-05-26] MEDS: chlordiazePOXIDE HCL 10 MG CAPSULE PO SCH ×2 (06:55→16:59)
[2019-05-26] MEDS: metFORMIN HCL 500 MG TABLET (FP) PO SCH ×2 (06:55→16:59)
[2019-05-26] MEDS: ACETAMINOPHEN 325 MG TABLET (FP) PO PRN (06:55)
[2019-05-26] MEDS: GABAPENTIN 300 MG CAPSULE (FP) PO PRN (06:58)
[2019-05-26] MEDS: PRENATAL VITAMINS W/ FOLIC ACID TABLET (FP) PO SCH (10:06)
[2019-05-26] MEDS: LISINOPRIL 10 MG TABLET (FP) PO SCH (10:06)
[2019-05-26] MEDS: NICOTINE 14 MG/24 HOURS TOPICAL PATCH TD SCH (10:06)
[2019-05-26] MEDS: POTASSIUM CHLORIDE TABS 20 MEQ TABLET.ER (FP) PO SCH (10:06)
[2019-05-26] MEDS: hydrOXYzine PAMOATE 25 MG CAPSULE (FP) PO PRN (12:25)
[2019-05-26] MEDS: LIDOCAINE 5% TOPICAL PATCH TP SCH (12:25)
--- NOTE | 2019-05-26 17:54 | PN ---
S CIWA - CIWA Score Nausea/Vomitin-No Nausea/No Vomiting Muscle Tremors: None Anxiety: 2 Agitation: 2 Paroxysmal Sweats: No Perspiration Orientation: 0-Oriented Tacttile Disturbances: 0-None Auditory Disturbances: 0-None Visual Disturbances: 0-None Headache: 0-None Present CIWA-Ar Total Score: 4 BHS Progress Note (SOAP) Subjective: Pain in legs Objective: 05/26/19 17:49 Last Vital Signs Temp Pulse Resp BP Pulse Ox 97.9 F 85 18 151/94 05/26/19 17:19 05/26/19 17:19 05/26/19 17:19 05/26/19 17:19 Elevated b/p: has htn, on med Laboratory Tests 05/22/19 05/23/19 05/23/19 14:47 08:00 08:00 WBC 4.7 RBC 4.57 Hgb 13.9 Hct 41.9 MCV 91.8 MCH 30.5 MCHC 33.2 RDW 15.2 Plt Count 357 D MPV 7.4 L Sodium 140 Potassium 3.4 L Chloride 103 Carbon Dioxide 30 Anion Gap 7 L BUN 20.6 H Creatinine 0.9 Est GFR (CKD-EPI)AfAm 114.21 Est GFR (CKD-EPI)NonAf 98.54 POC Glucometer 114 Random Glucose 206 H Calcium 9.6 Total Bilirubin 0.4 AST 15 ALT 26 Alkaline Phosphatase 74 Total Protein 7.5 Albumin 3.8 RPR Titer 05/23/19 05/24/19 05/25/19 08:00 06:24 06:05 WBC RBC Hgb Hct MCV MCH MCHC RDW Plt Count MPV Sodium Potassium Chloride Carbon Dioxide Anion Gap BUN Creatinine Est GFR (CKD-EPI)AfAm Est GFR (CKD-EPI)NonAf POC Glucometer 182 153 Random Glucose Calcium Total Bilirubin AST ALT Alkaline Phosphatase Total Protein Albumin RPR Titer Nonreactive 05/26/19 06:54 WBC RBC Hgb Hct MCV MCH MCHC RDW Plt Count MPV Sodium Potassium Chloride Carbon Dioxide Anion Gap BUN Creatinine Est GFR (CKD-EPI)AfAm Est GFR (CKD-EPI)NonAf POC Glucometer 140 Random Glucose Calcium Total Bilirubin AST ALT Alkaline Phosphatase Total Protein Albumin RPR Titer Labs reviewed: K 3.4 (low), bun 20.6 (high), glucose high due to dm Assessment: 05/26/19 17:52 Withdrawal sxs Noted with mild hypokalemia, azotemia and hyperglycemia Plan: Continue detox Pain in legs: lidocaine patch Patient is scheduled for discharge tomorrow Hypokalemia: supplemented Azotemia: encouraged PO water intake DMT2 with hyperglycemia: continue diabetic regimen
[2019-05-26] MEDS: SUVOREXANT 10 MG TABLET PO PRN (21:42)
[2019-05-26] MEDS: THIAMINE HCL 100 MG TABLET (FP) PO SCH (21:45)
[2019-05-26] MEDS: METHOCARBAMOL 500 MG TABLET PO PRN (21:46)
[2019-05-26] MEDS: IBUPROFEN 600 MG TABLET (FP) PO PRN (21:48)
[2019-05-26] MEDS ORDERED: LIDOCAINE PATCH REMOVAL MC SCH (22:00)
[2019-05-27] MEDS ORDERED: chlordiazePOXIDE HCL 10 MG CAPSULE PO ONE (05:00)
[2019-05-27] MEDS: metFORMIN HCL 500 MG TABLET (FP) PO SCH (06:01)
[2019-05-27] MEDS: METHOCARBAMOL 500 MG TABLET PO PRN (06:01)
[2019-05-27] MEDS: GABAPENTIN 300 MG CAPSULE (FP) PO PRN (06:01)
[2019-05-27] MEDS: IBUPROFEN 600 MG TABLET (FP) PO PRN (06:04)
--- NOTE | 2019-05-27 09:10 | DS ---
[facility] Detox Discharge Summary Admission Date: 05/22/19 Discharge Date: 05/27/19 - History Present History: Alcohol Dependence - Physical Exam Results Vital Signs: Vital Signs Temperature 96.6 F L 05/27/19 07:13 Pulse Rate 61 05/27/19 07:13 Respiratory Rate 18 05/27/19 07:13 Blood Pressure 148/92 05/27/19 07:13 O2 Sat by Pulse Oximetry (%) Pertinent Admission Physical Exam Findings: Vital Signs Temperature 96.6 F L 05/27/19 07:13 Pulse Rate 61 05/27/19 07:13 Respiratory Rate 18 05/27/19 07:13 Blood Pressure 148/92 05/27/19 07:13 O2 Sat by Pulse Oximetry (%) Laboratory Tests 05/22/19 05/23/19 05/23/19 14:47 08:00 08:00 WBC 4.7 RBC 4.57 Hgb 13.9 Hct 41.9 MCV 91.8 MCH 30.5 MCHC 33.2 RDW 15.2 Plt Count 357 D MPV 7.4 L Sodium 140 Potassium 3.4 L Chloride 103 Carbon Dioxide 30 Anion Gap 7 L BUN 20.6 H Creatinine 0.9 Est GFR (CKD-EPI)AfAm 114.21 Est GFR (CKD-EPI)NonAf 98.54 POC Glucometer 114 Random Glucose 206 H Calcium 9.6 Total Bilirubin 0.4 AST 15 ALT 26 Alkaline Phosphatase 74 Total Protein 7.5 Albumin 3.8 RPR Titer 05/23/19 05/24/19 05/25/19 08:00 06:24 06:05 WBC RBC Hgb Hct MCV MCH MCHC RDW Plt Count MPV Sodium Potassium Chloride Carbon Dioxide Anion Gap BUN Creatinine Est GFR (CKD-EPI)AfAm Est GFR (CKD-EPI)NonAf POC Glucometer 182 153 Random Glucose Calcium Total Bilirubin AST ALT Alkaline Phosphatase Total Protein Albumin RPR Titer Nonreactive 05/26/19 05/27/19 06:54 05:58 WBC RBC Hgb Hct MCV MCH MCHC RDW Plt Count MPV Sodium Potassium Chloride Carbon Dioxide Anion Gap BUN Creatinine Est GFR (CKD-EPI)AfAm Est GFR (CKD-EPI)NonAf POC Glucometer 140 161 Random Glucose Calcium Total Bilirubin AST ALT Alkaline Phosphatase Total Protein Albumin RPR Titer aaox3 ambulating no acute distress - Treatment Hospital Course: Detox Protocol Followed, Detoxed Safely, Responded well, Discharged Condition Good, Rehab Referral Accepted Patient has Accepted a Rehab Referral to: pt referred to [facility] - Medication Discharge Medications: Ambulatory Orders NK [No Known Home Medication] 05/22/19 - Diagnosis (1) Alcohol dependence with uncomplicated withdrawal Current Visit: Yes Status: Acute (2) Alcohol-induced anxiety disorder Current Visit: Yes Status: Acute (3) Severe depression Current Visit: Yes Status: Acute (4) GERD (gastroesophageal reflux disease) Current Visit: Yes Status: Chronic Qualifiers: Esophagitis presence: without esophagitis Qualified Code(s): K21.9 - Gastro -esophageal reflux disease without esophagitis (5) HTN (hypertension) Current Visit: Yes Status: Chronic Qualifiers: Hypertension type: essential hypertension Qualified Code(s): I10 - Essential (primary) hypertension (6) Hypercholesterolemia Current Visit: Yes Status: Chronic (7) Lumbar radiculopathy Current Visit: Yes Status: Chronic (8) Sciatica Current Visit: Yes Status: Chronic Qualifiers: Laterality: right Qualified Code(s): M54.31 - Sciatica, right side (9) Type II diabetes mellitus Current Visit: Yes Status: Chronic Qualifiers: Diabetes 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 insulin use: with prison use Diabetes mellitus complication status: with hyperglycemia Qualified Code(s): E11.65 - Type 2 diabetes mellitus with hyperglycemia (10) Alcohol-induced mood disorder Current Visit: Yes Status: Suspected (11) Depression (emotion) Current Visit: Yes Status: Suspected Qualifiers: (12) Adjustment disorder with anxious mood in remission Current Visit: Yes Status: Resolved (13) Abnormal finding on urinalysis Current Visit: No Status: Acute (14) Acute hip pain Current Visit: No Status: Acute (15) Demand ischemia Current Visit: No Status: Acute (16) Elevated troponin I level Current Visit: No Status: Acute (17) Isopropyl alcohol poisoning Current Visit: No Status: Acute (18) Prophylactic measure Current Visit: No Status: Acute (19) Alcohol-induced sleep disorder Current Visit: No Status: Chronic (20) Dyslipidemia Current Visit: No Status: Chronic (21) Elevated troponin I level Current Visit: No Status: Chronic (22) HTN (hypertension) Current Visit: No Status: Chronic Qualifiers: Hypertension type: essential hypertension Qualified Code(s): I10 - Essential (primary) hypertension (23) Type 2 diabetes mellitus with hyperglycemia Current Visit: No Status: Chronic (24) Diabetes mellitus treated with oral medication Current Visit: No Status: Suspected - AMA Did Patient Leave Against Medical Advice: No
[2019-05-27 09:26] VITALS: BP 168/98; PULSE 98; TEMP 98.2
[2019-05-27] MEDS: PRENATAL VITAMINS W/ FOLIC ACID TABLET (FP) PO SCH (10:30)
[2019-05-27] MEDS: LISINOPRIL 10 MG TABLET (FP) PO SCH (10:30)
[2019-05-27] MEDS: NICOTINE 14 MG/24 HOURS TOPICAL PATCH TD SCH (10:30)
[2019-05-27] MEDS: POTASSIUM CHLORIDE TABS 20 MEQ TABLET.ER (FP) PO SCH (10:30)
[2019-05-27] MEDS: ACETAMINOPHEN 325 MG TABLET (FP) PO PRN (10:32)
[2019-05-27] MEDS: LIDOCAINE 5% TOPICAL PATCH TP SCH (11:06)
== END 2019-05-27 14:53 | disposition other institution (70) | DRG 775 ==
LOC: YASAS 12:33 → Y6N 14:25
PROVIDERS: ADMIT Allergy & Immunology; ATTEND Allergy & Immunology
PROC: HZ2ZZZZ Detoxification Services for Substance Abuse Treatment (ICD-10-PCS; principal; 2019-05-22)
DX: F10.230 Alcohol dependence with withdrawal, uncomplicated (principal); F10.220 Alcohol dependence with intoxication, uncomplicated; F10.280 Alcohol dependence with alcohol-induced anxiety disorder; F10.24 Alcohol dependence with alcohol-induced mood disorder; F32.9 Major depressive disorder, single episode, unspecified; I10 Essential (primary) hypertension; K21.9 Gastro-esophageal reflux disease without esophagitis; M54.16 Radiculopathy, lumbar region; M54.31 Sciatica, right side; E11.65 Type 2 diabetes mellitus with hyperglycemia; R77.8 Other specified abnormalities of plasma proteins; I24.8 Other forms of acute ischemic heart disease; E78.5 Hyperlipidemia, unspecified; R79.89 Other specified abnormal findings of blood chemistry; Z79.4 Long term (current) use of insulin; Z29.8 Encounter for other specified prophylactic measures
CPT/HCPCS: 36415; 80053; 82962; 85027; 86593; J0735; Q0162

== ENCOUNTER 2019-05-27 15:07 | Inpatient (IN) | payer OTHER ==
--- NOTE | 2019-05-27 14:30 | HP ---
[facility] Rehab Assess/Revision - Admission History Admitted to Rehab from[facility] - Findings Detox History & Physical reviewed: Yes Concur with findings: Yes Inpatient Rehab Admission - Rehab Decision to Admit Inpatient rehab admission?: Yes - Initial Determination Are CD services needed?: Yes Free of communicable disease: Yes Not in need of hospitalization: Yes - Rehab Admission Criteria Previous failed treatment: Yes Poor recovery environment: Yes Comorbidities: Yes Lacks judgement: Yes Patient is meeting Inpatient Rehab admission criteria:: Yes
[~2019-05-27 15:07] MED LIST: LOPERAMIDE HCL 2 MG CAPSULE PO PRN; MAG HYDROX/AL HYDROX/SIMETH 30 ML UNIT-DOSE CUP PO PRN; MAGNESIUM CITRATE 300 ML BOTTLE PO PRN; MAGNESIUM HYDROX 2400MG/30ML ORAL SUSPENSION 30 ML CUP PO PRN; MENTHOL/PHENOL 1 EACH UD MM PRN; P-EPHED 60MG/TRIPROLIDI 2.5MG TABLET PO PRN; guaiFENesin 200 MG/10 ML 10 ML UNIT-DOSE CUPS PO PRN
[2019-05-27] MEDS: THIAMINE HCL 100 MG TABLET (FP) PO SCH (21:39)
[2019-05-27] MEDS: MELATONIN 5 MG TABLETS PO PRN (21:39)
[2019-05-27] MEDS: IBUPROFEN 400 MG TABLET (FP) PO PRN (21:40)
[2019-05-28] MEDS: IBUPROFEN 400 MG TABLET (FP) PO PRN ×2 (06:29→16:59)
[2019-05-28] MEDS: PRENATAL VITAMINS W/ FOLIC ACID TABLET (FP) PO SCH (10:44)
[2019-05-28] MEDS: ACETAMINOPHEN 325 MG TABLET (FP) PO PRN (11:18)
--- NOTE | 2019-05-28 11:59 | PN ---
[facility] Progress Note Note: pt is a 53 y/o male with a hx SANDIE-alcohol admitted to rehab from [address] [place] [address]. Pt reports he has a primary care provider Rodrigo Mo on [address] [place] [address]. Pt has a PMHx of DM(on Metformin), HTN(on Lisinopril) and Chronic pain that shoots down both legs "when i walk"(on Gabapentin). Vital Signs - 24 hr 05/27/19 05/28/19 05/28/19 15:25 03:30 06:59 Temperature 98.0 F 97.4 F L Pulse Rate 66 69 Respiratory 18 18 18 Rate Blood Pressure 142/83 140/73 Alert o x 3 nad oob ambulating with cane extremities/skin:No edema ; skin intact but dry. A/P s/p detox Maintain safety Home Meds reordered Robaxin as directed Lidocaine patch 5% daily as directed Analgesic balm topical @HS apply to affected areas as directed continue rehab.
[2019-05-28] MEDS ORDERED: LISINOPRIL 10 MG TABLET (FP) PO ONE (12:23)
[2019-05-28] MEDS ORDERED: GABAPENTIN 300 MG CAPSULE (FP) PO ONE (12:25)
[2019-05-28] MEDS: LIDOCAINE 5% TOPICAL PATCH TP SCH (12:46)
[2019-05-28] MEDS: METHOCARBAMOL 500 MG TABLET PO PRN (12:47)
[2019-05-28] MEDS: metFORMIN HCL 500 MG TABLET (FP) PO SCH (16:58)
[2019-05-28] MEDS: GABAPENTIN 300 MG CAPSULE (FP) PO SCH (21:30)
[2019-05-28] MEDS: THIAMINE HCL 100 MG TABLET (FP) PO SCH (21:30)
[2019-05-28] MEDS: LIDOCAINE PATCH REMOVAL MC SCH (21:31)
[2019-05-28] MEDS: METHYL SALICYLATE/MENTHOL OINT 30 GM TUBE TP SCH (21:31)
[2019-05-29] MEDS: IBUPROFEN 400 MG TABLET (FP) PO PRN ×3 (01:37→17:53)
[2019-05-29] MEDS: METHOCARBAMOL 500 MG TABLET PO PRN ×2 (01:37→14:08)
[2019-05-29] MEDS: ACETAMINOPHEN 325 MG TABLET (FP) PO PRN ×3 (06:31→21:36)
[2019-05-29] MEDS: metFORMIN HCL 500 MG TABLET (FP) PO SCH ×2 (06:34→16:24)
[2019-05-29 09:55] LABS: ALBUMIN 3.5 g/dl (3.4-5.0); BILIRUBIN,TOTAL 0.3 mg/dL (0.2-1); BLOOD UREA NITROGEN 14.3 mg/dL (7-18); CALCIUM 9.1 mg/dL (8.5-10.1); CREATININE 0.8 mg/dL (0.55-1.3); POTASSIUM 3.8 mmol/L (3.5-5.1)
[2019-05-29] MEDS: GABAPENTIN 300 MG CAPSULE (FP) PO SCH ×2 (10:41→21:34)
[2019-05-29] MEDS: PRENATAL VITAMINS W/ FOLIC ACID TABLET (FP) PO SCH (10:41)
[2019-05-29] MEDS: LIDOCAINE 5% TOPICAL PATCH TP SCH (10:41)
[2019-05-29] MEDS: LISINOPRIL 10 MG TABLET (FP) PO SCH (10:41)
[2019-05-29] MEDS: MELATONIN 5 MG TABLETS PO PRN (21:34)
[2019-05-29] MEDS: THIAMINE HCL 100 MG TABLET (FP) PO SCH (21:34)
[2019-05-29] MEDS: LIDOCAINE PATCH REMOVAL MC SCH (21:35)
[2019-05-29] MEDS: METHYL SALICYLATE/MENTHOL OINT 30 GM TUBE TP SCH (21:35)
[2019-05-30] MEDS: METHOCARBAMOL 500 MG TABLET PO PRN (06:31)
[2019-05-30] MEDS: metFORMIN HCL 500 MG TABLET (FP) PO SCH ×2 (06:43→16:30)
[2019-05-30] MEDS: IBUPROFEN 400 MG TABLET (FP) PO PRN ×2 (08:30→16:32)
[2019-05-30] MEDS: LISINOPRIL 10 MG TABLET (FP) PO SCH (10:25)
[2019-05-30] MEDS: PRENATAL VITAMINS W/ FOLIC ACID TABLET (FP) PO SCH (10:25)
[2019-05-30] MEDS: LIDOCAINE 5% TOPICAL PATCH TP SCH (10:26)
[2019-05-30] MEDS: ACETAMINOPHEN 325 MG TABLET (FP) PO PRN (10:26)
[2019-05-30] MEDS: GABAPENTIN 300 MG CAPSULE (FP) PO SCH ×2 (10:26→21:22)
[2019-05-30] MEDS: LIDOCAINE PATCH REMOVAL MC SCH (21:22)
[2019-05-30] MEDS: THIAMINE HCL 100 MG TABLET (FP) PO SCH (21:22)
[2019-05-30] MEDS: METHYL SALICYLATE/MENTHOL OINT 30 GM TUBE TP SCH (21:23)
[2019-05-31] MEDS: metFORMIN HCL 500 MG TABLET (FP) PO SCH ×2 (07:40→16:36)
[2019-05-31] MEDS: METHOCARBAMOL 500 MG TABLET PO PRN (07:40)
[2019-05-31] MEDS: LIDOCAINE 5% TOPICAL PATCH TP SCH (10:30)
[2019-05-31] MEDS: PRENATAL VITAMINS W/ FOLIC ACID TABLET (FP) PO SCH (10:30)
[2019-05-31] MEDS: LISINOPRIL 10 MG TABLET (FP) PO SCH (10:31)
[2019-05-31] MEDS: GABAPENTIN 300 MG CAPSULE (FP) PO SCH ×2 (10:31→21:36)
[2019-05-31] MEDS: IBUPROFEN 400 MG TABLET (FP) PO PRN (10:32)
[2019-05-31] MEDS: ACETAMINOPHEN 325 MG TABLET (FP) PO PRN (13:04)
[2019-05-31] MEDS: IBUPROFEN 600 MG TABLET (FP) PO PRN ×2 (16:35→22:45)
[2019-05-31] MEDS: METHYL SALICYLATE/MENTHOL OINT 30 GM TUBE TP SCH (21:35)
[2019-05-31] MEDS: LIDOCAINE PATCH REMOVAL MC SCH (21:35)
[2019-05-31] MEDS: THIAMINE HCL 100 MG TABLET (FP) PO SCH (21:36)
[2019-06-01] MEDS: IBUPROFEN 600 MG TABLET (FP) PO PRN ×3 (05:44→18:37)
[2019-06-01] MEDS: metFORMIN HCL 500 MG TABLET (FP) PO SCH ×2 (07:48→16:41)
[2019-06-01] MEDS: PRENATAL VITAMINS W/ FOLIC ACID TABLET (FP) PO SCH (10:53)
[2019-06-01] MEDS: GABAPENTIN 300 MG CAPSULE (FP) PO SCH ×2 (10:53→21:31)
[2019-06-01] MEDS: LISINOPRIL 10 MG TABLET (FP) PO SCH (10:53)
[2019-06-01] MEDS: LIDOCAINE 5% TOPICAL PATCH TP SCH (10:54)
[2019-06-01] MEDS: ACETAMINOPHEN 325 MG TABLET (FP) PO PRN (10:56)
[2019-06-01] MEDS: METHOCARBAMOL 500 MG TABLET PO PRN (16:41)
[2019-06-01] MEDS: METHYL SALICYLATE/MENTHOL OINT 30 GM TUBE TP SCH (21:31)
[2019-06-01] MEDS: LIDOCAINE PATCH REMOVAL MC SCH (21:31)
[2019-06-01] MEDS: MELATONIN 5 MG TABLETS PO PRN (21:32)
[2019-06-01] MEDS: THIAMINE HCL 100 MG TABLET (FP) PO SCH (21:32)
[2019-06-02] MEDS: METHOCARBAMOL 500 MG TABLET PO PRN ×2 (06:40→12:51)
[2019-06-02] MEDS: IBUPROFEN 600 MG TABLET (FP) PO PRN ×3 (06:41→21:32)
[2019-06-02] MEDS: metFORMIN HCL 500 MG TABLET (FP) PO SCH ×2 (06:41→16:34)
[2019-06-02] MEDS: LIDOCAINE 5% TOPICAL PATCH TP SCH (09:50)
[2019-06-02] MEDS: LISINOPRIL 10 MG TABLET (FP) PO SCH (09:51)
[2019-06-02] MEDS: GABAPENTIN 300 MG CAPSULE (FP) PO SCH ×2 (09:51→21:31)
[2019-06-02] MEDS: PRENATAL VITAMINS W/ FOLIC ACID TABLET (FP) PO SCH (09:51)
[2019-06-02] MEDS: THIAMINE HCL 100 MG TABLET (FP) PO SCH (21:31)
[2019-06-02] MEDS: METHYL SALICYLATE/MENTHOL OINT 30 GM TUBE TP SCH (21:32)
[2019-06-02] MEDS: LIDOCAINE PATCH REMOVAL MC SCH (21:32)
[2019-06-02] MEDS: MELATONIN 5 MG TABLETS PO PRN (21:33)
[2019-06-03] MEDS: METHOCARBAMOL 500 MG TABLET PO PRN ×3 (06:22→21:30)
[2019-06-03] MEDS: IBUPROFEN 600 MG TABLET (FP) PO PRN ×3 (06:23→21:31)
[2019-06-03] MEDS: metFORMIN HCL 500 MG TABLET (FP) PO SCH ×2 (06:50→16:25)
[2019-06-03] MEDS: GABAPENTIN 300 MG CAPSULE (FP) PO SCH ×2 (11:03→21:30)
[2019-06-03] MEDS: PRENATAL VITAMINS W/ FOLIC ACID TABLET (FP) PO SCH (11:03)
[2019-06-03] MEDS: LISINOPRIL 10 MG TABLET (FP) PO SCH (11:03)
[2019-06-03] MEDS: LIDOCAINE 5% TOPICAL PATCH TP SCH (11:06)
[2019-06-03] MEDS: THIAMINE HCL 100 MG TABLET (FP) PO SCH (21:30)
[2019-06-03] MEDS: MELATONIN 5 MG TABLETS PO PRN (21:30)
[2019-06-03] MEDS: METHYL SALICYLATE/MENTHOL OINT 30 GM TUBE TP SCH (21:31)
[2019-06-03] MEDS: LIDOCAINE PATCH REMOVAL MC SCH (21:35)
[2019-06-04] MEDS: metFORMIN HCL 500 MG TABLET (FP) PO SCH ×2 (06:42→16:48)
[2019-06-04] MEDS: METHOCARBAMOL 500 MG TABLET PO PRN ×3 (06:43→21:34)
[2019-06-04] MEDS: IBUPROFEN 600 MG TABLET (FP) PO PRN ×3 (06:43→21:35)
[2019-06-04] MEDS: LIDOCAINE 5% TOPICAL PATCH TP SCH (10:28)
[2019-06-04] MEDS: GABAPENTIN 300 MG CAPSULE (FP) PO SCH ×2 (10:28→21:34)
[2019-06-04] MEDS: PRENATAL VITAMINS W/ FOLIC ACID TABLET (FP) PO SCH (10:28)
[2019-06-04] MEDS: LISINOPRIL 10 MG TABLET (FP) PO SCH (10:28)
[2019-06-04] MEDS: ACETAMINOPHEN 325 MG TABLET (FP) PO PRN (16:50)
[2019-06-04] MEDS: METHYL SALICYLATE/MENTHOL OINT 30 GM TUBE TP SCH (21:33)
[2019-06-04] MEDS: LIDOCAINE PATCH REMOVAL MC SCH (21:34)
[2019-06-04] MEDS: THIAMINE HCL 100 MG TABLET (FP) PO SCH (21:34)
[2019-06-04] MEDS: MELATONIN 5 MG TABLETS PO PRN (21:34)
[2019-06-05] MEDS: IBUPROFEN 600 MG TABLET (FP) PO PRN ×2 (04:28→10:36)
[2019-06-05] MEDS: METHOCARBAMOL 500 MG TABLET PO PRN ×2 (04:29→10:36)
[2019-06-05] MEDS: metFORMIN HCL 500 MG TABLET (FP) PO SCH (07:02)
[2019-06-05 07:03] VITALS: TEMP 97.3
--- NOTE | 2019-06-05 09:56 | DS ---
[facility] Rehab Discharge Summary - [facility] Rehab Discharge Summary Admission Date: 05/27/19 Discharge Date: 06/05/19 - History Present History: Alcohol dependence Additional Comments: Pt is a 53 y/o male admitted to rehab for SANDIE-alcohol and discharge today as scheduled. Pt reports he has a primary care provider Rodrigo Mo on [address] [place] [address]. CD aftercare referral to [facility] and [facility] to follow up. Pertinent Past History: DM HTN Chronic pain Use of cane for ambulation - Discharge Physical Exam Vital Signs: Vital Signs Temperature 97.3 F L 06/05/19 07:03 Pulse Rate 59 L 06/05/19 07:03 Respiratory Rate 18 06/05/19 07:03 Blood Pressure 164/96 06/05/19 07:03 O2 Sat by Pulse Oximetry (%) Alert o x3,denies s/h/i nad oob ambulating with cane cardiac:s1 s2, rrr lungs;cta,ochoa. abdomen:soft,+bs,nt,nd extremities/skin:no edema,skin intact Pertinent Admission Physical Exam Findings: Laboratory Tests 05/28/19 05/29/19 05/29/19 11:29 06:33 08:10 Sodium 138 Potassium 3.8 Chloride 102 Carbon Dioxide 29 Anion Gap 7 L BUN 14.3 Creatinine 0.8 Est GFR (CKD-EPI)AfAm 119.88 Est GFR (CKD-EPI)NonAf 103.43 POC Glucometer 164 141 Random Glucose 173 H Calcium 9.1 Total Bilirubin 0.3 AST 21 ALT 36 Alkaline Phosphatase 98 Total Protein 7.0 Albumin 3.5 05/29/19 05/30/19 05/30/19 16:23 06:29 16:28 Sodium Potassium Chloride Carbon Dioxide Anion Gap BUN Creatinine Est GFR (CKD-EPI)AfAm Est GFR (CKD-EPI)NonAf POC Glucometer 164 208 176 Random Glucose Calcium Total Bilirubin AST ALT Alkaline Phosphatase Total Protein Albumin 05/31/19 05/31/19 06/01/19 07:38 16:34 05:27 Sodium Potassium Chloride Carbon Dioxide Anion Gap BUN Creatinine Est GFR (CKD-EPI)AfAm Est GFR (CKD-EPI)NonAf POC Glucometer 148 118 142 Random Glucose Calcium Total Bilirubin AST ALT Alkaline Phosphatase Total Protein Albumin 06/01/19 06/02/19 06/02/19 16:24 06:38 16:33 Sodium Potassium Chloride Carbon Dioxide Anion Gap BUN Creatinine Est GFR (CKD-EPI)AfAm Est GFR (CKD-EPI)NonAf POC Glucometer 170 133 152 Random Glucose Calcium Total Bilirubin AST ALT Alkaline Phosphatase Total Protein Albumin 06/03/19 06/03/19 06/04/19 06:22 16:23 06:41 Sodium Potassium Chloride Carbon Dioxide Anion Gap BUN Creatinine Est GFR (CKD-EPI)AfAm Est GFR (CKD-EPI)NonAf POC Glucometer 108 124 102 Random Glucose Calcium Total Bilirubin AST ALT Alkaline Phosphatase Total Protein Albumin 06/04/19 06/05/19 16:48 07:01 Sodium Potassium Chloride Carbon Dioxide Anion Gap BUN Creatinine Est GFR (CKD-EPI)AfAm Est GFR (CKD-EPI)NonAf POC Glucometer 130 146 Random Glucose Calcium Total Bilirubin AST ALT Alkaline Phosphatase Total Protein Albumin - Treatment Discharge Condition: Discharge condition good Hospital Course: pt rehabilitated safely and participated in unit and individual activities as tolerated. Pain and Mobility improved comparatively with medical treatment while in rehab. - Medication Discharge Medications: Ambulatory Orders Gabapentin [Neurontin] 300 mg PO BID #60 capsule 06/05/19 Lisinopril 10 mg PO DAILY #30 tablet 06/05/19 Metformin HCl [Glucophage] 500 mg PO BID #60 tablet 06/05/19 - Medication-Assisted Treatment (MAT) Medication-Assisted Treatment (MAT): No - Discharge Instructions Diet, activity, other medical instructions: Diet:NATHANIEL/NCS Activity: oob ad alexey ambulating with cane Other medical instructions:follow up with PCP Dr Culver for medical management within 1 week after discharge. follow up with CD aftercare as recommended. 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
[2019-06-05] MEDS: LISINOPRIL 10 MG TABLET (FP) PO SCH (10:34)
[2019-06-05] MEDS: PRENATAL VITAMINS W/ FOLIC ACID TABLET (FP) PO SCH (10:34)
[2019-06-05] MEDS: GABAPENTIN 300 MG CAPSULE (FP) PO SCH (10:34)
[2019-06-05] MEDS: LIDOCAINE 5% TOPICAL PATCH TP SCH (10:35)
[2019-06-05 12:28] VITALS: BP 159/94; PULSE 67
== END 2019-06-05 11:25 | disposition home or self-care (01) | DRG 772 ==
LOC: YASAS 15:07 → Y5N 15:08
PROVIDERS: ADMIT Neuromusculoskeletal Medicine & OMM; ATTEND Neuromusculoskeletal Medicine & OMM
PROC: HZ42ZZZ Group Counseling for Substance Abuse Treatment, Cognitive-Behavioral (ICD-10-PCS; principal; 2019-05-27)
DX: F10.20 Alcohol dependence, uncomplicated (principal); I10 Essential (primary) hypertension; E11.65 Type 2 diabetes mellitus with hyperglycemia; K21.9 Gastro-esophageal reflux disease without esophagitis; E78.5 Hyperlipidemia, unspecified; Z79.84 Long term (current) use of oral hypoglycemic drugs
CPT/HCPCS: 36415; 80053; 82962

== ENCOUNTER 2019-11-11 13:03 | Inpatient (IN) | payer OTHER ==
[2019-11-11] MEDS ORDERED: MAG HYDROX/AL HYDROX/SIMETH 30 ML UNIT-DOSE CUP PO PRN (13:41)
[2019-11-11] MEDS ORDERED: guaiFENesin 200 MG/10 ML 10 ML UNIT-DOSE CUPS PO PRN (13:41)
[2019-11-11] MEDS ORDERED: MAGNESIUM CITRATE 300 ML BOTTLE PO PRN (13:41)
[2019-11-11] MEDS ORDERED: LOPERAMIDE HCL 2 MG CAPSULE PO PRN (13:41)
[2019-11-11] MEDS ORDERED: P-EPHED 60MG/TRIPROLIDI 2.5MG TABLET PO PRN (13:41)
[2019-11-11] MEDS ORDERED: MENTHOL/PHENOL 1 EACH UD MM PRN (13:41)
[2019-11-11] MEDS ORDERED: ACETAMINOPHEN 325 MG TABLET (FP) PO PRN (13:41)
--- NOTE | 2019-11-11 13:41 | HP ---
[facility] Rehab Assess/Revision - Admission History Admitted to Rehab from: [facility] Date of Admission to Rehab: 11/11/2019 - Findings Detox History & Physical reviewed: Yes Concur with findings: Yes Comments/Additional Findings: for rehab as protocol Inpatient Rehab Admission - Rehab Decision to Admit Inpatient rehab admission?: Yes - Initial Determination Are CD services needed?: Yes Free of communicable disease: Yes Not in need of hospitalization: Yes - Rehab Admission Criteria Previous failed treatment: Yes Poor recovery environment: Yes Comorbidities: Yes Lacks judgement: No Patient is meeting Inpatient Rehab admission criteria:: Yes
[2019-11-11] MEDS: hydrOXYzine PAMOATE 25 MG CAPSULE (FP) PO SCH ×3 (14:40→22:06)
[2019-11-11] MEDS: GABAPENTIN 300 MG CAPSULE PO SCH ×2 (14:40→22:06)
--- NOTE | 2019-11-11 15:41 | PN ---
[facility] Progress Note Note: Patient is a 54 year old male with history of alcohol dependence. Last admitted to [facility] from -06/05/19 when he completed detox and rehab. Detox Labs reviewed and results stable. PMH: DM, HTN, Chronic Pain, HLD Psych: None Homeless and living on the streets, not in retirement system. No legals. Vital Signs Temperature 98.4 F 11/11/19 14:09 Pulse Rate 89 11/11/19 14:09 Respiratory Rate 18 11/11/19 14:09 Blood Pressure 152/89 11/11/19 14:09 O2 Sat by Pulse Oximetry (%) 96 11/11/19 14:09 PE alert and oriented x 3 skin warm and dry in no apparent distress ext full rom, amb ad alexey A/P: alcohol dependence DM HTN HLD Continue rehab services monitor clinically
[2019-11-11] MEDS: metFORMIN HCL 500 MG TABLET (FP) PO SCH (17:01)
[2019-11-11] MEDS: THIAMINE HCL 100 MG TABLET (FP) PO SCH (22:05)
[2019-11-11] MEDS: MELATONIN 5 MG TABLETS PO SCH (22:06)
[2019-11-11] MEDS: IBUPROFEN 400 MG TABLET (FP) PO PRN (22:06)
[2019-11-12] MEDS: hydrOXYzine PAMOATE 25 MG CAPSULE (FP) PO SCH ×3 (06:37→13:39)
[2019-11-12] MEDS: metFORMIN HCL 500 MG TABLET (FP) PO SCH ×2 (06:37→17:04)
[2019-11-12] MEDS: GABAPENTIN 300 MG CAPSULE PO SCH ×3 (06:37→21:07)
[2019-11-12] MEDS: NICOTINE 7 MG/24 HOURS TOPICAL PATCH TD SCH (09:02)
[2019-11-12] MEDS: PRENATAL VITAMINS W/ FOLIC ACID TABLET (FP) PO SCH (09:02)
[2019-11-12] MEDS: ASPIRIN 81 MG CHEWABLE TABLETS PO SCH (09:02)
[2019-11-12] MEDS: MAGNESIUM HYDROX 2400MG/30ML ORAL SUSPENSION 30 ML CUP PO PRN (09:04)
[2019-11-12] MEDS: NICOTINE POLACRILEX 2 MG GUM BUC PRN (09:06)
[2019-11-12] MEDS ORDERED: LISINOPRIL 10 MG TABLET (FP) PO SCH (10:00)
--- NOTE | 2019-11-12 11:15 | PN ---
[facility] Progress Note (SOAP) Subjective: patient with elevated BP x 3; PMHx of HTN. Denies headache, dizziness, chest pain, nausea. Reports gas pain. Took lisinopril 10 mg at 9am. Objective: P/E; BP at time of patient evaluation: 159/104 General: no apparent distress HEENTM: PERRLA Respirations: unlabored Cardiac: s1 s2 ABD: +BS, obese Neuro: No cognitive deficits, CN 2-12 intact. Muscle strength equal bilaterally. Vital Signs Period Temp Pulse Resp BP Sys/Hart Pulse Ox Last 24 Hr 97.3 F-98.4 F 64-89 18-18 143-159/89-94 96-98 11/12/19 11:11 11/12/19 11:12 Assessment: HTN 11/12/19 11:13 Plan: Will give one stat dose of clonidine now; Will increase lisinopril 20 mg daily Continue to monitor.
[2019-11-12] MEDS ORDERED: cloNIDine HCL 0.1 MG TABLET PO ONE (11:16)
[2019-11-12] MEDS ORDERED: LISINOPRIL 10 MG TABLET (FP) PO ONE (17:16)
--- NOTE | 2019-11-12 17:17 | PN ---
S Progress Note Note: called by nursing for BP 152/84 P 68 Vital Signs - 24 hr 11/12/19 11/12/19 11/12/19 03:31 06:25 08:27 Temperature 97.3 F L Pulse Rate 64 Respiratory 18 18 Rate Blood Pressure 143/89 159/94 O2 Sat by Pulse 98 96 Oximetry (%) 11/12/19 11/12/19 11/12/19 10:35 13:39 14:08 Temperature Pulse Rate 71 68 Respiratory Rate Blood Pressure 178/109 H 156/85 O2 Sat by Pulse 100 Oximetry (%) 11/12/19 11/12/19 17:10 17:11 Temperature Pulse Rate 68 Respiratory Rate Blood Pressure 152/84 O2 Sat by Pulse 96 Oximetry (%) P : Lisinopril 10 mg x once
[2019-11-12] MEDS: MELATONIN 5 MG TABLETS PO SCH (21:07)
[2019-11-12] MEDS: THIAMINE HCL 100 MG TABLET (FP) PO SCH (21:07)
[2019-11-13] MEDS: GABAPENTIN 300 MG CAPSULE PO SCH ×3 (06:49→21:26)
[2019-11-13] MEDS: metFORMIN HCL 500 MG TABLET (FP) PO SCH ×2 (06:49→16:55)
[2019-11-13] MEDS: PRENATAL VITAMINS W/ FOLIC ACID TABLET (FP) PO SCH (09:37)
[2019-11-13] MEDS: ASPIRIN 81 MG CHEWABLE TABLETS PO SCH (09:38)
[2019-11-13] MEDS: LISINOPRIL 20 MG TABLET (FP) PO SCH (09:38)
[2019-11-13] MEDS: NICOTINE 7 MG/24 HOURS TOPICAL PATCH TD SCH (09:39)
[2019-11-13] MEDS: NICOTINE POLACRILEX 2 MG GUM BUC PRN (09:40)
[2019-11-13] MEDS ORDERED: PT OWN MED DRAWER 7, Y5N ONE (09:41)
[2019-11-13] MEDS ORDERED: SODIUM PHOSPHATE/NA BIPHOS 133 ML ENEMA RC ONE (15:15)
[2019-11-13] MEDS: MAGNESIUM HYDROX 2400MG/30ML ORAL SUSPENSION 30 ML CUP PO PRN (21:25)
[2019-11-13] MEDS: MELATONIN 5 MG TABLETS PO SCH (21:26)
[2019-11-13] MEDS: hydrOXYzine PAMOATE 25 MG CAPSULE (FP) PO PRN (21:26)
[2019-11-13] MEDS: THIAMINE HCL 100 MG TABLET (FP) PO SCH (21:26)
[2019-11-13] MEDS: DOCUSATE SODIUM 100 MG CAPSULE (FP) PO SCH (21:27)
[2019-11-14] MEDS: GABAPENTIN 300 MG CAPSULE PO SCH ×3 (06:49→21:02)
[2019-11-14] MEDS: metFORMIN HCL 500 MG TABLET (FP) PO SCH ×2 (06:49→16:45)
[2019-11-14] MEDS: LISINOPRIL 20 MG TABLET (FP) PO SCH (10:10)
[2019-11-14] MEDS: NICOTINE 7 MG/24 HOURS TOPICAL PATCH TD SCH (10:10)
[2019-11-14] MEDS: PRENATAL VITAMINS W/ FOLIC ACID TABLET (FP) PO SCH (10:10)
[2019-11-14] MEDS: ASPIRIN 81 MG CHEWABLE TABLETS PO SCH (10:10)
[2019-11-14] MEDS: NICOTINE POLACRILEX 2 MG GUM BUC PRN (10:11)
[2019-11-14] MEDS: THIAMINE HCL 100 MG TABLET (FP) PO SCH (21:02)
[2019-11-14] MEDS: hydrOXYzine PAMOATE 25 MG CAPSULE (FP) PO PRN (21:02)
[2019-11-14] MEDS: DOCUSATE SODIUM 100 MG CAPSULE (FP) PO SCH (21:02)
[2019-11-14] MEDS: MELATONIN 5 MG TABLETS PO SCH (21:03)
[2019-11-15] MEDS: GABAPENTIN 300 MG CAPSULE PO SCH ×3 (06:19→21:28)
[2019-11-15] MEDS: metFORMIN HCL 500 MG TABLET (FP) PO SCH ×2 (06:19→16:44)
[2019-11-15] MEDS: NICOTINE POLACRILEX 2 MG GUM BUC PRN ×4 (06:21→16:51)
[2019-11-15] MEDS: LISINOPRIL 20 MG TABLET (FP) PO SCH (09:56)
[2019-11-15] MEDS: PRENATAL VITAMINS W/ FOLIC ACID TABLET (FP) PO SCH (09:56)
[2019-11-15] MEDS: NICOTINE 7 MG/24 HOURS TOPICAL PATCH TD SCH (09:56)
[2019-11-15] MEDS: ASPIRIN 81 MG CHEWABLE TABLETS PO SCH (09:56)
[2019-11-15] MEDS: hydrOXYzine PAMOATE 25 MG CAPSULE (FP) PO PRN (21:28)
[2019-11-15] MEDS: MELATONIN 5 MG TABLETS PO SCH (21:28)
[2019-11-15] MEDS: THIAMINE HCL 100 MG TABLET (FP) PO SCH (21:28)
[2019-11-15] MEDS: DOCUSATE SODIUM 100 MG CAPSULE (FP) PO SCH (21:28)
[2019-11-16] MEDS: metFORMIN HCL 500 MG TABLET (FP) PO SCH ×2 (06:06→17:20)
[2019-11-16] MEDS: GABAPENTIN 300 MG CAPSULE PO SCH ×3 (06:06→21:08)
[2019-11-16] MEDS: ASPIRIN 81 MG CHEWABLE TABLETS PO SCH (09:59)
[2019-11-16] MEDS: PRENATAL VITAMINS W/ FOLIC ACID TABLET (FP) PO SCH (09:59)
[2019-11-16] MEDS: LISINOPRIL 20 MG TABLET (FP) PO SCH (09:59)
[2019-11-16] MEDS: NICOTINE 7 MG/24 HOURS TOPICAL PATCH TD SCH (09:59)
[2019-11-16] MEDS: IBUPROFEN 400 MG TABLET (FP) PO PRN (10:01)
[2019-11-16] MEDS: NICOTINE POLACRILEX 2 MG GUM BUC PRN ×3 (10:02→21:09)
[2019-11-16] MEDS ORDERED: PT OWN MED DRAWER 7, Y5N ONE (10:04)
[2019-11-16] MEDS ORDERED: MASKS NR ONE (17:17)
[2019-11-16] MEDS: DOCUSATE SODIUM 100 MG CAPSULE (FP) PO SCH (21:06)
[2019-11-16] MEDS: MELATONIN 5 MG TABLETS PO SCH (21:08)
[2019-11-16] MEDS: THIAMINE HCL 100 MG TABLET (FP) PO SCH (21:08)
[2019-11-17] MEDS: metFORMIN HCL 500 MG TABLET (FP) PO SCH ×2 (06:27→16:57)
[2019-11-17] MEDS: GABAPENTIN 300 MG CAPSULE PO SCH ×3 (06:27→21:04)
[2019-11-17] MEDS: LISINOPRIL 20 MG TABLET (FP) PO SCH (10:04)
[2019-11-17] MEDS: ASPIRIN 81 MG CHEWABLE TABLETS PO SCH (10:04)
[2019-11-17] MEDS: NICOTINE POLACRILEX 2 MG GUM BUC PRN ×3 (10:05→16:59)
[2019-11-17] MEDS: PRENATAL VITAMINS W/ FOLIC ACID TABLET (FP) PO SCH (10:05)
[2019-11-17] MEDS: NICOTINE 7 MG/24 HOURS TOPICAL PATCH TD SCH (10:05)
[2019-11-17] MEDS: THIAMINE HCL 100 MG TABLET (FP) PO SCH (21:03)
[2019-11-17] MEDS: DOCUSATE SODIUM 100 MG CAPSULE (FP) PO SCH (21:03)
[2019-11-17] MEDS: MELATONIN 5 MG TABLETS PO SCH (21:04)
[2019-11-18] MEDS: GABAPENTIN 300 MG CAPSULE PO SCH ×3 (06:13→21:25)
[2019-11-18] MEDS: metFORMIN HCL 500 MG TABLET (FP) PO SCH ×2 (06:13→16:57)
[2019-11-18] MEDS: NICOTINE 7 MG/24 HOURS TOPICAL PATCH TD SCH (09:54)
[2019-11-18] MEDS: ASPIRIN 81 MG CHEWABLE TABLETS PO SCH (09:54)
[2019-11-18] MEDS: PRENATAL VITAMINS W/ FOLIC ACID TABLET (FP) PO SCH (09:54)
[2019-11-18] MEDS: LISINOPRIL 20 MG TABLET (FP) PO SCH (09:54)
[2019-11-18] MEDS: NICOTINE POLACRILEX 2 MG GUM BUC PRN ×3 (09:55→21:26)
[2019-11-18] MEDS: IBUPROFEN 400 MG TABLET (FP) PO PRN (14:18)
[2019-11-18] MEDS: THIAMINE HCL 100 MG TABLET (FP) PO SCH (21:25)
[2019-11-18] MEDS: hydrOXYzine PAMOATE 25 MG CAPSULE (FP) PO PRN (21:25)
[2019-11-18] MEDS: DOCUSATE SODIUM 100 MG CAPSULE (FP) PO SCH (21:25)
[2019-11-18] MEDS: MELATONIN 5 MG TABLETS PO SCH (21:26)
[2019-11-19] MEDS: GABAPENTIN 300 MG CAPSULE PO SCH ×3 (06:48→21:06)
[2019-11-19] MEDS: metFORMIN HCL 500 MG TABLET (FP) PO SCH ×2 (06:49→17:48)
[2019-11-19] MEDS: PRENATAL VITAMINS W/ FOLIC ACID TABLET (FP) PO SCH (09:53)
[2019-11-19] MEDS: ASPIRIN 81 MG CHEWABLE TABLETS PO SCH (09:53)
[2019-11-19] MEDS: NICOTINE 7 MG/24 HOURS TOPICAL PATCH TD SCH (09:53)
[2019-11-19] MEDS: LISINOPRIL 20 MG TABLET (FP) PO SCH (09:53)
[2019-11-19] MEDS: NICOTINE POLACRILEX 2 MG GUM BUC PRN ×2 (09:54→21:06)
[2019-11-19] MEDS: MELATONIN 5 MG TABLETS PO SCH (21:05)
[2019-11-19] MEDS: THIAMINE HCL 100 MG TABLET (FP) PO SCH (21:05)
[2019-11-19] MEDS: hydrOXYzine PAMOATE 25 MG CAPSULE (FP) PO PRN (21:06)
[2019-11-19] MEDS: DOCUSATE SODIUM 100 MG CAPSULE (FP) PO SCH (21:06)
[2019-11-20] MEDS: GABAPENTIN 300 MG CAPSULE PO SCH ×3 (07:31→21:13)
[2019-11-20] MEDS: metFORMIN HCL 500 MG TABLET (FP) PO SCH ×2 (07:31→17:00)
[2019-11-20] MEDS: NICOTINE POLACRILEX 2 MG GUM BUC PRN ×2 (07:32→17:01)
[2019-11-20] MEDS: LIDOCAINE 5% TOPICAL PATCH TP SCH (10:07)
[2019-11-20] MEDS: ASPIRIN 81 MG CHEWABLE TABLETS PO SCH (10:08)
[2019-11-20] MEDS: NICOTINE 7 MG/24 HOURS TOPICAL PATCH TD SCH (10:08)
[2019-11-20] MEDS: PRENATAL VITAMINS W/ FOLIC ACID TABLET (FP) PO SCH (10:08)
[2019-11-20] MEDS: LISINOPRIL 20 MG TABLET (FP) PO SCH (10:10)
[2019-11-20] MEDS: LIDOCAINE PATCH REMOVAL MC SCH (21:13)
[2019-11-20] MEDS: THIAMINE HCL 100 MG TABLET (FP) PO SCH (21:13)
[2019-11-20] MEDS: MELATONIN 5 MG TABLETS PO SCH (21:13)
[2019-11-20] MEDS: DOCUSATE SODIUM 100 MG CAPSULE (FP) PO SCH (21:13)
[2019-11-20] MEDS: hydrOXYzine PAMOATE 25 MG CAPSULE (FP) PO PRN (21:13)
[2019-11-21] MEDS: GABAPENTIN 300 MG CAPSULE PO SCH ×3 (06:27→21:15)
[2019-11-21] MEDS: metFORMIN HCL 500 MG TABLET (FP) PO SCH ×2 (06:27→17:00)
[2019-11-21] MEDS: LIDOCAINE 5% TOPICAL PATCH TP SCH (10:07)
[2019-11-21] MEDS: ASPIRIN 81 MG CHEWABLE TABLETS PO SCH (10:08)
[2019-11-21] MEDS: PRENATAL VITAMINS W/ FOLIC ACID TABLET (FP) PO SCH (10:08)
[2019-11-21] MEDS: LISINOPRIL 20 MG TABLET (FP) PO SCH (10:08)
[2019-11-21] MEDS: NICOTINE 7 MG/24 HOURS TOPICAL PATCH TD SCH (10:08)
[2019-11-21] MEDS: NICOTINE POLACRILEX 2 MG GUM BUC PRN ×3 (13:37→21:16)
[2019-11-21] MEDS: MELATONIN 5 MG TABLETS PO SCH (21:15)
[2019-11-21] MEDS: THIAMINE HCL 100 MG TABLET (FP) PO SCH (21:15)
[2019-11-21] MEDS: DOCUSATE SODIUM 100 MG CAPSULE (FP) PO SCH (21:15)
[2019-11-21] MEDS: LIDOCAINE PATCH REMOVAL MC SCH (21:16)
[2019-11-22] MEDS: metFORMIN HCL 500 MG TABLET (FP) PO SCH ×2 (06:19→17:05)
[2019-11-22] MEDS: GABAPENTIN 300 MG CAPSULE PO SCH ×3 (06:19→21:53)
[2019-11-22] MEDS: NICOTINE POLACRILEX 2 MG GUM BUC PRN ×4 (06:20→16:44)
[2019-11-22] MEDS: ASPIRIN 81 MG CHEWABLE TABLETS PO SCH (09:40)
[2019-11-22] MEDS: PRENATAL VITAMINS W/ FOLIC ACID TABLET (FP) PO SCH (09:40)
[2019-11-22] MEDS: LISINOPRIL 20 MG TABLET (FP) PO SCH (09:40)
[2019-11-22] MEDS: LIDOCAINE 5% TOPICAL PATCH TP SCH (09:40)
[2019-11-22] MEDS: NICOTINE 7 MG/24 HOURS TOPICAL PATCH TD SCH (09:41)
[2019-11-22] MEDS: DOCUSATE SODIUM 100 MG CAPSULE (FP) PO SCH (21:53)
[2019-11-22] MEDS: MELATONIN 5 MG TABLETS PO SCH (21:53)
[2019-11-22] MEDS: LIDOCAINE PATCH REMOVAL MC SCH (21:54)
[2019-11-22] MEDS: THIAMINE HCL 100 MG TABLET (FP) PO SCH (22:03)
[2019-11-23] MEDS: GABAPENTIN 300 MG CAPSULE PO SCH ×3 (06:44→21:00)
[2019-11-23] MEDS: metFORMIN HCL 500 MG TABLET (FP) PO SCH ×2 (06:44→17:01)
[2019-11-23] MEDS: ASPIRIN 81 MG CHEWABLE TABLETS PO SCH (10:22)
[2019-11-23] MEDS: PRENATAL VITAMINS W/ FOLIC ACID TABLET (FP) PO SCH (10:22)
[2019-11-23] MEDS: NICOTINE 7 MG/24 HOURS TOPICAL PATCH TD SCH (10:22)
[2019-11-23] MEDS: LISINOPRIL 20 MG TABLET (FP) PO SCH (10:22)
[2019-11-23] MEDS: LIDOCAINE 5% TOPICAL PATCH TP SCH (10:23)
[2019-11-23] MEDS: NICOTINE POLACRILEX 2 MG GUM BUC PRN ×4 (10:23→21:01)
[2019-11-23] MEDS: DOCUSATE SODIUM 100 MG CAPSULE (FP) PO SCH (21:00)
[2019-11-23] MEDS: hydrOXYzine PAMOATE 25 MG CAPSULE (FP) PO PRN (21:00)
[2019-11-23] MEDS: LIDOCAINE PATCH REMOVAL MC SCH (21:00)
[2019-11-23] MEDS: MELATONIN 5 MG TABLETS PO SCH (21:00)
[2019-11-23] MEDS: THIAMINE HCL 100 MG TABLET (FP) PO SCH (21:00)
[2019-11-24] MEDS: NICOTINE POLACRILEX 2 MG GUM BUC PRN ×4 (06:19→21:14)
[2019-11-24] MEDS: metFORMIN HCL 500 MG TABLET (FP) PO SCH ×2 (06:19→16:41)
[2019-11-24] MEDS: GABAPENTIN 300 MG CAPSULE PO SCH ×3 (06:19→21:13)
[2019-11-24] MEDS: LISINOPRIL 20 MG TABLET (FP) PO SCH (10:11)
[2019-11-24] MEDS: PRENATAL VITAMINS W/ FOLIC ACID TABLET (FP) PO SCH (10:11)
[2019-11-24] MEDS: NICOTINE 7 MG/24 HOURS TOPICAL PATCH TD SCH (10:11)
[2019-11-24] MEDS: ASPIRIN 81 MG CHEWABLE TABLETS PO SCH (10:11)
[2019-11-24] MEDS: LIDOCAINE 5% TOPICAL PATCH TP SCH (10:12)
[2019-11-24] MEDS: THIAMINE HCL 100 MG TABLET (FP) PO SCH (21:13)
[2019-11-24] MEDS: hydrOXYzine PAMOATE 25 MG CAPSULE (FP) PO PRN (21:13)
[2019-11-24] MEDS: MELATONIN 5 MG TABLETS PO SCH (21:13)
[2019-11-24] MEDS: DOCUSATE SODIUM 100 MG CAPSULE (FP) PO SCH (21:14)
[2019-11-24] MEDS: LIDOCAINE PATCH REMOVAL MC SCH (21:14)
[2019-11-25] MEDS: GABAPENTIN 300 MG CAPSULE PO SCH ×3 (07:03→21:12)
[2019-11-25] MEDS: metFORMIN HCL 500 MG TABLET (FP) PO SCH ×2 (07:03→16:35)
[2019-11-25] MEDS ORDERED: PT OWN MED DRAWER 7, Y5N ONE (09:00)
[2019-11-25] MEDS: NICOTINE POLACRILEX 2 MG GUM BUC PRN ×4 (10:08→21:13)
[2019-11-25] MEDS: NICOTINE 7 MG/24 HOURS TOPICAL PATCH TD SCH (10:08)
[2019-11-25] MEDS: LISINOPRIL 20 MG TABLET (FP) PO SCH (10:09)
[2019-11-25] MEDS: PRENATAL VITAMINS W/ FOLIC ACID TABLET (FP) PO SCH (10:09)
[2019-11-25] MEDS: ASPIRIN 81 MG CHEWABLE TABLETS PO SCH (10:09)
[2019-11-25] MEDS: LIDOCAINE 5% TOPICAL PATCH TP SCH (10:10)
[2019-11-25] MEDS: hydrOXYzine PAMOATE 25 MG CAPSULE (FP) PO PRN (21:12)
[2019-11-25] MEDS: MELATONIN 5 MG TABLETS PO SCH (21:12)
[2019-11-25] MEDS: THIAMINE HCL 100 MG TABLET (FP) PO SCH (21:12)
[2019-11-25] MEDS: DOCUSATE SODIUM 100 MG CAPSULE (FP) PO SCH (21:12)
[2019-11-25] MEDS: LIDOCAINE PATCH REMOVAL MC SCH (21:13)
[2019-11-26] MEDS: GABAPENTIN 300 MG CAPSULE PO SCH ×3 (06:21→21:33)
[2019-11-26] MEDS: metFORMIN HCL 500 MG TABLET (FP) PO SCH ×2 (06:21→16:48)
[2019-11-26] MEDS: NICOTINE POLACRILEX 2 MG GUM BUC PRN ×4 (06:22→16:50)
[2019-11-26] MEDS: LIDOCAINE 5% TOPICAL PATCH TP SCH (09:56)
[2019-11-26] MEDS: NICOTINE 7 MG/24 HOURS TOPICAL PATCH TD SCH (09:56)
[2019-11-26] MEDS: PRENATAL VITAMINS W/ FOLIC ACID TABLET (FP) PO SCH (09:56)
[2019-11-26] MEDS: ASPIRIN 81 MG CHEWABLE TABLETS PO SCH (09:56)
[2019-11-26] MEDS: LISINOPRIL 20 MG TABLET (FP) PO SCH (09:56)
[2019-11-26] MEDS: amLODIPine BESYLATE 5 MG TABLET (FP) PO SCH (12:17)
[2019-11-26] MEDS ORDERED: PT OWN MED DRAWER 7, Y5N ONE (12:34)
[2019-11-26] MEDS: DOCUSATE SODIUM 100 MG CAPSULE (FP) PO SCH (21:30)
[2019-11-26] MEDS: THIAMINE HCL 100 MG TABLET (FP) PO SCH (21:33)
[2019-11-26] MEDS: MELATONIN 5 MG TABLETS PO SCH (21:33)
[2019-11-26] MEDS: LIDOCAINE PATCH REMOVAL MC SCH (21:36)
[2019-11-27] MEDS: GABAPENTIN 300 MG CAPSULE PO SCH ×3 (06:24→21:42)
[2019-11-27] MEDS: metFORMIN HCL 500 MG TABLET (FP) PO SCH ×2 (06:24→16:59)
[2019-11-27] MEDS: NICOTINE POLACRILEX 2 MG GUM BUC PRN ×4 (06:24→21:45)
[2019-11-27] MEDS: ASPIRIN 81 MG CHEWABLE TABLETS PO SCH (09:42)
[2019-11-27] MEDS: LIDOCAINE 5% TOPICAL PATCH TP SCH (09:42)
[2019-11-27] MEDS: LISINOPRIL 20 MG TABLET (FP) PO SCH ×2 (09:43→21:42)
[2019-11-27] MEDS: PRENATAL VITAMINS W/ FOLIC ACID TABLET (FP) PO SCH (09:43)
[2019-11-27] MEDS: NICOTINE 7 MG/24 HOURS TOPICAL PATCH TD SCH (09:43)
[2019-11-27] MEDS: amLODIPine BESYLATE 5 MG TABLET (FP) PO SCH (09:43)
[2019-11-27] MEDS: MELATONIN 5 MG TABLETS PO SCH (21:41)
[2019-11-27] MEDS: THIAMINE HCL 100 MG TABLET (FP) PO SCH (21:42)
[2019-11-27] MEDS: DOCUSATE SODIUM 100 MG CAPSULE (FP) PO SCH (21:42)
[2019-11-27] MEDS: LIDOCAINE PATCH REMOVAL MC SCH (21:43)
[2019-11-28] MEDS: NICOTINE POLACRILEX 2 MG GUM BUC PRN ×4 (06:20→16:46)
[2019-11-28] MEDS: metFORMIN HCL 500 MG TABLET (FP) PO SCH ×2 (06:20→16:46)
[2019-11-28] MEDS: GABAPENTIN 300 MG CAPSULE PO SCH ×3 (06:20→21:31)
[2019-11-28] MEDS ORDERED: cloNIDine HCL 0.1 MG TABLET PO ONE (07:13)
--- NOTE | 2019-11-28 07:17 | PN ---
S Progress Note Note: Patient's blood pressure this morning is B/P 161/97. Patient is asymptomatic Vital Signs Temperature 97.0 F L 11/28/19 07:03 Pulse Rate 72 11/28/19 07:03 Respiratory Rate 16 11/28/19 07:03 Blood Pressure 161/91 11/28/19 07:03 O2 Sat by Pulse Oximetry (%) 97 11/28/19 07:03 Action: Clonidine HCL 0.1mg tablet oral ordered
[2019-11-28] MEDS: amLODIPine BESYLATE 5 MG TABLET (FP) PO SCH (09:58)
[2019-11-28] MEDS: ASPIRIN 81 MG CHEWABLE TABLETS PO SCH (09:58)
[2019-11-28] MEDS: LISINOPRIL 20 MG TABLET (FP) PO SCH ×2 (09:58→21:31)
[2019-11-28] MEDS: NICOTINE 7 MG/24 HOURS TOPICAL PATCH TD SCH (09:59)
[2019-11-28] MEDS: PRENATAL VITAMINS W/ FOLIC ACID TABLET (FP) PO SCH (09:59)
[2019-11-28] MEDS: LIDOCAINE 5% TOPICAL PATCH TP SCH (09:59)
[2019-11-28] MEDS: DOCUSATE SODIUM 100 MG CAPSULE (FP) PO SCH (21:31)
[2019-11-28] MEDS: MELATONIN 5 MG TABLETS PO SCH (21:31)
[2019-11-28] MEDS: THIAMINE HCL 100 MG TABLET (FP) PO SCH (21:31)
[2019-11-28] MEDS: hydrOXYzine PAMOATE 25 MG CAPSULE (FP) PO PRN (21:31)
[2019-11-28] MEDS: LIDOCAINE PATCH REMOVAL MC SCH (21:32)
[2019-11-29] MEDS: metFORMIN HCL 500 MG TABLET (FP) PO SCH ×2 (06:16→16:46)
[2019-11-29] MEDS: GABAPENTIN 300 MG CAPSULE PO SCH ×3 (06:16→21:33)
[2019-11-29] MEDS: NICOTINE POLACRILEX 2 MG GUM BUC PRN ×3 (09:49→21:35)
[2019-11-29] MEDS: LISINOPRIL 20 MG TABLET (FP) PO SCH ×2 (09:50→21:34)
[2019-11-29] MEDS: ASPIRIN 81 MG CHEWABLE TABLETS PO SCH (09:50)
[2019-11-29] MEDS: NICOTINE 7 MG/24 HOURS TOPICAL PATCH TD SCH (09:50)
[2019-11-29] MEDS: amLODIPine BESYLATE 5 MG TABLET (FP) PO SCH (09:50)
[2019-11-29] MEDS: PRENATAL VITAMINS W/ FOLIC ACID TABLET (FP) PO SCH (09:50)
[2019-11-29] MEDS: LIDOCAINE 5% TOPICAL PATCH TP SCH (09:51)
[2019-11-29] MEDS: DOCUSATE SODIUM 100 MG CAPSULE (FP) PO SCH (21:32)
[2019-11-29] MEDS: THIAMINE HCL 100 MG TABLET (FP) PO SCH (21:32)
[2019-11-29] MEDS: MELATONIN 5 MG TABLETS PO SCH (21:33)
[2019-11-29] MEDS: LIDOCAINE PATCH REMOVAL MC SCH (21:33)
[2019-11-29] MEDS: hydrOXYzine PAMOATE 25 MG CAPSULE (FP) PO PRN (21:34)
[2019-11-30] MEDS: metFORMIN HCL 500 MG TABLET (FP) PO SCH ×2 (06:29→16:53)
[2019-11-30] MEDS: GABAPENTIN 300 MG CAPSULE PO SCH ×3 (06:29→21:34)
[2019-11-30] MEDS: NICOTINE POLACRILEX 2 MG GUM BUC PRN ×4 (06:29→16:53)
[2019-11-30] MEDS: amLODIPine BESYLATE 5 MG TABLET (FP) PO SCH (09:57)
[2019-11-30] MEDS: ASPIRIN 81 MG CHEWABLE TABLETS PO SCH (09:57)
[2019-11-30] MEDS: LISINOPRIL 20 MG TABLET (FP) PO SCH ×2 (09:57→21:33)
[2019-11-30] MEDS: PRENATAL VITAMINS W/ FOLIC ACID TABLET (FP) PO SCH (09:57)
[2019-11-30] MEDS: LIDOCAINE 5% TOPICAL PATCH TP SCH (09:58)
[2019-11-30] MEDS: NICOTINE 7 MG/24 HOURS TOPICAL PATCH TD SCH (09:58)
[2019-11-30] MEDS: THIAMINE HCL 100 MG TABLET (FP) PO SCH (21:33)
[2019-11-30] MEDS: DOCUSATE SODIUM 100 MG CAPSULE (FP) PO SCH (21:33)
[2019-11-30] MEDS: MELATONIN 5 MG TABLETS PO SCH (21:34)
[2019-11-30] MEDS: LIDOCAINE PATCH REMOVAL MC SCH (21:34)
[2019-11-30] MEDS: hydrOXYzine PAMOATE 25 MG CAPSULE (FP) PO PRN (21:35)
[2019-12-01] MEDS: NICOTINE POLACRILEX 2 MG GUM BUC PRN ×5 (06:30→21:08)
[2019-12-01] MEDS: GABAPENTIN 300 MG CAPSULE PO SCH ×3 (06:30→21:07)
[2019-12-01] MEDS: metFORMIN HCL 500 MG TABLET (FP) PO SCH ×2 (06:30→17:11)
[2019-12-01] MEDS: LIDOCAINE 5% TOPICAL PATCH TP SCH (10:15)
[2019-12-01] MEDS: ASPIRIN 81 MG CHEWABLE TABLETS PO SCH (10:16)
[2019-12-01] MEDS: amLODIPine BESYLATE 5 MG TABLET (FP) PO SCH (10:16)
[2019-12-01] MEDS: PRENATAL VITAMINS W/ FOLIC ACID TABLET (FP) PO SCH (10:16)
[2019-12-01] MEDS: LISINOPRIL 20 MG TABLET (FP) PO SCH ×2 (10:16→21:07)
[2019-12-01] MEDS: NICOTINE 7 MG/24 HOURS TOPICAL PATCH TD SCH (10:17)
[2019-12-01] MEDS ORDERED: PT OWN MED DRAWER 7, Y5N ONE (16:41)
[2019-12-01] MEDS: DOCUSATE SODIUM 100 MG CAPSULE (FP) PO SCH (21:06)
[2019-12-01] MEDS: MELATONIN 5 MG TABLETS PO SCH (21:07)
[2019-12-01] MEDS: LIDOCAINE PATCH REMOVAL MC SCH (21:07)
[2019-12-01] MEDS: THIAMINE HCL 100 MG TABLET (FP) PO SCH (21:07)
[2019-12-02] MEDS: metFORMIN HCL 500 MG TABLET (FP) PO SCH ×2 (06:23→16:48)
[2019-12-02] MEDS: NICOTINE POLACRILEX 2 MG GUM BUC PRN ×5 (06:23→21:40)
[2019-12-02] MEDS: GABAPENTIN 300 MG CAPSULE PO SCH ×3 (06:23→21:38)
[2019-12-02] MEDS: ASPIRIN 81 MG CHEWABLE TABLETS PO SCH (10:00)
[2019-12-02] MEDS: PRENATAL VITAMINS W/ FOLIC ACID TABLET (FP) PO SCH (10:00)
[2019-12-02] MEDS: amLODIPine BESYLATE 5 MG TABLET (FP) PO SCH (10:00)
[2019-12-02] MEDS: LIDOCAINE 5% TOPICAL PATCH TP SCH (10:00)
[2019-12-02] MEDS: LISINOPRIL 20 MG TABLET (FP) PO SCH ×2 (10:00→21:38)
[2019-12-02] MEDS: NICOTINE 7 MG/24 HOURS TOPICAL PATCH TD SCH (10:00)
[2019-12-02] MEDS: DOCUSATE SODIUM 100 MG CAPSULE (FP) PO SCH (21:38)
[2019-12-02] MEDS: THIAMINE HCL 100 MG TABLET (FP) PO SCH (21:38)
[2019-12-02] MEDS: MELATONIN 5 MG TABLETS PO SCH (21:38)
[2019-12-02] MEDS: LIDOCAINE PATCH REMOVAL MC SCH (21:38)
[2019-12-03] MEDS: metFORMIN HCL 500 MG TABLET (FP) PO SCH ×2 (06:13→17:07)
[2019-12-03] MEDS: GABAPENTIN 300 MG CAPSULE PO SCH ×3 (06:13→21:03)
[2019-12-03] MEDS: NICOTINE POLACRILEX 2 MG GUM BUC PRN ×5 (06:14→21:05)
[2019-12-03] MEDS: PRENATAL VITAMINS W/ FOLIC ACID TABLET (FP) PO SCH (10:01)
[2019-12-03] MEDS: amLODIPine BESYLATE 5 MG TABLET (FP) PO SCH (10:01)
[2019-12-03] MEDS: ASPIRIN 81 MG CHEWABLE TABLETS PO SCH (10:01)
[2019-12-03] MEDS: LISINOPRIL 20 MG TABLET (FP) PO SCH ×2 (10:01→21:03)
[2019-12-03] MEDS: NICOTINE 7 MG/24 HOURS TOPICAL PATCH TD SCH (10:03)
[2019-12-03] MEDS: LIDOCAINE 5% TOPICAL PATCH TP SCH (10:03)
[2019-12-03] MEDS: LIDOCAINE PATCH REMOVAL MC SCH (21:04)
[2019-12-03] MEDS: DOCUSATE SODIUM 100 MG CAPSULE (FP) PO SCH (21:04)
[2019-12-03] MEDS: MELATONIN 5 MG TABLETS PO SCH (21:04)
[2019-12-03] MEDS: THIAMINE HCL 100 MG TABLET (FP) PO SCH (21:04)
[2019-12-04] MEDS: GABAPENTIN 300 MG CAPSULE PO SCH ×3 (06:05→21:04)
[2019-12-04] MEDS: metFORMIN HCL 500 MG TABLET (FP) PO SCH ×2 (06:05→16:41)
[2019-12-04] MEDS: NICOTINE POLACRILEX 2 MG GUM BUC PRN ×5 (06:06→21:05)
[2019-12-04] MEDS: ASPIRIN 81 MG CHEWABLE TABLETS PO SCH (10:03)
[2019-12-04] MEDS: LISINOPRIL 20 MG TABLET (FP) PO SCH ×2 (10:04→21:04)
[2019-12-04] MEDS: amLODIPine BESYLATE 5 MG TABLET (FP) PO SCH (10:04)
[2019-12-04] MEDS: PRENATAL VITAMINS W/ FOLIC ACID TABLET (FP) PO SCH (10:04)
[2019-12-04] MEDS: LIDOCAINE 5% TOPICAL PATCH TP SCH (10:04)
[2019-12-04] MEDS: NICOTINE 7 MG/24 HOURS TOPICAL PATCH TD SCH (10:04)
[2019-12-04] MEDS: DOCUSATE SODIUM 100 MG CAPSULE (FP) PO SCH (21:04)
[2019-12-04] MEDS: THIAMINE HCL 100 MG TABLET (FP) PO SCH (21:04)
[2019-12-04] MEDS: MELATONIN 5 MG TABLETS PO SCH (21:04)
[2019-12-04] MEDS: hydrOXYzine PAMOATE 25 MG CAPSULE (FP) PO PRN (21:04)
[2019-12-04] MEDS: LIDOCAINE PATCH REMOVAL MC SCH (21:06)
[2019-12-05] MEDS: GABAPENTIN 300 MG CAPSULE PO SCH ×3 (06:13→21:10)
[2019-12-05] MEDS: NICOTINE POLACRILEX 2 MG GUM BUC PRN ×5 (06:13→21:12)
[2019-12-05] MEDS: metFORMIN HCL 500 MG TABLET (FP) PO SCH ×2 (06:13→17:29)
[2019-12-05] MEDS: LIDOCAINE 5% TOPICAL PATCH TP SCH (10:04)
[2019-12-05] MEDS: amLODIPine BESYLATE 5 MG TABLET (FP) PO SCH (10:05)
[2019-12-05] MEDS: LISINOPRIL 20 MG TABLET (FP) PO SCH ×2 (10:05→21:10)
[2019-12-05] MEDS: NICOTINE 7 MG/24 HOURS TOPICAL PATCH TD SCH (10:05)
[2019-12-05] MEDS: ASPIRIN 81 MG CHEWABLE TABLETS PO SCH (10:05)
[2019-12-05] MEDS: PRENATAL VITAMINS W/ FOLIC ACID TABLET (FP) PO SCH (10:05)
[2019-12-05] MEDS: DOCUSATE SODIUM 100 MG CAPSULE (FP) PO SCH (21:10)
[2019-12-05] MEDS: MELATONIN 5 MG TABLETS PO SCH (21:11)
[2019-12-05] MEDS: THIAMINE HCL 100 MG TABLET (FP) PO SCH (21:11)
[2019-12-05] MEDS: LIDOCAINE PATCH REMOVAL MC SCH (21:11)
[2019-12-06] MEDS: NICOTINE POLACRILEX 2 MG GUM BUC PRN ×5 (06:10→21:27)
[2019-12-06] MEDS: GABAPENTIN 300 MG CAPSULE PO SCH ×3 (06:10→21:25)
[2019-12-06] MEDS: metFORMIN HCL 500 MG TABLET (FP) PO SCH ×2 (06:10→16:59)
[2019-12-06] MEDS: ASPIRIN 81 MG CHEWABLE TABLETS PO SCH (09:42)
[2019-12-06] MEDS: NICOTINE 7 MG/24 HOURS TOPICAL PATCH TD SCH (09:42)
[2019-12-06] MEDS: LIDOCAINE 5% TOPICAL PATCH TP SCH (09:42)
[2019-12-06] MEDS: PRENATAL VITAMINS W/ FOLIC ACID TABLET (FP) PO SCH (09:43)
[2019-12-06] MEDS: LISINOPRIL 20 MG TABLET (FP) PO SCH ×2 (09:43→21:25)
[2019-12-06] MEDS: amLODIPine BESYLATE 5 MG TABLET (FP) PO SCH (09:43)
[2019-12-06] MEDS ORDERED: cloNIDine HCL 0.1 MG TABLET PO ONE (12:40)
--- NOTE | 2019-12-06 12:45 | PN ---
[facility] Progress Note Note: Vital Signs - 24 hr 12/05/19 12/05/19 12/05/19 14:35 20:27 20:50 Temperature Pulse Rate 67 Blood Pressure 154/76 O2 Sat by Pulse 99 95 Oximetry (%) 12/05/19 12/06/19 12/06/19 21:15 07:17 10:06 Temperature 98 F Pulse Rate 69 79 71 Blood Pressure 151/78 141/86 178/100 H O2 Sat by Pulse 98 Oximetry (%) 12/06/19 12:31 Temperature Pulse Rate Blood Pressure O2 Sat by Pulse 96 Oximetry (%) Patient with asymptomatic elevated BP on norvasc 5mg qd and lisinopril BID ambulatory, in no acute distress HTN one time dose clonodine 0.1mg increase norvasc to 10mg in AM and continue lisinopril 20 mg \ continue to monitor patient to follow up with PCP upon discharge
[2019-12-06] MEDS: MELATONIN 5 MG TABLETS PO SCH (21:24)
[2019-12-06] MEDS: DOCUSATE SODIUM 100 MG CAPSULE (FP) PO SCH (21:24)
[2019-12-06] MEDS: THIAMINE HCL 100 MG TABLET (FP) PO SCH (21:24)
[2019-12-06] MEDS: LIDOCAINE PATCH REMOVAL MC SCH (21:25)
[2019-12-06] MEDS: hydrOXYzine PAMOATE 25 MG CAPSULE (FP) PO PRN (22:51)
[2019-12-07] MEDS: metFORMIN HCL 500 MG TABLET (FP) PO SCH ×2 (06:30→16:52)
[2019-12-07] MEDS: GABAPENTIN 300 MG CAPSULE PO SCH ×3 (06:30→21:47)
[2019-12-07] MEDS: NICOTINE POLACRILEX 2 MG GUM BUC PRN ×5 (06:31→21:49)
[2019-12-07] MEDS: PRENATAL VITAMINS W/ FOLIC ACID TABLET (FP) PO SCH (09:47)
[2019-12-07] MEDS: LISINOPRIL 20 MG TABLET (FP) PO SCH ×2 (09:47→21:47)
[2019-12-07] MEDS: ASPIRIN 81 MG CHEWABLE TABLETS PO SCH (09:47)
[2019-12-07] MEDS: LIDOCAINE 5% TOPICAL PATCH TP SCH (09:47)
[2019-12-07] MEDS: amLODIPine BESYLATE 10 MG TABLET (FP) PO SCH (09:47)
[2019-12-07] MEDS: NICOTINE 7 MG/24 HOURS TOPICAL PATCH TD SCH (09:49)
[2019-12-07] MEDS: THIAMINE HCL 100 MG TABLET (FP) PO SCH (21:47)
[2019-12-07] MEDS: MELATONIN 5 MG TABLETS PO SCH (21:47)
[2019-12-07] MEDS: LIDOCAINE PATCH REMOVAL MC SCH (21:48)
[2019-12-07] MEDS: DOCUSATE SODIUM 100 MG CAPSULE (FP) PO SCH (21:48)
[2019-12-07] MEDS: hydrOXYzine PAMOATE 25 MG CAPSULE (FP) PO PRN (21:48)
[2019-12-08] MEDS: metFORMIN HCL 500 MG TABLET (FP) PO SCH ×2 (06:17→17:42)
[2019-12-08] MEDS: GABAPENTIN 300 MG CAPSULE PO SCH ×3 (06:17→21:56)
[2019-12-08] MEDS: NICOTINE POLACRILEX 2 MG GUM BUC PRN ×5 (06:19→21:57)
[2019-12-08] MEDS: LIDOCAINE 5% TOPICAL PATCH TP SCH (09:48)
[2019-12-08] MEDS: LISINOPRIL 20 MG TABLET (FP) PO SCH ×2 (09:49→22:49)
[2019-12-08] MEDS: amLODIPine BESYLATE 10 MG TABLET (FP) PO SCH (09:49)
[2019-12-08] MEDS: ASPIRIN 81 MG CHEWABLE TABLETS PO SCH (09:49)
[2019-12-08] MEDS: PRENATAL VITAMINS W/ FOLIC ACID TABLET (FP) PO SCH (09:49)
[2019-12-08] MEDS: NICOTINE 7 MG/24 HOURS TOPICAL PATCH TD SCH (09:50)
[2019-12-08] MEDS: DOCUSATE SODIUM 100 MG CAPSULE (FP) PO SCH (21:55)
[2019-12-08] MEDS: THIAMINE HCL 100 MG TABLET (FP) PO SCH (21:55)
[2019-12-08] MEDS: MELATONIN 5 MG TABLETS PO SCH (21:56)
[2019-12-08] MEDS: LIDOCAINE PATCH REMOVAL MC SCH (22:48)
[2019-12-09] MEDS: GABAPENTIN 300 MG CAPSULE PO SCH (06:20)
[2019-12-09] MEDS: metFORMIN HCL 500 MG TABLET (FP) PO SCH (06:20)
[2019-12-09] MEDS: NICOTINE POLACRILEX 2 MG GUM BUC PRN ×2 (06:21→09:24)
[2019-12-09 07:36] VITALS: BP 145/95; PULSE 92; TEMP 97.7
[2019-12-09] MEDS: ASPIRIN 81 MG CHEWABLE TABLETS PO SCH (09:20)
[2019-12-09] MEDS: NICOTINE 7 MG/24 HOURS TOPICAL PATCH TD SCH (09:20)
[2019-12-09] MEDS: amLODIPine BESYLATE 10 MG TABLET (FP) PO SCH (09:20)
[2019-12-09] MEDS: LISINOPRIL 20 MG TABLET (FP) PO SCH (09:20)
[2019-12-09] MEDS: LIDOCAINE 5% TOPICAL PATCH TP SCH (09:21)
[2019-12-09] MEDS: PRENATAL VITAMINS W/ FOLIC ACID TABLET (FP) PO SCH (09:21)
--- NOTE | 2019-12-09 09:45 | DS ---
[facility] Rehab Discharge Summary - [facility] Rehab Discharge Summary Admission Date: 11/11/19 Discharge Date: 12/09/19 - History Present History: Alcohol dependence - Discharge Physical Exam Vital Signs: Vital Signs Temperature 97.7 F 12/09/19 07:35 Pulse Rate 92 H 12/09/19 07:35 Respiratory Rate 16 12/09/19 07:35 Blood Pressure 145/95 12/09/19 07:35 O2 Sat by Pulse Oximetry (%) 98 12/09/19 07:35 ROS: PATIENT DENIES SOB, COUGH, FEVER, TREMORS, SWEATING AND HEADACHES. PE: ALERT AND ORIENTED X 3 SKIN WARM AND DRY +PERRLA, EOMS INTACT BL IN NAD EXT FULL ROM, AMB AD OLINDA NO TREMORS DENIES SI/HI A/P: ALCOHOL DEPENDENCE HTN PERIPHERAL NEUROPATHY MEDICALLY STABLE FOR DISCHARGE AFTERCARE ARRANGED FOR [facility] - Treatment Discharge Condition: Discharge condition good Hospital Course: PATIENT DISCHARGED FROM REHAB TODAY FOR ALCOHOL DEPENDENCE. DURING TREATMENT, PATIENT ATTENDED 1:1 SESSIONS WITH COUNSELOR AND ATTENDED ALL GROUP MEETINGS. PATIENT IS MEDICALLY STABLE FOR DISCHARGE AND DENIES SI/HI. AFTERCARE ARRANGED FOR [facility] RETIREMENT PROGRAM AND PATIENT IS MOTIVATED TO COMPLETE TREATMENT. PATIENT MEDICALLY ADVISED TO FOLLOW UP WITH PCP RECOMMENDED ONCE HE COMPLETES TREATMENT AT [facility]. Ambulatory Orders Aspirin 81 mg PO DAILY 11/11/19 Lisinopril [Prinivil] 10 mg PO DAILY 30 Days #30 tablet 11/11/19 Loratadine [Claritin] 10 mg PO DAILY 11/11/19 Amlodipine Besylate [Norvasc -] 10 mg PO DAILY #30 tablet 12/09/19 Aspirin 81 mg PO DAILY #30 tab.chew 12/09/19 Gabapentin [Neurontin] 300 mg PO TID #42 cap 12/09/19 Lidocaine 5% Patch [Lidoderm -] 2 patch TP DAILY #30 patch 12/09/19 Lisinopril [Prinivil] 20 mg PO BID #60 tablet 12/09/19 metFORMIN HCL [Glucophage -] 500 mg PO BIDAC 30 Days #60 tablet 12/09/19 - Medication Discharge Medications: Ambulatory Orders Aspirin 81 mg PO DAILY 11/11/19 Lisinopril [Prinivil] 10 mg PO DAILY 30 Days #30 tablet 11/11/19 Loratadine [Claritin] 10 mg PO DAILY 11/11/19 Amlodipine Besylate [Norvasc -] 10 mg PO DAILY #30 tablet 12/09/19 Aspirin 81 mg PO DAILY #30 tab.chew 12/09/19 Gabapentin [Neurontin] 300 mg PO TID #42 cap 12/09/19 Lidocaine 5% Patch [Lidoderm -] 2 patch TP DAILY #30 patch 12/09/19 Lisinopril [Prinivil] 20 mg PO BID #60 tablet 12/09/19 metFORMIN HCL [Glucophage -] 500 mg PO BIDAC 30 Days #60 tablet 12/09/19 - Medication-Assisted Treatment (MAT) Medication-Assisted Treatment (MAT): No MAT Follow-up Referral: [facility] RETIREMENT PROGRAM - Discharge Instructions Diet, activity, other medical instructions: Diet: NATHANIEL Activity: TOLERATED Other medical instructions: F/U WITH PCP RECOMMENDED - Follow-up Referral Minutes to complete discharge: 40 - AMA Did Patient Leave Against Medical Advice: No
== END 2019-12-09 09:30 | disposition other institution (70) | DRG 772 ==
LOC: YASAS 13:03 → Y3E 13:08
PROVIDERS: ADMIT Allergy & Immunology; ATTEND Allergy & Immunology
PROC: HZ42ZZZ Group Counseling for Substance Abuse Treatment, Cognitive-Behavioral (ICD-10-PCS; principal; 2019-11-11)
DX: F10.20 Alcohol dependence, uncomplicated (principal); G62.9 Polyneuropathy, unspecified; I10 Essential (primary) hypertension; E11.9 Type 2 diabetes mellitus without complications; Z79.84 Long term (current) use of oral hypoglycemic drugs; E78.5 Hyperlipidemia, unspecified; G89.29 Other chronic pain; Z59.0 Homelessness
CPT/HCPCS: 82962; J0735

== ENCOUNTER 2020-05-22 18:37 | Inpatient (IN) | payer OTHER ==
[2020-05-22 20:37] LABS: BASO % 0.5 % (0-2.0); EOS % 0.5 % (0-4.5); HEMATOCRIT 43.7 % (35.4-49); LYMPH % 42.3 % (8-40); MCH 32.5 pg (25.7-33.7); MCHC 34.3 g/dl (32.0-35.9); MEAN CELL VOLUME 94.7 fl (80-96); MEAN PLT VOLUME 7.3 fl (7.5-11.1); MONO % 4.6 % (3.8-10.2); NEUT % 52.1 % (42.8-82.8); PLATELET COUNT 384 K/MM3 (134-434); RBC 4.62 M/mm3 (4.00-5.60); RDW 13.8 % (11.9-15.9); WHITE BLOOD COUNT 8.3 K/mm3 (4.0-10.0)
[2020-05-22 20:57] LABS: POTASSIUM 4.1 mmol/L (3.5-5.1)
[2020-05-22 20:59] LABS: CALCIUM 7.9 mg/dL (8.5-10.1)
[2020-05-22 21:00] LABS: ALBUMIN 3.2 g/dl (3.4-5.0); BLOOD UREA NITROGEN 19.4 mg/dL (7-18)
[2020-05-22 21:03] LABS: CREATININE 0.8 mg/dL (0.55-1.3)
[2020-05-22 21:04] LABS: BILIRUBIN,TOTAL 0.2 mg/dL (0.2-1); TOT PROT 7.2 g/dl (6.4-8.2)
[2020-05-22] MEDS ORDERED: ASPIRIN 325 MG TABLET PO ONE (22:05)
[2020-05-22] MEDS ORDERED: ASPIRIN 81 MG CHEWABLE TABLETS ONE (22:24)
[2020-05-23] MEDS ORDERED: chlordiazePOXIDE HCL 25 MG CAPSULE PO ONE (03:00)
[2020-05-23] MEDS ORDERED: chlordiazePOXIDE HCL 25 MG CAPSULE ONE (03:10)
[2020-05-23] MEDS ORDERED: chlordiazePOXIDE 5 MG CAPSULE ONE ×2 (12:10→19:17)
[2020-05-23] MEDS: chlordiazePOXIDE 5 MG CAPSULE PO SCH ×2 (12:12→19:21)
[2020-05-23] MEDS ORDERED: chlordiazePOXIDE 5 MG CAPSULE PO ONE (22:10)
[2020-05-24] MEDS: chlordiazePOXIDE 5 MG CAPSULE PO SCH ×5 (00:05→17:44)
[2020-05-24] MEDS ORDERED: BENZOCAINE/MENTH/CETYLPYRD CL 1 EACH LOZENGE MM ONE (01:57)
[2020-05-24 03:40] VITALS: BMI 31.0
[2020-05-24] MEDS ORDERED: LORazepam 2 MG/ML SDV VIAL IVPUSH ONE (06:15)
[2020-05-24] MEDS: amLODIPine BESYLATE 5 MG TABLET (FP) PO SCH (09:14)
[2020-05-24] MEDS: GABAPENTIN 300 MG CAPSULE PO SCH ×2 (13:10→22:11)
[2020-05-24] MEDS: THIAMINE HCL 100 MG TABLET (FP) PO SCH (13:10)
[2020-05-24 14:06] LABS: BASO % 0.2 % (0-2.0); EOS % 0.5 % (0-4.5); HEMATOCRIT 41.1 % (35.4-49); HEMOGLOBIN 14.3 GM/dL (11.7-16.9); LYMPH % 10.3 % (8-40); MCH 32.3 pg (25.7-33.7); MCHC 34.8 g/dl (32.0-35.9); MEAN CELL VOLUME 92.7 fl (80-96); MEAN PLT VOLUME 7.4 fl (7.5-11.1); MONO % 3.9 % (3.8-10.2); NEUT % 85.1 % (42.8-82.8); PLATELET COUNT 280 K/MM3 (134-434); RBC 4.44 M/mm3 (4.00-5.60); RDW 13.6 % (11.9-15.9); WHITE BLOOD COUNT 14.5 K/mm3 (4.0-10.0)
[2020-05-24 14:29] LABS: POTASSIUM 3.1 mmol/L (3.5-5.1)
[2020-05-24 14:34] LABS: ALBUMIN 3.4 g/dl (3.4-5.0)
[2020-05-24 14:35] LABS: BLOOD UREA NITROGEN 10.8 mg/dL (7-18); CALCIUM 8.1 mg/dL (8.5-10.1)
[2020-05-24] MEDS: METOPROLOL TARTRATE 25 MG TABLET (FP) PO SCH (14:35)
[2020-05-24 14:36] LABS: CREATININE 0.8 mg/dL (0.55-1.3)
[2020-05-24 14:39] LABS: BILIRUBIN,TOTAL 0.8 mg/dL (0.2-1); TOT PROT 7.1 g/dl (6.4-8.2)
[2020-05-24] MEDS ORDERED: POTASSIUM CHLORIDE ORAL LIQUID 20 MEQ/15 ML PO ONE (15:59)
[2020-05-24] MEDS: INSULIN SLIDING SCALE (NOVOLOG) 1 VIAL SQ SCH (16:27)
[2020-05-24] MEDS ORDERED: chlordiazePOXIDE 5 MG CAPSULE PO ONE (21:59)
[2020-05-24] MEDS: ATORVASTATIN CA 40 MG TABLET (FP) PO SCH (22:11)
[2020-05-24] MEDS: FAMOTIDINE 20 MG/50 ML IVPB 20 MG/50 ML MG IVPB SCH (22:11)
[2020-05-24] MEDS: LISINOPRIL 20 MG TABLET PO SCH (22:11)
[2020-05-25] MEDS: chlordiazePOXIDE 5 MG CAPSULE PO SCH ×4 (00:40→17:21)
[2020-05-25] MEDS: GABAPENTIN 300 MG CAPSULE PO SCH ×3 (06:27→22:14)
[2020-05-25] MEDS: INSULIN SLIDING SCALE (NOVOLOG) 1 VIAL SQ SCH ×3 (06:34→16:35)
[2020-05-25 06:38] LABS: BASO % 0.4 % (0-2.0); EOS % 1.8 % (0-4.5); HEMATOCRIT 42.3 % (35.4-49); HEMOGLOBIN 14.4 GM/dL (11.7-16.9); LYMPH % 13.3 % (8-40); MEAN CELL VOLUME 94.3 fl (80-96); MEAN PLT VOLUME 7.8 fl (7.5-11.1); MONO % 5.1 % (3.8-10.2); NEUT % 79.4 % (42.8-82.8); PLATELET COUNT 274 K/MM3 (134-434); RBC 4.48 M/mm3 (4.00-5.60); RDW 13.9 % (11.9-15.9); WHITE BLOOD COUNT 11.1 K/mm3 (4.0-10.0)
[2020-05-25 06:58] LABS: POTASSIUM 3.3 mmol/L (3.5-5.1)
[2020-05-25 07:01] LABS: CALCIUM 8.1 mg/dL (8.5-10.1)
[2020-05-25 07:02] LABS: ALBUMIN 3.2 g/dl (3.4-5.0); BLOOD UREA NITROGEN 15.1 mg/dL (7-18); MAGNESIUM 1.6 mg/dL (1.8-2.4)
[2020-05-25 07:05] LABS: CREATININE 0.9 mg/dL (0.55-1.3)
[2020-05-25 07:07] LABS: BILIRUBIN,TOTAL 0.8 mg/dL (0.2-1); TOT PROT 6.9 g/dl (6.4-8.2)
[2020-05-25] MEDS: ASPIRIN 81 MG CHEWABLE TABLETS PO SCH (09:23)
[2020-05-25] MEDS: amLODIPine BESYLATE 5 MG TABLET (FP) PO SCH (09:24)
[2020-05-25] MEDS: FAMOTIDINE 20 MG/50 ML IVPB 20 MG/50 ML MG IVPB SCH (09:24)
[2020-05-25] MEDS: METOPROLOL TARTRATE 25 MG TABLET (FP) PO SCH (09:24)
[2020-05-25] MEDS: THIAMINE HCL 100 MG TABLET (FP) PO SCH (09:24)
[2020-05-25] MEDS: LISINOPRIL 20 MG TABLET PO SCH ×2 (09:24→22:14)
[2020-05-25] MEDS: PANTOPRAZOLE 40 MG TABLET PO SCH ×2 (12:28→22:14)
[2020-05-25] MEDS: MAGNESIUM OXIDE 400 MG TABLET (FP) PO SCH (14:28)
[2020-05-25] MEDS: POTASSIUM CHLORIDE TABS 20 MEQ TABLET.ER (FP) PO SCH (14:28)
[2020-05-25] MEDS: glipiZIDE 5 MG TABLET (FP) PO SCH (17:21)
[2020-05-25] MEDS: ATORVASTATIN CA 40 MG TABLET (FP) PO SCH (22:14)
[2020-05-26] MEDS: chlordiazePOXIDE 5 MG CAPSULE PO SCH ×5 (00:15→23:35)
[2020-05-26] MEDS: GABAPENTIN 300 MG CAPSULE PO SCH ×3 (05:37→21:23)
[2020-05-26] MEDS: INSULIN SLIDING SCALE (NOVOLOG) 1 VIAL SQ SCH ×3 (06:23→17:59)
[2020-05-26] MEDS: glipiZIDE 5 MG TABLET (FP) PO SCH ×2 (06:23→16:28)
[2020-05-26] MEDS: amLODIPine BESYLATE 5 MG TABLET (FP) PO SCH (09:36)
[2020-05-26] MEDS: ASPIRIN 81 MG CHEWABLE TABLETS PO SCH (09:36)
[2020-05-26] MEDS: MAGNESIUM OXIDE 400 MG TABLET (FP) PO SCH (09:36)
[2020-05-26] MEDS: THIAMINE HCL 100 MG TABLET (FP) PO SCH (09:36)
[2020-05-26] MEDS: POTASSIUM CHLORIDE TABS 20 MEQ TABLET.ER (FP) PO SCH (09:36)
[2020-05-26] MEDS: LISINOPRIL 20 MG TABLET PO SCH ×2 (09:36→21:23)
[2020-05-26] MEDS: METOPROLOL TARTRATE 25 MG TABLET (FP) PO SCH (09:36)
[2020-05-26] MEDS: PANTOPRAZOLE 40 MG TABLET PO SCH ×2 (09:36→21:23)
[2020-05-26] MEDS ORDERED: POTASSIUM CHLORIDE TABS 20 MEQ TABLET.ER (FP) PO SCH (10:00)
[2020-05-26] MEDS ORDERED: MAGNESIUM OXIDE 400 MG TABLET (FP) PO SCH (10:00)
[2020-05-26] MEDS: ATORVASTATIN CA 40 MG TABLET (FP) PO SCH (21:23)
[2020-05-27] MEDS: GABAPENTIN 300 MG CAPSULE PO SCH ×3 (06:48→21:50)
[2020-05-27] MEDS: chlordiazePOXIDE 5 MG CAPSULE PO SCH (06:48)
[2020-05-27] MEDS: glipiZIDE 5 MG TABLET (FP) PO SCH ×2 (06:48→17:43)
[2020-05-27] MEDS: INSULIN SLIDING SCALE (NOVOLOG) 1 VIAL SQ SCH ×3 (06:49→17:43)
[2020-05-27] MEDS: METOPROLOL TARTRATE 25 MG TABLET (FP) PO SCH (09:57)
[2020-05-27] MEDS: THIAMINE HCL 100 MG TABLET (FP) PO SCH (09:57)
[2020-05-27] MEDS: PANTOPRAZOLE 40 MG TABLET PO SCH ×2 (09:57→21:51)
[2020-05-27] MEDS: ASPIRIN 81 MG CHEWABLE TABLETS PO SCH (09:57)
[2020-05-27] MEDS: LISINOPRIL 20 MG TABLET PO SCH ×2 (09:57→21:50)
[2020-05-27] MEDS: amLODIPine BESYLATE 5 MG TABLET (FP) PO SCH (09:58)
[2020-05-27] MEDS: MAGNESIUM OXIDE 400 MG TABLET (FP) PO SCH (09:58)
[2020-05-27] MEDS: POTASSIUM CHLORIDE TABS 20 MEQ TABLET.ER (FP) PO SCH (09:58)
[2020-05-27] MEDS: chlordiazePOXIDE HCL 10 MG CAPSULE PO SCH ×2 (12:44→17:44)
[2020-05-27] MEDS: ATORVASTATIN CA 40 MG TABLET (FP) PO SCH (21:50)
[2020-05-28] MEDS: GABAPENTIN 300 MG CAPSULE PO SCH ×2 (01:20→05:43)
[2020-05-28] MEDS: chlordiazePOXIDE HCL 10 MG CAPSULE PO SCH ×2 (01:20→05:43)
[2020-05-28] MEDS: ATORVASTATIN CA 40 MG TABLET (FP) PO SCH (01:21)
[2020-05-28] MEDS: PANTOPRAZOLE 40 MG TABLET PO SCH (01:21)
[2020-05-28] MEDS: LISINOPRIL 20 MG TABLET PO SCH (01:21)
[2020-05-28] MEDS: glipiZIDE 5 MG TABLET (FP) PO SCH (07:37)
[2020-05-28] MEDS: INSULIN SLIDING SCALE (NOVOLOG) 1 VIAL SQ SCH (07:37)
[2020-05-28 09:36] VITALS: BP 104/63; PULSE 107; TEMP 97
[2020-05-29] MEDS ORDERED: glipiZIDE 5 MG TABLET (FP) PO SCH (07:00)
== END 2020-05-28 09:40 | disposition other institution (70) | DRG 241 ==
LOC: JER 18:37 → SUPCPDRO 18:37 → JERBED 21:19 → OBSVTOIN 05-23 09:55 → J4W 05-23 21:21
PROVIDERS: ADMIT Internal Medicine; ATTEND Internal Medicine
PROC: HZ2ZZZZ Detoxification Services for Substance Abuse Treatment (ICD-10-PCS; principal; 2020-05-23)
DX: K29.20 Alcoholic gastritis without bleeding (principal); I10 Essential (primary) hypertension; E11.9 Type 2 diabetes mellitus without complications; F10.229 Alcohol dependence with intoxication, unspecified; R11.2 Nausea with vomiting, unspecified; F10.239 Alcohol dependence with withdrawal, unspecified; I24.8 Other forms of acute ischemic heart disease; R10.9 Unspecified abdominal pain; R79.89 Other specified abnormal findings of blood chemistry; E87.6 Hypokalemia; F41.9 Anxiety disorder, unspecified; E66.9 Obesity, unspecified; Z68.31 Body mass index [BMI] 31.0-31.9, adult; Y90.8 Blood alcohol level of 240 mg/100 ml or more
CPT/HCPCS: 36415; 71046-TC-FY; 80053; 80061; 80307; 82272; 82550; 82553; 82962; 83690; 83721; 83735; 84484; 85025; 93005; 93010; 93306-TC; 99285-25; C9803; G0378; U0003

== ENCOUNTER 2020-12-11 16:21 | Inpatient (IN) | payer OTHER ==
[2020-12-11 16:37] VITALS: BMI 31.3
[2020-12-11] MEDS ORDERED: SODIUM CHLORIDE 0.9% 500 ML INFUS.BAG IV ONE (17:54)
[2020-12-11 18:33] LABS: BASO % 0.9 % (0-2.0); HEMOGLOBIN 13.5 GM/dL (11.7-16.9); LYMPH % 30.9 % (8-40); MCH 31.2 pg (25.7-33.7); MCHC 33.9 g/dl (32.0-35.9); MEAN CELL VOLUME 92.2 fl (80-96); MEAN PLT VOLUME 6.8 fl (7.5-11.1); MONO % 11.7 % (3.8-10.2); NEUT % 53.5 % (42.8-82.8); PLATELET COUNT 387 10^3/uL (134-434); RBC 4.33 M/mm3 (4.00-5.60); RDW 15.3 % (11.9-15.9); WHITE BLOOD COUNT 6.7 K/mm3 (4.0-10.0)
[2020-12-11 18:54] LABS: CALCIUM 9.4 mg/dL (8.5-10.1)
[2020-12-11 18:55] LABS: ALBUMIN 3.8 g/dl (3.4-5.0); BLOOD UREA NITROGEN 20.2 mg/dL (7-18); MAGNESIUM 1.6 mg/dL (1.8-2.4)
[2020-12-11] MEDS ORDERED: MAGNESIUM SULF 50% (8.12 MEQ/2 ML-1 GM VIAL) IVPB ONE (18:57)
[2020-12-11 18:58] LABS: CREATININE 0.8 mg/dL (0.55-1.3)
[2020-12-11 19:00] LABS: BILIRUBIN,TOTAL 0.4 mg/dL (0.2-1); TOT PROT 7.8 g/dl (6.4-8.2)
[2020-12-11] MEDS ORDERED: ASPIRIN 81 MG CHEWABLE TABLETS PO ONE (19:07)
[2020-12-11] MEDS ORDERED: ASPIRIN 81 MG CHEWABLE TABLETS ONE (19:30)
[2020-12-11] MEDS ORDERED: MAGNESIUM SULFATE IN WATER 2 GM/50 ML IVPB IVPB ONE (19:30)
[2020-12-11] MEDS ORDERED: hydrALAZINE HCL 10 MG TABLET PO ONE (21:24)
[2020-12-11] MEDS ORDERED: POTASSIUM CHLORIDE TABS 20 MEQ TABLET.ER (FP) PO ONE ×2 (22:03→23:01)
[2020-12-12 07:57] LABS: BASO % 0.8 % (0-2.0); EOS % 4.2 % (0-4.5); HEMATOCRIT 37.7 % (35.4-49); HEMOGLOBIN 12.9 GM/dL (11.7-16.9); LYMPH % 30.7 % (8-40); MCH 31.9 pg (25.7-33.7); MCHC 34.2 g/dl (32.0-35.9); MEAN CELL VOLUME 93.1 fl (80-96); MEAN PLT VOLUME 7.5 fl (7.5-11.1); MONO % 11.5 % (3.8-10.2); NEUT % 52.8 % (42.8-82.8); PLATELET COUNT 390 10^3/uL (134-434); RBC 4.05 M/mm3 (4.00-5.60); RDW 15.1 % (11.9-15.9)
[2020-12-12 08:17] LABS: BLOOD UREA NITROGEN 12.7 mg/dL (7-18)
[2020-12-12 08:19] LABS: ALBUMIN 3.4 g/dl (3.4-5.0); CALCIUM 8.2 mg/dL (8.5-10.1)
[2020-12-12 08:20] LABS: MAGNESIUM 1.7 mg/dL (1.8-2.4)
[2020-12-12 08:22] LABS: BILIRUBIN,TOTAL 0.3 mg/dL (0.2-1); CREATININE 0.7 mg/dL (0.55-1.3); PHOSPHOROUS 2.6 mg/dL (2.5-4.9)
[2020-12-12 08:23] LABS: TOT PROT 6.9 g/dl (6.4-8.2)
[2020-12-12] MEDS ORDERED: MAGNESIUM 1GM/D5W - 1 GM/100 ML IVPB IVPB ONE (08:55)
[2020-12-12] MEDS: LISINOPRIL 20 MG TABLET PO SCH ×2 (09:44→21:34)
[2020-12-12] MEDS: METOPROLOL TARTRATE 25 MG TABLET (FP) PO SCH (09:44)
[2020-12-12] MEDS: amLODIPine BESYLATE 5 MG TABLET (FP) PO SCH (09:44)
[2020-12-12] MEDS: ASPIRIN 81 MG CHEWABLE TABLETS PO SCH (09:45)
[2020-12-12] MEDS: ENOXAPARIN NA (PORCINE) 40 MG/0.4 ML DISP.SYRIN SQ SCH (09:45)
[2020-12-12] MEDS: ATORVASTATIN CA 40 MG TABLET (FP) PO SCH (22:00)
[2020-12-13 08:16] LABS: BASO % 0.5 % (0-2.0); EOS % 3.9 % (0-4.5); HEMATOCRIT 38.9 % (35.4-49); HEMOGLOBIN 13.3 GM/dL (11.7-16.9); LYMPH % 22.1 % (8-40); MCH 31.6 pg (25.7-33.7); MCHC 34.3 g/dl (32.0-35.9); MEAN CELL VOLUME 92.1 fl (80-96); MEAN PLT VOLUME 7.3 fl (7.5-11.1); MONO % 12.2 % (3.8-10.2); NEUT % 61.3 % (42.8-82.8); PLATELET COUNT 373 10^3/uL (134-434); RBC 4.22 M/mm3 (4.00-5.60); RDW 14.9 % (11.9-15.9); WHITE BLOOD COUNT 6.2 K/mm3 (4.0-10.0)
[2020-12-13 08:27] LABS: CALCIUM 8.6 mg/dL (8.5-10.1)
[2020-12-13 08:28] LABS: BLOOD UREA NITROGEN 15.8 mg/dL (7-18); MAGNESIUM 1.7 mg/dL (1.8-2.4)
[2020-12-13 08:31] LABS: CREATININE 0.7 mg/dL (0.55-1.3)
[2020-12-13] MEDS: ENOXAPARIN NA (PORCINE) 40 MG/0.4 ML DISP.SYRIN SQ SCH (09:17)
[2020-12-13] MEDS: amLODIPine BESYLATE 5 MG TABLET (FP) PO SCH (09:17)
[2020-12-13] MEDS: ASPIRIN 81 MG CHEWABLE TABLETS PO SCH (09:17)
[2020-12-13] MEDS: METOPROLOL TARTRATE 25 MG TABLET (FP) PO SCH (09:17)
[2020-12-13] MEDS: LISINOPRIL 20 MG TABLET PO SCH ×2 (09:17→21:07)
[2020-12-13] MEDS: ATORVASTATIN CA 40 MG TABLET (FP) PO SCH (21:07)
[2020-12-14] MEDS: LISINOPRIL 20 MG TABLET PO SCH ×2 (08:06→10:42)
[2020-12-14] MEDS: amLODIPine BESYLATE 5 MG TABLET (FP) PO SCH ×2 (08:06→10:42)
[2020-12-14] MEDS ORDERED: REGADENOSON 0.4 MG/5 ML PRE-FILLED SYRINGE IVPUSH ONE ×2 (09:58→12:15)
[2020-12-14] MEDS: ENOXAPARIN NA (PORCINE) 40 MG/0.4 ML DISP.SYRIN SQ SCH (11:58)
[2020-12-14] MEDS: METOPROLOL TARTRATE 25 MG TABLET (FP) PO SCH (11:58)
[2020-12-14] MEDS: ASPIRIN 81 MG CHEWABLE TABLETS PO SCH (11:58)
[2020-12-14 15:04] VITALS: BP 150/93; PULSE 63; TEMP 97.9
== END 2020-12-14 15:35 | disposition home or self-care (01) | DRG 198 ==
LOC: JER 16:21 → JERBED 20:56 → J4W 12-12 01:44
PROVIDERS: ADMIT Internal Medicine; ATTEND Internal Medicine
DX: I24.8 Other forms of acute ischemic heart disease (principal); I10 Essential (primary) hypertension; E78.5 Hyperlipidemia, unspecified; E11.9 Type 2 diabetes mellitus without complications; F10.10 Alcohol abuse, uncomplicated; I25.2 Old myocardial infarction; I44.0 Atrioventricular block, first degree; E66.9 Obesity, unspecified; R55 Syncope and collapse; E87.6 Hypokalemia; E83.42 Hypomagnesemia; Z68.31 Body mass index [BMI] 31.0-31.9, adult; Z79.4 Long term (current) use of insulin
CPT/HCPCS: 36415; 71045-TC-FY; 78452-TC; 80048; 80053; 80061; 82550; 82553; 82962; 83036; 83721; 83735; 84100; 84443; 84484; 85025; 93005; 93010; 93017; 99285-25; A9502; C9803; J2785; U0003; U0005

== ENCOUNTER 2021-01-18 21:03 | Inpatient (IN) | payer OTHER ==
[2021-01-18 21:27] VITALS: BMI 27.3
[2021-01-18] MEDS ORDERED: MAG HYDROX/AL HYDROX/SIMETH 30 ML UNIT-DOSE CUP PO PRN (21:40)
[2021-01-18] MEDS ORDERED: ONDANSETRON *ODT* 4 MG TABLET SL PRN (21:40)
[2021-01-18] MEDS ORDERED: MAGNESIUM HYDROX 2400MG/30ML ORAL SUSPENSION 30 ML CUP PO PRN (21:40)
[2021-01-18] MEDS ORDERED: NICOTINE 10 MG CARTRIDGE (INHALER) IH PRN (21:40)
[2021-01-18] MEDS ORDERED: IBUPROFEN 400 MG TABLET (FP) PO PRN (21:40)
[2021-01-18] MEDS ORDERED: P-EPHED 60MG/TRIPROLIDI 2.5MG TABLET PO PRN (21:40)
[2021-01-18] MEDS ORDERED: diazePAM 5 MG TABLET PO PRN (21:40)
[2021-01-18] MEDS ORDERED: guaiFENesin 200 MG/10 ML 10 ML UNIT-DOSE CUPS PO PRN (21:40)
[2021-01-18] MEDS ORDERED: MENTHOL/PHENOL 1 EACH UD MM PRN (21:40)
[2021-01-18] MEDS ORDERED: MAGNESIUM CITRATE 300 ML BOTTLE PO PRN (21:40)
[2021-01-18] MEDS ORDERED: BISMUTH SUBSALICYLATE 524 MG/30 ML PO PRN (21:40)
[2021-01-18] MEDS ORDERED: ACETAMINOPHEN 325 MG TABLET (FP) PO PRN ×2 (21:40)
[2021-01-18] MEDS ORDERED: DICYCLOMINE HCL 10 MG CAPSULE PO PRN (21:40)
[2021-01-18] MEDS ORDERED: MELATONIN 5 MG TABLETS PO SCH (22:00)
[2021-01-18] MEDS: THIAMINE HCL 100 MG TABLET (FP) PO SCH (23:05)
[2021-01-18] MEDS: diazePAM 5 MG TABLET PO SCH (23:06)
[2021-01-18] MEDS: INSULIN SLIDING SCALE (NOVOLOG) 1 VIAL SQ SCH (23:12)
[2021-01-19] MEDS: diazePAM 5 MG TABLET PO SCH ×4 (05:41→22:11)
[2021-01-19] MEDS: INSULIN SLIDING SCALE (NOVOLOG) 1 VIAL SQ SCH ×4 (06:37→22:12)
[2021-01-19] MEDS: VALSARTAN 160 MG TABLET PO SCH (10:38)
[2021-01-19] MEDS: amLODIPine BESYLATE 10 MG TABLET (FP) PO SCH (10:38)
[2021-01-19] MEDS: ESCITALOPRAM OXALATE 10 MG TABLET PO SCH (10:38)
[2021-01-19] MEDS: PRENATAL VITAMINS W/ FOLIC ACID TABLET (FP) PO SCH (10:38)
[2021-01-19] MEDS: ASPIRIN 81 MG CHEWABLE TABLETS PO SCH (10:38)
[2021-01-19 10:42] LABS: HEMATOCRIT 40.4 % (35.4-49); MCH 32.2 pg (25.7-33.7); MCHC 34.6 g/dl (32.0-35.9); MEAN PLT VOLUME 7.9 fl (7.5-11.1); PLATELET COUNT 298 10^3/uL (134-434); RBC 4.34 M/mm3 (4.00-5.60); RDW 14.8 % (11.9-15.9); WHITE BLOOD COUNT 8.4 K/mm3 (4.0-10.0)
[2021-01-19 10:57] LABS: ALBUMIN 3.6 g/dl (3.4-5.0); BLOOD UREA NITROGEN 12.3 mg/dL (7-18); CALCIUM 8.5 mg/dL (8.5-10.1)
[2021-01-19 11:01] LABS: CREATININE 1.2 mg/dL (0.55-1.3)
[2021-01-19 11:02] LABS: BILIRUBIN,TOTAL 0.6 mg/dL (0.2-1); TOT PROT 7.5 g/dl (6.4-8.2)
[2021-01-19] MEDS: metFORMIN HCL 500 MG TABLET (FP) PO SCH (17:12)
[2021-01-19] MEDS: THIAMINE HCL 100 MG TABLET (FP) PO SCH (22:07)
[2021-01-19] MEDS: ATORVASTATIN CA 20 MG TABLET (FP) PO SCH (22:07)
[2021-01-19] MEDS: MELATONIN 5 MG TABLETS PO PRN (22:08)
[2021-01-19] MEDS: METHOCARBAMOL 500 MG TABLET PO PRN (22:12)
[2021-01-19] MEDS: hydrOXYzine PAMOATE 25 MG CAPSULE (FP) PO PRN (22:12)
[2021-01-20] MEDS: diazePAM 5 MG TABLET PO SCH ×3 (06:23→22:17)
[2021-01-20] MEDS: metFORMIN HCL 500 MG TABLET (FP) PO SCH ×2 (06:24→17:29)
[2021-01-20] MEDS: INSULIN SLIDING SCALE (NOVOLOG) 1 VIAL SQ SCH ×4 (06:25→22:16)
[2021-01-20] MEDS: amLODIPine BESYLATE 10 MG TABLET (FP) PO SCH (10:12)
[2021-01-20] MEDS: VALSARTAN 160 MG TABLET PO SCH (10:12)
[2021-01-20] MEDS: ASPIRIN 81 MG CHEWABLE TABLETS PO SCH (10:13)
[2021-01-20] MEDS: PRENATAL VITAMINS W/ FOLIC ACID TABLET (FP) PO SCH (10:13)
[2021-01-20] MEDS: ESCITALOPRAM OXALATE 10 MG TABLET PO SCH (10:15)
[2021-01-20] MEDS: THIAMINE HCL 100 MG TABLET (FP) PO SCH (22:15)
[2021-01-20] MEDS: ATORVASTATIN CA 20 MG TABLET (FP) PO SCH (22:15)
[2021-01-20] MEDS: MELATONIN 5 MG TABLETS PO PRN (22:15)
[2021-01-20] MEDS: METHOCARBAMOL 500 MG TABLET PO PRN (22:16)
[2021-01-20] MEDS: hydrOXYzine PAMOATE 25 MG CAPSULE (FP) PO PRN (22:17)
[2021-01-21] MEDS: diazePAM 5 MG TABLET PO SCH ×2 (05:39→17:28)
[2021-01-21] MEDS: INSULIN SLIDING SCALE (NOVOLOG) 1 VIAL SQ SCH ×4 (06:46→22:18)
[2021-01-21] MEDS: metFORMIN HCL 500 MG TABLET (FP) PO SCH ×2 (07:56→17:27)
[2021-01-21] MEDS: ASPIRIN 81 MG CHEWABLE TABLETS PO SCH (10:31)
[2021-01-21] MEDS: PRENATAL VITAMINS W/ FOLIC ACID TABLET (FP) PO SCH (10:31)
[2021-01-21] MEDS: ESCITALOPRAM OXALATE 10 MG TABLET PO SCH (10:31)
[2021-01-21] MEDS: amLODIPine BESYLATE 10 MG TABLET (FP) PO SCH (10:31)
[2021-01-21] MEDS: VALSARTAN 160 MG TABLET PO SCH (10:32)
[2021-01-21] MEDS ORDERED: LOPERAMIDE HCL 2 MG CAPSULE PO PRN (11:25)
[2021-01-21] MEDS ORDERED: DIPHENOXYLATE 2.5/ATROPINE.025 1 COMBO TABLET PO ONE (12:06)
[2021-01-21] MEDS: MELATONIN 5 MG TABLETS PO PRN (22:18)
[2021-01-21] MEDS: ATORVASTATIN CA 20 MG TABLET (FP) PO SCH (22:18)
[2021-01-21] MEDS: THIAMINE HCL 100 MG TABLET (FP) PO SCH (22:18)
[2021-01-21] MEDS: hydrOXYzine PAMOATE 25 MG CAPSULE (FP) PO PRN (22:20)
[2021-01-21] MEDS: METHOCARBAMOL 500 MG TABLET PO PRN (22:20)
[2021-01-22] MEDS ORDERED: diazePAM 5 MG TABLET PO ONE (06:00)
[2021-01-22] MEDS: metFORMIN HCL 500 MG TABLET (FP) PO SCH (06:55)
[2021-01-22] MEDS: INSULIN SLIDING SCALE (NOVOLOG) 1 VIAL SQ SCH ×2 (07:24→12:40)
[2021-01-22] MEDS ORDERED: INSULIN SLIDING SCALE (NOVOLOG) 1 VIAL SQ ONE (07:27)
[2021-01-22] MEDS: ESCITALOPRAM OXALATE 10 MG TABLET PO SCH (10:27)
[2021-01-22] MEDS: amLODIPine BESYLATE 10 MG TABLET (FP) PO SCH (10:27)
[2021-01-22] MEDS: VALSARTAN 160 MG TABLET PO SCH (10:27)
[2021-01-22] MEDS: ASPIRIN 81 MG CHEWABLE TABLETS PO SCH (10:28)
[2021-01-22] MEDS: PRENATAL VITAMINS W/ FOLIC ACID TABLET (FP) PO SCH (10:28)
[2021-01-22 10:30] LABS: SGOT/AST 83 U/L (15-37); SGPT/ALT 131 U/L (13-61)
[2021-01-22 13:11] VITALS: BP 147/97; PULSE 98; TEMP 97.8
== END 2021-01-22 13:57 | disposition home or self-care (01) | DRG 775 ==
LOC: YASAS 21:03 → Y3N 22:14
PROVIDERS: ADMIT Allergy & Immunology; ATTEND Allergy & Immunology
PROC: HZ2ZZZZ Detoxification Services for Substance Abuse Treatment (ICD-10-PCS; principal; 2021-01-18)
DX: F10.230 Alcohol dependence with withdrawal, uncomplicated (principal); F10.280 Alcohol dependence with alcohol-induced anxiety disorder; F10.24 Alcohol dependence with alcohol-induced mood disorder; F41.9 Anxiety disorder, unspecified; F32.9 Major depressive disorder, single episode, unspecified; I10 Essential (primary) hypertension; E78.00 Pure hypercholesterolemia, unspecified; E11.65 Type 2 diabetes mellitus with hyperglycemia; Z79.4 Long term (current) use of insulin; M54.31 Sciatica, right side; M54.16 Radiculopathy, lumbar region; R74.8 Abnormal levels of other serum enzymes; Z91.14 Patient's other noncompliance with medication regimen; Z59.0 Homelessness
CPT/HCPCS: 36415; 80053; 82962; 84450; 84460; 85027; 86780; 93005; 93010; C9803; Q0162; U0003; U0005